=== PATIENT | male | born 1960 | race Caucasian/White ===

== ENCOUNTER 2018-07-26 16:22 | Observation (INO) | payer OTHER, SELFPAY ==
[2018-07-26] VITALS (9 sets, daily range): BP systolic 99–153; BP diastolic 57–86; PULSE 73–137; RESP 14–18; TEMP 36.7–36.9; O2SAT 95–98; BMI 49.4; BMI 49.7
--- NOTE | 2018-07-26 16:46 | EKG12_ITS ---
Test Reason : RHYTHM CHANGE Blood Pressure : / mmHG Vent. Rate : 070 BPM Atrial Rate : 070 BPM P-R Int : 152 ms QRS Dur : 088 ms QT Int : 404 ms P-R-T Axes : 040 001 021 degrees QTc Int : 436 ms Normal sinus rhythm Possible Inferior infarct , age undetermined Abnormal ECG Confirmed by ALANIS CABRERA, VIOLETTA ([id number]), newspaper or periodical editor ED BOND ([id number]) on 07/29/2018 10:50:35 AM Referred By: Sharad Ludwig Confirmed By:VIOLETTA THAPA MD
--- NOTE | 2018-07-26 16:46 | RAD_ITS ---
STUDY: X-RAY CHEST REASON FOR EXAM: Male, 58 years old. Chest pain TECHNIQUE: Single AP portable view of the chest. COMPARISON: None. FINDINGS: There are monitoring devices. The lungs are clear. There is elevation of the right hemidiaphragm. There is pleural fibrotic scarring of the left costophrenic angle. There is mild cardiac enlargement. Normal mediastinum and bonnie. Normal visualized pulmonary arteries. Normal visualized aortic arch and descending thoracic aorta. There are diffuse degenerative changes of the visualized thoracic spine. Normal visualized ribs, clavicles, and shoulders. There is no demonstrated abnormality of the visualized soft tissue structures of the upper abdomen. RAD/Chest 1 View (Portable) IMPRESSION: Degenerative changes, as described above. No demonstrated acute cardiopulmonary process. Electronically Signed: Mehdi Machuca MD at 17:45 EST , Service support ,
--- NOTE | 2018-07-26 17:09 | ED.VISSUMM ---
- ER Visit Summary Date of Service: 07/26/18 Chief Complaint: Heart racing History of Present Illness: The patient is a 58 M with history of paroxysmal atrial fibrillation presents for heart racing since last night. Patient states while he was asleep he noted his heart began racing. It has been continuous since then. He has had dry heaves today, but states he has been having them intermittently for the last 2 years. Otherwise no chest pain, shortness of breath, abdominal pain, back pain, vomiting, fever, lightheadedness or dizziness. Patient states he just feels very low energy today. He has history of diabetes and A. fib. He is on baby aspirin and metoprolol daily. He is not on anticoagulation and is not in A. fib at baseline. 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 Physical Examination: Vital signs: afebrile, hemodynamically stable, no hypoxia on room air General: well nourished, well developed, laying in bed, pale and diaphoretic, in mild distress Skin: warm, diaphoretic, pale HEENT: normocephalic and atraumatic; PERRL, EOMI, moist mucous membranes Cardiovascular: Irregularly irregular tachycardia without murmurs, no peripheral edema, 2+ pulses all distal extremities Respiratory: No increased work of breathing, lungs are clear to auscultation bilaterally, no rales, rhonchi or wheezing Abdominal: Abdomen is soft, nontender with normoactive bowel sounds, no guarding or rebound, no masses MSK: Moves all extremities, no deformities, normal strength Neuro: Awake and alert, oriented ?4. No facial droop, sensation and motor function intact and symmetric Test Results: Abnormal Lab Results 07/26/18 07/26/18 07/26/18 16:55 16:55 17:45 WBC 8.8 RBC 5.26 Hgb 15.1 Hct 46.2 MCV 87.8 MCH 28.7 MCHC 32.7 RDW 13.9 RDW Differential 44.7 H Plt Count 246 MPV 10.7 Immature Gran % (Auto) 0.300 Neut % (Auto) 66.5 Lymph % (Auto) 25.5 [place] % (Auto) 6.6 Eos % (Auto) 0.9 Baso % (Auto) 0.2 Absolute Neuts (auto) 5.8 Absolute Lymphs (auto) 2.24 Total Counted Not Reportable PT 13.9 INR 1.1 APTT 23.9 L Sodium 142 Potassium 3.8 Chloride 110 H Carbon Dioxide 24.0 Anion Gap 8 BUN 19 H Creatinine 1.22 Estim Creat Clear Calc 60.20 Est GFR (MDRD) Af Amer 78 Est GFR (MDRD) Non-Af 64 BUN/Creatinine Ratio 15.6 Glucose 164 H Calcium 9.0 Troponin I < 0.015 Clinical Impression(s) from Imaging Studies Chest X-Ray 07/26/18 16:46 IMPRESSION: Degenerative changes, as described above. No demonstrated acute cardiopulmonary process. Electronically Signed: Mehdi Machuca MD at 17:45 EST , Service support , Medications Given Discontinued Medications Aspirin (Aspirin, Baby) 324 mg PO X1 ONE Stop: 07/26/18 17:09 Last Admin: 07/26/18 17:19 Dose: 324 mg Diltiazem HCl (Cardizem) 20 mg IV BOLUS X1 ONE Stop: 07/26/18 17:09 Last Admin: 07/26/18 17:20 Dose: 20 mg Diltiazem HCl (Cardizem Cd) 120 mg PO X1 ONE Stop: 07/26/18 18:22 Emergency Department Course and Treatment: EKG shows atrial fibrillation with a rapid ventricular rate, no ischemic changes noted. Patient does appear pale and diaphoretic. Attempted vagal maneuver with patient blowing into a syringe for 30 seconds followed by laying him flat with legs elevated. Patient's heart rate slowed down briefly into the high 90s but then resumed A. fib with RVR. Patient was given Cardizem IV. Patient knows onset of his symptoms was during the night for the heart racing, however it is unclear if he could have been in normal rate atrial fibrillation prior to that. Patient is not anticoagulated. Patient had rate control after one IV bolus of Cardizem. Troponin negative. EKG showed A. fib with RVR with some nonspecific T wave inversions but no ST changes. After rate control, patient was feeling better and was no longer diaphoretic or is pale. Labs were otherwise unremarkable. Patient was discussed with Dr. Flood, who agreed that patient should be admitted for anticoagulation prior to rhythm conversion since it is unclear exactly how long he has been in atrial fibrillation. Patient was given a dose of 120 mg oral long-acting Cardizem as well as started on Eliquis. Dr. Flood will evaluate him in the morning. Patient will be discussed with the hospitalist for admission. Critical care time of 35 minutes independent of separately billable procedures for initial evaluation and stabilization, coordination of care, discussion with specialist and hospitalist, frequent re-evaluations, interpretation of EKG and lab work, and documentation. Treatment Plan: [] Disposition: [] Impression: A. fib with RVR This note was generated with [employer] dictation software. It may contain incorrect words, spelling, and punctuation that were not noted in review of the chart prior to signing ED Disposition - Plan for ED Patient: Disposition: Acute Care Hospital [facility] Chief Complaint: Palpitations
[2018-07-26 17:10] LABS: Absolute Lymphocyte Count 2.24 X10^3/ul (0.83-4.51); Absolute Neutrophil Count 5.8 X10^3/uL (2.0-7.7); Basophil# 0.02 X10^3/uL; Basophil% 0.2 % (0-1); Eosinophil# 0.08 X10^3/uL; Eosinophils% 0.9 % (0-5); Hematocrit 46.2 % (40-54); Hemoglobin 15.1 g/dl (13.0-16.5); Lymphocyte # 2.24 X10^3/ul (4.0); Lymphocyte % 25.5 % (19-41); Mean Corp Hgb Conc 32.7 g/gl (32-36); Mean Corpuscular Hgb 28.7 pg (27.0-32.0); Mean Corpuscular Volume 87.8 fL (80-94); Mean Platelet Vol. 10.7 fl (6.2-12.0); Monocyte# 0.58 X10^3/uL; Monocyte% 6.6 % (0-10); Neutrophil # 5.82 X10^3/uL (2.7-7.7); Neutrophil % 66.5 % (47-70); Platelet Count 246 K/mm3 (150-450); RBC Distribution Width CV 13.9 % (11.6-14.6); RBC Distribution Width SD 44.7 fl (35.1-43.9); Red Blood Count 5.26 M/mm3 (4.6-6.2); White Blood Count 8.8 K/mm3 (4.4-11.0)
--- NOTE | 2018-07-26 17:12 | ED.DCSUM_ITS ---
- ER Visit Summary Date of Service: 07/26/18 Chief Complaint: Heart racing History of Present Illness: The patient is a 58 M with history of paroxysmal atrial fibrillation presents for heart racing since last night. Patient states while he was asleep he noted his heart began racing. It has been continuous since then. He has had dry heaves today, but states he has been having them intermittently for the last 2 years. Otherwise no chest pain, shortness of breath, abdominal pain, back pain, vomiting, fever, lightheadedness or dizziness. Patient states he just feels very low energy today. He has history of diabetes and A. fib. He is on baby aspirin and metoprolol daily. He is not on anticoagulation and is not in A. fib at baseline. 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 Physical Examination: Vital signs: afebrile, hemodynamically stable, no hypoxia on room air General: well nourished, well developed, laying in bed, pale and diaphoretic, in mild distress Skin: warm, diaphoretic, pale HEENT: normocephalic and atraumatic; PERRL, EOMI, moist mucous membranes Cardiovascular: Irregularly irregular tachycardia without murmurs, no peripheral edema, 2+ pulses all distal extremities Respiratory: No increased work of breathing, lungs are clear to auscultation bilaterally, no rales, rhonchi or wheezing Abdominal: Abdomen is soft, nontender with normoactive bowel sounds, no guarding or rebound, no masses MSK: Moves all extremities, no deformities, normal strength Neuro: Awake and alert, oriented ?4. No facial droop, sensation and motor function intact and symmetric Test Results: Abnormal Lab Results 07/26/18 07/26/18 07/26/18 16:55 16:55 17:45 WBC 8.8 RBC 5.26 Hgb 15.1 Hct 46.2 MCV 87.8 MCH 28.7 MCHC 32.7 RDW 13.9 RDW Differential 44.7 H Plt Count 246 MPV 10.7 Immature Gran % (Auto) 0.300 Neut % (Auto) 66.5 Lymph % (Auto) 25.5 [place] % (Auto) 6.6 Eos % (Auto) 0.9 Baso % (Auto) 0.2 Absolute Neuts (auto) 5.8 Absolute Lymphs (auto) 2.24 Total Counted Not Reportable PT 13.9 INR 1.1 APTT 23.9 L Sodium 142 Potassium 3.8 Chloride 110 H Carbon Dioxide 24.0 Anion Gap 8 BUN 19 H Creatinine 1.22 Estim Creat Clear Calc 60.20 Est GFR (MDRD) Af Amer 78 Est GFR (MDRD) Non-Af 64 BUN/Creatinine Ratio 15.6 Glucose 164 H Calcium 9.0 Troponin I < 0.015 Clinical Impression(s) from Imaging Studies Chest X-Ray 07/26/18 16:46 IMPRESSION: Degenerative changes, as described above. No demonstrated acute cardiopulmonary process. Electronically Signed: Mehdi Machuca MD at 17:45 EST , Service support , Medications Given Discontinued Medications Aspirin (Aspirin, Baby) 324 mg PO X1 ONE Stop: 07/26/18 17:09 Last Admin: 07/26/18 17:19 Dose: 324 mg Diltiazem HCl (Cardizem) 20 mg IV BOLUS X1 ONE Stop: 07/26/18 17:09 Last Admin: 07/26/18 17:20 Dose: 20 mg Diltiazem HCl (Cardizem Cd) 120 mg PO X1 ONE Stop: 07/26/18 18:22 Emergency Department Course and Treatment: EKG shows atrial fibrillation with a rapid ventricular rate, no ischemic changes noted. Patient does appear pale and diaphoretic. Attempted vagal maneuver with patient blowing into a syringe for 30 seconds followed by laying him flat with legs elevated. Patient's heart rate slowed down briefly into the high 90s but then resumed A. fib with RVR. Patient was given Cardizem IV. Patient knows onset of his symptoms was during the night for the heart racing, however it is unclear if he could have been in normal rate atrial fibrillation prior to that. Patient is not anticoagulated. Patient had rate control after one IV bolus of Cardizem. Troponin negative. EKG showed A. fib with RVR with some nonspecific T wave inversions but no ST changes. After rate control, patient was feeling better and was no longer diaphoretic or is pale. Labs were otherwise unremarkable. Patient was discussed with Dr. Flood, who agreed that patient should be admitted for anticoagulation prior to rhythm conversion since it is unclear exactly how long he has been in atrial fibrillation. Patient was given a dose of 120 mg oral l raiza-acting Cardizem as well as started on Eliquis. Dr. Flood will evaluate him in the morning. Patient will be discussed with the hospitalist for admission. Critical care time of 35 minutes independent of separately billable procedures for initial evaluation and stabilization, coordination of care, discussion with specialist and hospitalist, frequent re-evaluations, interpretation of EKG and lab work, and documentation. Treatment Plan: [] Disposition: [] Impression: A. fib with RVR This note was generated with [employer] dictation software. It may contain incorrect words, spelling, and punctuation that were not noted in review of the chart prior to signing ED Disposition - Plan for ED Patient: Disposition: Acute Care Hospital [facility] Chief Complaint: Palpitations
[2018-07-26] MEDS: Aspirin 81 MG TAB.CHEW 324 MG PO (17:19)
[2018-07-26] MEDS: dilTIAZem 25 MG/5 ML Vial 20 MG IV BOLUS (17:20)
[2018-07-26 17:21] LABS: POSITIVE COUNT NO; POSITIVE DIFFERENTIAL NO; POSITIVE MORPHOLOGY NO
[2018-07-26 17:31] LABS: Anion Gap 8 (5-15); BUN 19 mg/dL (7-18); BUN/Creat Ratio 15.6 RATIO (10-20); Chloride 110 mmol/L (98-107); Creatinine, Serum 1.22 mg/dL (0.70-1.30); EST Glomerular Filtration Rate 64 mL/min (>60); Est Glom Filt Rate - Afr Amer 78 mL/min (>60); Glucose 164 mg/dL (74-106); Potassium 3.8 mmol/L (3.5-5.1); Sodium Level 142 mmol/L (136-145)
[2018-07-26 18:04] LABS: International Normalized Ratio 1.1; Prothrombin Time (Protime)PT. 13.9 SECONDS (11.7-14.9)
[2018-07-26 18:05] LABS: Partial Thromboplast Time 23.9 Seconds (24.1-36.2)
[2018-07-26] MEDS: APIXABAN 5 MG TABLET PO (18:36)
[2018-07-26] MEDS: dilTIAZem CD 120 MG Capsule PO (18:36)
--- NOTE | 2018-07-26 19:51 | HP.PCM_ITS ---
Problem List (1) Atrial fibrillation with RVR Status: Acute History of Present Illness Date of Admission: 07/26/18 Chief Complaint: fatigue The patient is a 58 year old M presents with 1 day history of fatigue. Patient awoke today just feeling very fatigued overall. Did not get better and so sought attention. Patient was noted to be in atrial fibrillation with RVR. Received 20 mg of IV diltiazem and then 120 mg of diltiazem and has been rate controlled since then. Patient additionally received 5 mg of Eliquis and turn 24 mg of aspirin. Patient states that he has had a chronic history of atrial fibrillation and was in and out of it. Patient states that he does not know when he goes into it because he just feels very fatigued but usually events are very short-lived. Patient was following up with Dr. Wasserman but since Dr. Wasserman left he has not reestablish cardiac care. Patient did state that he had a episode last day and a half but never sought attention for it. [] Past Medical History Medical History: Medical History (Last Updated 07/26/18 @ 19:48 by Sharad Ludwig DO) Afib I48.91 Allergies No Known Allergies Allergy (Verified 07/26/18 16:25) Home Medications: Ambulatory Orders Medication Instructions Recorded Aspirin E.C. [Ecotrin] 81 mg PO DAILY@0800 07/26/18 Esomeprazole Magnesium 40 mg PO QWEEK 07/26/18 Fenofibrate 160 mg PO DAILY 07/26/18 Fluticasone Propionate 2 spray NASAL DAILY 07/26/18 Metformin(XR) [Glucophage Xr] 500 mg PO DAILY 07/26/18 Metoprolol Succinate 50 mg PO DAILY 07/26/18 Multivit-Min/FA/Lycopen/Lutein 1 tab PO DAILY 07/26/18 [Centrum Silver Men Tablet] Smoking Status: Never smoker Tobacco Use: Non-smoker Alcohol: Rare Drugs: None - *Family History Maternal History Items: Heart Disease - CHF Review of Systems Constitutional: Reports: Malaise, Weakness, Fatigue. Denies: Anorexia, Chills, Fever Eyes: Denies: Blurred vision, Double vision HEENT: Denies: Head Aches, Sinus Congestion, Sinus Drainage Cardiovascular: Denies: Chest Pain, Palpitations Respiratory: Denies: Cough, Shortness of breath at rest, Sputum production Gastrointestinal: Denies: Abdominal Pain, Nausea, Vomiting Genitourinary: Denies: Dysuria Musculoskeletal: Denies: Joint Pain, Joint Tenderness Skin: Denies: Rash, Wounds Neurological: Denies: Balance problems, Change in Speech Psychiatric: Denies: Anxiety, Depression Endocrine: Denies: Change in Body Habitus, Heat/ Cold Intolerance Hematologic/ Lymphatic: Denies: Easy Bruising, Easy Bleeding, Hx of blood clot Comment: A 10 point review of systems were negative except as mentioned in the history of present illness and the other review of systems. VTE Information - Inpt Only VTE Present on Admission: No VTE Pharm Prophylaxis ordered?: Yes Patient Problems: Active and Suspected Problems Atrial fibrillation with RVR (Acute) - Physical Exam General: Alert, Cooperative, No apparent distress HEENT: Atraumatic, Normocephalic Oral: Moist Mucosa, No Gingival or Mucosal Lesions/ Ulcerations Neck: No Nodes, Thyroid Normal Size and Texture Lungs: Clear to auscultation, Normal air movement, No rhonchi, No wheeze Cardiovascular: Normal S1, Normal S2, Irregular Rate Abdomen: Bowel Sounds Present, Soft, Non Tender, Non-Distended, No Hepato- splenomegaly Extremities: No edema, No Calf Tenderness Skin: No rashes, No breakdown Musculoskeletal: No Tenderness to Palpation of Joints or Extremities, No Muscle Wasting Psych/Mental Status: Normal Affect, Appropriate Vital Signs Temp Pulse Resp BP Pulse Ox 36.9 C 91 16 99/81 H 98 07/26/18 19:04 07/26/18 19:04 07/26/18 19:04 07/26/18 19:04 07/26/18 19:04 Oxygen Delivery Method Room Air Weight: 144 kg Body Mass Index (BMI) 49.7 Laboratory Tests Past 24 Hrs 07/26/18 07/26/18 07/26/18 16:55 16:55 17:45 WBC 8.8 RBC 5.26 Hgb 15.1 Hct 46.2 MCV 87.8 MCH 28.7 MCHC 32.7 RDW 13.9 RDW Differential 44.7 H Plt Count 246 MPV 10.7 Immature Gran % (Auto) 0.300 Neut % (Auto) 66.5 Lymph % (Auto) 25.5 [place] % (Auto) 6.6 Eos % (Auto) 0.9 Baso % (Auto) 0.2 Absolute Neuts (auto) 5.8 Absolute Lymphs (auto) 2.24 Total Counted Not Reportable PT 13.9 INR 1.1 APTT 23.9 L Sodium 142 Potassium 3.8 Chloride 110 H Carbon Dioxide 24.0 Anion Gap 8 BUN 19 H Creatinine 1.22 Estim Creat Clear Calc 60.20 Est GFR (MDRD) Af Amer 78 Est GFR (MDRD) Non-Af 64 BUN/Creatinine Ratio 15.6 Glucose 164 H Calcium 9.0 Troponin I < 0.015 Assessment/Plan All Active Problems Atrial fibrillation with RVR (Acute) 1. Atrial fibrillation with RVR Currently rate controlled Continue with the patient's metoprolol succinate for now and await further cardiology recommendations on long-term management. Continue with Eliquis as his A. fib is paroxysmal Echocardiogram Cardiology consult Check records from Dr. Wasserman's office 2. DVT prophylaxis: Patient is anticoagulated Code Visit Inpatient E&M: 09067 Init Hosp L2
--- NOTE | 2018-07-26 19:58 | ECHOCS_ITS ---
Reason For Study: AFIB Procedure This was a 2D Doppler, Color Flow transthoracic echocardiogram. Contrast injection was performed. Technically difficult due to patient body habitus. Exam performed portable in patient room. Left Ventricle Normal LV size. Mild concentric left ventricular hypertrophy. Left ventricular systolic function is normal. The estimated ejection fraction is 65 %. No evidence for diastolic dysfunction. No regional wall motion abnormalities noted. Atria The left atrium is moderately enlarged. Normal right atrium. Mitral Valve Normal mitral valve. Tricuspid Valve Normal tricuspid valve. Unable to estimate RV systolic pressure due to inadequate jet, pulmonary artery pressure probably normal. Aortic Valve The aortic valve is not well visualized. Pulmonic Valve The pulmonic valve is not well visualized. Great Vessels Normal aortic root. Pericardium/Pleural No pericardial effusion. Medication Diluted definity 4ml given slow IV push to enhance endocardial definition. MMode/2D Measurements & Calculations LVIDd: 4.6 cm IVSd: 1.2 cm Ao root diam: 3.5 cm LVIDs: 2.3 cm LVPWd: 1.4 cm LA dimension: 4.1 cm RVDd: 4.6 cm FS: 50.5 % LAV(MOD-sp4): 81.3 ml LA A4 area: 25.6 cm2 RA A4 area: 17.9 cm2 Time Measurements MV dec time: 0.20 sec Doppler Measurements & Calculations MV E max gato: 82.0 cm/sec Lat Peak E' Gato: 13.0 cm/sec Med Peak E' Gato: 9.6 cm/sec MV A max gato: 53.6 cm/sec E/E' lat: 6.3 E/E' med: 8.6 MV E/A: 1.5 MV V2 max: 80.9 cm/sec MV P1/2t max gato: 81.5 cm/sec Ao V2 max: 133.5 cm/sec MV max P.6 mmHg MV P1/2t: 89.9 msec Ao max P.1 mmHg MV V2 mean: 45.8 cm/sec MV dec slope: 265.7 cm/sec2 MV mean P.96 mmHg MV V2 VTI: 22.7 cm MVA(P1/2t): 2.4 cm2 LV V1 max: 109.1 cm/sec PA V2 max: 86.7 cm/sec LV V1 max P.8 mmHg Interpretation Summary Normal LV size. Mild concentric left ventricular hypertrophy. Left ventricular systolic function is normal. The estimated ejection fraction is 65 %. No evidence for diastolic dysfunction. Contrast injection was performed. Ordering Physician: Sharad Ludwig Referring Physician: Carter Nicole Performed By: Nilson Springer RCS
--- NOTE | 2018-07-26 21:03 | EKG12_ITS ---
Test Reason : CP Blood Pressure : / mmHG Vent. Rate : 128 BPM Atrial Rate : 131 BPM P-R Int : 000 ms QRS Dur : 088 ms QT Int : 342 ms P-R-T Axes : 000 021 002 degrees QTc Int : 499 ms Atrial fibrillation with rapid ventricular response Nonspecific ST and T wave abnormality Abnormal ECG Confirmed by ALANIS CABRERA, VIOLETTA ([id number]), clinical editor ED BOND ([id number]) on 07/28/2018 3:26:10 PM Referred By: Sharad Ludwig Confirmed By:VIOLETTA THAPA MD
[2018-07-26] MEDS: 0.9% NaCl Peripheral Flush Adult/Peds IV (22:03)
[2018-07-26 22:11] LABS: Bedside Glucose 131 mg/dL (70-110)
[2018-07-27] VITALS (7 sets, daily range): BP systolic 112–125; BP diastolic 70–76; PULSE 60–76; RESP 16–18; TEMP 36.4–36.8; O2SAT 94–98
--- NOTE | 2018-07-27 06:29 | PCM.CONS.C ---
Reason for Consult Date of Consultation: 07/27/18 Reason for Consultation: Fast heartbeat. History of Present Illness: The patient is a 58 year old M presents with 1 day history of fatigue. He has a previous history of paroxysmal atrial fibrillation but was managed medically. He said that he had been started on a CPAP mask by his previous rn night to see whether it would help. On the day of presentation he woke up feeling very fatigued presented to the emergency room was noted to be in atrial fibrillation with rapid ventricular response rate. He received 20 mg of intravenous diltiazem in the ER physician called me for further assistance. It was decided to place the patient on Eliquis as well as give him a dose of oral diltiazem with hopes that he would convert in the night. He denies any chest pain or paroxysmal nocturnal dyspnea or pedal edema he has had no neck arm or jaw discomfort to suggest angina. Through the night the patient converted back to sinus rhythm. Past Medical History Allergies/Adverse Reactions: Allergies No Known Allergies Allergy (Verified 07/26/18 16:25) Home Medications: Ambulatory Orders Medication Instructions Recorded Aspirin E.C. [Ecotrin] 81 mg PO DAILY@0800 07/26/18 Esomeprazole Magnesium 40 mg PO QWEEK 07/26/18 Fenofibrate 160 mg PO DAILY 07/26/18 Fluticasone Propionate 2 spray NASAL DAILY 07/26/18 Metformin(XR) [Glucophage Xr] 500 mg PO DAILY 07/26/18 Metoprolol Succinate 50 mg PO DAILY 07/26/18 Multivit-Min/FA/Lycopen/Lutein 1 tab PO DAILY 07/26/18 [Centrum Silver Men Tablet] - *Family History Maternal History Items: Heart Disease - CHF Smoking Status: Never smoker Tobacco Use: Non-smoker Alcohol: Rare Drugs: None Review of Systems - Review of Systems General: Reports: Fatigue, Malaise. Denies: Fever, Night Sweats HEENT: Denies: Vision Change Cardiovascular: Denies: Chest Discomfort, Shortness of Breath, Orthopnea, PND, Peripheral Edema, Palpitations, Lightheadedness, Dizziness, Near Syncope, Syncope Respiratory: Denies: Cough, Sputum Production, Hemoptysis Gastrointestinal: Denies: Hematemesis, Hematochezia, Melena Genitourinary: Denies: Dysuria, Hematuria Muscoloskeletal: Denies: Myalgias Skin: Denies: Rash Neurological: Denies: Dizziness Psychiatric: Denies: Anxiety Endocrine: Denies: Unexplained Weight Loss Hematologic/ Lymphatic: Denies: Anemia Subjectve: Pleasant gentleman in no apparent distress Objective: Vital Signs Temp Pulse Resp BP Pulse Ox 97.6 F L 67 18 112/76 98 07/27/18 04:00 07/27/18 06:13 07/27/18 04:00 07/27/18 04:00 07/27/18 04:00 Oxygen Delivery Method CPAP Weight: 317 lb 7.45 oz Body Mass Index (BMI) 49.7 Intake and Output for Last 24 Hours 07/25/18 07/26/18 07/27/18 23:59 23:59 23:59 Intake Total 220 / 220 Balance 220 / 220 General: Awake, Alert, Oriented x 3 HEENT: PERRL, EOMI, Sclera Non Icteric Neck: Supple, Good ROM, No Lymph Node Enlargement Lungs: Clear to auscultation Cardiovascular: Regular Rhythm, Normal S1, Normal S2, No Murmurs, No Rubs, No Gallops Vascular: No Carotid Bruits, Normal Femoral Pulses, Normal Radial Pulses, Normal Dorsalis Pedal Pulse, Normal Posterior Tibial Pulses Abdomen: Bowel Sounds Present, Soft, Non Tender, No HSM, No Organomegaly Extremities: No Cyanosis, No Clubbing, No edema Musculoskeletal: No Erythema Skin: No Rashes Lymphatic: No Lymph Node Enlargement Neurological: No Focal Motor or Sensory Deficit Psych/Mental Status: Appropriate 07/26/18 16:55: WBC 8.8, RBC 5.26, Hgb 15.1, Hct 46.2, MCV 87.8, MCH 28.7, MCHC 32.7, RDW 13.9, RDW Differential 44.7 H, Plt Count 246, MPV 10.7, Immature Gran % (Auto) 0.300, Neut % (Auto) 66.5, Lymph % (Auto) 25.5, [place] % (Auto) 6.6, Eos % (Auto) 0.9, Baso % (Auto) 0.2, Absolute Neuts (auto) 5.8, Total Counted Not Reportable 07/26/18 16:55: Sodium 142, Potassium 3.8, Chloride 110 H, Carbon Dioxide 24.0, Anion Gap 8, BUN 19 H, Creatinine 1.22, Est GFR (MDRD) Af Amer 78, Est GFR (MDRD) Non-Af 64, BUN/Creatinine Ratio 15.6, Glucose 164 H, Calcium 9.0, Troponin I < 0.015 07/26/18 17:45: PT 13.9, INR 1.1, APTT 23.9 L Rhythm: EKG: Atrial fibrillation with a rapid ventricular response rate of 124 bpm. Subsequent EKG demonstrates normal sinus rhythm with a rate of 70 bpm. Assessment/Plan 1. Paroxysmal atrial fibrillation Patient appears to have paroxysmal atrial fibrillation. At this time with a history of hypertension as well as diabetes and his age my recommendation will be for us to continue him on Eliquis Obtain an echocardiogram to assess his left ventricular function Continue CPAP mask treatment Continue beta-rocco Can discharge later today for outpatient follow-up in my office. Thank you for allowing me to participate in the care of your patient. Please don't hesitate to call if any issues arise
--- NOTE | 2018-07-27 06:32 | CON.PCM_ITS ---
Reason for Consult Date of Consultation: 07/27/18 Reason for Consultation: Fast heartbeat. History of Present Illness: The patient is a 58 year old M presents with 1 day history of fatigue. He has a previous history of paroxysmal atrial fibrillation but was managed medically. 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 On the day of presentation he woke up feeling very fatigued presented to the emergency room was noted to be in atrial fibrillation with rapid ventricular response rate. He received 20 mg of intravenous diltiazem in the ER physician called me for further assistance. It was decided to place the patient on Eliquis as well as give him a dose of oral diltiazem with hopes that he would convert in the night. He denies any chest pain or paroxysmal nocturnal dyspnea or pedal edema he has had no neck arm or jaw discomfort to suggest angina. Through the night the patient converted back to sinus rhythm. Past Medical History Allergies/Adverse Reactions: Allergies No Known Allergies Allergy (Verified 07/26/18 16:25) Home Medications: Ambulatory Orders Medication Instructions Recorded Aspirin E.C. [Ecotrin] 81 mg PO DAILY@0800 07/26/18 Esomeprazole Magnesium 40 mg PO QWEEK 07/26/18 Fenofibrate 160 mg PO DAILY 07/26/18 Fluticasone Propionate 2 spray NASAL DAILY 07/26/18 Metformin(XR) [Glucophage Xr] 500 mg PO DAILY 07/26/18 Metoprolol Succinate 50 mg PO DAILY 07/26/18 Multivit-Min/FA/Lycopen/Lutein 1 tab PO DAILY 07/26/18 [Centrum Silver Men Tablet] - *Family History Maternal History Items: Heart Disease - CHF Smoking Status: Never smoker Tobacco Use: Non-smoker Alcohol: Rare Drugs: None Review of Systems - Review of Systems General: Reports: Fatigue, Malaise. Denies: Fever, Night Sweats HEENT: Denies: Vision Change Cardiovascular: Denies: Chest Discomfort, Shortness of Breath, Orthopnea, PND, Peripheral Edema, Palpitations, Lightheadedness, Dizziness, Near Syncope, Syncope Respiratory: Denies: Cough, Sputum Production, Hemoptysis Gastrointestinal: Denies: Hematemesis, Hematochezia, Melena Genitourinary: Denies: Dysuria, Hematuria Muscoloskeletal: Denies: Myalgias Skin: Denies: Rash Neurological: Denies: Dizziness Psychiatric: Denies: Anxiety Endocrine: Denies: Unexplained Weight Loss Hematologic/ Lymphatic: Denies: Anemia Subjectve: Pleasant gentleman in no apparent distress Objective: Vital Signs Temp Pulse Resp BP Pulse Ox 97.6 F L 67 18 112/76 98 07/27/18 04:00 07/27/18 06:13 07/27/18 04:00 07/27/18 04:00 07/27/18 04:00 Oxygen Delivery Method CPAP Weight: 317 lb 7.45 oz Body Mass Index (BMI) 49.7 Intake and Output for Last 24 Hours 07/25/18 07/26/18 07/27/18 23:59 23:59 23:59 Intake Total 220 / 220 Balance 220 / 220 General: Awake, Alert, Oriented x 3 HEENT: PERRL, EOMI, Sclera Non Icteric Neck: Supple, Good ROM, No Lymph Node Enlargement Lungs: Clear to auscultation Cardiovascular: Regular Rhythm, Normal S1, Normal S2, No Murmurs, No Rubs, No Gallops Vascular: No Carotid Bruits, Normal Femoral Pulses, Normal Radial Pulses, Normal Dorsalis Pedal Pulse, Normal Posterior Tibial Pulses Abdomen: Bowel Sounds Present, Soft, Non Tender, No HSM, No Organomegaly Extremities: No Cyanosis, No Clubbing, No edema Musculoskeletal: No Erythema Skin: No Rashes Lymphatic: No Lymph Node Enlargement Neurological: No Focal Motor or Sensory Deficit Psych/Mental Status: Appropriate 07/26/18 16:55: WBC 8.8, RBC 5.26, Hgb 15.1, Hct 46.2, MCV 87.8, MCH 28.7, MCHC 32.7, RDW 13.9, RDW Differential 44.7 H, Plt Count 246, MPV 10.7, Immature Gran % (Auto) 0.300, Neut % (Auto) 66.5, Lymph % (Auto) 25.5, [place] % (Auto) 6.6, Eos % (Auto) 0.9, Baso % (Auto) 0.2, Absolute Neuts (auto) 5.8, Total Counted Not Reportable 07/26/18 16:55: Sodium 142, Potassium 3.8, Chloride 110 H, Carbon Dioxide 24.0, Anion Gap 8, BUN 19 H, Creatinine 1.22, Est GFR (MDRD) Af Amer 78, Est GFR (MDRD) Non-Af 64, BUN/Creatinine Ratio 15.6, Glucose 164 H, Calcium 9.0, Troponin I < 0.015 07/26/18 17:45: PT 13.9, INR 1.1, APTT 23.9 L Rhythm: EKG: Atrial fibrillation with a rapid ventricular response rate of 124 bpm. Subsequent EKG demonstrates normal sinus rhythm with a rate of 70 bpm. Assessment/Plan 1. Paroxysmal atrial fibrillation * Patient appears to have paroxysmal atrial fibrillation. At this time with a history of hypertension as well as diabetes and his age my recommendation will be for us to continue him on Eliquis * Obtain an echocardiogram to assess his left ventricular function * Continue CPAP mask treatment * Continue beta-rocco * * Can discharge later today for outpatient follow-up in my office. * * Thank you for allowing me to participate in the care of your patient. Please don't hesitate to call if any issues arise
[2018-07-27 06:41] LABS: Bedside Glucose 123 mg/dL (70-110)
[2018-07-27 06:43] LABS: Thyroid Stim Hormone (TSH) 2.56 uIU/mL (0.358-3.74)
[2018-07-27] MEDS: Fluticasone 0.05% 1 SPRAY NASAL.SRY 2 SPRAY NASAL (09:22)
[2018-07-27] MEDS: APIXABAN 5 MG TABLET PO (09:23)
[2018-07-27] MEDS: Pantoprazole Sodium 40 MG Tablet PO (09:23)
[2018-07-27] MEDS: Multivitamins,Ther W-Minerals Tablet 1 TABLET PO (09:23)
[2018-07-27] MEDS: Metoprolol(XL)Succ 50 MG Tablet PO (09:23)
[2018-07-27] MEDS: Fenofibrate 145 MG Tablet PO (09:23)
--- NOTE | 2018-07-27 11:29 | DCINST_ITS ---
- Discharge Diagnoses Current Active Problems: Current Active and Chronic Problems (Last Updated 07/26/18 @ 19:48 by Sharad Ludwig DO) Atrial fibrillation with RVR (Acute) You will use the following diet at home:: Calorie/Carbohydrate Controlled (specify 1200, 1400, etc), Cardiac Discharge Activity: Return to Normal Activity Call your doctor if you observe: Shortness of breath, Dizziness, Fainting spells, Increased palpitations (irregular heartbeat) Allergies/Adverse Reactions: Allergies No Known Allergies Allergy (Verified 07/26/18 16:25) Medications to take at Discharge Esomeprazole Magnesium 40 mg PO QWEEK 07/26/18 Fenofibrate 160 mg PO DAILY 07/26/18 Fluticasone Propionate 2 spray NASAL DAILY 07/26/18 Metformin(XR) [Glucophage Xr] 500 mg PO DAILY 07/26/18 Metoprolol Succinate 50 mg PO DAILY 07/26/18 Multivit-Min/FA/Lycopen/Lutein [Centrum Silver Men Tablet] 1 tab PO DAILY 07/26/18 Apixaban [Eliquis] 5 mg PO BID@ #60 tablet 07/27/18 The following prescriptions were given: Apixaban [Eliquis] 5 mg PO BID@799,1999 #60 tablet Primary Care Physician: Emir Seals MD [STAFF PHYSICIAN] - Please follow up with your Primary Care Physician in: 1 Week Test Results: Test results from this visit will be discussed in further detail at your follow- up appointment, if applicable. Please Follow Up With: Guicho Flood MD When: 1-2 Weeks Proposed Discharge Date: 07/27/18
--- NOTE | 2018-07-27 11:44 | DS.PCM_ITS ---
<Kyung Hayes - Last Filed: 07/27/18 11:44> Discharge Date and Diagnosis Date of Admission: 07/26/18 Date of Discharge: 07/27/18 - Primary Discharge Diagnosis Active and Suspected Problems (Last Updated 07/26/18 @ 19:48 by Sharad Ludwig DO) 1. Paroxysmal atrial fibrillation with RVR 2. Hypertension 3. Hyperlipidemia 4. Type 2 diabetes mellitus 5. Morbid obesity 6. COLEMAN Hospital Course and Treatment Imaging Results: Diagnostic Data Chest X-Ray 07/26/18 16:46 IMPRESSION: Degenerative changes, as described above. No demonstrated acute cardiopulmonary process. Electronically Signed: Mehdi Machuca MD at 17:45 EST , Service support , Dr. Flood- Cardiology Operations: None Procedures: 2-D Echocardiogram Summary of Care Provided: The patient is a 58 year old M admitted 07/26/2017 due to fatigue. Noted to have atrial fibrillation with RVR on admission. Patient received IV Cardizem bolus with conversion to sinus rhythm. Patient has remained in sinus rhythm since last night. Cardiology consulted. Troponin negative. TSH within normal limits. Patient was recommended to start on Eliquis per cardiology. Discharged on Eliquis 5 mg p.o. twice daily. Continue home metoprolol regimen. Echocardiogram shows an EF of 65%, mild left ventricular hypertrophy, no evidence of diastolic dysfunction.. Patient followed prior with Dr. Wasserman who has since retired. Will follow with Dr. Flood going forward. Follow-up with primary care physician in 1 week. Follow-up with cardiology in 1-2 weeks. Patient's past medical history includes paroxysmal atrial fibrillation, hypertension, hyperlipidemia, type 2 diabetes mellitus, morbid obesity, COLEMAN. Recommend continued use of CPAP. Other chronic medical conditions stable at this time. General: Alert, Cooperative, No apparent distress HEENT: Atraumatic, Normocephalic Oral: Moist Mucosa Neck: No Nodes, Thyroid Normal Size and Texture Lungs: Clear to auscultation, Normal air movement Cardiovascular: Normal S1, Normal S2, Irregular Rate Abdomen: Bowel Sounds Present, Soft, Non Tender, Non-Distended, obese Extremities: No edema, No Calf Tenderness Skin: No rashes, No breakdown Musculoskeletal: No Tenderness to Palpation of Joints or Extremities, No Muscle Wasting Psych/Mental Status: Normal Affect, Appropriate Patient seen and examined prior to discharge. Physical assessment as noted jesus alberto lyle. Patient is stable for discharge with follow up recommendations as noted above. This patient was seen by JOSE Wynne under the supervision of Dr. Ochoa. - Physical Exam Vital Signs Temp Pulse Resp BP Pulse Ox 98.2 F 60 16 125/70 H 94 07/27/18 09:22 07/27/18 10:58 07/27/18 09:22 07/27/18 09:22 07/27/18 09:22 Oxygen Delivery Method Room Air Weight: 317 lb 7.45 oz Body Mass Index (BMI) 49.7 Intake and Output for Last 24 Hours 07/25/18 07/26/18 07/27/18 23:59 23:59 23:59 Intake Total 700 / 700 Balance 700 / 700 Laboratory Tests Past 24 Hrs 07/26/18 07/26/18 07/26/18 16:55 16:55 17:45 WBC 8.8 RBC 5.26 Hgb 15.1 Hct 46.2 MCV 87.8 MCH 28.7 MCHC 32.7 RDW 13.9 RDW Differential 44.7 H Plt Count 246 MPV 10.7 Immature Gran % (Auto) 0.300 Neut % (Auto) 66.5 Lymph % (Auto) 25.5 [place] % (Auto) 6.6 Eos % (Auto) 0.9 Baso % (Auto) 0.2 Absolute Neuts (auto) 5.8 Absolute Lymphs (auto) 2.24 Total Counted Not Reportable PT 13.9 INR 1.1 APTT 23.9 L Sodium 142 Potassium 3.8 Chloride 110 H Carbon Dioxide 24.0 Anion Gap 8 BUN 19 H Creatinine 1.22 Estim Creat Clear Calc 60.20 Est GFR (MDRD) Af Amer 78 Est GFR (MDRD) Non-Af 64 BUN/Creatinine Ratio 15.6 Glucose 164 H Calcium 9.0 Troponin I < 0.015 TSH 07/27/18 05:20 WBC RBC Hgb Hct MCV MCH MCHC RDW RDW Differential Plt Count MPV Immature Gran % (Auto) Neut % (Auto) Lymph % (Auto) [place] % (Auto) Eos % (Auto) Baso % (Auto) Absolute Neuts (auto) Absolute Lymphs (auto) Total Counted PT INR APTT Sodium Potassium Chloride Carbon Dioxide Anion Gap BUN Creatinine Estim Creat Clear Calc Est GFR (MDRD) Af Amer Est GFR (MDRD) Non-Af BUN/Creatinine Ratio Glucose Calcium Troponin I TSH 2.56 POC Glucose 07/27/18 07/26/18 06:28 22:00 POC Glucose 123 H 131 H Discharge Diet: Low fat/ Low Cholesterol, 1800 Calorie Control Diet, Carb Control Diet Discharge Activity: Return to Normal Activity Call your doctor if you observe: Shortness of breath, Dizziness, Fainting spells, Increased palpitations (irregular heartbeat) Home Medications: Medications to take at Discharge Esomeprazole Magnesium 40 mg PO QWEEK 07/26/18 Fenofibrate 160 mg PO DAILY 07/26/18 Fluticasone Propionate 2 spray NASAL DAILY 07/26/18 Metformin(XR) [Glucophage Xr] 500 mg PO DAILY 07/26/18 Metoprolol Succinate 50 mg PO DAILY 07/26/18 Multivit-Min/FA/Lycopen/Lutein [Centrum Silver Men Tablet] 1 tab PO DAILY 07/26/18 Apixaban [Eliquis] 5 mg PO BID@0800,1999 #60 tablet 07/27/18 Following Prescrptions Were Given to Patient: Apixaban [Eliquis] 5 mg PO BID@799,1999 #60 tablet Primary Care Physician: Emir Seals MD [STAFF PHYSICIAN] - Please follow up with your Primary Care Physician in: 1 Week Please Follow Up With: Guicho Flood MD When: 1-2 Weeks Disposition: Home Minutes spent on discharge:: 35 Patient Condition:: Stable Medical Necessity - Tobacco Use Smoking Status: Never smoker Tobacco Use: Non-smoker Meaningful Use Info Meaningful Use Diagnoses (Choose all that apply): None applicable <Huma Ochoa - Last Filed: 07/27/18 14:08> Hospital Course and Treatment Summary of Care Provided: Patient seen by Kyung GARCIA under my supervision. The patient is a 58 year old M was admitted with a complaint of fatigue and palpitations. On admission was noted to have A. fib with RVR and received IV Cardizem bolus. He subsequently converted back to sinus rhythm. He does have a history of paroxysmal A. fib. Troponins were negative and TSH was within normal limits. Cardiology was consulted and he was started on Eliquis. Patient remained stable and was discharged home on p.o. Eliquis as well as his home metoprolol dose. He had a 2D echo showed EF of 65% and mild left ventricular hypertrophy. He is to follow-up with cardiology and his primary care doctor. Patient seen and examined prior to discharge. He had no complaints and felt well. He denied any palpitations or chest pain dizziness, abdominal pain, diarrhea vomiting. 12 point review of systems otherwise negative. Labs and vitals reviewed. Home medications reviewed and reconciled. On examination: Vital Signs Height 5 ft 7 in Weight: 317 lb 7.45 oz Weight in Pounds 317.5 lbs Pulse Ox 94 Temperature 98.2 F Pulse Rate 60 Respiratory Rate 16 Blood Pressure 125/70 Blood Pressure Position Semi-Fowlers [] General: Alert, Cooperative, No apparent distress, morbidly obese HEENT: Atraumatic, Normocephalic Oral: Moist Mucosa Neck: No Nodes, Thyroid Normal Size and Texture Lungs: Clear to auscultation, Normal air movement Cardiovascular: Normal S1, Normal S2, Irregular Rate Abdomen: Bowel Sounds Present, Soft, Non Tender, Non-Distended, obese Extremities: No edema, No Calf Tenderness Skin: No rashes, No breakdown Musculoskeletal: No Tenderness to Palpation of Joints or Extremities, No Muscle Wasting Psych/Mental Status: Normal Affect, Appropriate Plan as described above. Also counseled to be compliant with his CPAP machine. Rest of management as per Kyung Hayes NP C's note which I have reviewed and agree with. - Physical Exam Vital Signs Temp Pulse Resp BP Pulse Ox 98.2 F 60 16 125/70 H 94 07/27/18 09:22 07/27/18 10:58 07/27/18 09:22 07/27/18 09:22 07/27/18 09:22 Oxygen Delivery Method Room Air Weight: 317 lb 7.45 oz Body Mass Index (BMI) 49.7 Intake and Output for Last 24 Hours 07/25/18 07/26/18 07/27/18 23:59 23:59 23:59 Intake Total 700 / 700 Balance 700 / 700 Laboratory Tests Past 24 Hrs 07/26/18 07/26/18 07/26/18 16:55 16:55 17:45 WBC 8.8 RBC 5.26 Hgb 15.1 Hct 46.2 MCV 87.8 MCH 28.7 MCHC 32.7 RDW 13.9 RDW Differential 44.7 H Plt Count 246 MPV 10.7 Immature Gran % (Auto) 0.300 Neut % (Auto) 66.5 Lymph % (Auto) 25.5 [place] % (Auto) 6.6 Eos % (Auto) 0.9 Baso % (Auto) 0.2 Absolute Neuts (auto) 5.8 Absolute Lymphs (auto) 2.24 Total Counted Not Reportable PT 13.9 INR 1.1 APTT 23.9 L Sodium 142 Potassium 3.8 Chloride 110 H Carbon Dioxide 24.0 Anion Gap 8 BUN 19 H Creatinine 1.22 Estim Creat Clear Calc 60.20 Est GFR (MDRD) Af Amer 78 Est GFR (MDRD) Non-Af 64 BUN/Creatinine Ratio 15.6 Glucose 164 H Calcium 9.0 Troponin I < 0.015 TSH 07/27/18 05:20 WBC RBC Hgb Hct MCV MCH MCHC RDW RDW Differential Plt Count MPV Immature Gran % (Auto) Neut % (Auto) Lymph % (Auto) [place] % (Auto) Eos % (Auto) Baso % (Auto) Absolute Neuts (auto) Absolute Lymphs (auto) Total Counted PT INR APTT Sodium Potassium Chloride Carbon Dioxide Anion Gap BUN Creatinine Estim Creat Clear Calc Est GFR (MDRD) Af Amer Est GFR (MDRD) Non-Af BUN/Creatinine Ratio Glucose Calcium Troponin I TSH 2.56 POC Glucose 07/27/18 07/26/18 06:28 22:00 POC Glucose 123 H 131 H Code Visit Inpatient E&M: 00668 Disch Hosp
--- NOTE | 2018-07-27 11:49 | CASEMGMT ---
Per David SENIOR IT AUDITOR, pt to be sent home on Eliquis at discharge and script [facility]. Call to [facility]ist and per pharmacist, pt's co-pay is $85.91. This RN CM to room to inform pt and pt/ voice understanding. Pt provided with Eliquis $10 co-pay card and instructions on use at this time. Pt and voice understanding and voice no further questions/concerns/needs at this time. Jerry RN CM
== END 2018-07-27 11:29 | disposition home or self-care (01) ==
LOC: ED 17:14 → PCU 18:47
PROVIDERS: Emergency Provider Emergency Medicine; Family Provider Family Medicine; PCP Family Medicine; Visit Provider Student in an Organized Health Care Education/Training Program
DX: I48.0 Paroxysmal atrial fibrillation (principal); I10 Essential (primary) hypertension; E78.5 Hyperlipidemia, unspecified; E11.9 Type 2 diabetes mellitus without complications; G47.33 Obstructive sleep apnea (adult) (pediatric); E66.01 Morbid (severe) obesity due to excess calories; Z68.42 Body mass index [BMI] 45.0-49.9, adult; Z71.3 Dietary counseling and surveillance; Z79.84 Long term (current) use of oral hypoglycemic drugs; Z79.899 Other long term (current) drug therapy; Z79.51 Long term (current) use of inhaled steroids; Z79.82 Long term (current) use of aspirin
CPT/HCPCS: 36415; 71045; 80048; 82962; 84443; 84484; 85025; 85610; 85730; 93005; 93306; 96374; 99218; 99283; Q9957; A4216; C8929; G0378

== ENCOUNTER 2018-08-08 13:41 | Observation (INO) | payer OTHER, SELFPAY ==
[2018-07-26 19:03] VITALS: BMI 49.7
[2018-08-08] VITALS (14 sets, daily range): BP systolic 92–135; BP diastolic 51–105; PULSE 63–125; RESP 14–17; TEMP 36.7–37.2; O2SAT 94–97; BMI 50.2; BMI 50.1
--- NOTE | 2018-08-08 13:56 | RAD_ITS ---
STUDY: X-RAY CHEST REASON FOR EXAM: Male, 58 years old. Chest pain with palpitations TECHNIQUE: AP COMPARISON: 07/26/2018 FINDINGS: EKG leads project over the chest. The lungs are clear and expanded. There is no demonstrated pleural abnormality. Normal size heart. Normal mediastinum and bonnie. Normal visualized pulmonary arteries. Normal visualized aortic arch and descending thoracic aorta. Normal visualized thoracic spine. Normal visualized ribs, clavicles, and shoulders. There is no demonstrated abnormality of the visualized soft tissue structures of the upper abdomen. RAD/Chest 1 View (Portable) IMPRESSION: Stable, nonacute portable x-ray examination of the chest. Electronically Signed: Jaylon Andre MD at 14:28 EST , Service support ,
--- NOTE | 2018-08-08 13:56 | EKG12_ITS ---
Test Reason : PALPATIONS Blood Pressure : / mmHG Vent. Rate : 123 BPM Atrial Rate : 131 BPM P-R Int : 000 ms QRS Dur : 086 ms QT Int : 338 ms P-R-T Axes : 000 010 019 degrees QTc Int : 483 ms Atrial fibrillation with rapid ventricular response with premature ventricular or aberrantly conducte d complexes Nonspecific T wave abnormality Abnormal ECG Confirmed by HEENA CABRERA, EFREN ([id number]), supervising editor news reel SHOAIB GALEANA ([id number]) on 08/10/2018 1:02:15 PM Referred By: MR Confirmed By:EFREN NAIK MD
[2018-08-08 14:06] LABS: Bedside Glucose 121 mg/dL (70-110)
[2018-08-08] MEDS: Metoprolol Tartrate 5 MG/5 ML Vial IV ×3 (14:09→14:23)
[2018-08-08 14:11] LABS: Absolute Lymphocyte Count 2.63 X10^3/ul (0.83-4.51); Absolute Neutrophil Count 4.8 X10^3/uL (2.0-7.7); Basophil# 0.03 X10^3/uL; Basophil% 0.4 % (0-1); Eosinophil# 0.17 X10^3/uL; Hematocrit 45.1 % (40-54); Hemoglobin 15.2 g/dl (13.0-16.5); Lymphocyte # 2.63 X10^3/ul (4.0); Lymphocyte % 31.3 % (19-41); Mean Corp Hgb Conc 33.7 g/gl (32-36); Mean Corpuscular Hgb 29.2 pg (27.0-32.0); Mean Corpuscular Volume 86.6 fL (80-94); Mean Platelet Vol. 10.5 fl (6.2-12.0); Monocyte# 0.72 X10^3/uL; Monocyte% 8.6 % (0-10); Neutrophil # 4.82 X10^3/uL (2.7-7.7); Neutrophil % 57.5 % (47-70); Platelet Count 289 K/mm3 (150-450); RBC Distribution Width CV 13.9 % (11.6-14.6); Red Blood Count 5.21 M/mm3 (4.6-6.2); White Blood Count 8.4 K/mm3 (4.4-11.0)
[2018-08-08 14:12] LABS: POSITIVE COUNT NO; POSITIVE DIFFERENTIAL NO; POSITIVE MORPHOLOGY NO
[2018-08-08 14:14] LABS: International Normalized Ratio 1.1; Prothrombin Time (Protime)PT. 14.1 SECONDS (11.7-14.9)
[2018-08-08 14:15] LABS: Partial Thromboplast Time 27.5 Seconds (24.1-36.2)
[2018-08-08 14:23] LABS: Anion Gap 8 (5-15); BUN 16 mg/dL (7-18); BUN/Creat Ratio 10.7 RATIO (10-20); Calcium,Total 8.8 mg/dL (8.5-10.1); Chloride 112 mmol/L (98-107); EST Glomerular Filtration Rate 51 mL/min (>60); Est Glom Filt Rate - Afr Amer 61 mL/min (>60); Estimated Creatinine Clearance 48.96 ml/min; Glucose 112 mg/dL (74-106); Potassium 4.3 mmol/L (3.5-5.1); Sodium Level 143 mmol/L (136-145)
[2018-08-08 14:36] LABS: BNP,B-Type NATRIURETIC PEPTIDE 138.4 pg/mL (0-100)
--- NOTE | 2018-08-08 14:59 | PCM.HP.STD ---
Problem List (1) Atrial fibrillation with RVR Status: Acute (2) Hypertension Status: Chronic Qualifiers: Hypertension type: essential hypertension Qualified Code(s): I10 - Essential (primary) hypertension (3) DM type 2 (diabetes mellitus, type 2) Status: Acute Qualifiers: Diabetes mellitus moth exterminator insulin use: without fpc use Diabetes mellitus complication status: with unspecified complications Qualified Code(s): E11.8 - Type 2 diabetes mellitus with unspecified complications (4) Hyperlipidemia Status: Acute Qualifiers: Hyperlipidemia type: unspecified Qualified Code(s): E78.5 - Hyperlipidemia, unspecified (5) COLEMAN on CPAP Status: Chronic (6) Morbid obesity Status: Chronic History of Present Illness Date of Admission: 08/08/18 Chief Complaint: Palpitations - 1 day The patient is a 58 year old M with past medical history of type II DM, hypertension, hyperlipidemia, morbid obesity, COLEMAN on CPAP who was recently admitted and discharged on 07/27/2018 with paroxysmal atrial fibrillation with RVR. Patient at that time improved with Cardizem drip. He was seen by printed circuit boards router. He has subsequently since discharge been in to see his primary care doctor. He is yet to make him to see cardiology in August 2018. This morning he woke up with complaints of palpitations. He always feels it when he goes into A. fib with RVR. He took an extra dose of metoprolol, palpitations still persisted. He complains also of some dizziness. Denies any chest pain or leg swelling no orthopnea or PND. In the emergency department, his temperature is 98.4 F, heart rate was 72 but rapidly improved to 125, blood pressure 119/72, SPO2 is 97% on room air. His admitting blood work showed normal CBC D, BMP was significant for creatinine of 1.50, previous creatinine was 1.22, BNP was 138. EKG shows A. fib with RVR Past Medical History Past Medical History (Chronic Problems): Chronic Problems (Last Updated 07/26/18 @ 19:48 by Sharad Ludwig DO) Hypertension (Chronic) COLEMAN on CPAP (Chronic) Morbid obesity (Chronic) Medical History: Medical History (Last Updated 07/26/18 @ 19:48 by Sharad Ludwig DO) Afib I48.91 Allergies No Known Allergies Allergy (Verified 08/08/18 13:42) Home Medications: Ambulatory Orders Medication Instructions Recorded Esomeprazole Magnesium 40 mg PO QWEEK 07/26/18 Fenofibrate 160 mg PO DAILY 07/26/18 Fluticasone Propionate 2 spray NASAL DAILY 07/26/18 Metformin(XR) [Glucophage Xr] 500 mg PO DAILY 07/26/18 Metoprolol Succinate 50 mg PO DAILY 07/26/18 Multivit-Min/FA/Lycopen/Lutein 1 tab PO DAILY 07/26/18 [Centrum Silver Men Tablet] Apixaban [Eliquis] 5 mg PO BID@0800,2000 #60 tablet 07/27/18 Surgical History: no surgical history Psychiatric History: No pertinent psych hx Lives: Spouse/ Significant Other, With Family Smoking Status: Never smoker Tobacco Use: Non-smoker Alcohol: Occasional Drugs: None - *Family History Maternal History Items: Heart Disease - CHF Paternal History Items: No pertinent history Review of Systems Constitutional: Reports: Fatigue. Denies: Anorexia, Chills, Fever, Weakness, Weight Change Eyes: Denies: Blurred vision, Cataracts, Conjunctivae Inflammation, Pain, Redness HEENT: Denies: Head Aches, Hearing Changes, Nasal bleeding, Sinus Congestion, Sinus Drainage Cardiovascular: Reports: Light Headedness, Palpitations. Denies: Chest Pain, Claudication, Orthopnea, Paroxysmal Noc. Dyspnea Respiratory: Denies: Cough, Shortness of Breath, Shortness of breath at rest, Shortness of breath upon exertion, Sputum production Gastrointestinal: Denies: Abdominal Pain, Constipation, Hematochezia, Nausea, Vomiting Genitourinary: Denies: Dysuria, Frequency, Incontinence Musculoskeletal: Denies: Joint Pain, Joint stiffness, Joint swelling, Joint Tenderness Skin: Denies: Rash, Wounds Neurological: Denies: Difficulty swallowing, Focal weakness, Numbness, Tingling Psychiatric: Denies: Anxiety, Depression, Homicidal Ideations, Suicidal Ideations Hematologic/ Lymphatic: Denies: Easy Bruising, Easy Bleeding VTE Information - Inpt Only VTE Present on Admission: No VTE Pharm Prophylaxis ordered?: Yes Patient Problems: Active and Suspected Problems (Last Updated 07/26/18 @ 19:48 by Sharad Ludwig DO) DM type 2 (diabetes mellitus, type 2) (Acute) Hyperlipidemia (Acute) - Physical Exam General: Alert, Oriented x3, Cooperative, No apparent distress, - - morbidly obese HEENT: Atraumatic, PERRLA, EOMI, Normocephalic Oral: Moist Mucosa Neck: Supple, No JVD, Negative Carotid Bruits Lungs: Clear to auscultation, Normal air movement Cardiovascular: Regular rate, Regular Rhythm, Normal S1, Normal S2, No murmurs Abdomen: Bowel Sounds Present, Soft, Non Tender, Non-Distended, No Hepato-splenomegaly, Obese Extremities: No edema Skin: No rashes, No breakdown Musculoskeletal: No Tenderness to Palpation of Joints or Extremities Lymphatic: No Cervical, Supraclavicular, or Inguinal Adenopathy Neurological: Cranial nerves II-XII grossly intact, Neuro grossly intact Psych/Mental Status: Normal Affect, Appropriate Vital Signs Temp Pulse Resp BP Pulse Ox 98.4 F 118 H 14 132/105 H 94 08/08/18 13:42 08/08/18 14:56 08/08/18 14:56 08/08/18 14:56 08/08/18 14:56 Oxygen Flow Rate (L/min) 2 Oxygen Delivery Method Nasal Cannula Weight: 145.5 kg Body Mass Index (BMI) 50.2 Laboratory Tests Past 24 Hrs 08/08/18 08/08/18 08/08/18 13:55 13:55 13:55 WBC 8.4 RBC 5.21 Hgb 15.2 Hct 45.1 MCV 86.6 MCH 29.2 MCHC 33.7 RDW 13.9 RDW Differential 44.0 H Plt Count 289 MPV 10.5 Immature Gran % (Auto) 0.200 Neut % (Auto) 57.5 Lymph % (Auto) 31.3 [place] % (Auto) 8.6 Eos % (Auto) 2.0 Baso % (Auto) 0.4 Absolute Neuts (auto) 4.8 Absolute Lymphs (auto) 2.63 Total Counted Not Reportable PT 14.1 INR 1.1 APTT 27.5 Sodium 143 Potassium 4.3 Chloride 112 H Carbon Dioxide 23.0 Anion Gap 8 BUN 16 Creatinine 1.50 H Estim Creat Clear Calc 48.96 Est GFR (MDRD) Af Amer 61 Est GFR (MDRD) Non-Af 51 L BUN/Creatinine Ratio 10.7 Glucose 112 H Calcium 8.8 Troponin I < 0.015 B-Natriuretic Peptide 08/08/18 13:55 WBC RBC Hgb Hct MCV MCH MCHC RDW RDW Differential Plt Count MPV Immature Gran % (Auto) Neut % (Auto) Lymph % (Auto) [place] % (Auto) Eos % (Auto) Baso % (Auto) Absolute Neuts (auto) Absolute Lymphs (auto) Total Counted PT INR APTT Sodium Potassium Chloride Carbon Dioxide Anion Gap BUN Creatinine Estim Creat Clear Calc Est GFR (MDRD) Af Amer Est GFR (MDRD) Non-Af BUN/Creatinine Ratio Glucose Calcium Troponin I B-Natriuretic Peptide 138.4 H POC Glucose 08/08/18 14:00 POC Glucose 121 H Assessment/Plan All Active Problems (Last Updated 07/26/18 @ 19:48 by Sharad Ludwig DO) DM type 2 (diabetes mellitus, type 2) (Acute) Hyperlipidemia (Acute) Atrial fibrillation with RVR (Acute) 58 year old M with past medical history of type II DM, hypertension, hyperlipidemia, morbid obesity, COLEMAN on CPAP who was recently admitted and discharged on 07/27/2018 with paroxysmal atrial fibrillation with RVR. 1. Atrial fibrillation with RVR, patient with paroxysmal atrial fibrillation, on metoprolol, Eliquis, currently on Cardizem drip in the ED, Plan: Admit to PCU, monitor on telemetry, continue Cardizem drip, metoprolol, Eliquis, monitor vitals closely, cardiology consult 2. Hypertension, controlled, continue metoprolol, Cardizem, monitor blood pressure closely for hypotension 3. Hyperlipidemia, on fenofibrate, will check lipid profile in a.m. 4. Type 2 diabetes mellitus, on metformin, will hold metformin in light of dehydration, will continue with Accu-Cheks with insulin sliding scale to cover 5. Morbid obesity, BMI 50.2, diet and exercise recommended 6. COLEMAN on Cpap 7. Dehydration, elevation in creatinine from 1.2 to 1.50, not MOHINDER, will gently hydrate, recheck blood work in a.m. 8. DVT PPx- on Eliquis Code Visit Inpatient E&M: 06188 Init Hosp L3
--- NOTE | 2018-08-08 15:15 | ED.VISSUMM ---
- ER Visit Summary Date of Service: 08/08/18 Chief Complaint: Palpitations History of Present Illness: The patient is a 58 M presenting for evaluation secondary to palpitations. Patient has an underlying history of paroxysmal A. fib. He actually was admitted on the eighth of this month for a episode of this that was severe. Patient currently is only on metoprolol 50 mg daily as a antiarrhythmic and is anticoagulated. Patient states that today he had a sudden onset of palpitations. It is associated with some chest pain. No exacerbating relieving factors. No recent illnesses. Review of systems otherwise negative. Physical Examination: Vital signs notable for a heart rate of 123. Obese male somewhat diaphoretic. Head normocephalic. Moist mucous membranes. No JVD. Heart irregular and tachycardic. Lung sounds clear abdomen soft nontender. Peripheral pulses 2+ and symmetric. Remainder physical otherwise unremarkable. Test Results: EKG demonstrates A. fib rate of 123 with nonspecific T wave changes unchanged from prior EKG. CBC chemistry and coagulation studies unremarkable, troponin negative BNP mildly elevated at 130. Chest x-ray shows no acute pathology. Emergency Department Course and Treatment: Patient presented with atrial fibrillation and rapid ventricular rate. He is already on a beta-rocco, so beta-rocco was continued and he was given Lopressor x3. This did not slow his rate initially. I contacted the patient's textile machine maintenance mechanic Dr. Flood who recommended starting the patient on a Cardizem drip and admitting the patient. Patient was started on a Cardizem drip. Prior to reaching the floor, the patient did enter normal sinus rhythm. Disposition: Admission Impression: 1. Atrial fibrillation with rapid ventricular rate 2. Chemical cardioversion Critical care time 35 minutes This note was generated with [employer] dictation software. It may contain incorrect words, spelling, and punctuation that were not noted in review of the chart prior to signing ED Disposition - Plan for ED Patient: Chief Complaint: Palpitations Referrals: Carter Nicole MD [Primary Care Provider] -
--- NOTE | 2018-08-08 15:19 | ED.DCSUM_ITS ---
- ER Visit Summary Date of Service: 08/08/18 Chief Complaint: Palpitations History of Present Illness: The patient is a 58 M presenting for evaluation secondary to palpitations. Patient has an underlying history of paroxysmal A. fib. He actually was admitted on the eighth of this month for a episode of this that was severe. Patient currently is only on metoprolol 50 mg daily as a antiarrhythmic and is anticoagulated. Patient states that today he had a sudden onset of palpitations. It is associated with some chest pain. No exacerbating relieving factors. No recent illnesses. Review of systems otherwise negative. Physical Examination: Vital signs notable for a heart rate of 123. Obese male somewhat diaphoretic. Head normocephalic. Moist mucous membranes. No JVD. Heart irregular and tachycardic. Lung sounds clear abdomen soft nontender. Peripheral pulses 2+ and symmetric. Remainder physical otherwise unremarkable. Test Results: EKG demonstrates A. fib rate of 123 with nonspecific T wave changes unchanged from prior EKG. CBC chemistry and coagulation studies unremarkable, troponin negative BNP mildly elevated at 130. Chest x-ray shows no acute pathology. Emergency Department Course and Treatment: Patient presented with atrial fibrillation and rapid ventricular rate. He is already on a beta-rocco, so beta-rocco was continued and he was given Lopressor x3. This did not slow his rate initially. I contacted the patient's stave inspector Dr. Flood who recommended starting the patient on a Cardizem drip and admitting the patient. Patient was started on a Cardizem drip. Prior to reaching the floor, the patient did enter normal sinus rhythm. Disposition: Admission Impression: 1. Atrial fibrillation with rapid ventricular rate 2. Chemical cardioversion Critical care time 35 minutes This note was generated with [employer] dictation software. It may contain incorrect words, spelling, and punctuation that were not noted in review of the chart prior to signing ED Disposition - Plan for ED Patient: Chief Complaint: Palpitations Referrals: Carter Nicole MD [Primary Care Provider] -
--- NOTE | 2018-08-08 15:22 | EKG12_ITS ---
Test Reason : REPEAT EKG Blood Pressure : / mmHG Vent. Rate : 066 BPM Atrial Rate : 066 BPM P-R Int : 144 ms QRS Dur : 086 ms QT Int : 412 ms P-R-T Axes : 033 011 036 degrees QTc Int : 431 ms Normal sinus rhythm Normal ECG Confirmed by ALANIS CABRERA, VIOLETTA ([id number]), editor managing newspaper ED BOND ([id number]) on 08/17/2018 3:07:10 PM Referred By: MR Confirmed By:VIOLETTA THAPA MD
[2018-08-08 16:12] LABS: Magnesium 2.1 mg/dL (1.6-2.6)
[2018-08-08 16:32] LABS: Hemoglobin A1c 6.5 % (4.2-6.3)
[2018-08-08] MEDS: 0.9% Normal Saline 1,000 ML 75 ML IV (16:50)
[2018-08-08 16:51] LABS: Bedside Glucose 116 mg/dL (70-110)
--- NOTE | 2018-08-08 17:55 | PCM.CONS.C ---
Reason for Consult Date of Consultation: 08/08/18 Reason for Consultation: Fast heart rate History of Present Illness: The patient is a 58 year old M with palpitations. He says that he has a previous history of paroxysmal atrial fibrillation. Indeed he was in the hospital approximately 12 days ago with a paroxysm of atrial fibrillation and spontaneously converted to sinus rhythm. He was scheduled to see us in the office in a few weeks. He had been compliant with all his medications. He is denied any neck arm or jaw discomfort suggest angina he has been compliant with his medications since he was discharged. He presented to the emergency room today he was noted to be in atrial fibrillation with rapid ventricular response rate he was given intravenous metoprolol and subsequently intravenous Cardizem and converted to sinus rhythm by the time he got to the telemetry floor. Past Medical History Allergies/Adverse Reactions: Allergies No Known Allergies Allergy (Verified 08/08/18 13:42) Home Medications: Ambulatory Orders Medication Instructions Recorded Esomeprazole Magnesium 40 mg PO QWEEK 07/26/18 Fenofibrate 160 mg PO DAILY 07/26/18 Fluticasone Propionate 2 spray NASAL DAILY 07/26/18 Metformin(XR) [Glucophage Xr] 500 mg PO DAILY 07/26/18 Metoprolol Succinate 50 mg PO DAILY 07/26/18 Multivit-Min/FA/Lycopen/Lutein 1 tab PO DAILY 07/26/18 [Centrum Silver Men Tablet] Apixaban [Eliquis] 5 mg PO BID@0800,2000 #60 tablet 07/27/18 Past Medical History (Chronic Problems): Chronic Problems (Last Updated 07/26/18 @ 19:48 by Sharad Ludwig DO) Hypertension (Chronic) COLEMAN on CPAP (Chronic) Morbid obesity (Chronic) Surgical History: no surgical history Psychiatric History: No pertinent psych hx - *Family History Maternal History Items: Heart Disease - CHF Paternal History Items: No pertinent history Lives: Spouse/ Significant Other, With Family Smoking Status: Never smoker Tobacco Use: Non-smoker Alcohol: Occasional Drugs: None Review of Systems - Review of Systems General: Denies: Fever, Night Sweats, Fatigue HEENT: Denies: Vision Change Cardiovascular: Reports: Palpitations. Denies: Chest Discomfort, Shortness of Breath, Orthopnea, PND, Peripheral Edema, Lightheadedness, Dizziness, Near Syncope, Syncope Respiratory: Denies: Cough, Sputum Production, Hemoptysis Gastrointestinal: Denies: Hematemesis, Hematochezia, Melena Genitourinary: Denies: Dysuria, Hematuria Muscoloskeletal: Denies: Myalgias Skin: Denies: Rash Neurological: Denies: Dizziness Psychiatric: Denies: Anxiety Endocrine: Denies: Unexplained Weight Loss Hematologic/ Lymphatic: Reports: Anemia Subjectve: Pleasant gentleman in no apparent distress Objective: Vital Signs Temp Pulse Resp BP Pulse Ox 98.9 F 65 16 92/64 96 08/08/18 16:30 08/08/18 16:30 08/08/18 16:30 08/08/18 16:30 08/08/18 16:30 Oxygen Flow Rate (L/min) 2 Oxygen Delivery Method Room Air Weight: 320 lb 1.779 oz Body Mass Index (BMI) 50.1 General: Awake, Alert, Oriented x 3 HEENT: PERRL, EOMI, Sclera Non Icteric Neck: Supple, Good ROM, No Lymph Node Enlargement Lungs: Clear to auscultation Cardiovascular: Regular Rhythm, Normal S1, Normal S2, No Murmurs, No Rubs, No Gallops Vascular: No Carotid Bruits, Normal Femoral Pulses, Normal Radial Pulses, Normal Dorsalis Pedal Pulse, Normal Posterior Tibial Pulses Abdomen: Bowel Sounds Present, Soft, Non Tender, No HSM, No Organomegaly Extremities: No Cyanosis, No Clubbing, No edema Neurological: No Focal Motor or Sensory Deficit Psych/Mental Status: Appropriate 08/08/18 13:55: WBC 8.4, RBC 5.21, Hgb 15.2, Hct 45.1, MCV 86.6, MCH 29.2, MCHC 33.7, RDW 13.9, RDW Differential 44.0 H, Plt Count 289, MPV 10.5, Immature Gran % (Auto) 0.200, Neut % (Auto) 57.5, Lymph % (Auto) 31.3, [place] % (Auto) 8.6, Eos % (Auto) 2.0, Baso % (Auto) 0.4, Absolute Neuts (auto) 4.8, Total Counted Not Reportable 08/08/18 13:55: Sodium 143, Potassium 4.3, Chloride 112 H, Carbon Dioxide 23.0, Anion Gap 8, BUN 16, Creatinine 1.50 H, Est GFR (MDRD) Af Amer 61, Est GFR (MDRD) Non-Af 51 L, BUN/Creatinine Ratio 10.7, Glucose 112 H, Calcium 8.8, Troponin I < 0.015 08/08/18 13:55: PT 14.1, INR 1.1, APTT 27.5 08/08/18 13:55: B-Natriuretic Peptide 138.4 H 08/08/18 14:06: Magnesium 2.1 08/08/18 14:06: Hemoglobin A1c 6.5 H Rhythm: EKG: Initial EKG demonstrated atrial fibrillation with a rate of 123 bpm. Subsequent EKG demonstrates normal sinus rhythm. ECHO: Recent echocardiogram demonstrates preserved ejection fraction of 65%. Assessment/Plan 1. Paroxysmal atrial fibrillation The patient presents with a second paroxysm of atrial fibrillation in a month. He has been on a beta-rocco and has been using his CPAP mask. His echocardiogram demonstrated preserved left ventricular ejection fraction. My recommendation at this time would be to start him on an anti-arrhythmic with flecainide 100 mg twice a day Consider anticoagulation for at least a month 2. Hypertension Continue beta-rocco at this time Continue to use CPAP mask and encourage weight loss Thank you for allowing me to participate in the care of your patient. Please don't hesitate to call if any issues arise
--- NOTE | 2018-08-08 18:00 | CON.PCM_ITS ---
Reason for Consult Date of Consultation: 08/08/18 Reason for Consultation: Fast heart rate History of Present Illness: The patient is a 58 year old M with palpitations. He says that he has a previous history of paroxysmal atrial fibrillation. Indeed he was in the hospital approximately 12 days ago with a paroxysm of atrial fibrillation and spontaneously converted to sinus rhythm. He was scheduled to see us in the office in a few weeks. He had been compliant with all his medications. He is denied any neck arm or jaw discomfort suggest angina he has been compliant with his medications since he was discharged. He presented to the emergency room today he was noted to be in atrial fibrillation with rapid ventricular response rate he was given intravenous metoprolol and subsequently intravenous Cardizem and converted to sinus rhythm by the time he got to the telemetry floor. Past Medical History Allergies/Adverse Reactions: Allergies No Known Allergies Allergy (Verified 08/08/18 13:42) Home Medications: Ambulatory Orders Medication Instructions Recorded Esomeprazole Magnesium 40 mg PO QWEEK 07/26/18 Fenofibrate 160 mg PO DAILY 07/26/18 Fluticasone Propionate 2 spray NASAL DAILY 07/26/18 Metformin(XR) [Glucophage Xr] 500 mg PO DAILY 07/26/18 Metoprolol Succinate 50 mg PO DAILY 07/26/18 Multivit-Min/FA/Lycopen/Lutein 1 tab PO DAILY 07/26/18 [Centrum Silver Men Tablet] Apixaban [Eliquis] 5 mg PO BID@0800,2000 #60 tablet 07/27/18 Past Medical History (Chronic Problems): Chronic Problems (Last Updated 07/26/18 @ 19:48 by Sharad Ludwig DO) Hypertension (Chronic) COLEMAN on CPAP (Chronic) Morbid obesity (Chronic) Surgical History: no surgical history Psychiatric History: No pertinent psych hx - *Family History Maternal History Items: Heart Disease - CHF Paternal History Items: No pertinent history Lives: Spouse/ Significant Other, With Family Smoking Status: Never smoker Tobacco Use: Non-smoker Alcohol: Occasional Drugs: None Review of Systems - Review of Systems General: Denies: Fever, Night Sweats, Fatigue HEENT: Denies: Vision Change Cardiovascular: Reports: Palpitations. Denies: Chest Discomfort, Shortness of Breath, Orthopnea, PND, Peripheral Edema, Lightheadedness, Dizziness, Near Syncope, Syncope Respiratory: Denies: Cough, Sputum Production, Hemoptysis Gastrointestinal: Denies: Hematemesis, Hematochezia, Melena Genitourinary: Denies: Dysuria, Hematuria Muscoloskeletal: Denies: Myalgias Skin: Denies: Rash Neurological: Denies: Dizziness Psychiatric: Denies: Anxiety Endocrine: Denies: Unexplained Weight Loss Hematologic/ Lymphatic: Reports: Anemia Subjectve: Pleasant gentleman in no apparent distress Objective: Vital Signs Temp Pulse Resp BP Pulse Ox 98.9 F 65 16 92/64 96 08/08/18 16:30 08/08/18 16:30 08/08/18 16:30 08/08/18 16:30 08/08/18 16:30 Oxygen Flow Rate (L/min) 2 Oxygen Delivery Method Room Air Weight: 320 lb 1.779 oz Body Mass Index (BMI) 50.1 General: Awake, Alert, Oriented x 3 HEENT: PERRL, EOMI, Sclera Non Icteric Neck: Supple, Good ROM, No Lymph Node Enlargement Lungs: Clear to auscultation Cardiovascular: Regular Rhythm, Normal S1, Normal S2, No Murmurs, No Rubs, No Gallops Vascular: No Carotid Bruits, Normal Femoral Pulses, Normal Radial Pulses, Normal Dorsalis Pedal Pulse, Normal Posterior Tibial Pulses Abdomen: Bowel Sounds Present, Soft, Non Tender, No HSM, No Organomegaly Extremities: No Cyanosis, No Clubbing, No edema Neurological: No Focal Motor or Sensory Deficit Psych/Mental Status: Appropriate 08/08/18 13:55: WBC 8.4, RBC 5.21, Hgb 15.2, Hct 45.1, MCV 86.6, MCH 29.2, MCHC 33.7, RDW 13.9, RDW Differential 44.0 H, Plt Count 289, MPV 10.5, Immature Gran % (Auto) 0.200, Neut % (Auto) 57.5, Lymph % (Auto) 31.3, [place] % (Auto) 8.6, Eos % (Auto) 2.0, Baso % (Auto) 0.4, Absolute Neuts (auto) 4.8, Total Counted Not Reportable 08/08/18 13:55: Sodium 143, Potassium 4.3, Chloride 112 H, Carbon Dioxide 23.0, Anion Gap 8, BUN 16, Creatinine 1.50 H, Est GFR (MDRD) Af Amer 61, Est GFR (MDRD) Non-Af 51 L, BUN/Creatinine Ratio 10.7, Glucose 112 H, Calcium 8.8, Tropo kiki I < 0.015 08/08/18 13:55: PT 14.1, INR 1.1, APTT 27.5 08/08/18 13:55: B-Natriuretic Peptide 138.4 H 08/08/18 14:06: Magnesium 2.1 08/08/18 14:06: Hemoglobin A1c 6.5 H Rhythm: EKG: Initial EKG demonstrated atrial fibrillation with a rate of 123 bpm. Subsequent EKG demonstrates normal sinus rhythm. ECHO: Recent echocardiogram demonstrates preserved ejection fraction of 65%. Assessment/Plan 1. Paroxysmal atrial fibrillation * The patient presents with a second paroxysm of atrial fibrillation in a month. He has been on a beta-rocco and has been using his CPAP mask. His echocardiogram demonstrated preserved left ventricular ejection fraction. * My recommendation at this time would be to start him on an anti-arrhythmic with flecainide 100 mg twice a day * Consider anticoagulation for at least a month * 2. Hypertension * Continue beta-rocco at this time * Continue to use CPAP mask and encourage weight loss * * Thank you for allowing me to participate in the care of your patient. Please don't hesitate to call if any issues arise
[2018-08-08] MEDS: APIXABAN 5 MG TABLET PO (19:56)
[2018-08-08] MEDS: Flecainide 100 MG Tablet PO (22:09)
[2018-08-08 22:16] LABS: Bedside Glucose 102 mg/dL (70-110)
[2018-08-09] VITALS (7 sets, daily range): BP systolic 104–114; BP diastolic 51–67; PULSE 58–65; RESP 16–17; TEMP 36.5–36.7; O2SAT 96–97
[2018-08-09 06:37] LABS: Anion Gap 8 (5-15); BUN 14 mg/dL (7-18); BUN/Creat Ratio 11.9 RATIO (10-20); Chloride 111 mmol/L (98-107); Cholesterol 140 mg/dL (200); Creatinine, Serum 1.18 mg/dL (0.70-1.30); EST Glomerular Filtration Rate 67 mL/min (>60); Est Glom Filt Rate - Afr Amer 81 mL/min (>60); Estimated Creatinine Clearance 62.24 ml/min; Glucose 132 mg/dL (74-106); High Density Lipoprotein 31 mg/dL; Potassium 4.1 mmol/L (3.5-5.1); Sodium Level 141 mmol/L (136-145); Triglycerides 287 mg/dL; Very Low Density Lipoprotein 57 mg/dL (5-40)
[2018-08-09 06:51] LABS: Bedside Glucose 143 mg/dL (70-110)
--- NOTE | 2018-08-09 07:28 | PN.CARD_ITS ---
Subjectve: Patient seen and evaluated. Appears to be doing quite well. No further atrial fibrillation episodes. Objective: Vital Signs Temp Pulse Resp BP Pulse Ox 98.1 F 62 16 104/51 L 96 08/09/18 04:05 08/09/18 04:05 08/09/18 04:05 08/09/18 04:05 08/09/18 04:05 Oxygen Flow Rate (L/min) 2 Oxygen Delivery Method CPAP Weight: 320 lb 1.779 oz Body Mass Index (BMI) 50.1 Intake and Output for Last 24 Hours 08/07/18 08/08/18 08/09/18 23:59 23:59 23:59 Intake Total 1258 / 1258 281 / 281 Output Total 0 / 0 Balance 1258 / 1258 281 / 281 General: Awake, Alert, Oriented x 3 HEENT: PERRL, EOMI, Sclera Non Icteric Neck: Supple, Good ROM, No Lymph Node Enlargement Lungs: Clear to auscultation Cardiovascular: Regular Rhythm, Normal S1, Normal S2, No Murmurs, No Rubs, No Gallops Vascular: No Carotid Bruits, Normal Femoral Pulses, Normal Radial Pulses, Normal Dorsalis Pedal Pulse, Normal Posterior Tibial Pulses Abdomen: Bowel Sounds Present, Soft, Non Tender, No HSM, No Organomegaly Extremities: No Cyanosis, No Clubbing, No edema Neurological: No Focal Motor or Sensory Deficit 08/08/18 13:55: WBC 8.4, RBC 5.21, Hgb 15.2, Hct 45.1, MCV 86.6, MCH 29.2, MCHC 33.7, RDW 13.9, RDW Differential 44.0 H, Plt Count 289, MPV 10.5, Immature Gran % (Auto) 0.200, Neut % (Auto) 57.5, Lymph % (Auto) 31.3, [place] % (Auto) 8.6, Eos % (Auto) 2.0, Baso % (Auto) 0.4, Absolute Neuts (auto) 4.8, Total Counted Not Reportable 08/08/18 13:55: Sodium 143, Potassium 4.3, Chloride 112 H, Carbon Dioxide 23.0, Anion Gap 8, BUN 16, Creatinine 1.50 H, Est GFR (MDRD) Af Amer 61, Est GFR (MDRD) Non-Af 51 L, BUN/Creatinine Ratio 10.7, Glucose 112 H, Calcium 8.8, Troponin I < 0.015 08/08/18 13:55: PT 14.1, INR 1.1, APTT 27.5 08/08/18 13:55: B-Natriuretic Peptide 138.4 H 08/08/18 14:06: Magnesium 2.1 08/08/18 14:06: Hemoglobin A1c 6.5 H 08/08/18 17:20: Troponin I < 0.015 08/08/18 19:24: Troponin I < 0.015 08/09/18 06:06: Sodium 141, Potassium 4.1, Chloride 111 H, Carbon Dioxide 22.0, Anion Gap 8, BUN 14, Creatinine 1.18, Est GFR (MDRD) Af Amer 81, Est GFR (MDRD) Non-Af 67, BUN/Creatinine Ratio 11.9, Glucose 132 H, Calcium 8.0 L, Triglycerides 287 H, Cholesterol 140, LDL Cholesterol 52, VLDL Cholesterol 57 H, HDL Cholesterol 31 L Rhythm: EKG: ECHO: Stress Test: Cardiac Cath: PCI: CT Surgery: Holter monitor: EPS: PPM: CXR: Chest CT Scan: Medical Necessity - Tobacco Use Smoking Status: Never smoker Tobacco Use: Non-smoker Assessment/Plan 1. Paroxysmal atrial fibrillation * The patient presents with a second paroxysm of atrial fibrillation in a month. He has been on a beta-rocco and has been using his CPAP mask. His echocardiogram demonstrated preserved left ventricular ejection fraction. * My recommendation at this time would be to start him on an anti-arrhythmic with flecainide 100 mg twice a day * Consider anticoagulation for at least a month * If still maintaining sinus rhythm by noon can be discharged for outpatient follow-up 2. Hypertension * Continue beta-rocco at this time * Continue to use CPAP mask and encourage weight loss * * Thank you for allowing me to participate in the care of your patient. Please don't hesitate to call if any issues arise
[2018-08-09] MEDS: Multivitamins,Ther W-Minerals Tablet 1 TABLET PO (08:58)
[2018-08-09] MEDS: APIXABAN 5 MG TABLET PO (08:58)
[2018-08-09] MEDS: Fluticasone 0.05% 1 SPRAY NASAL.SRY 2 SPRAY NASAL (09:53)
[2018-08-09] MEDS: Metoprolol(XL)Succ 50 MG Tablet PO (09:54)
[2018-08-09] MEDS: Flecainide 100 MG Tablet PO (09:54)
[2018-08-09] MEDS: Fenofibrate 145 MG Tablet PO (09:54)
--- NOTE | 2018-08-09 11:11 | PCM.DC ---
- Discharge Diagnoses Current Active Problems: Current Active and Chronic Problems (Last Updated 07/26/18 @ 19:48 by Sharad Ludwig DO) Hypertension (Chronic) DM type 2 (diabetes mellitus, type 2) (Acute) Hyperlipidemia (Acute) COLEMAN on CPAP (Chronic) Morbid obesity (Chronic) Reason(s) for Visit for Discharge Instructions: Fuad coy with RVR You will use the following diet at home:: Calorie/Carbohydrate Controlled (specify 1200, 1400, etc), Cardiac Your food should be the consistency of: Regular Your liquids should be the consistency of: Regular/Thin Discharge Activity: Return to Normal Activity Additional Instructions: Continue on all your medications. Cobtinue to follow a low salt, low fat diet, daibetic diet. Follow-up with the scout leaser as planned Allergies/Adverse Reactions: Allergies No Known Allergies Allergy (Verified 08/08/18 13:42) Medications to take at Discharge Esomeprazole Magnesium 40 mg PO QWEEK 07/26/18 Fenofibrate 160 mg PO DAILY 07/26/18 Fluticasone Propionate 2 spray NASAL DAILY 07/26/18 Metformin(XR) [Glucophage Xr] 500 mg PO DAILY 07/26/18 Metoprolol Succinate 50 mg PO DAILY 07/26/18 Multivit-Min/FA/Lycopen/Lutein [Centrum Silver Men Tablet] 1 tab PO DAILY 07/26/18 Apixaban [Eliquis] 5 mg PO BID@0800,2000 #60 tablet 07/27/18 Acetaminophen [Tylenol Tablet] 650 mg PO Q6H PRN PRN tablet 08/09/18 Flecainide [Tambocor] 100 mg PO BID #60 tablet 08/09/18 The following prescriptions were given: Flecainide [Tambocor] 100 mg PO BID #60 tablet Primary Care Physician: Carter Nicole MD [Primary Care Provider] - Please follow up with your Primary Care Physician in: within 1-2 weeks Test Results: Test results from this visit will be discussed in further detail at your follow-up appointment, if applicable. Please Follow Up With: Guicho Flood MD When: as scheduled Proposed Discharge Date: 08/09/18
--- NOTE | 2018-08-09 11:14 | DCINST_ITS ---
- Discharge Diagnoses Current Active Problems: Current Active and Chronic Problems (Last Updated 07/26/18 @ 19:48 by Sharad Ludwig DO) Hypertension (Chronic) DM type 2 (diabetes mellitus, type 2) (Acute) Hyperlipidemia (Acute) COLEMAN on CPAP (Chronic) Morbid obesity (Chronic) Reason(s) for Visit for Discharge Instructions: Fuad coy with RVR You will use the following diet at home:: Calorie/Carbohydrate Controlled (specify 1200, 1400, etc), Cardiac Your food should be the consistency of: Regular Your liquids should be the consistency of: Regular/Thin Discharge Activity: Return to Normal Activity Additional Instructions: Continue on all your medications. Cobtinue to follow a low salt, low fat diet, daibetic diet. Follow-up with the channeling machine operator as planned Allergies/Adverse Reactions: Allergies No Known Allergies Allergy (Verified 08/08/18 13:42) Medications to take at Discharge Esomeprazole Magnesium 40 mg PO QWEEK 07/26/18 Fenofibrate 160 mg PO DAILY 07/26/18 Fluticasone Propionate 2 spray NASAL DAILY 07/26/18 Metformin(XR) [Glucophage Xr] 500 mg PO DAILY 07/26/18 Metoprolol Succinate 50 mg PO DAILY 07/26/18 Multivit-Min/FA/Lycopen/Lutein [Centrum Silver Men Tablet] 1 tab PO DAILY 07/26/18 Apixaban [Eliquis] 5 mg PO BID@0800,2000 #60 tablet 07/27/18 Acetaminophen [Tylenol Tablet] 650 mg PO Q6H PRN PRN tablet 08/09/18 Flecainide [Tambocor] 100 mg PO BID #60 tablet 08/09/18 The following prescriptions were given: Flecainide [Tambocor] 100 mg PO BID #60 tablet Primary Care Physician: Carter Nicole MD [Primary Care Provider] - Please follow up with your Primary Care Physician in: within 1-2 weeks Test Results: Test results from this visit will be discussed in further detail at your follow- up appointment, if applicable. Please Follow Up With: Guicho Flood MD When: as scheduled Proposed Discharge Date: 08/09/18
--- NOTE | 2018-08-09 11:14 | DS.PCM_ITS ---
Discharge Date and Diagnosis Date of Admission: 08/08/18 Date of Discharge: 08/09/18 - Primary Discharge Diagnosis Active and Suspected Problems (Last Updated 07/26/18 @ 19:48 by Sharad Ludwig DO) A. fib with RVR Dehydration - Secondary Discharge Diagnosis Chronic Problems (Last Updated 07/26/18 @ 19:48 by Sharad Ludwig DO) Hypertension (Chronic) COLEMAN on CPAP (Chronic) Morbid obesity (Chronic) Type 2 DM Hospital Course and Treatment Imaging Results: Clinical Impression(s) from Imaging Studies Chest X-Ray 08/08/18 13:56 IMPRESSION: Stable, nonacute portable x-ray examination of the chest. Electronically Signed: Jaylon Andre MD at 14:28 EST , Service support , Cardiology Operations: None Procedures: None Summary of Care Provided: 58 year old M with past medical history of type II DM, hypertension, hyperlipidemia, morbid obesity, COLEMAN on CPAP who was recently admitted and discharged on 07/27/2018 with paroxysmal atrial fibrillation with RVR. Patient had followed up with his primary care doctor since discharge. He was yet to follow-up with cardiology. Patient had come in with a 1 day history of palpitations. He had taken an extra dose of his metoprolol with no relief. He was seen in the emergency department. EKG shows A. fib with RVR. Patient received Cardizem bolus, was continued on Cardizem drip. Patient converted into normal sinus rhythm in the ED. He was continued on his metoprolol, Eliquis, cardiology was consulted. Flecainide was added to his home medication. Patient will follow up with a dust collector operator in the outpatient. Subjective: The day of discharge, patient was seen and examined, no new complaints except for slight dizziness. Denies any chest pain or palpitations. Telemetry shows normal sinus rhythm. Objective: Physical Exam General: Alert, Oriented x3, Cooperative, No apparent distress, - - morbidly obese HEENT: Atraumatic, PERRLA, EOMI, Normocephalic Oral: Moist Mucosa Neck: Supple, No JVD, Negative Carotid Bruits Lungs: Clear to auscultation, Normal air movement Cardiovascular: Regular rate, Regular Rhythm, Normal S1, Normal S2, No murmurs Abdomen: Bowel Sounds Present, Soft, Non Tender, Non-Distended, No Hepato- splenomegaly, Obese Extremities: No edema Skin: No rashes, No breakdown Musculoskeletal: No Tenderness to Palpation of Joints or Extremities Lymphatic: No Cervical, Supraclavicular, or Inguinal Adenopathy Neurological: Cranial nerves II-XII grossly intact, Neuro grossly intact Psych/Mental Status: Normal Affect, Appropriate - Physical Exam Vital Signs Temp Pulse Resp BP Pulse Ox 97.7 F L 65 17 114/67 97 08/09/18 08:48 08/09/18 09:54 08/09/18 08:48 08/09/18 08:48 08/09/18 08:48 Oxygen Flow Rate (L/min) 2 Oxygen Delivery Method Room Air Weight: 145.2 kg Body Mass Index (BMI) 50.1 Intake and Output for Last 24 Hours 08/07/18 08/08/18 08/09/18 23:59 23:59 23:59 Intake Total 1258 / 1258 281 / 281 Output Total 0 / 0 Balance 1258 / 1258 281 / 281 Laboratory Tests Past 24 Hrs 08/08/18 08/08/18 08/08/18 13:55 13:55 13:55 WBC 8.4 RBC 5.21 Hgb 15.2 Hct 45.1 MCV 86.6 MCH 29.2 MCHC 33.7 RDW 13.9 RDW Differential 44.0 H Plt Count 289 MPV 10.5 Immature Gran % (Auto) 0.200 Neut % (Auto) 57.5 Lymph % (Auto) 31.3 [place] % (Auto) 8.6 Eos % (Auto) 2.0 Baso % (Auto) 0.4 Absolute Neuts (auto) 4.8 Absolute Lymphs (auto) 2.63 Total Counted Not Reportable PT 14.1 INR 1.1 APTT 27.5 Sodium 143 Potassium 4.3 Chloride 112 H Carbon Dioxide 23.0 Anion Gap 8 BUN 16 Creatinine 1.50 H Estim Creat Clear Calc 48.96 Est GFR (MDRD) Af Amer 61 Est GFR (MDRD) Non-Af 51 L BUN/Creatinine Ratio 10.7 Glucose 112 H Hemoglobin A1c Calcium 8.8 Magnesium Troponin I < 0.015 B-Natriuretic Peptide Triglycerides Cholesterol LDL Cholesterol VLDL Cholesterol HDL Cholesterol 08/08/18 08/08/1819 13:55 14:06 14:06 WBC RBC Hgb Hct MCV MCH MCHC RDW RDW Differential Plt Count MPV Immature Gran % (Auto) Neut % (Auto) Lymph % (Auto) [place] % (Auto) Eos % (Auto) Baso % (Auto) Absolute Neuts (auto) Absolute Lymphs (auto) Total Counted PT INR APTT Sodium Potassium Chloride Carbon Dioxide Anion Gap BUN Creatinine Estim Creat Clear Calc Est GFR (MDRD) Af Amer Est GFR (MDRD) Non-Af BUN/Creatinine Ratio Glucose Hemoglobin A1c 6.5 H Calcium Magnesium 2.1 Troponin I B-Natriuretic Peptide 138.4 H Triglycerides Cholesterol LDL Cholesterol VLDL Cholesterol HDL Cholesterol 08/08/18 08/08/18 08/09/18 17:20 19:24 06:06 WBC RBC Hgb Hct MCV MCH MCHC RDW RDW Differential Plt Count MPV Immature Gran % (Auto) Neut % (Auto) Lymph % (Auto) [place] % (Auto) Eos % (Auto) Baso % (Auto) Absolute Neuts (auto) Absolute Lymphs (auto) Total Counted PT INR APTT Sodium 141 Potassium 4.1 Chloride 111 H Carbon Dioxide 22.0 Anion Gap 8 BUN 14 Creatinine 1.18 Estim Creat Clear Calc 62.24 Est GFR (MDRD) Af Amer 81 Est GFR (MDRD) Non-Af 67 BUN/Creatinine Ratio 11.9 Glucose 132 H Hemoglobin A1c Calcium 8.0 L Magnesium Troponin I < 0.015 < 0.015 B-Natriuretic Peptide Triglycerides 287 H Cholesterol 140 LDL Cholesterol 52 VLDL Cholesterol 57 H HDL Cholesterol 31 L POC Glucose 08/09/18 08/08/18 08/08/18 06:40 22:05 16:45 POC Glucose 143 H 102 116 H 08/08/18 14:00 POC Glucose 121 H Discharge Diet: Low fat/ Low Cholesterol, 2000 mg Sodium Diet, Carb Control Diet Discharge Activity: Return to Normal Activity Home Medications: Medications to take at Discharge Esomeprazole Magnesium 40 mg PO QWEEK 07/26/18 Fenofibrate 160 mg PO DAILY 07/26/18 Fluticasone Propionate 2 spray NASAL DAILY 07/26/18 Metformin(XR) [Glucophage Xr] 500 mg PO DAILY 07/26/18 Metoprolol Succinate 50 mg PO DAILY 07/26/18 Multivit-Min/FA/Lycopen/Lutein [Centrum Silver Men Tablet] 1 tab PO DAILY 07/26/18 Apixaban [Eliquis] 5 mg PO BID@0800,2000 #60 tablet 07/27/18 Acetaminophen [Tylenol Tablet] 650 mg PO Q6H PRN PRN tablet 08/09/18 Flecainide [Tambocor] 100 mg PO BID #60 tablet 08/09/18 Following Prescrptions Were Given to Patient: Flecainide [Tambocor] 100 mg PO BID #60 tablet Primary Care Physician: Carter Nicole MD [Primary Care Provider] - Please follow up with your Primary Care Physician in: within 1-2 weeks Please Follow Up With: Guicho lFood MD When: as scheduled Disposition: Home Minutes spent on discharge:: 40 Patient Condition:: Stable Medical Necessity - Tobacco Use Smoking Status: Never smoker Tobacco Use: Non-smoker Meaningful Use Info Meaningful Use Diagnoses (Choose all that apply): None applicable Code Visit OBSV E&M: 61774 Observation care discharge
--- NOTE | 2018-08-09 11:26 | CASEMGMT ---
[facility] [place] assessment: Face to Face with patient for initial transition planning/care coordination assessment. RN LITA introduced self and role at [facility], pt voices understanding and consents to assessment at this time. Pt is sitting up in chair in no distress at this time. Pt is A/Ox4 at this time and answers all questions appropriately at this time. Pt's at bedside during assessment. Care providers, pharmacy, and demographics verified, at this time. PCP: Corey Specialists: Aleena, cardio Preferred [facility]: [facility] Insurance: MMO Prescription Benefit: MMO Living Will/HPOA: Pt states does not currently have LW/HPOA but is interested in info at this time. Pt was discharged before this RN CM could provide info. LNOK: Kassandra Mccormick, Living Arrangements: Pt lives with in 1 story home and states no concerns at home at this time. Transportation: Pt states drives self and states no transportation concerns at this time. DME/HHC: Pt states the only DME he has is a cpap thru [employer]. Pt states no need for any further DME at this time. Pt states no hx of HHC or SNF in the past. Pt states no concerns with going home at time of discharge. 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 Pt states does not smoke and drinks ETOH occasionally. Pt states no further questions/concerns/needs at this time. CM to follow for any further discharge planning/needs. Advised pt to ask for CM if any further questions/concerns/needs arise, voices understanding. Plan: [place] [facility] [place]
[2018-08-09 11:41] LABS: Bedside Glucose 131 mg/dL (70-110)
--- OUTSIDE RECORDS SUMMARY | 2018-10-11 11:49 | XMS RPT_ITS ---
:1960 Author Organization OHIP Support Name Relationship Address Phone MERRICK CASTELLON Unavailable [address] + [place] [address] [facility] Unavailable [address] + [place] [address] MERRICK CASTELLON Unavailable [address] + [place] [address] [facility] Unavailable [address] + [place] [address] MERRICK CASTELLON Unavailable [address] + [place] [address] [facility] Unavailable [address] + [place] [address] MERRICK CASTELLON Unavailable [address] + [place] [address] [facility] Unavailable [address] + [place] [address] MERRICK CASTELLON Unavailable [address] + [place] [address] [facility] Unavailable [address] + [place] [address] MERRICK CASTELLON Unavailable [address] + [place] [address] [facility] Unavailable [address] + [place] [address] MERRICK CASTELLON Unavailable [address] + [place] [address] [facility] Unavailable [address] + [place] [address] MERRICK CASTELLON Unavailable [address] + [place] [address] [facility] Unavailable [address] + [place] [address] MERRICK CASTELLON Unavailable [address] + [place] [address] [facility] Unavailable [address] [facility] + [place] [address] Care Team Providers Name Role Phone ANDREA FUENTES (OD) Attending Unavailable FAVIANCARTER DENNIS A Attending Unavailable FAVIAN, CARTER A Referring Unavailable FAVIAN, CARTER A Referring Unavailable SAUNDRA DOMÍNGUEZ (PA) Attending Unavailable FAVIAN, CARTER A Referring Unavailable THORPE, ELLIOTT (FOUNDRY PATTERNMAKER) Attending Unavailable SAUNDRA DOMÍNGUEZ (PA) Referring Unavailable SANG SAUNDRA (PA) Referring Unavailable THORPE, ELLIOTT (FOUNDRY PATTERNMAKER) Referring Unavailable THORPE, ELLIOTT (FOUNDRY PATTERNMAKER) Attending Unavailable THORPE, ELLIOTT (FOUNDRY PATTERNMAKER) Referring Unavailable SATNAM SALINAS Admitting Unavailable SATNAM SALINAS Attending Unavailable THORPE, ELLIOTT (FOUNDRY PATTERNMAKER) Attending Unavailable THORPE, ELLIOTT (FOUNDRY PATTERNMAKER) Referring Unavailable THORPE, ELLIOTT (FOUNDRY PATTERNMAKER) Referring Unavailable THORPE, ELLIOTT (FOUNDRY PATTERNMAKER) Referring Unavailable THORPE, ELLIOTT (FOUNDRY PATTERNMAKER) Referring Unavailable MELY RODRIGUEZ Attending Unavailable THORPE, ELLIOTT (FOUNDRY PATTERNMAKER) Referring Unavailable FAVIAN, CARTER A Referring Unavailable FAVIAN, CARTER A Attending Unavailable FAVIAN, CARTER A Referring Unavailable FAVIAN, CARTER A Attending Unavailable FRENCH, SAMER Attending Unavailable THORPE, ELLIOTT (FOUNDRY PATTERNMAKER) Referring Unavailable FRENCH, SAMER Referring Unavailable FRENCH, SAMER Referring Unavailable FAVIAN, CARTER A Attending Unavailable FAVIAN, CARTER A Referring Unavailable FAVIAN, CARTER A Referring Unavailable Favian, Carter Primary Care Unavailable Jopperi, Sharad Admitting Unavailable Jopperi, Sharad Referring Unavailable Aleena, Guicho Consulting Unavailable Koram, Huma Angely Attending Unavailable Jopperi, Sharad Admitting Unavailable Jopperi, Sharad Attending Unavailable Jopperi, Sharad Referring Unavailable Favian, Carter Primary Care Unavailable Jopperi, Sharad Consulting Unavailable Jopperi, Sharad Admitting Unavailable [place], [place] Attending Unavailable Jopperi, Sharad Referring Unavailable Favian, Carter Primary Care Unavailable [place], Guicho Consulting Unavailable Jopperi, Sharad Consulting Unavailable Koram, Huma Angely Attending Unavailable Jopperi, Sharad Admitting Unavailable Jopperi, Sharad Referring Unavailable Favian, Carter Primary Care Unavailable [place], [place] Consulting Unavailable Koram, Huma Angely Consulting Unavailable [facility] Primary Care Unavailable [place], [place] Admitting Unavailable [place], [place] Attending Unavailable [place], Guicho Consulting Unavailable [place], [place] Admitting Unavailable [place], [place] Attending Unavailable Favian, Carter Primary Care Unavailable [place], [place] Consulting Unavailable [place], [place] Admitting Unavailable [place], Guicho Attending Unavailable Favian, Carter Primary Care Unavailable [place], Guicho Consulting Unavailable [place], [place] Consulting Unavailable [place], [place] Admitting Unavailable [place], [place] Attending Unavailable [facility], [place] Primary Care Unavailable [place], Guicho Consulting Unavailable [place], [place] Consulting Unavailable MoodispaAlphonso bhatti Attending Unavailable Sharad Ludwig Referring Unavailable PROBLEMS PROBLEMS DATE TYPE CONDITION / CODE ATTENDING STATUS SOURCE 08/13/2018 Unknown I48.0 - Paroxysmal [place], Guicho Active [place] atrial fibrillation / [facility] I48.0(ICD-10) Hospital Repository 08/10/2018 Unknown R94.31 - Abnormal [place], Active [place] electrocardiogram [facility] [ECG] [EKG] / Hospital R94.31(ICD-10) Repository 06/30/2018 Active Torticollis / NA Active [facility] M43.6(ICD-10) Clinic Main [place] Repository 07/15/2018 Active Encounter for NA Active [place] screening, unspecified Clinic Main / Z13.9(ICD-10) [place] Repository 07/01/2018 Active Unknown / UNK(Unknown) NA Active [facility] Clinic Other [place] Repository 12/19/2016 Active Encounter for NA Active [facility] screening for Clinic Main malignant neoplasm of [place] prostate / Repository Z12.5(ICD-10) 02/22/2018 Active 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 / Clinic Main Q28.3(ICD-10) [place] Repository 02/08/2018 Active Vertigo of central NA Active [place] origin, unspecified Clinic Main ear / H81.49(ICD-10) [place] Repository 12/29/2017 Active Vomiting, unspecified SALINAS, Active [place] / R11.10(ICD-10) [facility] Main [place] Repository 12/23/2017 Active Vomiting without NA Active [place] nausea / Clinic Main R11.11(ICD-10) [place] Repository 12/23/2017 Active Gastro-esophageal NA Active [facility] reflux disease without Clinic Main esophagitis / [place] K21.9(ICD-10) Repository 12/17/2016 Active Type 2 diabetes NA Active [facility] mellitus without Clinic Main complications / [place] E11.9(ICD-10) Repository 12/17/2016 Active Mixed hyperlipidemia / NA Active [facility] E78.2(ICD-10) Clinic Main [place] Repository 12/17/2016 Active Essential (primary) NA Active [place] hypertension / Clinic Main I10(ICD-10) [place] Repository 10/20/2017 Active 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 Active [facility] (current) drug therapy Clinic Main / Z79.899(ICD-10) [place] Repository PROCEDURES PROCEDURES No Procedure Records FoundRESULTS RESULTS 12 LEAD ELECTROCARDIOGRAM Observed: 08/10/2018 Status: F Source: [place] 1:02 PM [facility] HOSPITAL REPOSITORY [facility] Cardiovascular Services [address] [place] [address] [place] [address] 12 Lead EKG 08/08/18 1405 MR#: [id number] Acct: [id number] Name: FLAKITA CASTELLON Rep #: [id number] : 1960 58 From: Guicho Flood MD Attending Dr: Suzy Drake MD Status: DIS ABBIE Ordering Dr: Flakita Caro MD Date: 08/08/18 Location: [facility] Sex: M C Admitted: 08/08/18 Test Reason : PALPATIONS Blood Pressure : / mmHG Vent. Rate : 123 BPM Atrial Rate : 131 BPM P-R Int : 000 ms QRS Dur : 086 ms QT Int : 338 ms P-R-T Axes : 000 010 019 degrees QTc Int : 483 ms Atrial fibrillation with rapid ventricular response with premature ventricular or aberrantly conducted complexes Nonspecific T wave abnormality Abnormal ECG Confirmed by GUICHO FLOOD MD ([id number]), subeditor SHOAIB GALEANA ([id number]) on 08/10/2018 1:02:15 PM Referred By: MR Confirmed By:GUICHO FLOOD MD 08/10/18 1302 Date Guicho Flood MD CC: Suzy Drake MD; Carter Ballesteros MD; Flakita Caro Signed CONSULTATION Observed: 08/09/2018 Status: F Source: [place] 4:27 PM [facility] REPOSITORY [facility] Medical Records Department [address] [place] [address] Consultation 08/08/18 1755 MR#: [id number] Acct: [id number] Name: FLAKITA CASTELLON Rep #: [id number] : 1960 58 From: Guicho Flood MD PCP: Carter Ballesteros MD Status: DIS ABBIE Y Location: [place] [address] Reason for Consult Date of Consultation: 08/08/18 Reason for Consultation: Fast heart rate History of Present Illness: The patient is a 58 year old M with palpitations. He says that he has a previous history of paroxysmal atrial fibrillation. Indeed he was in the hospital approximately 12 days ago with a paroxysm of atrial fibrillation and spontaneously converted to sinus rhythm. He was scheduled to see us in the office in a few weeks. He had been compliant with all his medications. He is denied any neck arm or jaw discomfort suggest angina he has been compliant with his medications since he was discharged. He presented to the emergency room today he was noted to be in atrial fibrillation with rapid ventricular response rate he was given intravenous metoprolol and subsequently intravenous Cardizem and converted to sinus rhythm by the time he got to the telemetry floor. Past Medical History Allergies/Adverse Reactions: Allergies No Known Allergies Allergy (Verified 08/08/18 13:42) Home Medications: Ambulatory Orders Medication Instructions Recorded Past Medical History (Chronic Problems): Chronic Problems (Last Updated 07/26/18 @ 19:48 by Sharad Ludwig DO) Hypertension (Chronic) COLEMAN on CPAP (Chronic) Morbid obesity (Chronic) Surgical History: no surgical history Psychiatric History: No pertinent psych hx - *Family History Maternal History Items: Heart Disease - CHF Paternal History Items: No pertinent history Lives: Spouse/ Significant Other, With Family Smoking Status: Never smoker Tobacco Use: Non-smoker Alcohol: Occasional Drugs: None Review of Systems - Review of Systems General: Denies: Fever, Night Sweats, Fatigue HEENT: Denies: Vision Change Cardiovascular: Reports: Palpitations. Denies: Chest Discomfort, Shortness of Breath, Orthopnea, PND, Peripheral Edema, Lightheadedness, Dizziness, Near Syncope, Syncope Respiratory: Denies: Cough, Sputum Production, Hemoptysis Gastrointestinal: Denies: Hematemesis, Hematochezia, Melena Genitourinary: Denies: Dysuria, Hematuria Muscoloskeletal: Denies: Myalgias Skin: Denies: Rash Neurological: Denies: Dizziness Psychiatric: Denies: Anxiety Endocrine: Denies: Unexplained Weight Loss Hematologic/ Lymphatic: Reports: Anemia Subjectve: Pleasant gentleman in no apparent distress Objective: Vital Signs Temp Pulse Resp BP Pulse Ox 98.9 F 65 16 92/64 96 08/08/18 16:30 08/08/18 16:30 08/08/18 16:30 08/08/18 16:30 08/08/18 16:30 Oxygen Flow Rate (L/min) 2 Oxygen Delivery Method Room Air Weight: 320 lb 1.779 oz Body Mass Index (BMI) 50.1 General: Awake, Alert, Oriented x 3 HEENT: PERRL, EOMI, Sclera Non Icteric Neck: Supple, Good ROM, No Lymph Node Enlargement Lungs: Clear to auscultation Cardiovascular: Regular Rhythm, Normal S1, Normal S2, No Murmurs, No Rubs, No Gallops Vascular: No Carotid Bruits, Normal Femoral Pulses, Normal Radial Pulses, Normal Dorsalis Pedal Pulse, Normal Posterior Tibial Pulses Abdomen: Bowel Sounds Present, Soft, Non Tender, No HSM, No Organomegaly Extremities: No Cyanosis, No Clubbing, No edema Neurological: No Focal Motor or Sensory Deficit Psych/Mental Status: Appropriate 08/08/18 13:55: WBC 8.4, RBC 5.21, Hgb 15.2, Hct 45.1, MCV 86.6, MCH 29.2, MCHC 33.7, RDW 13.9, RDW Differential 44.0 H, Plt Count 289, MPV 10.5, Immature Gran % (Auto) 0.200, Neut % (Auto) 57.5, Lymph % (Auto) 31.3, [place] % (Auto) 8.6, Eos % (Auto) 2.0, Baso % (Auto) 0.4, Absolute Neuts (auto) 4.8, Total Counted Not Reportable 08/08/18 13:55: Sodium 143, Potassium 4.3, Chloride 112 H, Carbon Dioxide 23.0, Anion Gap 8, BUN 16, Creatinine 1.50 H, Est GFR (MDRD) Af Amer 61, Est GFR (MDRD) Non-Af 51 L, BUN/Creatinine Ratio 10.7, Glucose 112 H, Calcium 8.8, Troponin I < 0.015 08/08/18 13:55: PT 14.1, INR 1.1, APTT 27.5 08/08/18 13:55: B-Natriuretic Peptide 138.4 H 08/08/18 14:06: Magnesium 2.1 08/08/18 14:06: Hemoglobin A1c 6.5 H Rhythm: EKG: Initial EKG demonstrated atrial fibrillation with a rate of 123 bpm. Subsequent EKG demonstrates normal sinus rhythm. ECHO: Recent echocardiogram demonstrates preserved ejection fraction of 65%. Assessment/Plan 1. Paroxysmal atrial fibrillation * The patient presents with a second paroxysm of atrial fibrillation in a month. He has been on a beta-rocco and has been using his CPAP mask. His echocardiogram demonstrated preserved left ventricular ejection fraction. * My recommendation at this time would be to start him on an anti-arrhythmic with flecainide 100 mg twice a day * Consider anticoagulation for at least a month * 2. Hypertension * Continue beta-rocco at this time * Continue to use CPAP mask and encourage weight loss * * Thank you for allowing me to participate in the care of your patient. Please don't hesitate to call if any issues arise 08/09/18 1627 <Electronically signed by Guicho Flood MD> Date Guicho Flood MD Cosigner Signature (if applicable): Date CC: Guicho Flood MD; Carter Ballesteros MD Signed DISCHARGE SUMMARY Observed: 08/09/2018 Status: F Source: [place] 1:38 PM [facility] REPOSITORY [facility] Medical Records Department [address] [place] [address] Discharge Summary 08/09/18 1114 MR#: [id number] Acct: [id number] Name: FLAKITA CASTELLON Rep #: [id number] : 1960 58 From: Suzy Drake MD PCP: Carter Ballesteros MD Status: DIS IN Y Location: [place] [address] Discharge Date and Diagnosis Date of Admission: 08/08/18 Date of Discharge: 08/09/18 - Primary Discharge Diagnosis Active and Suspected Problems (Last Updated 07/26/18 @ 19:48 by Sharad Ludwig DO) A. fib with RVR Dehydration - Secondary Discharge Diagnosis Chronic Problems (Last Updated 07/26/18 @ 19:48 by Sharad Ludwig DO) Hypertension (Chronic) COLEMAN on CPAP (Chronic) Morbid obesity (Chronic) Type 2 DM Hospital Course and Treatment Imaging Results: Clinical Impression(s) from Imaging Studies Chest X-Ray 08/08/18 13:56 IMPRESSION: Stable, nonacute portable x-ray examination of the chest. Electronically Signed: Jaylon Andre MD at 14:28 EST , Service support , Cardiology Operations: None Procedures: None Summary of Care Provided: 58 year old M with past medical history of type II DM, hypertension, hyperlipidemia, morbid obesity, COLEMAN on CPAP who was recently admitted and discharged on 07/27/2018 with paroxysmal atrial fibrillation with RVR. Patient had followed up with his primary care doctor since discharge. He was yet to follow-up with cardiology. Patient had come in with a 1 day history of palpitations. He had taken an extra dose of his metoprolol with no relief. He was seen in the emergency department. EKG shows A. fib with RVR. Patient received Cardizem bolus, was continued on Cardizem drip. Patient converted into normal sinus rhythm in the ED. He was continued on his metoprolol, Eliquis, cardiology was consulted. Flecainide was added to his home medication. Patient will follow up with a wind turbine engineer in the outpatient. Subjective: The day of discharge, patient was seen and examined, no new complaints except for slight dizziness. Denies any chest pain or palpitations. Telemetry shows normal sinus rhythm. Objective: Physical Exam General: Alert, Oriented x3, Cooperative, No apparent distress, - - morbidly obese HEENT: Atraumatic, PERRLA, EOMI, Normocephalic Oral: Moist Mucosa Neck: Supple, No JVD, Negative Carotid Bruits Lungs: Clear to auscultation, Normal air movement Cardiovascular: Regular rate, Regular Rhythm, Normal S1, Normal S2, No murmurs Abdomen: Bowel Sounds Present, Soft, Non Tender, Non-Distended, No Hepato-splenomegaly, Obese Extremities: No edema Skin: No rashes, No breakdown Musculoskeletal: No Tenderness to Palpation of Joints or Extremities Lymphatic: No Cervical, Supraclavicular, or Inguinal Adenopathy Neurological: Cranial nerves II-XII grossly intact, Neuro grossly intact Psych/Mental Status: Normal Affect, Appropriate - Physical Exam Vital Signs Temp Pulse Resp BP Pulse Ox 97.7 F L 65 17 114/67 97 08/09/18 08:48 08/09/18 09:54 08/09/18 08:48 08/09/18 08:48 08/09/18 08:48 Oxygen Flow Rate (L/min) 2 Oxygen Delivery Method Room Air Weight: 145.2 kg Body Mass Index (BMI) 50.1 Intake and Output for Last 24 Hours Intake Total 1258 / 1258 281 / 281 Output Total 0 / 0 Balance 1258 / 1258 281 / 281 Laboratory Tests Past 24 Hrs WBC 8.4 RBC 5.21 Hgb 15.2 Hct 45.1 MCV 86.6 MCH 29.2 MCHC 33.7 RDW 13.9 RDW Differential 44.0 H Plt Count 289 WBC RBC Hgb Hct MCV MCH POC Glucose POC Glucose 143 H 102 116 H POC Glucose 121 H Discharge Diet: Low fat/ Low Cholesterol, 2000 mg Sodium Diet, Carb Control Diet Discharge Activity: Return to Normal Activity Home Medications: Medications to take at Discharge Esomeprazole Magnesium 40 mg PO QWEEK 07/26/18 Fenofibrate 160 mg PO DAILY 07/26/18 Fluticasone Propionate 2 spray NASAL DAILY 07/26/18 Metformin(XR) [Glucophage Xr] 500 mg PO DAILY 07/26/18 Metoprolol Succinate 50 mg PO DAILY 07/26/18 Multivit-Min/FA/Lycopen/Lutein [Centrum Silver Men Tablet] 1 tab PO DAILY 07/26/18 Apixaban [Eliquis] 5 mg PO BID@0800,1999 #60 tablet 07/27/18 Acetaminophen [Tylenol Tablet] 650 mg PO Q6H PRN PRN tablet 08/09/18 Flecainide [Tambocor] 100 mg PO BID #60 tablet 08/09/18 Following Prescrptions Were Given to Patient: Flecainide [Tambocor] 100 mg PO BID #60 tablet Primary Care Physician: Carter Ballesteros MD [Primary Care Provider] - Please follow up with your Primary Care Physician in: within 1-2 weeks Please Follow Up With: Guicho Flood MD When: as scheduled Disposition: Home Minutes spent on discharge:: 40 Patient Condition:: Stable Medical Necessity - Tobacco Use Smoking Status: Never smoker Tobacco Use: Non-smoker Meaningful Use Info Meaningful Use Diagnoses (Choose all that apply): None applicable Code Visit OBSV E AND M: 47444 Observation care discharge 08/09/18 1338 <Electronically signed by Suzy Drake MD> Date Suzy Drake MD Cosigner Signature (if applicable): Date CC: Suzy Drake MD; Carter Ballesteros MD Signed BEDSIDE GLUCOSE Collected: 08/09/2018 Status: F Source: [place] 11:33 AM [facility] REPOSITORY TYPE CODE TESTS RESULT OUT OF REFERENCE UNITS RANGE LAB L501.080 70-110 mg/dL High BEDSIDE GLU 131 Result Comment: MANAGEMENT OF PATIENT CARE PER NURSING PROTOCOL Performed By: #### L501.080 #### [facility] Laboratory Point of Care [address] [place] [address] DISCHARGE INSTRUCTION Observed: 08/09/2018 Status: F Source: [place] 11:14 [facility] REPOSITORY [facility] Medical Records Department [address] [place] [address] Instructions for Home/Discharge Instructions 08/09/18 1111 MR#: [id number] Acct: [id number] Name: FLAKITA CASTELLON Rep #: [id number] : 1960 58 From: Suzy Drake MD PCP: Carter Ballesteros MD Status: ADM IN - Discharge Diagnoses Current Active Problems: Current Active and Chronic Problems (Last Updated 07/26/18 @ 19:48 by Sharad Ludwig DO) Hypertension (Chronic) DM type 2 (diabetes mellitus, type 2) (Acute) Hyperlipidemia (Acute) COLEMAN on CPAP (Chronic) Morbid obesity (Chronic) Reason(s) for Visit for Discharge Instructions: A. fib with RVR You will use the following diet at home:: Calorie/Carbohydrate Controlled (specify 1200, 1400, etc), Cardiac Your food should be the consistency of: Regular Your liquids should be the consistency of: Regular/Thin Discharge Activity: Return to Normal Activity Additional Instructions: Continue on all your medications. Cobtinue to follow a low salt, low fat diet, daibetic diet. Follow-up with the wind turbine engineer as planned Allergies/Adverse Reactions: Allergies No Known Allergies Allergy (Verified 08/08/18 13:42) Medications to take at Discharge Esomeprazole Magnesium 40 mg PO QWEEK 07/26/18 Fenofibrate 160 mg PO DAILY 07/26/18 Fluticasone Propionate 2 spray NASAL DAILY 07/26/18 Metformin(XR) [Glucophage Xr] 500 mg PO DAILY 07/26/18 Metoprolol Succinate 50 mg PO DAILY 07/26/18 Multivit-Min/FA/Lycopen/Lutein [Centrum Silver Men Tablet] 1 tab PO DAILY 07/26/18 Apixaban [Eliquis] 5 mg PO BID@0800,2000 #60 tablet 07/27/18 Acetaminophen [Tylenol Tablet] 650 mg PO Q6H PRN PRN tablet 08/09/18 Flecainide [Tambocor] 100 mg PO BID #60 tablet 08/09/18 The following prescriptions were given: Flecainide [Tambocor] 100 mg PO BID #60 tablet Primary Care Physician: Carter Ballesteros MD [Primary Care Provider] - Please follow up with your Primary Care Physician in: within 1-2 weeks Test Results: Test results from this visit will be discussed in further detail at your follow-up appointment, if applicable. Please Follow Up With: Guicho Flood MD When: as scheduled Proposed Discharge Date: 08/09/18 08/09/18 1114 <Electronically signed by Suzy Drake MD> Date Suzy Drake MD CC: Guicho Flood MD; Carter Ballesteros MD Signed BEDSIDE GLUCOSE Collected: 08/09/2018 Status: F Source: [place] 6:40 AM [facility] REPOSITORY TYPE CODE TESTS RESULT OUT OF REFERENCE UNITS RANGE LAB L501.080 70-110 mg/dL High BEDSIDE GLU 143 Result Comment: MANAGEMENT OF PATIENT CARE PER NURSING PROTOCOL Performed By: #### L501.080 #### [facility] Laboratory Point of Care [address] [place] [address] BASIC METABOLIC Collected: 08/09/2018 Status: F Source: [place] PROFILE (BMP) 6:06 AM [facility] REPOSITORY TYPE CODE TESTS RESULT OUT OF RANGE REFERENCE UNITS LAB L501.0100 74-106 mg/dL High GLU 132 Result Comment: Fasting Glucose result greater than or equal to 126 mg/dL suggests DIABETES MELLITUS per A.D.A. criteria. Please note revised GLUCOSE reference range effective 2017. LAB L501.1000 7-18 mg/dL Normal BUN 14 LAB L501.1100 0.70-1.30 mg/dL Normal CREAT,SERUM 1.18 Result Comment: The validity of the calculated GFR AND GFRAA in patients over 70 years has not been determined. Clinical correlation is essential. LAB L501.1110 >60 mL/min Normal EST GFR 67 Result Comment: Non- GFR Calc LAB L501.1115 >60 mL/min Normal EST GFR - AA 81 Result Comment: GFR Calc LAB L501.1255 ml/min Normal Estimated CRCL 62.24 LAB L501.1300 10-20 RATIO Normal BUN/CRE 11.9 LAB L501.2200 8.5-10 mg/dL Low .1 CA 8.0 LAB L501.5300 136-14 mmol/L Normal 5 NA 141 LAB L501.5600 3.5-5. mmol/L Normal 1 K 4.1 LAB L501.5900 98-107 mmol/L High CL 111 LAB L501.6100 21.0-3 mmol/L Normal 2.0 CO2 22.0 LAB L501.6200 5-15 Normal GAP 8 Performed By: #### L500.2500, L500.4100 #### [facility] Laboratory [address] [place], [address] LIPID PROFILE Collected: 08/09/2018 Status: F Source: [place] 6:06 AM [facility] REPOSITORY TYPE CODE TESTS RESULT OUT OF RANGE REFERENCE UNITS LAB L501.4900 200 mg/dL Normal CHOL 140 Result Comment: <200 mg/dL Desirable 200-240 mg/dL Borderline >240 mg/dL High Risk LAB L501.5000 mg/dL High TRIG 287 Result Comment: The drugs N-Acetylcysteine and Metamizole may falsely depress this assay. Serum Triglycerides Reference Interval Normal <150 mg/dL Borderline high 150 - 199 mg/dL High 200 - 499 mg/dL Very High > or = 500 mg/dL LAB L501.6400 mg/dL Low HDL 31 Result Comment: The drugs N-Acetylcysteine and Metamizole may falsely depress this assay. Reference Range HDL <40 mg/dL Low HDL Cholesterol HDL >or= 60 mg/dL High HDL Cholesterol LAB L501.6500 0-130 mg/dL Normal LDL 52 LAB L501.6600 5-40 mg/dL High VLDL 57 Performed By: #### L500.2500, L500.4100 #### [facility] Laboratory [address] [place], [address] BEDSIDE GLUCOSE Collected: 08/08/2018 Status: F Source: [place] 10:05 PM [facility] REPOSITORY TYPE CODE TESTS RESULT OUT OF RANGE REFERENCE UNITS LAB L501.080 70-110 mg/dL Normal BEDSIDE GLU 102 Result Comment: MANAGEMENT OF PATIENT CARE PER NURSING PROTOCOL Performed By: #### L501.080 #### [facility] Laboratory Point of Care [address] [place] [address] TROPONIN-I Collected: 08/08/2018 Status: F Source: [place] 7:24 PM [facility] REPOSITORY Order Comment: 'TROP' Serial specimen #1, #2 or #3: 3 TYPE CODE TESTS RESULT OUT OF RANGE REFERENCE UNITS LAB L501.4010 <0.045 ng/mL Normal < 0.015 TROPONIN-I Result Comment: TROPONIN-I EXPECTED VALUES <0.045 Negative 0.045 - 0.590 Consistent with Cardiac Damage > OR = 0.600 Critical Value Not every elevated troponin is indicative of MS. These values should be used with clinical judgement in examining the patient's clinical picture for diagnosis. To establish a diagnosis of MS versus myocardial injury, there must be a demonstrated rise and/or fall in the troponin values, in addition to ischemic symptoms, EKG changes, new regional wall motion abnormality, and/or angiographical evidence. PLEASE NOTE: REFERENCE RANGES EDITED 17 Performed By: #### L501.4010 #### [facility] [address] [place], [place], [id number] TROPONIN-I Collected: 08/08/2018 Status: F Source: [place] 5:20 PM [facility] REPOSITORY Order Comment: 'TROP' Serial specimen #1, #2 or #3: 2 TYPE CODE TESTS RESULT OUT OF RANGE REFERENCE UNITS LAB L501.4010 <0.045 ng/mL Normal < 0.015 TROPONIN-I Result Comment: TROPONIN-I EXPECTED VALUES <0.045 Negative 0.045 - 0.590 Consistent with Cardiac Damage > OR = 0.600 Critical Value Not every elevated troponin is indicative of MS. These values should be used with clinical judgement in examining the patient's clinical picture for diagnosis. To establish a diagnosis of MS versus myocardial injury, there must be a demonstrated rise and/or fall in the troponin values, in addition to ischemic symptoms, EKG changes, new regional wall motion abnormality, and/or angiographical evidence. PLEASE NOTE: REFERENCE RANGES EDITED 17 Performed By: #### L501.4010 #### [facility] [address] [place], [place], [id number] BEDSIDE GLUCOSE Collected: 08/08/2018 Status: F Source: [place] 4:45 PM [facility] REPOSITORY TYPE CODE TESTS RESULT OUT OF REFERENCE UNITS RANGE LAB L501.080 70-110 mg/dL High BEDSIDE GLU 116 Result Comment: MANAGEMENT OF PATIENT CARE PER NURSING PROTOCOL Performed By: #### L501.080 #### [facility] Laboratory Point of Care [address] [place] [address] EMERGENCY DEPARTMENT Observed: 08/08/2018 Status: F Source: [place] SUMMARY 4:15 PM [facility] REPOSITORY [facility] Medical Records Department [address] [place] [address] Emergency Department Summary 08/08/18 1515 MR#: [id number] Acct: [id number] Name: FLAKITA CASTELLON Rep #: [id number] : 1960 58 From: Flakita Caro MD PCP: Carter Ballesteros MD Status: ADM IN - ER Visit Summary Date of Service: 08/08/18 Chief Complaint: Palpitations History of Present Illness: The patient is a 58 M presenting for evaluation secondary to palpitations. Patient has an underlying history of paroxysmal A. fib. He actually was admitted on the eighth of this month for a episode of this that was severe. Patient currently is only on metoprolol 50 mg daily as a antiarrhythmic and is anticoagulated. Patient states that today he had a sudden onset of palpitations. It is associated with some chest pain. No exacerbating relieving factors. No recent illnesses. Review of systems otherwise negative. Physical Examination: Vital signs notable for a heart rate of 123. Obese male somewhat diaphoretic. Head normocephalic. Moist mucous membranes. No JVD. Heart irregular and tachycardic. Lung sounds clear abdomen soft nontender. Peripheral pulses 2+ and symmetric. Remainder physical otherwise unremarkable. Test Results: EKG demonstrates A. fib rate of 123 with nonspecific T wave changes unchanged from prior EKG. CBC chemistry and coagulation studies unremarkable, troponin negative BNP mildly elevated at 130. Chest x-ray shows no acute pathology. Emergency Department Course and Treatment: Patient presented with atrial fibrillation and rapid ventricular rate. He is already on a beta-rocco, so beta- rocco was continued and he was given Lopressor x3. This did not slow his rate initially. I contacted the patient's wind turbine engineer Dr. Flood who recommended starting the patient on a Cardizem drip and admitting the patient. Patient was started on a Cardizem drip. Prior to reaching the floor, the patient did enter normal sinus rhythm. Disposition: Admission Impression: 1. Atrial fibrillation with rapid ventricular rate 2. Chemical cardioversion Critical care time 35 minutes This note was generated with Smart Eye dictation software. It may contain incorrect words, spelling, and punctuation that were not noted in review of the chart prior to signing ED Disposition - Plan for ED Patient: Chief Complaint: Palpitations Referrals: Carter Ballesteros MD [Primary Care Provider] - What to do if you have Problems For any increased pain, shortness of breath, bleeding, nausea or vomiting, chest pain, or any unexpected problems, contact your Primary Care Provider. Call [facility] ([phone]) or report to the closest Emergency Room. Call 911 if necessary. 08/08/18 1615 <Electronically signed by Flakita Caro MD> Date Flakita Caro MD Cosigner Signature (If Indicated): Date CC: Carter Ballesteros MD HISTORY AND PHYSICAL Observed: 08/08/2018 Status: F Source: [place] EXAM 3:44 PM [facility] REPOSITORY [facility] Medical Records Department [address] [place] [address] History and Physical 08/08/18 1459 MR#: [id number] Acct: [id number] Name: FLAKITA CASTELLON Rep #: [id number] : 1960 58 From: Suzy Drake MD PCP: Carter Ballesteros MD Status: ADM IN Y Location: [place] [address] Problem List (1) Atrial fibrillation with RVR Status: Acute (2) Hypertension Status: Chronic Qualifiers: Hypertension type: essential hypertension Qualified Code(s): I10 - Essential (primary) hypertension (3) DM type 2 (diabetes mellitus, type 2) Status: Acute Qualifiers: Diabetes mellitus termination clerk insulin use: without retirement use Diabetes mellitus complication status: with unspecified complications Qualified Code(s): E11.8 - Type 2 diabetes mellitus with unspecified complications (4) Hyperlipidemia Status: Acute Qualifiers: Hyperlipidemia type: unspecified Qualified Code(s): E78.5 - Hyperlipidemia, unspecified (5) COLEMAN on CPAP Status: Chronic (6) Morbid obesity Status: Chronic History of Present Illness Date of Admission: 08/08/18 Chief Complaint: Palpitations - 1 day The patient is a 58 year old M with past medical history of type II DM, hypertension, hyperlipidemia, morbid obesity, COLEMAN on CPAP who was recently admitted and discharged on 07/27/2018 with paroxysmal atrial fibrillation with RVR. Patient at that time improved with Cardizem drip. He was seen by wind turbine engineer. He has subsequently since discharge been in to see his primary care doctor. He is yet to make him to see cardiology in August 2018. This morning he woke up with complaints of palpitations. He always feels it when he goes into A. fib with RVR. He took an extra dose of metoprolol, palpitations still persisted. He complains also of some dizziness. Denies any chest pain or leg swelling no orthopnea or PND. In the emergency department, his temperature is 98.4 F, heart rate was 72 but rapidly improved to 125, blood pressure 119/72, SPO2 is 97% on room air. His admitting blood work showed normal CBC D, BMP was significant for creatinine of 1.50, previous creatinine was 1.22, BNP was 138. EKG shows A. fib with RVR Past Medical History Past Medical History (Chronic Problems): Chronic Problems (Last Updated 07/26/18 @ 19:48 by Sharad Ludwig DO) Hypertension (Chronic) COLEMAN on CPAP (Chronic) Morbid obesity (Chronic) Medical History: Medical History (Last Updated 07/26/18 @ 19:48 by Sharad Ludwig DO) Afib I48.91 Allergies No Known Allergies Allergy (Verified 08/08/18 13:42) Home Medications: Ambulatory Orders Medication Instructions Recorded Surgical History: no surgical history Psychiatric History: No pertinent psych hx Lives: Spouse/ Significant Other, With Family Smoking Status: Never smoker Tobacco Use: Non-smoker Alcohol: Occasional Drugs: None - *Family History Maternal History Items: Heart Disease - CHF Paternal History Items: No pertinent history Review of Systems Constitutional: Reports: Fatigue. Denies: Anorexia, Chills, Fever, Weakness, Weight Change Eyes: Denies: Blurred vision, Cataracts, Conjunctivae Inflammation, Pain, Redness HEENT: Denies: Head Aches, Hearing Changes, Nasal bleeding, Sinus Congestion, Sinus Drainage Cardiovascular: Reports: Light Headedness, Palpitations. Denies: Chest Pain, Claudication, Orthopnea, Paroxysmal Noc. Dyspnea Respiratory: Denies: Cough, Shortness of Breath, Shortness of breath at rest, Shortness of breath upon exertion, Sputum production Gastrointestinal: Denies: Abdominal Pain, Constipation, Hematochezia, Nausea, Vomiting Genitourinary: Denies: Dysuria, Frequency, Incontinence Musculoskeletal: Denies: Joint Pain, Joint stiffness, Joint swelling, Joint Tenderness Skin: Denies: Rash, Wounds Neurological: Denies: Difficulty swallowing, Focal weakness, Numbness, Tingling Psychiatric: Denies: Anxiety, Depression, Homicidal Ideations, Suicidal Ideations Hematologic/ Lymphatic: Denies: Easy Bruising, Easy Bleeding VTE Information - Inpt Only VTE Present on Admission: No VTE Pharm Prophylaxis ordered?: Yes Patient Problems: Active and Suspected Problems (Last Updated 07/26/18 @ 19:48 by Sharad Ludwig DO) DM type 2 (diabetes mellitus, type 2) (Acute) Hyperlipidemia (Acute) - Physical Exam General: Alert, Oriented x3, Cooperative, No apparent distress, - - morbidly obese HEENT: Atraumatic, PERRLA, EOMI, Normocephalic Oral: Moist Mucosa Neck: Supple, No JVD, Negative Carotid Bruits Lungs: Clear to auscultation, Normal air movement Cardiovascular: Regular rate, Regular Rhythm, Normal S1, Normal S2, No murmurs Abdomen: Bowel Sounds Present, Soft, Non Tender, Non-Distended, No Hepato-splenomegaly, Obese Extremities: No edema Skin: No rashes, No breakdown Musculoskeletal: No Tenderness to Palpation of Joints or Extremities Lymphatic: No Cervical, Supraclavicular, or Inguinal Adenopathy Neurological: Cranial nerves II-XII grossly intact, Neuro grossly intact Psych/Mental Status: Normal Affect, Appropriate Vital Signs Temp Pulse Resp BP Pulse Ox 98.4 F 118 H 14 132/105 H 94 08/08/18 13:42 08/08/18 14:56 08/08/18 14:56 08/08/18 14:56 08/08/18 14:56 Oxygen Flow Rate (L/min) 2 Oxygen Delivery Method Nasal Cannula Weight: 145.5 kg Body Mass Index (BMI) 50.2 Laboratory Tests Past 24 Hrs WBC 8.4 WBC RBC Hgb Hct MCV MCH MCHC RDW RDW Differential Plt Count MPV Immature Gran % (Auto) Neut % (Auto) Lymph % (Auto) POC Glucose POC Glucose 121 H Assessment/Plan All Active Problems (Last Updated 07/26/18 @ 19:48 by Sharad Ludwig DO) DM type 2 (diabetes mellitus, type 2) (Acute) Hyperlipidemia (Acute) Atrial fibrillation with RVR (Acute) 58 year old M with past medical history of type II DM, hypertension, hyperlipidemia, morbid obesity, COLEMAN on CPAP who was recently admitted and discharged on 07/27/2018 with paroxysmal atrial fibrillation with RVR. 1. Atrial fibrillation with RVR, patient with paroxysmal atrial fibrillation, on metoprolol, Eliquis, currently on Cardizem drip in the ED, Plan: Admit to PCU, monitor on telemetry, continue Cardizem drip, metoprolol, Eliquis, monitor vitals closely, cardiology consult 2. Hypertension, controlled, continue metoprolol, Cardizem, monitor blood pressure closely for hypotension 3. Hyperlipidemia, on fenofibrate, will check lipid profile in a.m. 4. Type 2 diabetes mellitus, on metformin, will hold metformin in light of dehydration, will continue with Accu-Cheks with insulin sliding scale to cover 5. Morbid obesity, BMI 50.2, diet and exercise recommended 6. COLEMAN on Cpap 7. Dehydration, elevation in creatinine from 1.2 to 1.50, not MOHINDER, will gently hydrate, recheck blood work in a.m. 8. DVT PPx- on Eliquis Code Visit Inpatient E AND M: [id number] Init Hosp L3 08/08/18 1544 <Electronically signed by Suzy Drake MD> Date Suzy Drake MD Cosigner Signature: Date (if applicable) CC: Suzy Drake MD; Carter Ballesteros MD Signed MAGNESIUM Collected: 08/08/2018 Status: F Source: [place] 2:06 PM [facility] REPOSITORY Order Comment: Comments: as add on test TYPE CODE TESTS RESULT OUT OF RANGE REFERENCE UNITS LAB L501.5200 1.6-2.6 mg/dL Normal MG 2.1 Performed By: #### L501.5200 #### [facility] [address] [place], [address] HEMOGLOBIN A1C Collected: 08/08/2018 Status: F Source: [place] 2:06 PM [facility] REPOSITORY Order Comment: Comments: as add on test TYPE CODE TESTS RESULT OUT OF RANGE REFERENCE UNITS LAB L501.9985 4.2-6.3 % High HGB A1C 6.5 Performed By: #### L501.9985 #### [facility] [address] [place], [address] BEDSIDE GLUCOSE Collected: 08/08/2018 Status: F Source: [place] 2:00 PM [facility] REPOSITORY TYPE CODE TESTS RESULT OUT OF REFERENCE UNITS RANGE LAB L501.080 70-110 mg/dL High BEDSIDE GLU 121 Result Comment: MANAGEMENT OF PATIENT CARE PER NURSING PROTOCOL Performed By: #### L501.080 #### [facility] Laboratory Point of Care [address] [place] [address] CHEST 1 VIEW Observed: 08/08/2018 Status: F Source: [place] (PORTABLE) 1:58 PM [facility] REPOSITORY [facility] Imaging Services [address] [place] [address] Chest 1 View (Portable) MR#: [id number] Acct: [id number] Name: FLAKITA CASTELLON Rep #: [id number] : 1960 M 58 From: Jaylon Andre MD PCP: Carter Ballesteros MD Status: REG ER Study: Chest 1 View (Portable) Date of Exam: 08/08/18 Exam# [id number] Ordering Dr: Flakita Caro MD STUDY: X-RAY CHEST REASON FOR EXAM: Male, 58 years old. Chest pain with palpitations TECHNIQUE: AP COMPARISON: 07/26/2018 FINDINGS: EKG leads project over the chest. The lungs are clear and expanded. There is no demonstrated pleural abnormality. Normal size heart. Normal mediastinum and bonnie. Normal visualized pulmonary arteries. Normal visualized aortic arch and descending thoracic aorta. Normal visualized thoracic spine. Normal visualized ribs, clavicles, and shoulders. There is no demonstrated abnormality of the visualized soft tissue structures of the upper abdomen. RAD/Chest 1 View (Portable) IMPRESSION: Stable, nonacute portable x-ray examination of the chest. Electronically Signed: Jaylon Andre MD at 14:28 EST , Service support , CC: Carter Ballesteros MD; Flakita Caro Medical Billing Coder: Signed CBC W/DIFF, AUTOMATED Collected: 08/08/2018 Status: F Source: [place] 1:55 PM [facility] REPOSITORY TYPE CODE TESTS RESULT OUT OF RANGE REFERENCE UNITS LAB L100.1000 4.4-11.0 K/mm3 Normal WBC 8.4 LAB L100.1200 4.6-6.2 M/mm3 Normal RBC 5.21 LAB L100.1300 13.0-16.5 g/dl Normal HGB 15.2 LAB L100.1400 40-54 % Normal HCT 45.1 LAB L100.1500 80-94 fL Normal MCV 86.6 LAB L100.1600 27.0-32.0 pg Normal MCH 29.2 LAB L100.1700 32-36 g/gl Normal MCHC 33.7 LAB L100.1810 11.6-14.6 % Normal RDW CV 13.9 LAB L100.1820 35.1-43.9 fl High RDW SD 44.0 LAB L100.1900 150-450 K/mm3 Normal PLT 289 LAB L100.2000 6.2-12.0 fl Normal MPV 10.5 LAB L100.2100 47-70 % Normal NEUT% 57.5 LAB L100.2200 19-41 % Normal LY% 31.3 LAB L100.2300 0-10 % Normal MONO% 8.6 LAB L100.2400 0-5 % Normal EO% 2.0 LAB L100.2500 0-1 % Normal BASO% 0.4 LAB L100.2550 0.0-0.9 % Normal IM GRAN % 0.200 Result Comment: IG% - Immature Granulocytes (promyelocytes, myelocytes and metamyelocytes) > 1% indicates that a LEFT SHIFT is Present. LAB L100.2620 2.0-7.7 X10 3/uL Normal Absolute Neut 4.8 LAB L100.2720 0.83-4.51 X10 3/ul Normal Absolute Lymph 2.63 Performed By: #### L100.0100 #### [facility] [address] [place], [place], [id number] PROTHROMBIN TIME W/INR Collected: 08/08/2018 Status: F Source: [place] 1:55 PM [facility] REPOSITORY TYPE CODE TESTS RESULT OUT OF RANGE REFERENCE UNITS LAB L300.4150 11.7-14.9 SECONDS Normal PROTIME 14.1 LAB L300.4200 Normal INR 1.1 Performed By: #### L300.3900, L300.4310 #### [facility] [address] [place], [place], [address] PARTIAL THROMBOPLAST Collected: 08/08/2018 Status: F Source: [place] TIME 1:55 PM [facility] REPOSITORY TYPE CODE TESTS RESULT OUT OF RANGE REFERENCE UNITS LAB L300.4310 24.1-36.2 Seconds Normal PTT 27.5 Performed By: #### L300.3900, L300.4310 #### [facility] [address] [place], [address] BASIC METABOLIC Collected: 08/08/2018 Status: F Source: [place] PROFILE (BMP) 1:55 PM [facility] REPOSITORY TYPE CODE TESTS RESULT OUT OF RANGE REFERENCE UNITS LAB L501.0100 74-106 mg/dL High GLU 112 Result Comment: Fasting Glucose result from 100 to 125 mg/dL suggests IMPAIRED HOMEOSTASIS per A.D.A. criteria. Please note revised GLUCOSE reference range effective 2017. LAB L501.1000 7-18 mg/dL Normal BUN 16 LAB L501.1100 0.70-1.30 mg/dL High CREAT,SERUM 1.50 Result Comment: The validity of the calculated GFR AND GFRAA in patients over 70 years has not been determined. Clinical correlation is essential. LAB L501.1110 >60 mL/min Low EST GFR 51 Result Comment: Non- GFR Calc LAB L501.1115 >60 mL/min Normal EST GFR - AA 61 Result Comment: GFR Calc LAB L501.1255 ml/min Normal Estimated CRCL 48.96 LAB L501.1300 10-20 RATIO Normal BUN/CRE 10.7 LAB L501.2200 8.5-10 mg/dL Normal .1 CA 8.8 LAB L501.5300 136-14 mmol/L Normal 5 NA 143 LAB L501.5600 3.5-5. mmol/L Normal 1 K 4.3 LAB L501.5900 98-107 mmol/L High CL 112 LAB L501.6100 21.0-3 mmol/L Normal 2.0 CO2 23.0 LAB L501.6200 5-15 Normal GAP 8 Performed By: #### L500.2500, L501.4010 #### [facility] [address] [place], [address] TROPONIN-I Collected: 08/08/2018 Status: F Source: [place] 1:55 PM [facility] REPOSITORY TYPE CODE TESTS RESULT OUT OF RANGE REFERENCE UNITS LAB L501.4010 <0.045 ng/mL Normal < 0.015 TROPONIN-I Result Comment: TROPONIN-I EXPECTED VALUES <0.045 Negative 0.045 - 0.590 Consistent with Cardiac Damage > OR = 0.600 Critical Value Not every elevated troponin is indicative of MS. These values should be used with clinical judgement in examining the patient's clinical picture for diagnosis. To establish a diagnosis of MS versus myocardial injury, there must be a demonstrated rise and/or fall in the troponin values, in addition to ischemic symptoms, EKG changes, new regional wall motion abnormality, and/or angiographical evidence. PLEASE NOTE: REFERENCE RANGES EDITED 17 Performed By: #### L500.2500, L501.4010 #### [facility] [address] [place], [address] BNP,B-TYPE NATRIURETIC Collected: 08/08/2018 Status: F Source: [place] PEPTIDE 1:55 PM [facility] REPOSITORY TYPE CODE TESTS RESULT OUT OF RANGE REFERENCE UNITS LAB L503.6620 0-100 pg/mL High B-TYPE 138.4 DAWNA PEP Performed By: #### L503.6620 #### [facility] [address] [place], [address] CNOV Observed: 08/05/2018 Status: COMPLETED Source: [place] 11:40 AM [facility] REPOSITORY Office Visit (FAMPWS) FLAKITA CASTELLON ([id number]) 1960 M Date Time Provider Department 08/05/18 11:40 AM CARTER BALLESTEROS FAMPWS During your visit today, we recorded the following information about you: Pulse Respiration Blood pressure Weight 78/minute 16/minute 124/90 144.7 kg Carter Ballesteros MD 08/05/2018 7:03 PM Signed Transitional Care Management Progress Note The patients TCM visit was performed within the 14 days of discharge. TCM Eligibility Documentation The following information was gathered during the initial Patient Outreach Encounter. Date of Outreach: 07/28/2018 07/28/2018 Outreach Attempt 1: Contact Made - Date of Discharge 07/27/2018 07/27/2018 Some recent data might be hidden If no data exists please enter it manually. If data exists please delete date of discharge and date of initial contact seen below. Patient's Date of discharge: 07/27/2018 Date of initial coordinator contact after discharge: 07/28/2018 Discharge diagnosis: paroxysmal a fib with RVR Medication review completed Yes Discharge Date and Diagnosis Date of Admission: 07/26/18 Date of Discharge: 07/27/18 ? - Primary Discharge Diagnosis Active and Suspected Problems ? 1. Paroxysmal atrial fibrillation with RVR ? 2. Hypertension ? 3. Hyperlipidemia ? 4. Type 2 diabetes mellitus ? 5. Morbid obesity ? 6. COLEMAN ? ? Chest X-Ray IMPRESSION: Degenerative changes, as described above. No demonstrated acute cardiopulmonary process. ? ? Dr. Flood- Cardiology Operations: None Procedures: 2-D Echocardiogram Summary of Care Provided: ? The patient is a 58 year old M admitted 07/26/2017 due to fatigue. Noted to have atrial fibrillation with RVR on admission. Patient received IV Cardizem bolus with conversion to sinus rhythm. Patient has remained in sinus rhythm since last night. Cardiology consulted. Troponin negative. TSH within normal limits. Patient was recommended to start on Eliquis per cardiology. Discharged on Eliquis 5 mg p.o. twice daily. Continue home metoprolol regimen. Echocardiogram shows an EF of 65%, mild left ventricular hypertrophy, no evidence of diastolic dysfunction.. Patient followed prior with Dr. Wasserman who has since retired. Will follow with Dr. Flood going forward. Follow-up with primary care physician in 1 week. Follow-up with cardiology in 1-2 weeks. Patient's past medical history includes paroxysmal atrial fibrillation, hypertension, hyperlipidemia, type 2 diabetes mellitus, morbid obesity, COLEMAN. Recommend continued use of CPAP. Other chronic medical conditions stable at this time. ? Maia Ham Ma Provider Documentation: In follow-up of hospitalization, Flakita Castellon is a 58 year old male with the chief complaint of paroxysmal A. Fib Patient has a been doing well since home. Has not noticed racing HR since being home and the HR on his watch has been ok. No shortness of breath, Chest pain or swelling in his legs. Has not had any nausea. Will be following up with Dr. Flood in a few weeks. With starting the Eliquis he was taken off the ASA. After a few days being home was not as exhausted. I have reviewed the patient?s last hospital course including diagnostic testing performed during this hospitalization, their discharge medications, and my assessment and plan with the patient and any family members present at today?s visit. PHYSICAL EXAMINATION: BP 124/90 Pulse 78 Resp 16 Wt (!) 144.7 kg (319 lb) BMI 49.96 kg/m? General appearance: Well appearing, alert, in no acute distress, well-hydrated, well nourished. Eyes: Anicteric sclera. Pupils are equally round. Extraocular movements are intact. Neck no masses or bruits Lungs: lungs clear to auscultation. No wheezing, rhonchi, rales Heart: RRR without murmur, gallop, or rubs. No ectopy Abdomen: Normal abdominal exam, Abdomen soft, non-tender. Bowel sounds normal. No masses, organomegaly Extremities: No deformities, edema Peripheral pulses: Normal Neuro: Gait normal. No gross motor or sensory deficits. A/P ASSESSMENT/PLAN: 1. Paroxysmal atrial fibrillation (HCC) - ICD9: 427.31, ICD10: I48.0 - Cont current Tx and f/u with cardio. 2. Type 2 diabetes mellitus without complication, without long-term current use of insulin (HCC) - ICD9: 250.00, ICD10: E11.9 - Continue current medications - BP goal of <130/80 - LDL goal of <100 - METFORMIN ER 500 MG TABLET,EXTENDED RELEASE 24 HR Signed Prescriptions Disp Refills metFORMIN ER (GLUCOPHAGE XR) 500 mg 24 hr tablet 90 tablet 1 Sig: Take 1 tablet by mouth daily with breakfast. VILMA: No apixaban (ELIQUIS) 5 mg tab(s) Sig: Take 1 tablet by mouth twice daily. Keep f/u in October Carter Ballesteros MD Referring Provider: CARTER BALLESTEROS [[id number]] Allergies As of Date: 08/05/2018 Noted Allergy Reaction IBUPROFEN 03/08/2018 8 - GI Upset LIPITOR (ATORVASTATIN CALCIUM) 06/03/2017 14 - Other: See Comments Comments: Elevated CK Date Reviewed: 08/05/2018 Reviewed by: Carter Ballesteros - Fully Assessed Reason for Visit: Transition Of Care [0246] Visit Diagnoses:Paroxysmal atrial fibrillation (HCC) [I48.0] Type 2 diabetes mellitus without complication, without long-term current use of insulin (HCC) [E11.9] Order(s):metFORMIN ER (GLUCOPHAGE XR) 500 mg 24 hr tabletTake 1 tablet by mouth daily with breakfast.Disp: 90 tabletRfl: 1 apixaban (ELIQUIS) 5 mg tab(s)Take 1 tablet by mouth twice daily.Disp: Rfl: Prescriptions as of 08/05/2018 Sig: METFORMIN ER 500 MG TABLET,EX* Take 1 tablet by mouth daily * FENOFIBRATE 160 MG TABLET Take 1 tablet by mouth once d* METOPROLOL SUCCINATE ER 50 MG* TAKE 1 TABLET ONCE DAILY FLUTICASONE 50 MCG/ACTUATION * Use 2 Sprays in each nostril * CPAP Initiate CPAP @ CPAP 8cm H2O * [id number] * Take 1 tablet by mouth once d* APIXABAN 5 MG TABLET Take 1 tablet by mouth twice * METOCLOPRAMIDE 10 MG TABLET Take 1 tablet by mouth before* ESOMEPRAZOLE MAGNESIUM 40 MG * Take 1 capsule by mouth daily* Problem List As Of Date 08/05/2018 Noted Resolved Symptomatic PVCs [I49.3] INVALID FOR* More... GERD without esophagitis [K21.9] INVALID FOR* Family history of arthritis [Z82.61] INVALID FOR* More... More... 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 RLS (restless legs syndrome) [G25.81] INVALID FOR* Essential hypertension [I10] INVALID FOR* Type 2 diabetes mellitus without complication, * Type 2 diabetes mellitus without retinopathy (H*INVALID FOR* Vitreous floaters of both eyes [H43.393] INVALID FOR* Morbid obesity due to excess calories (HCC) [E6*INVALID FOR* Elevated CK [R74.8] INVALID FOR* Diabetic eye exam (HCC) [Z01.00, E11.9] INVALID FOR* More... Well adult exam [Z00.00] INVALID FOR* More... Prostate cancer screening [Z12.5] INVALID FOR* Colon cancer screening [Z12.11] INVALID FOR* Elevated LFTs [R94.5] INVALID FOR* Nausea [R11.0] INVALID FOR* More... Dry heaves [R11.10] INVALID FOR* More... Current use of proton pump inhibitor [Z79.899] INVALID FOR* Trigger finger, right middle finger [M65.331] INVALID FOR* Torticollis [M43.6] INVALID FOR* Paroxysmal atrial fibrillation (HCC) [I48.0] INVALID FOR* More... Prescriptions ordered this encounter Disp Refills Start End METFORMIN ER 500 MG TABLET,EXTENDED * 90 t* 1 08/05/2018 Route: ORAL Sig: Take 1 tablet by mouth daily with breakfast. APIXABAN 5 MG TABLET 08/05/2018 Class: Med Update Route: ORAL Sig: Take 1 tablet by mouth twice daily. Medications Discontinued During This Encounter aspirin, enteric coated 81 mg EC tab* 0 12/06/2013 08/05/2018 Class: Med Update Route: ORAL Sig: Take 1 tablet by mouth once daily. Disc: Discontinued by another Health Care Provider metFORMIN ER (GLUCOPHAGE XR) 500 mg * 90 t* 1 03/03/2018 08/05/2018 Route: ORAL Sig: Take 1 tablet by mouth daily with breakfast. Disc: Reason for discontinue is not on file. Follow-up and Disposition History Recorded Encounter Status:Closed by CARTER BALLESTEROS on 08/05/18 PROGRESS Observed: 08/05/2018 Status: COMPLETED Source: [place] 11:10 AM [facility] [place] REPOSITORY O ID: [id number] Author: Carter Ballesteros Service: (none) Author Type: Physician Type: Progress Notes Filed: 08/05/2018 7:03 PM Note Text: Transitional Care Management Progress Note The patients TCM visit was performed within the 14 days of discharge. TCM Eligibility Documentation The following information was gathered during the initial Patient Outreach Encounter. Date of Outreach: 07/28/2018 07/28/2018 Outreach Attempt 1: Contact Made - Date of Discharge 07/27/2018 07/27/2018 Some recent data might be hidden If no data exists please enter it manually. If data exists please delete date of discharge and date of initial contact seen below. Patient's Date of discharge: 07/27/2018 Date of initial coordinator contact after discharge: 07/28/2018 Discharge diagnosis: paroxysmal a fib with RVR Medication review completed Yes Discharge Date and Diagnosis Date of Admission: 07/26/18 Date of Discharge: 07/27/18 ? - Primary Discharge Diagnosis Active and Suspected Problems ? 1. Paroxysmal atrial fibrillation with RVR ? 2. Hypertension ? 3. Hyperlipidemia ? 4. Type 2 diabetes mellitus ? 5. Morbid obesity ? 6. COLEMAN ? ? Chest X-Ray IMPRESSION: Degenerative changes, as described above. No demonstrated acute cardiopulmonary process. ? ? Dr. Flood- Cardiology Operations: None Procedures: 2-D Echocardiogram Summary of Care Provided: ? The patient is a 58 year old M admitted 07/26/2017 due to fatigue. Noted to have atrial fibrillation with RVR on admission. Patient received IV Cardizem bolus with conversion to sinus rhythm. Patient has remained in sinus rhythm since last night. Cardiology consulted. Troponin negative. TSH within normal limits. Patient was recommended to start on Eliquis per cardiology. Discharged on Eliquis 5 mg p.o. twice daily. Continue home metoprolol regimen. Echocardiogram shows an EF of 65%, mild left ventricular hypertrophy, no evidence of diastolic dysfunction.. Patient followed prior with Dr. Wasserman who has since retired. Will follow with Dr. Flood going forward. Follow-up with primary care physician in 1 week. Follow-up with cardiology in 1-2 weeks. Patient's past medical history includes paroxysmal atrial fibrillation, hypertension, hyperlipidemia, type 2 diabetes mellitus, morbid obesity, COLEMAN. Recommend continued use of CPAP. Other chronic medical conditions stable at this time. ? Maia Ham Ma Provider Documentation: In follow-up of hospitalization, Flakita Castellon is a 58 year old male with the chief complaint of paroxysmal A. Fib Patient has a been doing well since home. Has not noticed racing HR since being home and the HR on his watch has been ok. No shortness of breath, Chest pain or swelling in his legs. Has not had any nausea. Will be following up with Dr. Flood in a few weeks. With starting the Eliquis he was taken off the ASA. After a few days being home was not as exhausted. I have reviewed the patient?s last hospital course including diagnostic testing performed during this hospitalization, their discharge medications, and my assessment and plan with the patient and any family members present at today?s visit. PHYSICAL EXAMINATION: BP 124/90 Pulse 78 Resp 16 Wt (!) 144.7 kg (319 lb) BMI 49.96 kg/m? General appearance: Well appearing, alert, in no acute distress, well-hydrated, well nourished. Eyes: Anicteric sclera. Pupils are equally round. Extraocular movements are intact. Neck no masses or bruits Lungs: lungs clear to auscultation. No wheezing, rhonchi, rales Heart: RRR without murmur, gallop, or rubs. No ectopy Abdomen: Normal abdominal exam, Abdomen soft, non-tender. Bowel sounds normal. No masses, organomegaly Extremities: No deformities, edema Peripheral pulses: Normal Neuro: Gait normal. No gross motor or sensory deficits. A/P ASSESSMENT/PLAN: 1. Paroxysmal atrial fibrillation (HCC) - ICD9: 427.31, ICD10: I48.0 - Cont current Tx and f/u with cardio. 2. Type 2 diabetes mellitus without complication, without long-term current use of insulin (HCC) - ICD9: 250.00, ICD10: E11.9 - Continue current medications - BP goal of <130/80 - LDL goal of <100 - METFORMIN ER 500 MG TABLET,EXTENDED RELEASE 24 HR Signed Prescriptions Disp Refills metFORMIN ER (GLUCOPHAGE XR) 500 mg 24 hr tablet 90 tablet 1 Sig: Take 1 tablet by mouth daily with breakfast. VILMA: No apixaban (ELIQUIS) 5 mg tab(s) Sig: Take 1 tablet by mouth twice daily. Keep f/u in October Carter Ballesteros MD 12 LEAD ELECTROCARDIOGRAM Observed: 07/29/2018 Status: F Source: [place] 10:50 AM [facility] [place] REPOSITORY [facility] Cardiovascular Services [address] [place] [address] 12 Lead EKG 07/26/182236 MR#: [id number] Acct: [id number] Name: FLAKITA CASTELLON Rep #: [id number] : 1960 58 From: Alphonso Keys MD Attending Dr: Huma Ochoa MD Status: DIS ABBIE Ordering Dr: Marina Dillon MD Date: 07/26/18 Location: [facility] Sex: M C Admitted: 07/26/18 Test Reason : RHYTHM CHANGE Blood Pressure : / mmHG Vent. Rate : 070 BPM Atrial Rate : 070 BPM P-R Int : 152 ms QRS Dur : 088 ms QT Int : 404 ms P-R-T Axes : 040 001 021 degrees QTc Int : 436 ms Normal sinus rhythm Possible Inferior infarct , age undetermined Abnormal ECG Confirmed by ALANIS CABRERA, ALPHONSO ([id number]), subeditor ED BOND ([id number]) on 07/29/2018 10:50:35 AM Referred By: Sharad Ludwig Confirmed By:ALPHONSO KEYS MD 07/29/18 1050 Date Alphonso Keys MD CC: Sharad Ludwig DO; Carter Ballesteros MD; Marina Dillon MD; Huma Ochoa MD Signed PROGRESS Observed: 07/28/2018 Status: COMPLETED Source: [facility] 5:32 PM [facility] REPOSITORY [facility] ID: [id number] Author: Maia Ham Ma Service: (none) Author Type: (none) Type: Progress Notes Filed: 07/28/2018 5:34 PM Note Text: TRANSITION CARE MANAGEMENT (TCM) INITIAL CONTACT Director [facility] Provider Action/FYI: Initial contact with patient post discharge, spoke to patient. Patient identified by name and . TRANSITION CARE MANAGEMENT INITIAL OUTREACH DOCUMENTATION: Date of Outreach: 07/28/2018 07/28/2018 Outreach Attempt 1: Contact Made - Date of Discharge 07/27/2018 07/27/2018 Some recent data might be hidden SUMMARY: Discharge Date and Diagnosis Date of Admission: 07/26/18 Date of Discharge: 07/27/18 - Primary Discharge Diagnosis Active and Suspected Problems 1. Paroxysmal atrial fibrillation with RVR 2. Hypertension 3. Hyperlipidemia 4. Type 2 diabetes mellitus 5. Morbid obesity 6. COLEMAN Chest X-Ray IMPRESSION: Degenerative changes, as described above. No demonstrated acute cardiopulmonary process. Dr. Flood- Cardiology Operations: None Procedures: 2-D Echocardiogram Summary of Care Provided: The patient is a 58 year old M admitted 07/26/2017 due to fatigue. Noted to have atrial fibrillation with RVR on admission. Patient received IV Cardizem bolus with conversion to sinus rhythm. Patient has remained in sinus rhythm since last night. Cardiology consulted. Troponin negative. TSH within normal limits. Patient was recommended to start on Eliquis per cardiology. Discharged on Eliquis 5 mg p.o. twice daily. Continue home metoprolol regimen. Echocardiogram shows an EF of 65%, mild left ventricular hypertrophy, no evidence of diastolic dysfunction.. Patient followed prior with Dr. Wasserman who has since retired. Will follow with Dr. Flood going forward. Follow-up with primary care physician in 1 week. Follow-up with cardiology in 1-2 weeks. Patient's past medical history includes paroxysmal atrial fibrillation, hypertension, hyperlipidemia, type 2 diabetes mellitus, morbid obesity, COLEMAN. Recommend continued use of CPAP. Other chronic medical conditions stable at this time. Do you have a hospital follow up appointment with your PCP? Appointment on 08/05/[address] Ballesteros. Yes. Remind patient of appointment date, time, and location. If not within 14 calendar days of discharge - please reschedule accordingly. MEDICATIONS: Many patients have questions or concerns about their medications once they are home. Were you prescribed any new medications? Yes- Eliquis Were you told to hold any medications? No Were any of your medications discontinued? No Do you have any questions about getting or taking your medications? No Your discharge instructions/After visit Summary (AVS) are important in guiding you through the recovery process. Is there anything I might help you understand? No Do you have all the necessary equipment and supplies at home? Yes Medical records from recent hospitalization: Requested from outside hospital 12 LEAD ELECTROCARDIOGRAM Observed: 07/28/2018 Status: F Source: [place] 3:26 PM [facility] [place] REPOSITORY [facility] Cardiovascular Services [address] [place] [id number] 12 Lead EKG 07/26/18 1631 MR#: [id number] Acct: [id number] Name: FLAKITA CASTELLON Rep #: [id number] : 1960 58 From: Alphonso Keys MD Attending Dr: Huma Ochoa MD Status: DIS ABBIE Ordering Dr: Sharad Ludwig DO Date: 07/26/18 Location: [facility] Sex: M C Admitted: 07/26/18 Test Reason : CP Blood Pressure : / mmHG Vent. Rate : 128 BPM Atrial Rate : 131 BPM P-R Int : 000 ms QRS Dur : 088 ms QT Int : 342 ms P-R-T Axes : 000 021 002 degrees QTc Int : 499 ms Atrial fibrillation with rapid ventricular response Nonspecific ST and T wave abnormality Abnormal ECG Confirmed by ALANIS CABRERA, ALPHONSO ([id number]), subeditor ED BOND ([id number]) on 07/28/2018 3:26:10 PM Referred By: Sharad Ludwig Confirmed By:ALPHONSO KEYS MD 07/28/18 1526 Date Alphonso Keys MD CC: Sharad Ludwig DO; Carter Ballesteros MD; Huma Ochoa MD Signed CNPTOUTREACH Observed: 07/28/2018 Status: COMPLETED Source: [facility] 12:00 AM [facility] Patient Outreach ([facility]) FLAKITA CASTELLON ([id number]) 1960 M Date Time Provider Department 07/28/18 [facility] During your visit today, we recorded the following information about you: Maia Lady Zelaya 07/28/2018 5:34 PM Signed TRANSITION CARE MANAGEMENT (TCM) INITIAL CONTACT Director [facility] Provider Action/FYI: Initial contact with patient post discharge, spoke to patient. Patient identified by name and . TRANSITION CARE MANAGEMENT INITIAL OUTREACH DOCUMENTATION: Date of Outreach: 07/28/2018 07/28/2018 Outreach Attempt 1: Contact Made - Date of Discharge 07/27/2018 07/27/2018 Some recent data might be hidden SUMMARY: Discharge Date and Diagnosis Date of Admission: 07/26/18 Date of Discharge: 07/27/18 - Primary Discharge Diagnosis Active and Suspected Problems 1. Paroxysmal atrial fibrillation with RVR 2. Hypertension 3. Hyperlipidemia 4. Type 2 diabetes mellitus 5. Morbid obesity 6. COLEMAN Chest X-Ray IMPRESSION: Degenerative changes, as described above. No demonstrated acute cardiopulmonary process. Dr. Flood- Cardiology Operations: None Procedures: 2-D Echocardiogram Summary of Care Provided: The patient is a 58 year old M admitted 07/26/2017 due to fatigue. Noted to have atrial fibrillation with RVR on admission. Patient received IV Cardizem bolus with conversion to sinus rhythm. Patient has remained in sinus rhythm since last night. Cardiology consulted. Troponin negative. TSH within normal limits. Patient was recommended to start on Eliquis per cardiology. Discharged on Eliquis 5 mg p.o. twice daily. Continue home metoprolol regimen. Echocardiogram shows an EF of 65%, mild left ventricular hypertrophy, no evidence of diastolic dysfunction.. Patient followed prior with Dr. Wasserman who has since retired. Will follow with Dr. Flood going forward. Follow-up with primary care physician in 1 week. Follow-up with cardiology in 1-2 weeks. Patient's past medical history includes paroxysmal atrial fibrillation, hypertension, hyperlipidemia, type 2 diabetes mellitus, morbid obesity, COLEMAN. Recommend continued use of CPAP. Other chronic medical conditions stable at this time. Do you have a hospital follow up appointment with your PCP? Appointment on 08/05/[address] Ballesteros. Yes. Remind patient of appointment date, time, and location. If not within 14 calendar days of discharge - please reschedule accordingly. MEDICATIONS: Many patients have questions or concerns about their medications once they are home. Were you prescribed any new medications? Yes- Eliquis Were you told to hold any medications? No Were any of your medications discontinued? No Do you have any questions about getting or taking your medications? No Your discharge instructions/After visit Summary (AVS) are important in guiding you through the recovery process. Is there anything I might help you understand? No Do you have all the necessary equipment and supplies at home? Yes Medical records from recent hospitalization: Requested from outside hospital Allergies As of Date: 07/28/2018 Noted Allergy Reaction IBUPROFEN 03/08/2018 8 - GI Upset LIPITOR (ATORVASTATIN CALCIUM) 06/03/2017 14 - Other: See Comments Comments: Elevated CK Date Reviewed: 06/30/2018 Reviewed by: Corinne Thomas Ma - Fully Assessed Reason for Visit: Transition Of Care [4074] Prescriptions as of 07/28/2018 Sig: FENOFIBRATE 160 MG TABLET Take 1 tablet by mouth once d* METOCLOPRAMIDE 10 MG TABLET Take 1 tablet by mouth before* METFORMIN ER 500 MG TABLET,EX* Take 1 tablet by mouth daily * METOPROLOL SUCCINATE ER 50 MG* TAKE 1 TABLET ONCE DAILY ESOMEPRAZOLE MAGNESIUM 40 MG * Take 1 capsule by mouth daily* FLUTICASONE 50 MCG/ACTUATION * Use 2 Sprays in each nostril * CPAP Initiate CPAP @ CPAP 8cm H2O * ASPIRIN 81 MG TABLET,DELAYED * Take 1 tablet by mouth once d* [id number] * Take 1 tablet by mouth once d* Problem List As Of Date 07/28/2018 Noted Resolved Symptomatic PVCs [I49.3] INVALID FOR* More... GERD without esophagitis [K21.9] INVALID FOR* Family history of arthritis [Z82.61] INVALID FOR* More... More... 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 RLS (restless legs syndrome) [G25.81] INVALID FOR* Essential hypertension [I10] INVALID FOR* Type 2 diabetes mellitus without complication, * Type 2 diabetes mellitus without retinopathy (H*INVALID FOR* Vitreous floaters of both eyes [H43.393] INVALID FOR* Morbid obesity due to excess calories (HCC) [E6*INVALID FOR* Elevated CK [R74.8] INVALID FOR* Diabetic eye exam (HCC) [Z01.00, E11.9] INVALID FOR* More... Well adult exam [Z00.00] INVALID FOR* More... Prostate cancer screening [Z12.5] INVALID FOR* Colon cancer screening [Z12.11] INVALID FOR* Elevated LFTs [R94.5] INVALID FOR* Nausea [R11.0] INVALID FOR* More... Dry heaves [R11.10] INVALID FOR* More... Current use of proton pump inhibitor [Z79.899] INVALID FOR* Trigger finger, right middle finger [M65.331] INVALID FOR* Torticollis [M43.6] INVALID FOR* Encounter Status:Closed by MAIA HAM MA on 07/28/18 DISCHARGE SUMMARY Observed: 07/27/2018 Status: F Source: [place] 2:08 PM [facility] [place] [facility] Medical Records Department [address] [place] [address] Discharge Summary 07/27/18 1133 MR#: [id number] Acct: [id number] Name: FLAKITA CASTELLON Rep #: [id number] : 1960 58 From: Kyung GARCIA PCP: Carter Ballesteros MD Status: DIS ABBIE Y Location: [place] [address] <Kyung Hayes - Last Filed: 07/27/18 11:44> Discharge Date and Diagnosis Date of Admission: 07/26/18 Date of Discharge: 07/27/18 - Primary Discharge Diagnosis Active and Suspected Problems (Last Updated 07/26/18 @ 19:48 by Sharad Ludwig DO) 1. Paroxysmal atrial fibrillation with RVR 2. Hypertension 3. Hyperlipidemia 4. Type 2 diabetes mellitus 5. Morbid obesity 6. COLEMAN Hospital Course and Treatment Imaging Results: Diagnostic Data Chest X-Ray 07/26/18 16:46 IMPRESSION: Degenerative changes, as described above. No demonstrated acute cardiopulmonary process. Electronically Signed: Mehdi Machuca MD at 17:45 EST , Service support , Dr. Flood- Cardiology Operations: None Procedures: 2-D Echocardiogram Summary of Care Provided: The patient is a 58 year old M admitted 07/26/2017 due to fatigue. Noted to have atrial fibrillation with RVR on admission. Patient received IV Cardizem bolus with conversion to sinus rhythm. Patient has remained in sinus rhythm since last night. Cardiology consulted. Troponin negative. TSH within normal limits. Patient was recommended to start on Eliquis per cardiology. Discharged on Eliquis 5 mg p.o. twice daily. Continue home metoprolol regimen. Echocardiogram shows an EF of 65%, mild left ventricular hypertrophy, no evidence of diastolic dysfunction.. Patient followed prior with Dr. Wasserman who has since retired. Will follow with Dr. Flood going forward. Follow-up with primary care physician in 1 week. Follow-up with cardiology in 1-2 weeks. Patient's past medical history includes paroxysmal atrial fibrillation, hypertension, hyperlipidemia, type 2 diabetes mellitus, morbid obesity, COLEMAN. Recommend continued use of CPAP. Other chronic medical conditions stable at this time. General: Alert, Cooperative, No apparent distress HEENT: Atraumatic, Normocephalic Oral: Moist Mucosa Neck: No Nodes, Thyroid Normal Size and Texture Lungs: Clear to auscultation, Normal air movement Cardiovascular: Normal S1, Normal S2, Irregular Rate Abdomen: Bowel Sounds Present, Soft, Non Tender, Non-Distended, obese Extremities: No edema, No Calf Tenderness Skin: No rashes, No breakdown Musculoskeletal: No Tenderness to Palpation of Joints or Extremities, No Muscle Wasting Psych/Mental Status: Normal Affect, Appropriate Patient seen and examined prior to discharge. Physical assessment as noted above. Patient is stable for discharge with follow up recommendations as noted above. This patient was seen by JOSE Wynne under the supervision of Dr. Ochoa. - Physical Exam Vital Signs Temp Pulse Resp BP Pulse Ox 98.2 F 60 16 125/70 H 94 07/27/18 09:22 07/27/18 10:58 07/27/18 09:22 07/27/18 09:22 07/27/18 09:22 Oxygen Delivery Method Room Air Weight: 317 lb 7.45 oz Body Mass Index (BMI) 49.7 Intake and Output for Last 24 Hours Intake Total 700 / 700 Balance 700 / 700 Laboratory Tests Past 24 Hrs WBC RBC Hgb Hct MCV MCH MCHC RDW RDW Differential Plt Count MPV Immature Gran % (Auto) Neut % (Auto) POC Glucose POC Glucose 123 H 131 H Discharge Diet: Low fat/ Low Cholesterol, 1800 Calorie Control Diet, Carb Control Diet Discharge Activity: Return to Normal Activity Call your doctor if you observe: Shortness of breath, Dizziness, Fainting spells, Increased palpitations (irregular heartbeat) Home Medications: Medications to take at Discharge Esomeprazole Magnesium 40 mg PO QWEEK 07/26/18 Fenofibrate 160 mg PO DAILY 07/26/18 Fluticasone Propionate 2 spray NASAL DAILY 07/26/18 Metformin(XR) [Glucophage Xr] 500 mg PO DAILY 07/26/18 Metoprolol Succinate 50 mg PO DAILY 07/26/18 Multivit-Min/FA/Lycopen/Lutein [Centrum Silver Men Tablet] 1 tab PO DAILY 07/26/18 Apixaban [Eliquis] 5 mg PO BID@0800,2000 #60 tablet 07/27/18 Following Prescrptions Were Given to Patient: Apixaban [Eliquis] 5 mg PO BID@ #60 tablet Primary Care Physician: Emir Seals MD [STAFF PHYSICIAN] - Please follow up with your Primary Care Physician in: 1 Week Please Follow Up With: Guicho Flood MD When: 1-2 Weeks Disposition: Home Minutes spent on discharge:: 35 Patient Condition:: Stable Medical Necessity - Tobacco Use Smoking Status: Never smoker Tobacco Use: Non-smoker Meaningful Use Info Meaningful Use Diagnoses (Choose all that apply): None applicable <Huma Ochoa - Last Filed: 07/27/18 14:08> Hospital Course and Treatment Summary of Care Provided: Patient seen by Kyung GARCIA under my supervision. The patient is a 58 year old M was admitted with a complaint of fatigue and palpitations. On admission was noted to have A. fib with RVR and received IV Cardizem bolus. He subsequently converted back to sinus rhythm. He does have a history of paroxysmal A. fib. Troponins were negative and TSH was within normal limits. Cardiology was consulted and he was started on Eliquis. Patient remained stable and was discharged home on p.o. Eliquis as well as his home metoprolol dose. He had a 2D echo showed EF of 65% and mild left ventricular hypertrophy. He is to follow-up with cardiology and his primary care doctor. Patient seen and examined prior to discharge. He had no complaints and felt well. He denied any palpitations or chest pain dizziness, abdominal pain, diarrhea vomiting. 12 point review of systems otherwise negative. Labs and vitals reviewed. Home medications reviewed and reconciled. On examination: Vital Signs Height 5 ft 7 in Weight: 317 lb 7.45 oz Weight in Pounds 317.5 lbs Pulse Ox 94 [] General: Alert, Cooperative, No apparent distress, morbidly obese HEENT: Atraumatic, Normocephalic Oral: Moist Mucosa Neck: No Nodes, Thyroid Normal Size and Texture Lungs: Clear to auscultation, Normal air movement Cardiovascular: Normal S1, Normal S2, Irregular Rate Abdomen: Bowel Sounds Present, Soft, Non Tender, Non-Distended, obese Extremities: No edema, No Calf Tenderness Skin: No rashes, No breakdown Musculoskeletal: No Tenderness to Palpation of Joints or Extremities, No Muscle Wasting Psych/Mental Status: Normal Affect, Appropriate Plan as described above. Also counseled to be compliant with his CPAP machine. Rest of management as per Kyung Hayes NP C's note which I have reviewed and agree with. - Physical Exam Vital Signs Temp Pulse Resp BP Pulse Ox 98.2 F 60 16 125/70 H 94 07/27/18 09:22 07/27/18 10:58 07/27/18 09:22 07/27/18 09:22 07/27/18 09:22 Oxygen Delivery Method Room Air Weight: 317 lb 7.45 oz Body Mass Index (BMI) 49.7 Intake and Output for Last 24 Hours Intake Total 700 / 700 Balance 700 / 700 Laboratory Tests Past 24 Hrs WBC RBC Hgb Hct MCV MCH MCHC RDW RDW Differential Plt Count MPV Immature Gran % (Auto) Neut % (Auto) POC Glucose POC Glucose 123 H 131 H Code Visit Inpatient E AND M: 77506 Disch Hosp 07/27/18 1144 <Electronically signed by Kyung LALAC> Date Kyung LALAC 07/27/18 1408<Electronically signed by Huma Ochoa MD> Cosigner Signature (if applicable): Date Huma Ochoa MD CC: JOSE Hayes; Carter Ballesteros MD; Huma Ochoa MD; Emir Seals MD Signed DISCHARGE INSTRUCTION Observed: 07/27/2018 Status: F Source: [place] 11:33 AM [facility] REPOSITORY [facility] Medical Records Department [address] [place] [address] Instructions for Home/Discharge Instructions 07/27/18 1128 MR#: [id number] Acct: [id number] Name: FLAKITA CASTELLON Rep #: [id number] : 1960 58 From: Kyung LALAC PCP: Carter Ballesteros MD Status: ADM ABBIE - Discharge Diagnoses Current Active Problems: Current Active and Chronic Problems (Last Updated 07/26/18 @ 19:48 by Sharad Ludwig DO) Atrial fibrillation with RVR (Acute) You will use the following diet at home:: Calorie/Carbohydrate Controlled (specify 1200, 1400, etc), Cardiac Discharge Activity: Return to Normal Activity Call your doctor if you observe: Shortness of breath, Dizziness, Fainting spells, Increased palpitations (irregular heartbeat) Allergies/Adverse Reactions: Allergies No Known Allergies Allergy (Verified 07/26/18 16:25) Medications to take at Discharge Esomeprazole Magnesium 40 mg PO QWEEK 07/26/18 Fenofibrate 160 mg PO DAILY 07/26/18 Fluticasone Propionate 2 spray NASAL DAILY 07/26/18 Metformin(XR) [Glucophage Xr] 500 mg PO DAILY 07/26/18 Metoprolol Succinate 50 mg PO DAILY 07/26/18 Multivit-Min/FA/Lycopen/Lutein [Centrum Silver Men Tablet] 1 tab PO DAILY 07/26/18 Apixaban [Eliquis] 5 mg PO BID@0800,1999 #60 tablet 07/27/18 The following prescriptions were given: Apixaban [Eliquis] 5 mg PO BID@0800,1999 #60 tablet Primary Care Physician: Emir Seals MD [STAFF PHYSICIAN] - Please follow up with your Primary Care Physician in: 1 Week Test Results: Test results from this visit will be discussed in further detail at your follow-up appointment, if applicable. Please Follow Up With: Guicho Flood MD When: 1-2 Weeks Proposed Discharge Date: 07/27/18 07/27/18 1133 <Electronically signed by Kyung GARCIA> Date Kyung GARCIA CC: Guicho Flood MD; Caretr Ballesteros MD Signed ECHO, COMPLETE W/ Observed: 07/27/2018 Status: F Source: [place] CONTRAST 11:33 AM [facility] REPOSITORY [facility] Cardiovascular Services [address] [place] [address] Echo Complete W/ Contrast 07/27/18822 MR#: [id number] Acct: [id number] Name: FLAKITA CASTELLON Rep #: [id number] : 1960 58 From: Guicho Flood MD Attending Dr: Huma Ochoa MD Status: ADM ABBIE Ordering Dr: Sharad Ludwig DO Date: 07/26/18 Location: [facility] Sex: M C Admitted: 07/26/18 Reason For Study: AFIB Procedure This was a 2D Doppler, Color Flow transthoracic echocardiogram. Contrast injection was performed. Technically difficult due to patient body habitus. Exam performed portable in patient room. Left Ventricle Normal LV size. Mild concentric left ventricular hypertrophy. Left ventricular systolic function is normal. The estimated ejection fraction is 65 %. No evidence for diastolic dysfunction. No regional wall motion abnormalities noted. Atria The left atrium is moderately enlarged. Normal right atrium. Mitral Valve Normal mitral valve. Tricuspid Valve Normal tricuspid valve. Unable to estimate RV systolic pressure due to inadequate jet, pulmonary artery pressure probably normal. Aortic Valve The aortic valve is not well visualized. Pulmonic Valve The pulmonic valve is not well visualized. Great Vessels Normal aortic root. Pericardium/Pleural No pericardial effusion. Medication Diluted definity 4ml given slow IV push to enhance endocardial definition. MMode/2D Measurements AND Calculations LVIDd: 4.6 cm IVSd: 1.2 cm Ao root diam: 3.5 cm LVIDs: 2.3 cm LVPWd: 1.4 cm LA dimension: 4.1 cm RVDd: 4.6 cm FS: 50.5 % LAV(MOD-sp4): 81.3 ml LA A4 area: 25.6 cm2 RA A4 area: 17.9 cm2 Time Measurements MV dec time: 0.20 sec Doppler Measurements AND Calculations MV E max shanae: 82.0 cm/sec Lat Peak E' Shanae: 13.0 cm/sec Med Peak E' Shanae: 9.6 cm/sec MV A max shanae: 53.6 cm/sec E/E' lat: 6.3 E/E' med: 8.6 MV E/A: 1.5 MV V2 max: 80.9 cm/sec MV P1/2t max shanae: 81.5 cm/sec Ao V2 max: 133.5 cm/sec MV max P.6 mmHg MV P1/2t: 89.9 msec Ao max P.1 mmHg MV V2 mean: 45.8 cm/sec MV dec slope: 265.7 cm/sec2 MV mean P.96 mmHg MV V2 VTI: 22.7 cm MVA(P1/2t): 2.4 cm2 LV V1 max: 109.1 cm/sec PA V2 max: 86.7 cm/sec LV V1 max P.8 mmHg Interpretation Summary Normal LV size. Mild concentric left ventricular hypertrophy. Left ventricular systolic function is normal. The estimated ejection fraction is 65 %. No evidence for diastolic dysfunction. Contrast injection was performed. Ordering Physician: Sharad Ludwig Referring Physician: Carter Ballesteros Performed By: Nilson Springer RCS 07/27/18 1133 Date Guicho Flood MD CC: Sharad Ludwig DO; Carter Ballesteros MD; Huma Ochoa MD Date Dictated: 07/27/18822 Date Transcribed: 07/27/181132 Medical Billing Coder: Signed CONSULTATION Observed: 07/27/2018 Status: F Source: [place] 6:32 AM [facility] REPOSITORY [facility] Medical Records Department [address] [place] [address] Consultation 07/27/18628 MR#: [id number] Acct: [id number] Name: FLAKITA CASTELLON Rep #: [id number] : 1960 58 From: Guicho Flood MD PCP: Carter Ballesteros MD Status: ADM IN Location: [place] [address]-1 Reason for Consult Date of Consultation: 07/27/18 Reason for Consultation: Fast heartbeat. History of Present Illness: The patient is a 58 year old M presents with 1 day history of fatigue. He has a previous history of paroxysmal atrial fibrillation but was managed medically. 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 On the day of presentation he woke up feeling very fatigued presented to the emergency room was noted to be in atrial fibrillation with rapid ventricular response rate. He received 20 mg of intravenous diltiazem in the ER physician called me for further assistance. It was decided to place the patient on Eliquis as well as give him a dose of oral diltiazem with hopes that he would convert in the night. He denies any chest pain or paroxysmal nocturnal dyspnea or pedal edema he has had no neck arm or jaw discomfort to suggest angina. Through the night the patient converted back to sinus rhythm. Past Medical History Allergies/Adverse Reactions: Allergies No Known Allergies Allergy (Verified 07/26/18 16:25) Home Medications: Ambulatory Orders Medication Instructions Recorded - *Family History Maternal History Items: Heart Disease - CHF Smoking Status: Never smoker Tobacco Use: Non-smoker Alcohol: Rare Drugs: None Review of Systems - Review of Systems General: Reports: Fatigue, Malaise. Denies: Fever, Night Sweats HEENT: Denies: Vision Change Cardiovascular: Denies: Chest Discomfort, Shortness of Breath, Orthopnea, PND, Peripheral Edema, Palpitations, Lightheadedness, Dizziness, Near Syncope, Syncope Respiratory: Denies: Cough, Sputum Production, Hemoptysis Gastrointestinal: Denies: Hematemesis, Hematochezia, Melena Genitourinary: Denies: Dysuria, Hematuria Muscoloskeletal: Denies: Myalgias Skin: Denies: Rash Neurological: Denies: Dizziness Psychiatric: Denies: Anxiety Endocrine: Denies: Unexplained Weight Loss Hematologic/ Lymphatic: Denies: Anemia Subjectve: Pleasant gentleman in no apparent distress Objective: Vital Signs Temp Pulse Resp BP Pulse Ox 97.6 F L 67 18 112/76 98 07/27/18 04:00 07/27/18 06:13 07/27/18 04:00 07/27/18 04:00 07/27/18 04:00 Oxygen Delivery Method CPAP Weight: 317 lb 7.45 oz Body Mass Index (BMI) 49.7 Intake and Output for Last 24 Hours Intake Total 220 / 220 Balance 220 / 220 General: Awake, Alert, Oriented x 3 HEENT: PERRL, EOMI, Sclera Non Icteric Neck: Supple, Good ROM, No Lymph Node Enlargement Lungs: Clear to auscultation Cardiovascular: Regular Rhythm, Normal S1, Normal S2, No Murmurs, No Rubs, No Gallops Vascular: No Carotid Bruits, Normal Femoral Pulses, Normal Radial Pulses, Normal Dorsalis Pedal Pulse, Normal Posterior Tibial Pulses Abdomen: Bowel Sounds Present, Soft, Non Tender, No HSM, No Organomegaly Extremities: No Cyanosis, No Clubbing, No edema Musculoskeletal: No Erythema Skin: No Rashes Lymphatic: No Lymph Node Enlargement Neurological: No Focal Motor or Sensory Deficit Psych/Mental Status: Appropriate 07/26/18 16:55: WBC 8.8, RBC 5.26, Hgb 15.1, Hct 46.2, MCV 87.8, MCH 28.7, MCHC 32.7, RDW 13.9, RDW Differential 44.7 H, Plt Count 246, MPV 10.7, Immature Gran % (Auto) 0.300, Neut % (Auto) 66.5, Lymph % (Auto) 25.5, [place] % (Auto) 6.6, Eos % (Auto) 0.9, Baso % (Auto) 0.2, Absolute Neuts (auto) 5.8, Total Counted Not Reportable 07/26/18 16:55: Sodium 142, Potassium 3.8, Chloride 110 H, Carbon Dioxide 24.0, Anion Gap 8, BUN 19 H, Creatinine 1.22, Est GFR (MDRD) Af Amer 78, Est GFR (MDRD) Non-Af 64, BUN/Creatinine Ratio 15.6, Glucose 164 H, Calcium 9.0, Troponin I < 0.015 07/26/18 17:45: PT 13.9, INR 1.1, APTT 23.9 L Rhythm: EKG: Atrial fibrillation with a rapid ventricular response rate of 124 bpm. Subsequent EKG demonstrates normal sinus rhythm with a rate of 70 bpm. Assessment/Plan 1. Paroxysmal atrial fibrillation * Patient appears to have paroxysmal atrial fibrillation. At this time with a history of hypertension as well as diabetes and his age my recommendation will be for us to continue him on Eliquis * Obtain an echocardiogram to assess his left ventricular function * Continue CPAP mask treatment * Continue beta-rocco * * Can discharge later today for outpatient follow-up in my office. * * Thank you for allowing me to participate in the care of your patient. Please don't hesitate to call if any issues arise 07/27/18 0632 <Electronically signed by Guicho Flood MD> Date Guicho Flood MD Cosigner Signature (if applicable): Date CC: Guicho Flood MD; Sharad Ludwig DO; Carter Ballesteros MD Signed BEDSIDE GLUCOSE Collected: 07/27/2018 Status: F Source: [place] 6:28 AM [facility] REPOSITORY TYPE CODE TESTS RESULT OUT OF REFERENCE UNITS RANGE LAB L501.080 70-110 mg/dL High BEDSIDE GLU 123 Result Comment: MANAGEMENT OF PATIENT CARE PER NURSING PROTOCOL Performed By: #### L501.080 #### [facility] Laboratory Point of Care [address] [place] [address] THYROID STIM HORMONE Collected: 07/27/2018 Status: F Source: [place] (TSH) 5:20 AM [facility] REPOSITORY TYPE CODE TESTS RESULT OUT OF RANGE REFERENCE UNITS LAB L501.9520 0.358-3.74 uIU/mL Normal TSH 2.56 Performed By: #### L501.9520 #### [facility] Laboratory [address] [place], [address] EMERGENCY DEPARTMENT Observed: 07/27/2018 Status: F Source: [place] SUMMARY 12:59 AM [facility] REPOSITORY [facility] Medical Records Department [address] [place] [address] Emergency Department Summary 07/26/18 1709 MR#: [id number] Acct: [id number] Name: FLAKITA ACSTELLON Rep #: [id number] : 1960 58 From: Marina Dillon MD PCP: Carter Ballesteros MD Status: ADM IN - ER Visit Summary Date of Service: 07/26/18 Chief Complaint: Heart racing History of Present Illness: The patient is a 58 M with history of paroxysmal atrial fibrillation presents for heart racing since last night. Patient states while he was asleep he noted his heart began racing. It has been continuous since then. He has had dry heaves today, but states he has been having them intermittently for the last 2 years. Otherwise no chest pain, shortness of breath, abdominal pain, back pain, vomiting, fever, lightheadedness or dizziness. Patient states he just feels very low energy today. He has history of diabetes and A. fib. He is on baby aspirin and metoprolol daily. He is not on anticoagulation and is not in A. fib at baseline. Patient does not know who his wind turbine engineer is, and it is a [facility] physician. Physical Examination: Vital signs: afebrile, hemodynamically stable, no hypoxia on room air General: well nourished, well developed, laying in bed, pale and diaphoretic, in mild distress Skin: warm, diaphoretic, pale HEENT: normocephalic and atraumatic; PERRL, EOMI, moist mucous membranes Cardiovascular: Irregularly irregular tachycardia without murmurs, no peripheral edema, 2+ pulses all distal extremities Respiratory: No increased work of breathing, lungs are clear to auscultation bilaterally, no rales, rhonchi or wheezing Abdominal: Abdomen is soft, nontender with normoactive bowel sounds, no guarding or rebound, no masses MSK: Moves all extremities, no deformities, normal strength Neuro: Awake and alert, oriented 4. No facial droop, sensation and motor function intact and symmetric Test Results: Abnormal Lab Results Clinical Impression(s) from Imaging Studies Chest X-Ray 07/26/18 16:46 IMPRESSION: Degenerative changes, as described above. No demonstrated acute cardiopulmonary process. Electronically Signed: Mehdi Machuca MD at 17:45 EST , Service support , Medications Given Discontinued Medications Aspirin (Aspirin, Baby) 324 mg PO X1 ONE Stop: 07/26/18 17:09 Last Admin: 07/26/18 17:19 Dose: 324 mg Diltiazem HCl (Cardizem) 20 mg IV BOLUS X1 ONE Stop: 07/26/18 17:09 Last Admin: 07/26/18 17:20 Dose: 20 mg Diltiazem HCl (Cardizem Cd) 120 mg PO X1 ONE Stop: 07/26/18 18:22 Emergency Department Course and Treatment: EKG shows atrial fibrillation with a rapid ventricular rate, no ischemic changes noted. Patient does appear pale and diaphoretic. Attempted vagal maneuver with patient blowing into a syringe for 30 seconds followed by laying him flat with legs elevated. Patient's heart rate slowed down briefly into the high 90s but then resumed A. fib with RVR. Patient was given Cardizem IV. Patient knows onset of his symptoms was during the night for the heart racing, however it is unclear if he could have been in normal rate atrial fibrillation prior to that. Patient is not anticoagulated. Patient had rate control after one IV bolus of Cardizem. Troponin negative. EKG showed A. fib with RVR with some nonspecific T wave inversions but no ST changes. After rate control, patient was feeling better and was no longer diaphoretic or is pale. Labs were otherwise unremarkable. Patient was discussed with Dr. Flood, who agreed that patient should be admitted for anticoagulation prior to rhythm conversion since it is unclear exactly how long he has been in atrial fibrillation. Patient was given a dose of 120 mg oral long-acting Cardizem as well as started on Eliquis. Dr. Flood will evaluate him in the morning. Patient will be discussed with the hospitalist for admission. Critical care time of 35 minutes independent of separately billable procedures for initial evaluation and stabilization, coordination of care, discussion with specialist and hospitalist, frequent re-evaluations, interpretation of EKG and lab work, and documentation. Treatment Plan: [] Disposition: [] Impression: A. fib with RVR This note was generated with Smart Eye dictation software. It may contain incorrect words, spelling, and punctuation that were not noted in review of the chart prior to signing ED Disposition - Plan for ED Patient: Disposition: Acute Care Hospital [facility] Chief Complaint: Palpitations What to do if you have Problems For any increased pain, shortness of breath, bleeding, nausea or vomiting, chest pain, or any unexpected problems, contact your Primary Care Provider. Call [facility] ([phone]) or report to the closest Emergency Room. Call 911 if necessary. 07/27/18 0059 <Electronically signed by Marina Dillon MD> Date Marina Dillon MD Cosigner Signature (If Indicated): Date CC: Carter Ballesteros MD BEDSIDE GLUCOSE Collected: 07/26/2018 Status: F Source: [place] 10:00 PM [facility] REPOSITORY TYPE CODE TESTS RESULT OUT OF REFERENCE UNITS RANGE LAB L501.080 70-110 mg/dL High BEDSIDE GLU 131 Result Comment: MANAGEMENT OF PATIENT CARE PER NURSING PROTOCOL Performed By: #### L501.080 #### [facility] Laboratory Point of Care [address] [place] [address] HISTORY AND PHYSICAL Observed: 07/26/2018 Status: F Source: [place] EXAM 7:51 PM [facility] REPOSITORY [facility] Medical Records Department [address] [place] [address] History and Physical 07/26/181946 MR#: [id number] Acct: [id number] Name: FLAKITA CASTELLON Rep #: [id number] : 1960 58 From: Sharad Ludwig DO PCP: Carter Ballesteros MD Status: ADM IN Y Location: [place] [address] Problem List (1) Atrial fibrillation with RVR Status: Acute History of Present Illness Date of Admission: 07/26/18 Chief Complaint: fatigue The patient is a 58 year old M presents with 1 day history of fatigue. Patient awoke today just feeling very fatigued overall. Did not get better and so sought attention. Patient was noted to be in atrial fibrillation with RVR. Received 20 mg of IV diltiazem and then 120 mg of diltiazem and has been rate controlled since then. Patient additionally received 5 mg of Eliquis and turn 24 mg of aspirin. Patient states that he has had a chronic history of atrial fibrillation and was in and out of it. Patient states that he does not know when he goes into it because he just feels very fatigued but usually events are very short-lived. Patient was following up with Dr. Wasserman but since Dr. Wasserman left he has not reestablish cardiac care. Patient did state that he had a episode last day and a half but never sought attention for it. [] Past Medical History Medical History: Medical History (Last Updated 07/26/18 @ 19:48 by Sharad Ludwig DO) Afib I48.91 Allergies No Known Allergies Allergy (Verified 07/26/18 16:25) Home Medications: Ambulatory Orders Medication Instructions Recorded Smoking Status: Never smoker Tobacco Use: Non-smoker Alcohol: Rare Drugs: None - *Family History Maternal History Items: Heart Disease - CHF Review of Systems Constitutional: Reports: Malaise, Weakness, Fatigue. Denies: Anorexia, Chills, Fever Eyes: Denies: Blurred vision, Double vision HEENT: Denies: Head Aches, Sinus Congestion, Sinus Drainage Cardiovascular: Denies: Chest Pain, Palpitations Respiratory: Denies: Cough, Shortness of breath at rest, Sputum production Gastrointestinal: Denies: Abdominal Pain, Nausea, Vomiting Genitourinary: Denies: Dysuria Musculoskeletal: Denies: Joint Pain, Joint Tenderness Skin: Denies: Rash, Wounds Neurological: Denies: Balance problems, Change in Speech Psychiatric: Denies: Anxiety, Depression Endocrine: Denies: Change in Body Habitus, Heat/ Cold Intolerance Hematologic/ Lymphatic: Denies: Easy Bruising, Easy Bleeding, Hx of blood clot Comment: A 10 point review of systems were negative except as mentioned in the history of present illness and the other review of systems. VTE Information - Inpt Only VTE Present on Admission: No VTE Pharm Prophylaxis ordered?: Yes Patient Problems: Active and Suspected Problems Atrial fibrillation with RVR (Acute) - Physical Exam General: Alert, Cooperative, No apparent distress HEENT: Atraumatic, Normocephalic Oral: Moist Mucosa, No Gingival or Mucosal Lesions/ Ulcerations Neck: No Nodes, Thyroid Normal Size and Texture Lungs: Clear to auscultation, Normal air movement, No rhonchi, No wheeze Cardiovascular: Normal S1, Normal S2, Irregular Rate Abdomen: Bowel Sounds Present, Soft, Non Tender, Non-Distended, No Hepato-splenomegaly Extremities: No edema, No Calf Tenderness Skin: No rashes, No breakdown Musculoskeletal: No Tenderness to Palpation of Joints or Extremities, No Muscle Wasting Psych/Mental Status: Normal Affect, Appropriate Vital Signs Temp Pulse Resp BP Pulse Ox 36.9 C 91 16 99/81 H 98 07/26/18 19:04 07/26/18 19:04 07/26/18 19:04 07/26/18 19:04 07/26/18 19:04 Oxygen Delivery Method Room Air Weight: 144 kg Body Mass Index (BMI) 49.7 Laboratory Tests Past 24 Hrs Assessment/Plan All Active Problems Atrial fibrillation with RVR (Acute) 1. Atrial fibrillation with RVR Currently rate controlled Continue with the patient's metoprolol succinate for now and await further cardiology recommendations on long-term management. Continue with Eliquis as his A. fib is paroxysmal Echocardiogram Cardiology consult Check records from Dr. Wasserman's office 2. DVT prophylaxis: Patient is anticoagulated Code Visit Inpatient E AND M: 36399 Init Hosp L2 07/26/181950 <Electronically signed by Sharad Ludwig DO> Date Sharad Ludwig DO Cosigner Signature: Date (if applicable) CC: Sharad Ludwig DO; Carter Ballesteros MD Signed PROTHROMBIN TIME W/INR Collected: 07/26/2018 Status: F Source: [place] 5:45 PM [facility] REPOSITORY TYPE CODE TESTS RESULT OUT OF RANGE REFERENCE UNITS LAB L300.4150 11.7-14.9 SECONDS Normal PROTIME 13.9 LAB L300.4200 Normal INR 1.1 Performed By: #### L300.3900, L300.4310 #### [facility] Laboratory [address] [place], [address] PARTIAL THROMBOPLAST Collected: 07/26/2018 Status: F Source: [place] TIME 5:45 PM [facility] REPOSITORY TYPE CODE TESTS RESULT OUT OF REFERENCE UNITS RANGE LAB L300.4310 24.1-36.2 Seconds Low PTT 23.9 Performed By: #### L300.3900, L300.4310 #### [facility] Laboratory [address] [place], [address] CBC W/DIFF, AUTOMATED Collected: 07/26/2018 Status: F Source: [place] 4:55 PM [facility] REPOSITORY TYPE CODE TESTS RESULT OUT OF RANGE REFERENCE UNITS LAB L100.1000 4.4-11.0 K/mm3 Normal WBC 8.8 LAB L100.1200 4.6-6.2 M/mm3 Normal RBC 5.26 LAB L100.1300 13.0-16.5 g/dl Normal HGB 15.1 LAB L100.1400 40-54 % Normal HCT 46.2 LAB L100.1500 80-94 fL Normal MCV 87.8 LAB L100.1600 27.0-32.0 pg Normal MCH 28.7 LAB L100.1700 32-36 g/gl Normal MCHC 32.7 LAB L100.1810 11.6-14.6 % Normal RDW CV 13.9 LAB L100.1820 35.1-43.9 fl High RDW SD 44.7 LAB L100.1900 150-450 K/mm3 Normal PLT 246 LAB L100.2000 6.2-12.0 fl Normal MPV 10.7 LAB L100.2100 47-70 % Normal NEUT% 66.5 LAB L100.2200 19-41 % Normal LY% 25.5 LAB L100.2300 0-10 % Normal MONO% 6.6 LAB L100.2400 0-5 % Normal EO% 0.9 LAB L100.2500 0-1 % Normal BASO% 0.2 LAB L100.2550 0.0-0.9 % Normal IM GRAN % 0.300 Result Comment: IG% - Immature Granulocytes (promyelocytes, myelocytes and metamyelocytes) > 1% indicates that a LEFT SHIFT is Present. LAB L100.2620 2.0-7.7 X10 3/uL Normal Absolute Neut 5.8 LAB L100.2720 0.83-4.51 X10 3/ul Normal Absolute Lymph 2.24 Performed By: #### L100.0100 #### [facility] [address] [place], [address] BASIC METABOLIC Collected: 07/26/2018 Status: F Source: [place] PROFILE ([facility]) 4:55 PM [facility] REPOSITORY TYPE CODE TESTS RESULT OUT OF RANGE REFERENCE UNITS LAB L501.0100 74-106 mg/dL High GLU 164 Result Comment: Fasting Glucose result greater than or equal to 126 mg/dL suggests DIABETES MELLITUS per A.D.A. criteria. Please note revised GLUCOSE reference range effective 2017. LAB L501.1000 7-18 mg/dL High BUN 19 LAB L501.1100 0.70-1.30 mg/dL Normal CREAT,SERUM 1.22 Result Comment: The validity of the calculated GFR AND GFRAA in patients over 70 years has not been determined. Clinical correlation is essential. LAB L501.1110 >60 mL/min Normal EST GFR 64 Result Comment: Non- GFR Calc LAB L501.1115 >60 mL/min Normal EST GFR - AA 78 Result Comment: GFR Calc LAB L501.1255 ml/min Normal Estimated CRCL 60.20 LAB L501.1300 10-20 RATIO Normal BUN/CRE 15.6 LAB L501.2200 8.5-10 mg/dL Normal .1 CA 9.0 LAB L501.5300 136-14 mmol/L Normal 5 NA 142 LAB L501.5600 3.5-5. mmol/L Normal 1 K 3.8 LAB L501.5900 98-107 mmol/L High CL 110 LAB L501.6100 21.0-3 mmol/L Normal 2.0 CO2 24.0 LAB L501.6200 5-15 Normal GAP 8 Performed By: #### L500.2500, L501.4010 #### [facility] [address] [place], [place], [address] TROPONIN-I Collected: 07/26/2018 Status: F Source: [place] 4:55 PM [facility] REPOSITORY TYPE CODE TESTS RESULT OUT OF RANGE REFERENCE UNITS LAB L501.4010 <0.045 ng/mL Normal < 0.015 TROPONIN-I Result Comment: TROPONIN-I EXPECTED VALUES <0.045 Negative 0.045 - 0.590 Consistent with Cardiac Damage > OR = 0.600 Critical Value Not every elevated troponin is indicative of MS. These values should be used with clinical judgement in examining the patient's clinical picture for diagnosis. To establish a diagnosis of MS versus myocardial injury, there must be a demonstrated rise and/or fall in the troponin values, in addition to ischemic symptoms, EKG changes, new regional wall motion abnormality, and/or angiographical evidence. PLEASE NOTE: REFERENCE RANGES EDITED 17 Performed By: #### L500.2500, L501.4010 #### [facility] [address] [place], [place], [address] CHEST 1 VIEW Observed: 07/26/2018 Status: F Source: [place] (PORTABLE) 4:47 PM [facility] REPOSITORY [facility] Imaging Services [address] [place] [address] Chest 1 View (Portable) MR#: [id number] Acct: [id number] Name: FLAKITA CASTELLON Rep #: [id number] : 1960 M 58 From: Mehdi Machuca MD PCP: Carter Ballesteros MD Status: REG ER Study: Chest 1 View (Portable) Date of Exam: 07/26/18 Exam# [id number] Ordering Dr: Marina Dillon MD STUDY: X-RAY CHEST REASON FOR EXAM: Male, 58 years old. Chest pain TECHNIQUE: Single AP portable view of the chest. COMPARISON: None. FINDINGS: There are monitoring devices. The lungs are clear. There is elevation of the right hemidiaphragm. There is pleural fibrotic scarring of the left costophrenic angle. There is mild cardiac enlargement. Normal mediastinum and bonnie. Normal visualized pulmonary arteries. Normal visualized aortic arch and descending thoracic aorta. There are diffuse degenerative changes of the visualized thoracic spine. Normal visualized ribs, clavicles, and shoulders. There is no demonstrated abnormality of the visualized soft tissue structures of the upper abdomen. RAD/Chest 1 View (Portable) IMPRESSION: Degenerative changes, as described above. No demonstrated acute cardiopulmonary process. Electronically Signed: Mehdi Machuca MD at 17:45 EST , Service support , CC: Carter Ballesteros MD; Marina Dillon MD Medical Billing Coder: Signed MRI BRAIN WO/W Observed: 07/15/2018 Status: F Source: [facility] IVCON 4:07 PM [facility] REPOSITORY * * *Final Report* * * DATE OF EXAM: Jul 15 2018 4:07PM [id number] - MRI BRAIN WO/W IVCON / PROCEDURE REASON: Torticollis * * * * Physician Interpretation * * * * EXAMINATION: MRI BRAIN WO/W IVCON CLINICAL HISTORY: Torticollis, nausea TECHNIQUE: Routine brain MRI protocol without and with contrast including diffusion images. MQ: [id number] Contrast: 20ml mL Dotarem IV COMPARISON: CTA head 02/22/18, MR brain 03/21/2010 RESULT: Small amount susceptibility from right parietal scalp punctate metallic fragment. Acute Change: There is no evidence of restricted diffusion to suggest an acute infarct. Hemorrhage: No evidence of prior parenchymal hemorrhage on the gradient echo images. Mass Lesion/ Mass Effect: No evidence of an intracranial mass or extra-axial fluid collection. No abnormal parenchymal or leptomeningeal enhancement is noted following contrast administration. No significant mass effect. Chronic Change: Scattered punctate foci of increased T2 and FLAIR signal are noted in the supratentorial white matter which is a nonspecific finding, but likely represents minimal chronic microvascular ischemia. Parenchyma: There is mild to moderate generalized parenchymal volume loss. There is slight volume loss in the right medulla compared to the left as seen on image 28 of series 2. This is unchanged. Otherwise, brainstem and in particular the area postrema is unremarkable without lesion/mass identified. The brain parenchyma is otherwise within normal limits of signal intensity and morphology. Ventricles: Ventriculomegaly corresponds to the degree of parenchymal volume loss. Skull Base: Hypothalamic and pituitary region are grossly normal. Craniocervical junction is normal. No significant marrow replacement process. Vasculature: Major intracranial arterial structures, and dural venous sinuses show typical flow void, suggesting patency by spin echo criteria. Other: The visualized paranasal sinuses and mastoid air cells are clear. The orbits and extracranial soft tissues are unremarkable. IMPRESSION: No significant change in the punctate T2/FLAIR nonspecific focus of hyperintensity in the right parietal subcortical white matter and in the slight chronic volume loss in the right medulla. No acute intracranial process. No abnormal enhancement. Medical Billing Coder[facility] Transcribe Date/Time: Jul 15 2018 4:15P Dictated by : BRENDA CRUZ MD This examination was interpreted and the report reviewed and electronically signed by: BRENDA CRUZ MD on Jul 15 2018 4:25PM EST [id number] Observed: 07/15/2018 Status: COMPLETED Source: [place] 3:54 PM [facility] REPOSITORY HNO ID: [id number] Author: Marina (Rt) Cuate Calixto Service: (none) Author Type: Pattern Storage Clerk Type: Progress Notes Filed: 07/15/2018 3:54 PM Note Text: Radiology Service Progress Note PATIENT NAME: Flakita Castellon DATE OF SERVICE: July 15, 2018 TIME: 3:54 PM PATIENT IDENTITY VERIFICATION COMPLETED USING TWO (2) METHODS: Patient confirmed name verbally and Date of . PATIENT GENDER DATA: Male PATIENT RELEVANT IMPLANT DATA REVIEWED: Yes CONTRAST INDUCED NEPHROPATHY RISK FACTORS: Patient age > 60 years CREATININE: Creatinine Date Value Ref Range Status 07/15/2018 1.09 0.73 - 1.22 mg/dL Final 01/18/2018 1.17 0.73 - 1.22 mg/dL Final 10/20/2017 1.03 0.73 - 1.22 mg/dL Final eGFR-All Other Races Date Value Ref Range Status 07/15/2018 >60 . Final Comment: eGFR (Estimated GFR) Units of measure: mL/min/1.73 meters squared eGFR is derived from the reexpressed MDRD Study equation using the following parameters: serum creatinine, age, gender and race. The creatinine assay has been calibrated to be traceable to IDMS. An eGFR <60 mL/min/1.73m2 for >3 months is consistent with chronic kidney disease. Refer to KDOQI guidelines for clinical interpretation. In patients with unstable renal function, e.g. those with acute kidney injury, the eGFR may not accurately reflect actual GFR. eGFR- Date Value Ref Range Status 07/15/2018 >60 Final P.O.C.T. RESULTS: POC done: Yes, See Lab Tab July 15, 2018 RADIOLOGIST NOTIFIED?: No ALLERGIES: Reviewed and unchanged CONTRAST ALLERGY: NO. PERIPHERAL IV ACCESS: Ambulatory: IV type: A peripheral IV was started in the Right antecubital site with a Angio cath: 22 gauge., Site assessment: Clean,Dry and Intact, Site disposition Discontinued RADIOLOGY DEPARTMENT: MR; Exam(s) Completed: Head: Routine Brain SIGNED BY: RT Reza July 15, 2018 3:54 PM CREATININE Collected: 07/15/2018 Status: F Source: [facility] 2:34 PM [facility] REPOSITORY TYPE CODE TESTS RESULT OUT OF REFERENCE UNITS RANGE LAB CRET 0.73-1.22 mg/dL Creatinine 1.09 LAB GFRAA eGFR- >60 Amer. LAB GFRNAA . eGFR-All Other Races >60 Result Comment: eGFR (Estimated GFR) Units of measure: mL/min/1.73 meters squared eGFR is derived from the reexpressed MDRD Study equation using the following parameters: serum creatinine, age, gender and race. The creatinine assay has been calibrated to be traceable to IDNJ. An eGFR <60 mL/min/1.73m2 for >3 months is consistent with chronic kidney disease. Refer to KDOQI guidelines for clinical interpretation. In patients with unstable renal function, e.g. those with acute kidney injury, the eGFR may not accurately reflect actual GFR. HOSP Observed: 07/01/2018 Status: COMPLETED Source: [facility] 8:45 AM CLINIC OTHER CAMPUS REPOSITORY Billing Encounter (EEGMDR) FLAKITA CASTELLON ([id number]) 1960 M Date Time Provider Department 07/01/18 8:45 AM EEG NEUR [place] EEGMDR During your visit today, we recorded the following information about you: Referring Provider: CARTER BALLESTEROS [[id number]] Allergies As of Date: 07/01/2018 Noted Allergy Reaction IBUPROFEN 03/08/2018 8 - GI Upset LIPITOR (ATORVASTATIN CALCIUM) 06/03/2017 14 - Other: See Comments Comments: Elevated CK Date Reviewed: 06/30/2018 Reviewed by: Corinne Thomas Ma - Fully Assessed Reason for Visit: Seizures [97] Prescriptions as of 07/01/2018 Sig: ASPIRIN 81 MG TABLET,DELAYED * Take 1 tablet by mouth once d* CPAP Initiate CPAP @ CPAP 8cm H2O * ESOMEPRAZOLE MAGNESIUM 40 MG * Take 1 capsule by mouth daily* FLUTICASONE 50 MCG/ACTUATION * Use 2 Sprays in each nostril * IV CONTRAST (RADIOLOGY PROCED* MRI Brain Inject, intravenous* METFORMIN ER 500 MG TABLET,EX* Take 1 tablet by mouth daily * METOCLOPRAMIDE 10 MG TABLET Take 1 tablet by mouth before* METOPROLOL SUCCINATE ER 50 MG* TAKE 1 TABLET ONCE DAILY [id number] * Take 1 tablet by mouth once d* X FENOFIBRATE 160 MG TABLET Take 1 tablet by mouth once d* Problem List As Of Date 07/01/2018 Noted Resolved Symptomatic PVCs [I49.3] INVALID FOR* More... GERD without esophagitis [K21.9] INVALID FOR* Family history of arthritis [Z82.61] INVALID FOR* More... More... 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 RLS (restless legs syndrome) [G25.81] INVALID FOR* Essential hypertension [I10] INVALID FOR* Type 2 diabetes mellitus without complication, * Type 2 diabetes mellitus without retinopathy (H*INVALID FOR* Vitreous floaters of both eyes [H43.393] INVALID FOR* Morbid obesity due to excess calories (HCC) [E6*INVALID FOR* Elevated CK [R74.8] INVALID FOR* Diabetic eye exam (HCC) [Z01.00, E11.9] INVALID FOR* More... Well adult exam [Z00.00] INVALID FOR* More... Prostate cancer screening [Z12.5] INVALID FOR* Colon cancer screening [Z12.11] INVALID FOR* Elevated LFTs [R94.5] INVALID FOR* Nausea [R11.0] INVALID FOR* More... Dry heaves [R11.10] INVALID FOR* More... Current use of proton pump inhibitor [Z79.899] INVALID FOR* Trigger finger, right middle finger [M65.331] INVALID FOR* Torticollis [M43.6] INVALID FOR* Encounter Status:Closed by TARIQ ANGULO on 07/01/18 TANIKAOV Observed: 06/30/2018 Status: COMPLETED Source: [place] 8:40 AM [facility] REPOSITORY Office Visit (NEADFV) FLAKITA CASTELLON ([id number]) 1960 M Date Time Provider Department 06/30/18 8:40 AM GABRIEL FRENCH During your visit today, we recorded the following information about you: Temperature Pulse Blood pressure Weight 97.5 degrees 71/minute 148/89 149 kg Height 1.702 m Gabriel French MD 06/30/2018 9:35 AM Signed HISTORY AND PHYSICAL EXAMINATION - GENERAL NEUROLOGY SERVICE DATE: 06/30/2018 SERVICE TIME: PRIMARY CARE PHYSICIAN: Carter Ballesteros MD CURRENT ATTENDING PROVIDER: No att. providers found Subjective REASON FOR EVALUATION: dry heaves HPI/CHIEF COMPLAINT: This is Mr. Flakita Castellon a 58 year old right handed male who presents to the [facility] with a chief complaint of . 02/22/2018 CTA head IMPRESSION: Patent intracranial arterial vasculature without significant stenosis or findings of intracranial aneurysm. ?Previously noted outpouching along the posterior right M1 segment corresponds to an adjacent vessel. No evidence of an acute intracranial process. ?Stable CT of the brain compared to 02/08/2018.' Per report. 03/08/[address] Castellon is a 57 year old male with a PMH of GERD who presents with a 2 year history of nausea and dry heaving episodes likely neurologic in origin given triggers include smells and neck pressure. Nausea also did not resolve with Nexium and sucralfate making this less likely GI in nature. Recommend following with PCP who can refer patient to either Neurology or ENT. Can trial anti-emetics to help with episodes of nausea.. Per report. 06/30/2018 Patient is here for issues with continuous nausea and dry heaving. The patient reports more of morning symptoms, at times he would lay back and at times it passes away. It can happen at any time randomly without any trigger. He tells me that he would have intermittent nausea followed by the urge to vomit but he rarely vomits. Patient describes certain smells would set him off, some food smell, paint, etc.. He does not describe any headaches nor he describes any auras prior to his symptoms such as unformed images, flashing or steady white colored lights, or very complex visual hallucinations. FUNCTIONAL STATUS: Independent PAST MEDICAL HISTORY Diagnosis Date - Acute gastritis without mention of hemorrhage 07/24/2009 - Benign neoplasm of colon - Essential hypertension 05/01/2015 - GERD without esophagitis 11/15/2005 - Headache(784.0) 01/10/2008 Frontal SAAVEDRA, resolved when began Nasonex 2005 - Metabolic syndrome 12/05/2009 - Mixed hyperlipidemia 12/05/2009 - Morbid obesity due to excess calories ([facility]) 08/06/2016 - COLEMAN (obstructive sleep apnea) 08/18/2014 - RLS (restless legs syndrome) 08/18/2014 - Snoring - Supraventricular premature beats PAC's - SVT (supraventricular tachycardia) ([facility]) 06/29/2014 - Symptomatic PVCs 11/15/2005 symptomatic PVC's - 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 - Type 2 diabetes mellitus without complication, without long- term current use of insulin ([facility]) - Type 2 diabetes mellitus without retinopathy ([facility]) 10/03/2015 - 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 - Vitreous floaters of both eyes 10/03/2015 PAST SURGICAL HISTORY Procedure Laterality Date - COLONOSCOP W/ OR W/O [facility] SPEC 07/24/2009 Colonoscopy - COLONOSCOP W/ OR W/O [facility] SPEC 12/07/2014 Colonoscopy, repeat 5 yrs - EGD W/O OR W/BRUSH/WASH 07/24/2009 EGD - EGD W/O OR W/BRUSH/WASH 01/04/2018 EGD - FECAL OCCULT BLOOD TEST 02/06/2017 negative - PAST SURGICAL HISTORY OF 10/2008 heart cath done [facility] FAMILY HISTORY Problem Relation Age of Onset - Arthritis Mother RA - Diabetes Mother - Heart Mother valve disease - No Ocular Disease No Family History Social History Substance Use Topics - Smoking status: Never Smoker - Smokeless tobacco: Never Used - Alcohol use Yes Comment: RARELY (Not in a hospital admission) ALLERGIES Allergen Reactions - Ibuprofen GI Upset - Lipitor [Atorvastat* Other: See Comments Elevated CK COMPLETE REVIEW OF SYSTEMS: GENERAL: No fevers or irritability. HEENT: Negative for headaches NECK: Negative for stiffness, lumps or significant neck swelling RESPIRATORY: Negative for cough, wheezing or respiratory distress. CARDIOVASCULAR: Negative for chest pain, syncope, lightheadness or heart racing. GI: See HPI : No history of dysuria, frequency or incontinence MUSCULOSKELETAL: back pain SKIN: Negative for lesions, rash, and itching. NEURO: See HPI Objective PHYSICAL EXAM: Vital Signs: BP 148/89 Pulse 71 Temp 36.4 ?C (97.5 ?F) Ht 170.2 cm (5' 7) Wt (!) 149 kg (328 lb 6.4 oz) SpO2 96% BMI 51.43 kg/m? General appearance: Well appearing, alert, in no acute distress Skin: Not examined Head: Normocephalic Nose/Sinuses: Not examined Oropharynx: Negative findings: tongue midline and normal Neck: Supple. Lungs: lungs clear to auscultation Heart: Negative findings: S1 normal, S2 normal Carotid Auscultation: Without bruits Abdomen: Obese. Extremities: Negative findings: No cyanosis,or clubbing. Peripheral pulses: Normal Neurological Examination: ? Mental Status: Alert and Oriented to Place, Person, Time and Situation and Patient follows commands.. ? Language: Is intact to Comprehension, Fluency and Repetition Cranial Nerves: CNII: Visual acuity normal, Visual juarez full to confrontation CNIII, IV, : Pupils equal, round and reactive to light, full extraoccular movements, without nystagmus CN V: Facial sensation intact bilaterally to fine touch and pinprick, masseter 5/5 CN VII: Facial muscles symmetric and strong CN VIII: Hears finger rub well bilaterally CN IX: Gag Reflex Not examined CN X: Palate elevates symmetrically CN XI: Full strength shoulder shrug bilaterally CN XII: Tongue protrusion full and midline ? Non-Dilated Fundiscopic Examination: Deferred Examination ? Motor Exam: 1. Tone - Normal Tone noted in all extremities 2. Bulk - Normal bulk noted in all muscles tested. 3. Inspection - Normal, no fasciculations or tremors noted. 4. Power: MUSCLES Upper Extremity RIGHT LEFT Deltoid 5/5 5/5 Biceps 5/5 5/5 Triceps 5/5 5/5 Wrist Extension 5/5 5/5 Wrist Flexion 5/5 5/5 Finger Flexion 5/5 5/5 Finger Extension 5/5 5/5 Finger Abd 5/5 5/5 Finger Add 5/5 5/5 MUSCLES Lower Extremity RIGHT LEFT Hip Flexion 5/5 5/5 Hip Extension 5/5 5/5 BiFem (Knee Flex) 5/5 5/5 Quads (Knee Ext) 5/5 5/5 Gastroc (Plantflx) 11/21 11/21 TibAnt (Dorsiflx) 11/21 11/21 TibPost (Ank Add) 11/21 11/21 Ankle Eversion 11/21 11/21 Ankle Inversion 11/21 11/21 FlxHLong (Toe Flex) 11/21 11/21 ExtHLong (Toe Ext) 11/21 11/21 ? Sensory Examination Sensation is intact to proprioception, light touch and vibratory sense. ? Reflexes Right Left Bicep 08/23 08/23 Tricep 08/23 08/23 BrRad 08/23 08/23 Knee 08/23 08/23 Ankle 08/23 08/23 Plantar Response Downward response Downward response Conteh Response Negative Negative ? Coordination: Finger-to- nose-finger intact bilaterally. ? Gait: Patient's gait is normal. ? Romberg: Negative DATA: Diagnostic tests reviewed for today's visit: Most recent labs and imaging results. BLOODWORK: WBC (k/uL) Date Value 05/08/2014 8.03 03/08/2013 7.43 09/10/2012 7.96 RBC (m/uL) Date Value 05/08/2014 5.14 03/08/2013 5.01 09/10/2012 5.23 Platelet Count (k/uL) Date Value 05/08/2014 234 03/08/2013 237 09/10/2012 229 BUN (mg/dL) Date Value 10/20/2017 12 12/17/2016 11 08/16/2016 14 02/16/2016 17 08/15/2015 16 Creatinine (mg/dL) Date Value 01/18/2018 1.17 10/20/2017 1.03 12/17/2016 1.06 08/16/2016 1.14 02/16/2016 1.09 Lab Results Component Value Date NEUTP 52.8 03/08/2013 ABSNEUT 3.92 03/08/2013 LYMPHP 37.6 03/08/2013 ABSLYMPH 2.79 03/08/2013 ABSMONO 0.53 03/08/2013 EODINP 2.2 03/08/2013 ABSEOSIN 0.16 03/08/2013 BASOP 0.3 03/08/2013 ABSBASO 0.02 03/08/2013 Lab Results Component Value Date PLT 234 05/08/2014 HB 15.0 05/08/2014 HCT 45.4 05/08/2014 ALB 4.5 04/26/2018 CA 9.2 10/20/2017 TBILI 0.9 04/26/2018 ALKPHOS 53 04/26/2018 AST 28 04/26/2018 GLUC 131 10/20/2017 BUN 12 10/20/2017 NA 141 10/20/2017 K 4.4 10/20/2017 CHLOR 103 10/20/2017 CO2 26 10/20/2017 ANION 12 10/20/2017 ALT 39 04/26/2018 WSR (mm/hr) Date Value 09/10/2012 2 CRP (mg/dL) Date Value 09/10/2012 0.1 IMAGING: Mentioned in the HPI EEG DATA: None Formulation and Plan: June 30/2018 This is Flakita Castellon, a 58 year old male with a history of COLEMAN, RLS, and GERD who presents withochronic nausea and dry heaving for few years. According to the patient symptoms are more frequent after waking up, and it can be induced via smell such as food and paint for example. No headaches associated with his symptoms and he denies any auras prior to his symptoms such as unformed images, flashing or steady white colored lights, or very complex visual hallucinations. CTA head was done and it was reported as normal. Neurological examination is non-focal. Regarding etiology to be determined: I do not believe this is a form of focal epilepsy such as abdominal epilepsy but I will proceed with an MRI zina to rule out intracranial pathology and an EEG. If both negative then I would argue against neurological cause for his symptom and would recommend to go back to his PCP and GI specialist. Of the 60 minutes long appointment visit, I spent at least 50% of the [id number]-ve-yohr time in counseling, explanation of diagnosis and planning of further management. This note was partially created using voice recognition software and is inherently subject to errors including those of syntax and sound-alike substitutions which may escape proofreading. In such instances, original meaning may be extrapolated by contextual derivation. Gabriel French MD Adult Neurology and Neuroimmunology/Multiple Sclerosis Pager: [phone] June 30, 2018 Gabriel French MD 06/30/2018 9:15 AM Signed Regarding etiology to be determined: Will proceed with an MRI of the brain and EEG. Referring Provider: ELLIOTT DEMARCO (FOUNDRY PATTERNMAKER) [[id number]] Allergies As of Date: 06/30/2018 Noted Allergy Reaction IBUPROFEN 03/08/2018 8 - GI Upset LIPITOR (ATORVASTATIN CALCIUM) 06/03/2017 14 - Other: See Comments Comments: Elevated CK Date Reviewed: 06/30/2018 Reviewed by: Corinne Thomas Ma - Fully Assessed Reason for Visit: New Patient Evaluation [154] Primary Visit Diagnosis:Nausea [R11.0] Other Visit Diagnosis:Torticollis [M43.6] Order(s):MRI BRAIN WO/W IVCON [[id number]] Order #: [id number] FUTURE iv contrast (will be provided with radiology test)MRI Brain Inject, intravenously, once for 1 dose.No IV access, insert saline lock prior to beginning of sedation, infusion, injection of imaging exam.Discontinue saline lock post exam. If Pt. has a central line or IVAD, may access for administration according to line specific nursing protocol.Once exam is complete flush line and de- access according to line specific nursing protocol in the MR contrast administration guidelines linkDisp: 1 EachRfl: 0 EEG ROUTINE NEURO [[id number]] Order #: [id number] Prescriptions as of 06/30/2018 Sig: ASPIRIN 81 MG TABLET,DELAYED * Take 1 tablet by mouth once d* CPAP Initiate CPAP @ CPAP 8cm H2O * ESOMEPRAZOLE MAGNESIUM 40 MG * Take 1 capsule by mouth daily* FENOFIBRATE 160 MG TABLET Take 1 tablet by mouth once d* FLUTICASONE 50 MCG/ACTUATION * Use 2 Sprays in each nostril * METFORMIN ER 500 MG TABLET,EX* Take 1 tablet by mouth daily * METOPROLOL SUCCINATE ER 50 MG* TAKE 1 TABLET ONCE DAILY [id number] * Take 1 tablet by mouth once d* IV CONTRAST (RADIOLOGY PROCED* MRI Brain Inject, intravenous* METOCLOPRAMIDE 10 MG TABLET Take 1 tablet by mouth before* Problem List As Of Date 06/30/2018 Noted Resolved Symptomatic PVCs [I49.3] INVALID FOR* More... GERD without esophagitis [K21.9] INVALID FOR* Family history of arthritis [Z82.61] INVALID FOR* More... More... 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 RLS (restless legs syndrome) [G25.81] INVALID FOR* Essential hypertension [I10] INVALID FOR* Type 2 diabetes mellitus without complication, * Type 2 diabetes mellitus without retinopathy (H*INVALID FOR* Vitreous floaters of both eyes [H43.393] INVALID FOR* Morbid obesity due to excess calories (HCC) [E6*INVALID FOR* Elevated CK [R74.8] INVALID FOR* Diabetic eye exam (HCC) [Z01.00, E11.9] INVALID FOR* More... Well adult exam [Z00.00] INVALID FOR* More... Prostate cancer screening [Z12.5] INVALID FOR* Colon cancer screening [Z12.11] INVALID FOR* Elevated LFTs [R94.5] INVALID FOR* Nausea [R11.0] INVALID FOR* More... Dry heaves [R11.10] INVALID FOR* More... Current use of proton pump inhibitor [Z79.899] INVALID FOR* Trigger finger, right middle finger [M65.331] INVALID FOR* Torticollis [M43.6] INVALID FOR* Other instructions from your clinician: Regarding etiology to be determined: Will proceed with an MRI of the brain and EEG. Prescriptions ordered this encounter Disp Refills Start End IV CONTRAST (RADIOLOGY PROCEDURE) 1 Ea* 0 06/30/2018 07/01/2018 Class: In Office Sig: MRI Brain Inject, intravenously, once for 1 dose.No IV access, insert saline lock prior to beginning of sedation, infusion, injection of imaging exam.Discontinue saline lock post exam. If Pt. has a central line or IVAD, may access for administration according to line specific nursing protocol.Once exam is complete flush line and de-access according to line specific nursing protocol in the MR contrast administration guidelines link Encounter Status:Closed by GABRIEL FRENCH MD on 06/30/18 PROGRESS Observed: 06/30/2018 Status: COMPLETED Source: [facility] 8:32 AM [facility] REPOSITORY HNO ID: [id number] Author: Gabriel French Service: (none) Author Type: Physician Type: Progress Notes Filed: 06/30/2018 9:35 AM Note Text: HISTORY AND PHYSICAL EXAMINATION - GENERAL NEUROLOGY SERVICE DATE: 06/30/2018 SERVICE TIME: PRIMARY CARE PHYSICIAN: Carter Ballesteros MD CURRENT ATTENDING PROVIDER: No att. providers found Subjective REASON FOR EVALUATION: dry heaves HPI/CHIEF COMPLAINT: This is Mr. Flakita Castellon a 58 year old right handed male who presents to the [facility] with a chief complaint of . 02/22/2018 CTA head IMPRESSION: Patent intracranial arterial vasculature without significant stenosis or findings of intracranial aneurysm. ?Previously noted outpouching along the posterior right M1 segment corresponds to an adjacent vessel. No evidence of an acute intracranial process. ?Stable CT of the brain compared to 02/08/2018.' Per report. 03/08/[address] Mr[address] Castellon is a 57 year old male with a PMH of GERD who presents with a 2 year history of nausea and dry heaving episodes likely neurologic in origin given triggers include smells and neck pressure. Nausea also did not resolve with Nexium and sucralfate making this less likely GI in nature. Recommend following with PCP who can refer patient to either Neurology or ENT. Can trial anti-emetics to help with episodes of nausea.. Per report. 06/30/2018 Patient is here for issues with continuous nausea and dry heaving. The patient reports more of morning symptoms, at times he would lay back and at times it passes away. It can happen at any time randomly without any trigger. He tells me that he would have intermittent nausea followed by the urge to vomit but he rarely vomits. Patient describes certain smells would set him off, some food smell, paint, etc.. He does not describe any headaches nor he describes any auras prior to his symptoms such as unformed images, flashing or steady white colored lights, or very complex visual hallucinations. FUNCTIONAL STATUS: Independent PAST MEDICAL HISTORY Diagnosis Date - Acute gastritis without mention of hemorrhage 07/24/2009 - Benign neoplasm of colon - Essential hypertension 05/01/2015 - GERD without esophagitis 11/15/2005 - Headache(784.0) 01/10/2008 Frontal SAAVEDRA, resolved when began Nasonex 2005 - Metabolic syndrome 12/05/2009 - Mixed hyperlipidemia 12/05/2009 - Morbid obesity due to excess calories ([facility]) 08/06/2016 - COLEMAN (obstructive sleep apnea) 08/18/2014 - RLS (restless legs syndrome) 08/18/2014 - Snoring - Supraventricular premature beats PAC's - SVT (supraventricular tachycardia) ([facility]) 06/29/2014 - Symptomatic PVCs 11/15/2005 symptomatic PVC's - 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 - Type 2 diabetes mellitus without complication, without long- term current use of insulin ([facility]) - Type 2 diabetes mellitus without retinopathy ([facility]) 10/03/2015 - 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 - Vitreous floaters of both eyes 10/03/2015 PAST SURGICAL HISTORY Procedure Laterality Date - COLONOSCOP W/ OR W/O [facility] SPEC 07/24/2009 Colonoscopy - COLONOSCOP W/ OR W/O [facility] SPEC 12/07/2014 Colonoscopy, repeat 5 yrs - EGD W/O OR W/BRUSH/WASH 07/24/2009 EGD - EGD W/O OR W/BRUSH/WASH 01/04/2018 EGD - FECAL OCCULT BLOOD TEST 02/06/2017 negative - PAST SURGICAL HISTORY OF 10/2008 heart cath done [facility] FAMILY HISTORY Problem Relation Age of Onset - Arthritis Mother RA - Diabetes Mother - Heart Mother valve disease - No Ocular Disease No Family History Social History Substance Use Topics - Smoking status: Never Smoker - Smokeless tobacco: Never Used - Alcohol use Yes Comment: RARELY (Not in a hospital admission) ALLERGIES Allergen Reactions - Ibuprofen GI Upset - Lipitor [Atorvastat* Other: See Comments Elevated CK COMPLETE REVIEW OF SYSTEMS: GENERAL: No fevers or irritability. HEENT: Negative for headaches NECK: Negative for stiffness, lumps or significant neck swelling RESPIRATORY: Negative for cough, wheezing or respiratory distress. CARDIOVASCULAR: Negative for chest pain, syncope, lightheadness or heart racing. GI: See HPI : No history of dysuria, frequency or incontinence MUSCULOSKELETAL: back pain SKIN: Negative for lesions, rash, and itching. NEURO: See HPI Objective PHYSICAL EXAM: Vital Signs: BP 148/89 Pulse 71 Temp 36.4 ?C (97.5 ?F) Ht 170.2 cm (5' 7) Wt (!) 149 kg (328 lb 6.4 oz) SpO2 96% BMI 51.43 kg/m? General appearance: Well appearing, alert, in no acute distress Skin: Not examined Head: Normocephalic Nose/Sinuses: Not examined Oropharynx: Negative findings: tongue midline and normal Neck: Supple. Lungs: lungs clear to auscultation Heart: Negative findings: S1 normal, S2 normal Carotid Auscultation: Without bruits Abdomen: Obese. Extremities: Negative findings: No cyanosis,or clubbing. Peripheral pulses: Normal Neurological Examination: ? Mental Status: Alert and Oriented to Place, Person, Time and Situation and Patient follows commands.. ? Language: Is intact to Comprehension, Fluency and Repetition Cranial Nerves: CNII: Visual acuity normal, Visual juarez full to confrontation CNIII, IV, : Pupils equal, round and reactive to light, full extraoccular movements, without nystagmus CN V: Facial sensation intact bilaterally to fine touch and pinprick, masseter 5/5 CN VII: Facial muscles symmetric and strong CN VIII: Hears finger rub well bilaterally CN IX: Gag Reflex Not examined CN X: Palate elevates symmetrically CN XI: Full strength shoulder shrug bilaterally CN XII: Tongue protrusion full and midline ? Non-Dilated Fundiscopic Examination: Deferred Examination ? Motor Exam: 1. Tone - Normal Tone noted in all extremities 2. Bulk - Normal bulk noted in all muscles tested. 3. Inspection - Normal, no fasciculations or tremors noted. 4. Power: MUSCLES Upper Extremity RIGHT LEFT Deltoid 5/5 5/5 Biceps 5/5 5/5 Triceps 5/5 5/5 Wrist Extension 5/5 5/5 Wrist Flexion 5/5 5/5 Finger Flexion 5/5 5/5 Finger Extension 5/5 5/5 Finger Abd 5/5 5/5 Finger Add 5/5 5/5 MUSCLES Lower Extremity RIGHT LEFT Hip Flexion 5/5 5/5 Hip Extension 5/5 5/5 BiFem (Knee Flex) 5/5 5/5 Quads (Knee Ext) 5/5 5/5 Gastroc (Plantflx) 5/5 5/5 TibAnt (Dorsiflx) 5/5 5/5 TibPost (Ank Add) 11/21 11/21 Ankle Eversion 11/21 11/21 Ankle Inversion 11/21 11/21 FlxHLong (Toe Flex) 11/21 11/21 ExtHLong (Toe Ext) 11/21 11/21 ? Sensory Examination Sensation is intact to proprioception, light touch and vibratory sense. ? Reflexes Right Left Bicep 08/23 08/23 Tricep /08/23 BrRad /08/23 Knee /08/23 Ankle /08/23 Plantar Response Downward response Downward response Conteh Response Negative Negative ? Coordination: Finger-to- nose-finger intact bilaterally. ? Gait: Patient's gait is normal. ? Romberg: Negative DATA: Diagnostic tests reviewed for today's visit: Most recent labs and imaging results. BLOODWORK: WBC (k/uL) Date Value 05/08/2014 8.03 03/08/2013 7.43 09/10/2012 7.96 RBC (m/uL) Date Value 05/08/2014 5.14 03/08/2013 5.01 09/10/2012 5.23 Platelet Count (k/uL) Date Value 05/08/2014 234 03/08/2013 237 09/10/2012 229 BUN (mg/dL) Date Value 10/20/2017 12 12/17/2016 11 08/16/2016 14 02/16/2016 17 08/15/2015 16 Creatinine (mg/dL) Date Value 01/18/2018 1.17 10/20/2017 1.03 12/17/2016 1.06 08/16/2016 1.14 02/16/2016 1.09 Lab Results Component Value Date NEUTP 52.8 03/08/2013 ABSNEUT 3.92 03/08/2013 LYMPHP 37.6 03/08/2013 ABSLYMPH 2.79 03/08/2013 ABSMONO 0.53 03/08/2013 EODINP 2.2 03/08/2013 ABSEOSIN 0.16 03/08/2013 BASOP 0.3 03/08/2013 ABSBASO 0.02 03/08/2013 Lab Results Component Value Date PLT 234 05/08/2014 HB 15.0 05/08/2014 HCT 45.4 05/08/2014 ALB 4.5 04/26/2018 CA 9.2 10/20/2017 TBILI 0.9 04/26/2018 ALKPHOS 53 04/26/2018 AST 28 04/26/2018 GLUC 131 10/20/2017 BUN 12 10/20/2017 NA 141 10/20/2017 K 4.4 10/20/2017 CHLOR 103 10/20/2017 CO2 26 10/20/2017 ANION 12 10/20/2017 ALT 39 04/26/2018 WSR (mm/hr) Date Value 09/10/2012 2 CRP (mg/dL) Date Value 09/10/2012 0.1 IMAGING: Mentioned in the HPI EEG DATA: None Formulation and Plan: June 30/2018 This is Flakita Castellon, a 58 year old male with a history of COLEMAN, RLS, and GERD who presents withochronic nausea and dry heaving for few years. According to the patient symptoms are more frequent after waking up, and it can be induced via smell such as food and paint for example. No headaches associated with his symptoms and he denies any auras prior to his symptoms such as unformed images, flashing or steady white colored lights, or very complex visual hallucinations. CTA head was done and it was reported as normal. Neurological examination is non-focal. Regarding etiology to be determined: I do not believe this is a form of focal epilepsy such as abdominal epilepsy but I will proceed with an MRI zina to rule out intracranial pathology and an EEG. If both negative then I would argue against neurological cause for his symptom and would recommend to go back to his PCP and GI specialist. Of the 60 minutes long appointment visit, I spent at least 50% of the [id number] time in counseling, explanation of diagnosis and planning of further management. This note was partially created using voice recognition software and is inherently subject to errors including those of syntax and sound-alike substitutions which may escape proofreading. In such instances, original meaning may be extrapolated by contextual derivation. Gabriel French MD Adult Neurology and Neuroimmunology/Multiple Sclerosis Pager: [phone] June 30, 2018 PROCEDURE Observed: 05/05/2018 Status: COMPLETED Source: [facility] 11:49 AM [facility] REPOSITORY HNO ID: [id number] Author: Carter Ballesteros Service: (none) Author Type: Physician Type: Procedures Filed: 05/05/2018 1:14 PM Note Text: UNIVERSAL PROTOCOL / SAFETY CHECKLIST Procedure to be performed: trigger finger steroid injection. Sign in Communication: Completed Time Out: Team Confirms the Correct Patient, Correct Procedure, Correct Site and Site Marking, Correct Position (if applicable), Prep and Dry Time (if applicable). Time: 11:49 Affirmation of Time Out: YES Sign Out Discussion: Completed Carter Ballesteros MD Area was cleansed with betadine and alcohol. A 25 gauge 5/8 needle was inserted. Aspiration attempted with no blood return. Medication was then injected without any difficulty. Patient tolerated well Medication: 20 mg of kenalog with 1/2 a cc of 1% lido without epi. PROGRESS Observed: 05/05/2018 Status: COMPLETED Source: [facility] 11:47 AM [facility] REPOSITORY HNO ID: [id number] Author: Carter Ballesteros Service: (none) Author Type: Physician Type: Progress Notes Filed: 05/05/2018 1:14 PM Note Text: Patient here to have steroid injection to rightmiddle finger for trigger finger. ASSESSMENT/PLAN: 1. Trigger finger, right middle finger - ICD9: 727.03, ICD10: M65.331 Injection as per procedure note section. F/u if any issues otherwise routine. Carter Ballesteros MD CNOV Observed: 05/05/2018 Status: COMPLETED Source: [facility] 11:20 AM [facility] REPOSITORY Office Visit (FAMPWS) FLAKITA CASTELLON ([id number]) 1960 M Date Time Provider Department 05/05/18 11:20 AM CARTER BALLESTEROSPWS During your visit today, we recorded the following information about you: Pulse Respiration Blood pressure Weight 80/minute 16/minute 128/82 149.2 kg Carter Ballesteros MD 05/05/2018 1:14 PM Signed Patient here to have steroid injection to rightmiddle finger for trigger finger. ASSESSMENT/PLAN: 1. Trigger finger, right middle finger - ICD9: 727.03, ICD10: M65.331 Injection as per procedure note section. F/u if any issues otherwise routine. MD Carter Gale MD 05/05/2018 1:14 PM Signed UNIVERSAL PROTOCOL / SAFETY CHECKLIST Procedure to be performed: trigger finger steroid injection. Sign in Communication: Completed Time Out: Team Confirms the Correct Patient, Correct Procedure, Correct Site and Site Marking, Correct Position (if applicable), Prep and Dry Time (if applicable). Time: 11:49 Affirmation of Time Out: YES Sign Out Discussion: Completed Carter Ballesteros MD Area was cleansed with betadine and alcohol. A 25 gauge 5/8 needle was inserted. Aspiration attempted with no blood return. Medication was then injected without any difficulty. Patient tolerated well Medication: 20 mg of kenalog with 1/2 a cc of 1% lido without epi. Referring Provider: SELF [[id number]] Allergies As of Date: 05/05/2018 Noted Allergy Reaction IBUPROFEN 03/08/2018 8 - GI Upset LIPITOR (ATORVASTATIN CALCIUM) 06/03/2017 14 - Other: See Comments Comments: Elevated CK Date Reviewed: 05/05/2018 Reviewed by: Carter Ballesteros - Fully Assessed Reason for Visit: Imm/Inj [58] Cmt: Righ middle Finger- trigger finger Primary Visit Diagnosis:Trigger finger, right middle finger [M65.331] Order(s):[] lidocaine (PF) 10 mg/mL (1 %) 5 mg, triamcinolone acetonide 20 mgDisp: Rfl: Prescriptions as of 05/05/2018 Sig: METOCLOPRAMIDE 10 MG TABLET Take 1 tablet by mouth before* METFORMIN ER 500 MG TABLET,EX* Take 1 tablet by mouth daily * METOPROLOL SUCCINATE ER 50 MG* TAKE 1 TABLET ONCE DAILY ESOMEPRAZOLE MAGNESIUM 40 MG * Take 1 capsule by mouth daily* FENOFIBRATE 160 MG TABLET Take 1 tablet by mouth once d* FLUTICASONE 50 MCG/ACTUATION * Use 2 Sprays in each nostril * CPAP Initiate CPAP @ CPAP 8cm H2O * ASPIRIN 81 MG TABLET,DELAYED * Take 1 tablet by mouth once d* [id number] * Take 1 tablet by mouth once d* Problem List As Of Date 05/05/2018 Noted Resolved Symptomatic PVCs [I49.3] INVALID FOR* Priority: B More... GERD without esophagitis [K21.9] INVALID FOR* Priority: A Family history of arthritis [Z82.61] INVALID FOR* Priority: F More... More... 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 RLS (restless legs syndrome) [G25.81] INVALID FOR* Priority: B Essential hypertension [I10] INVALID FOR* Priority: A Type 2 diabetes mellitus without complication, * Priority: A Type 2 diabetes mellitus without retinopathy (H*INVALID FOR* Priority: A Vitreous floaters of both eyes [H43.393] INVALID FOR* Priority: G Morbid obesity due to excess calories (HCC) [E6*INVALID FOR* Priority: B Elevated CK [R74.8] INVALID FOR* Diabetic eye exam (HCC) [Z01.00, E11.9] INVALID FOR* Priority: A More... Well adult exam [Z00.00] INVALID FOR* Priority: E More... Prostate cancer screening [Z12.5] INVALID FOR* Colon cancer screening [Z12.11] INVALID FOR* Elevated LFTs [R94.5] INVALID FOR* Nausea [R11.0] INVALID FOR* More... Dry heaves [R11.10] INVALID FOR* More... Current use of proton pump inhibitor [Z79.899] INVALID FOR* Trigger finger, right middle finger [M65.331] INVALID FOR* Prescriptions ordered this encounter Disp Refills Start End [facility] [employer] [employer] 05/05/2018 05/05/2018 Class: Suppress Questions Route: OTHER Encounter Status:Closed by CARTER BALLESTEROS on 05/05/18 PROGRESS Observed: 04/28/2018 Status: COMPLETED Source: [facility] 11:09 AM [facility] RE[facility] HNO ID: [id number] Author: Carter Ballesteros Service: (none) Author Type: Physician Type: Progress Notes Filed: 04/28/2018 2:09 PM Note Text: Chief Complaint Patient presents with: Physical HPI Flakita Castellon is a 57 year old male who presents here today for WAE and routine. Patient with hx of HTN, GERD, DM type 2, Hyperlipidemia along with those reviewed and addressed below. Has been doing well. Planes to get his flu vaccine in the near future and will let me know when he does. doing well with CPAP with benefit. Still has the restless legs on occasion but not frequent enough to take a daily med. Past medical history, appointments, medications, allergies reviewed. Previous Medical History PAST MEDICAL HISTORY Diagnosis Date - Acute gastritis without mention of hemorrhage 07/24/2009 - Benign neoplasm of colon - Essential hypertension 05/01/2015 - GERD without esophagitis 11/15/2005 - Headache(784.0) 01/10/2008 Frontal SAAVEDRA, resolved when began Nasonex 2005 - Metabolic syndrome 12/05/2009 - Mixed hyperlipidemia 12/05/2009 - Morbid obesity due to excess calories ([facility]) 08/06/2016 - COLEMAN (obstructive sleep apnea) 08/18/2014 - RLS (restless legs syndrome) 08/18/2014 - Snoring - Supraventricular premature beats PAC's - SVT (supraventricular tachycardia) ([facility]) 06/29/2014 - Symptomatic PVCs 11/15/2005 symptomatic PVC's - 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 - Type 2 diabetes mellitus without complication, without long- term current use of insulin ([facility]) - Type 2 diabetes mellitus without retinopathy ([facility]) 10/03/2015 - 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 - Vitreous floaters of both eyes 10/03/2015 Previous Surgical History PAST SURGICAL HISTORY Procedure Laterality Date - COLONOSCOP W/ OR W/O [facility] SPEC 07/24/2009 Colonoscopy - COLONOSCOP W/ OR W/O [facility] SPEC 12/07/2014 Colonoscopy, repeat 5 yrs - EGD W/O OR W/BRUSH/WASH 07/24/2009 EGD - EGD W/O OR W/BRUSH/WASH 01/04/2018 EGD - FECAL OCCULT BLOOD TEST 02/06/2017 negative - PAST SURGICAL HISTORY OF 10/2008 heart cath done [facility] Family History FAMILY HISTORY Problem Relation Age of Onset - Arthritis Mother RA - Diabetes Mother - Heart Mother valve disease - No Ocular Disease No Family History Patient Allergies ALLERGIES Allergen Reactions - Ibuprofen GI Upset - Lipitor [Atorvastat* Other: See Comments Elevated CK Current Medications Current Outpatient Prescriptions on File Prior to Visit: metFORMIN ER (GLUCOPHAGE XR) 500 mg 24 hr tablet Take 1 tablet by mouth daily with breakfast. metoprolol succinate ER (TOPROL XL) 50 mg 24 hr tablet TAKE 1 TABLET ONCE DAILY esomeprazole (NEXIUM) 40 mg capsule Take 1 capsule by mouth daily before breakfast. 1/2 hr before meal. Fenofibrate (LOFIBRA) 160 mg tablet Take 1 tablet by mouth once daily. fluticasone (FLONASE) 50 mcg/actuation nasal spray Use 2 Sprays in each nostril twice daily. sucralfate (CARAFATE) 1 gram tablet Take 1 tablet by mouth twice daily. CPAP Initiate CPAP @ CPAP 8cm H2O pressure with humidification and possible positional therapy. Mask (per patient preference) optional chin strap (if indicated) , filters, tubing, humidifier and lifetime supplies.DX: COLEMAN G47.33 aspirin, enteric coated 81 mg EC tablet Take 1 tablet by mouth once daily. Dsebracomckzm-Hbayiyuq-Qszsrb (CENTRUM SILVER) Tab Take 1 tablet by mouth once daily. No current facility-administered medications on file prior to visit. 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 Just his typical allergy symptoms. NECK: Negative for lumps, goiter, pain and significant neck swelling RESPIRATORY: Negative for cough, hemoptysis, wheezing, COPD, dyspnea or shortness of breath CARDIOVASCULAR: Negative for chest pain, leg swelling, hypertension, CHF or changes in his typical palpitations. Wearing his compression socks. GI: No diarrhea on a frequent basis, No regular heartburn or reflux symptoms and no blood. Still getting the episode of nausea and dry heaving. Went and saw gastro at [facility] and had a CT that was ok and EGD that was ok. Was advised to see ENT for w/u : No history of dysuria, frequency or blood. MUSCULOSKELETAL: Negative for changes in typical joint pain, back pain or muscle pain. The right middle finger will get stuck at times. SKIN: Negative for lesions, rash, and itching PSYCH: Negative for sleep disturbance, mood disorder and recent psychosocial stressors HEMATOLOGY/LYMPHOLOGY: Negative for prolonged bleeding, bruising easily or swollen nodes ENDOCRINE: has an occasional low BS especially if forgets to eat. Not checking FBS's NEURO: No history of headaches, syncope, paralysis, seizures or tremors. No symptoms of neuropathy. EXAM: BP 138/88 Pulse 76 Temp 36.6 ?C (97.8 ?F) (Tympanic) Resp 16 Ht 172.7 cm (5' 8) Wt (!) 147.4 kg (325 lb) BMI 49.42 kg/m? General Appearance: Well appearing, alert, in no acute distress, well-hydrated, well nourished. and Morbidly obese. Skin: Skin color, texture, turgor normal, no suspicious rashes or lesions. Head: Normocephalic, no masses, lesions, tenderness or abnormalities. Eyes: Anicteric sclera. Pupils are equally round and reactive to light. Extraocular movements are intact. . Ears: External ears normal, canals clear. Nose/Sinuses: Nares normal, septum midline, mucosa normal, no drainage or sinus tenderness. Oropharynx: Lips, mucosa, and tongue normal, teeth and gums normal, oropharynx normal. Neck: Supple, no adenopathy; thyroid symmetric, normal size, no bruits. Lungs: Lungs clear to auscultation. No wheezing, rhonchi, rales. Heart: RRR without murmur, gallop, or rubs. No ectopy. Abdomen: Normal abdominal exam, Abdomen soft, non-tender. Bowel sounds normal. No masses, organomegaly. Extremities: No deformities, edema, skin discoloration . Musculoskeletal: Spine range of motion normal. Muscular strength intact, No joint swelling, deformity, or tenderness. Peripheral Pulses: Normal. Neurologic: Gait normal. Reflexes normal and symmetric. Sensation to light touch and crainal nerves 2-12 intact.. Genitalia: Normal, Penis normal. No urethral discharge. Scrotum normal to palpation. No hernia.. Rectal: Normal exam. Diabetic Foot Exam: Feet: Shoes and socks removed, no deformities, ulcers, calluses, normal distal pulses and vibratory exam within normal limits Skin: warm, dry and no callouses or ulcer Vascular Pulses: Normal [facility] Left Foot Right Foot Dorsal Surface Intact Dorsal Surface Intact Plantar Surface Intact Plantar Surface Intact Health Maintenance List BP CONTROLLED (<130/80) due on 1976 DTAP,TDAP,TD(2 - Td) due on 01/09/2018 INFLUENZA(1) due on 03/20/2018 DIABETES MED ADHERENCE due on 05/20/2018 DILATED RETINAL EXAM due on 10/07/2018 URINE ALBUMIN:CREATININE RATIO due on 10/20/2018 HBA1C due on 10/25/2018 ANNUAL PCP TEAM CHRONIC DISEASE VISIT due on 11/24/2018 LDL CHOLESTEROL due on 04/26/2019 DIABETIC FOOT EXAM due on 04/28/2019 COLORECTAL CANCER SCREENING,SEE MODIFIER due on 12/08/2019 PROSTATE CANCER SCREENING DISCUSSION Completed ONE PNEUMOVAX PRIOR TO AGE 65 Completed HEPATITIS C SCREENING Completed Data reviewed Component Latest Ref Rng AND Units 10/20/2017 10/20/2017 04/26/2018 10:02 AM 10:02 AM Cholesterol, Total <200 mg/dL 196 178 Triglyceride <150 mg/dL 463 (H) 350 (H) HDL Cholesterol >39 mg/dL 38 (L) 38 (L) LDL Cholesterol <100 mg/dL Unable to calculate due to increased Triglycerides. See LDL-Chol, Direct. 70 Non HDL Cholesterol <130 mg/dL 158 (H) 140 (H) Fasting Time hrs 13 12 VLDL Cholesterol <30 mg/dL Unable to calculate due to increased Triglycerides. See LDL-Chol, Direct. 59 (H) 70 (H) TC:HDL Ratio <5.10 5.16 (H) 4.68 LDL:HDL Ratio <2.54 Unable to calculate due to elevated Triglycerides. 1.84 Albumin 3.9 - 4.9 g/dL 4.5 Bilirubin, Total 0.2 - 1.3 mg/dL 0.9 Bilirubin, Conjug <0.2 mg/dL <0.2 Alkaline Phosphatase 38 - 113 U/L 53 AST 14 - 40 U/L 28 ALT 10 - 54 U/L 39 Protein, Total 6.3 - 8.0 g/dL 7.2 Hemoglobin A1C 4.3 - 5.6 % 6.2 (H) 6.3 (H) Estimated Average Glucose mg/dL 131 134 LDL Cholesterol, Direct <100 mg/dL 99 PSA 0.00 - 2.59 ng/mL 1.61 A/P ASSESSMENT/PLAN: 1. Well adult exam - ICD9: V70.0, ICD10: Z00.00 (primary diagnosis) - Completed Digital Rectal exam - Recommended regular aerobic exercise. - Follow up for annual exam in one year. 2. Type 2 diabetes mellitus without complication, without long-term current use of insulin (HCC) - ICD9: 250.00, ICD10: E11.9 Controlled. - Continue current medications - Daily Asprin therapy recommended - BP goal of <130/80 - LDL goal of <100 3. Type 2 diabetes mellitus without retinopathy (HCC) - ICD9: 250.00, ICD10: E11.9 - See #2 4. Diabetic eye exam ([facility]) - ICD9: V72.0, 250.00, ICD10: Z01.00, E11.9 - Up to date 5. Essential hypertension - ICD9: 401.9, ICD10: I10 - good control - Continue current medication(s) - Recommended regular aerobic exercise. - Recommend home blood pressure monitoring, to bring results in on next visit - Goal of BP <130/80 6. Mixed hyperlipidemia - ICD9: 272.2, ICD10: E78.2 - improved control - Encouraged following a low fat, low cholesterol diet. - Discussed the benefits of regular aerobic exercise and weight loss. - Encouraged following a low carbohydrate, healthy oil intake diet. - Continue current therapy. 7. GERD without esophagitis - ICD9: 530.81, ICD10: K21.9 - Continue treatment with Nexium 40 mg QD - Patient to stop carafate 8. Metabolic syndrome - ICD9: 277.7, ICD10: E88.81 - Patient to cont working on healthy life style changes. 9. SVT (supraventricular tachycardia) (HCC) - ICD9: 427.89, ICD10: I47.1 - Stable with Tx no changes 10. Symptomatic PVCs - ICD9: 427.69, ICD10: I49.3 - As per #9 11. COLEMAN (obstructive sleep apnea) - ICD9: 327.23, ICD10: G47.33 Benefiting from CPAP and to continue. 12. RLS (restless legs syndrome) - ICD9: 333.94, ICD10: G25.81 - Only an occasional issue will monitor. Med's not needed. 13. Morbid obesity due to excess calories (HCC) - ICD9: 278.01, ICD10: E66.01 - As per #8 14. Nausea - ICD9: 787.02, ICD10: R11.0 - Will try reglan and if no better refer onto ENT Dr. Daniel 15. Dry heaves - ICD9: 787.03, ICD10: R11.10 - See #14 16. Need for vaccination - ICD9: V05.9, ICD10: Z23 - TDAP VACCINE AGE 7+ IM given 18. Trigger finger, right middle finger - ICD9: 727.03, ICD10: M65.331 - Will have staff reach out to patient to see if wants to try a steroid injection to try and resolve this. Signed Prescriptions Disp Refills metoclopramide HCl (REGLAN) 10 mg tablet 120 tablet 5 Sig: Take 1 tablet by mouth before meals and at bedtime. 30min before meals. F/u 6 months routine check a1c, CMP, FLP, UA. Mg and urine micro albumin prior Carter Ballesteros MD CNOV Observed: 04/28/2018 Status: COMPLETED Source: [place] 10:00 AM [facility] REPOSITORY Office Visit (FAMPWS) FLAKITA CASTELLON ([id number]) 1960 M Date Time Provider Department 04/28/18 10:00 AM CARTER BALLESTEROS During your visit today, we recorded the following information about you: Temperature Pulse Respiration Blood pressure 97.8 degrees 76/minute 16/minute 138/88 Weight Height 147.4 kg 1.727 m Carter Ballesteros MD 04/28/2018 2:09 PM Signed Chief Complaint Patient presents with: Physical HPI Flakita Castellon is a 57 year old male who presents here today for WAE and routine. Patient with hx of HTN, GERD, DM type 2, Hyperlipidemia along with those reviewed and addressed below. Has been doing well. Planes to get his flu vaccine in the near future and will let me know when he does. doing well with CPAP with benefit. Still has the restless legs on occasion but not frequent enough to take a daily med. Past medical history, appointments, medications, allergies reviewed. Previous Medical History PAST MEDICAL HISTORY Diagnosis Date - Acute gastritis without mention of hemorrhage 07/24/2009 - Benign neoplasm of colon - Essential hypertension 05/01/2015 - GERD without esophagitis 11/15/2005 - Headache(784.0) 01/10/2008 Frontal SAAVEDRA, resolved when began Nasonex 2005 - Metabolic syndrome 12/05/2009 - Mixed hyperlipidemia 12/05/2009 - Morbid obesity due to excess calories ([facility]) 08/06/2016 - COLEMAN (obstructive sleep apnea) 08/18/2014 - RLS (restless legs syndrome) 08/18/2014 - Snoring - Supraventricular premature beats PAC's - SVT (supraventricular tachycardia) ([facility]) 06/29/2014 - Symptomatic PVCs 11/15/2005 symptomatic PVC's - 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 - Type 2 diabetes mellitus without complication, without long- term current use of insulin ([facility]) - Type 2 diabetes mellitus without retinopathy ([facility]) 10/03/2015 - 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 - Vitreous floaters of both eyes 10/03/2015 Previous Surgical History PAST SURGICAL HISTORY Procedure Laterality Date - COLONOSCOP W/ OR W/O BRSH SPEC 07/24/2009 Colonoscopy - COLONOSCOP W/ OR W/O BRS SPEC 12/07/2014 Colonoscopy, repeat 5 yrs - EGD W/O OR W/BRUSH/WASH 07/24/2009 EGD - EGD W/O OR W/BRUSH/WASH 01/04/2018 EGD - FECAL OCCULT BLOOD TEST 02/06/2017 negative - PAST SURGICAL HISTORY OF 10/2008 heart cath done [facility] Family History FAMILY HISTORY Problem Relation Age of Onset - Arthritis Mother RA - Diabetes Mother - Heart Mother valve disease - No Ocular Disease No Family History Patient Allergies ALLERGIES Allergen Reactions - Ibuprofen GI Upset - Lipitor [Atorvastat* Other: See Comments Elevated CK Current Medications Current Outpatient Prescriptions on File Prior to Visit: metFORMIN ER (GLUCOPHAGE XR) 500 mg 24 hr tablet Take 1 tablet by mouth daily with breakfast. metoprolol succinate ER (TOPROL XL) 50 mg 24 hr tablet TAKE 1 TABLET ONCE DAILY esomeprazole (NEXIUM) 40 mg capsule Take 1 capsule by mouth daily before breakfast. 1/2 hr before meal. Fenofibrate (LOFIBRA) 160 mg tablet Take 1 tablet by mouth once daily. fluticasone (FLONASE) 50 mcg/actuation nasal spray Use 2 Sprays in each nostril twice daily. sucralfate (CARAFATE) 1 gram tablet Take 1 tablet by mouth twice daily. CPAP Initiate CPAP @ CPAP 8cm H2O pressure with humidification and possible positional therapy. Mask (per patient preference) optional chin strap (if indicated) , filters, tubing, humidifier and lifetime supplies.DX: COLEMAN G47.33 aspirin, enteric coated 81 mg EC tablet Take 1 tablet by mouth once daily. Dfckcmpgqrgix-Qiaxxtzd-Arxbwt (CENTRUM SILVER) Tab Take 1 tablet by mouth once daily. No current facility-administered medications on file prior to visit. 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 Just his typical allergy symptoms. NECK: Negative for lumps, goiter, pain and significant neck swelling RESPIRATORY: Negative for cough, hemoptysis, wheezing, COPD, dyspnea or shortness of breath CARDIOVASCULAR: Negative for chest pain, leg swelling, hypertension, CHF or changes in his typical palpitations. Wearing his compression socks. GI: No diarrhea on a frequent basis, No regular heartburn or reflux symptoms and no blood. Still getting the episode of nausea and dry heaving. Went and saw gastro at [facility] and had a CT that was ok and EGD that was ok. Was advised to see ENT for w/u : No history of dysuria, frequency or blood. MUSCULOSKELETAL: Negative for changes in typical joint pain, back pain or muscle pain. The right middle finger will get stuck at times. SKIN: Negative for lesions, rash, and itching PSYCH: Negative for sleep disturbance, mood disorder and recent psychosocial stressors HEMATOLOGY/LYMPHOLOGY: Negative for prolonged bleeding, bruising easily or swollen nodes ENDOCRINE: has an occasional low BS especially if forgets to eat. Not checking FBS's NEURO: No history of headaches, syncope, paralysis, seizures or tremors. No symptoms of neuropathy. EXAM: BP 138/88 Pulse 76 Temp 36.6 ?C (97.8 ?F) (Tympanic) Resp 16 Ht 172.7 cm (5' 8) Wt (!) 147.4 kg (325 lb) BMI 49.42 kg/m? General Appearance: Well appearing, alert, in no acute distress, well-hydrated, well nourished. and Morbidly obese. Skin: Skin color, texture, turgor normal, no suspicious rashes or lesions. Head: Normocephalic, no masses, lesions, tenderness or abnormalities. Eyes: Anicteric sclera. Pupils are equally round and reactive to light. Extraocular movements are intact. . Ears: External ears normal, canals clear. Nose/Sinuses: Nares normal, septum midline, mucosa normal, no drainage or sinus tenderness. Oropharynx: Lips, mucosa, and tongue normal, teeth and gums normal, oropharynx normal. Neck: Supple, no adenopathy; thyroid symmetric, normal size, no bruits. Lungs: Lungs clear to auscultation. No wheezing, rhonchi, rales. Heart: RRR without murmur, gallop, or rubs. No ectopy. Abdomen: Normal abdominal exam, Abdomen soft, non-tender. Bowel sounds normal. No masses, organomegaly. Extremities: No deformities, edema, skin discoloration . Musculoskeletal: Spine range of motion normal. Muscular strength intact, No joint swelling, deformity, or tenderness. Peripheral Pulses: Normal. Neurologic: Gait normal. Reflexes normal and symmetric. Sensation to light touch and crainal nerves 2-12 intact.. Genitalia: Normal, Penis normal. No urethral discharge. Scrotum normal to palpation. No hernia.. Rectal: Normal exam. Diabetic Foot Exam: Feet: Shoes and socks removed, no deformities, ulcers, calluses, normal distal pulses and vibratory exam within normal limits Skin: warm, dry and no callouses or ulcer Vascular Pulses: Normal [facility] Left Foot Right Foot Dorsal Surface Intact Dorsal Surface Intact Plantar Surface Intact Plantar Surface Intact Health Maintenance List BP CONTROLLED (<130/80) due on 1976 DTAP,TDAP,TD(2 - Td) due on 01/09/2018 INFLUENZA(1) due on 03/20/2018 DIABETES MED ADHERENCE due on 05/20/2018 DILATED RETINAL EXAM due on 10/07/2018 URINE ALBUMIN:CREATININE RATIO due on 10/20/2018 HBA1C due on 10/25/2018 ANNUAL PCP TEAM CHRONIC DISEASE VISIT due on 11/24/2018 LDL CHOLESTEROL due on 04/26/2019 DIABETIC FOOT EXAM due on 04/28/2019 COLORECTAL CANCER SCREENING,SEE MODIFIER due on 12/08/2019 PROSTATE CANCER SCREENING DISCUSSION Completed ONE PNEUMOVAX PRIOR TO AGE 65 Completed HEPATITIS C SCREENING Completed Data reviewed Component Latest Ref Rng AND Units 10/20/2017 10/20/2017 04/26/2018 10:02 AM 10:02 AM Cholesterol, Total <200 mg/dL 196 178 Triglyceride <150 mg/dL 463 (H) 350 (H) HDL Cholesterol >39 mg/dL 38 (L) 38 (L) LDL Cholesterol <100 mg/dL Unable to calculate due to increased Triglycerides. See LDL-Chol, Direct. 70 Non HDL Cholesterol <130 mg/dL 158 (H) 140 (H) Fasting Time hrs 13 12 VLDL Cholesterol <30 mg/dL Unable to calculate due to increased Triglycerides. See LDL-Chol, Direct. 59 (H) 70 (H) TC:HDL Ratio <5.10 5.16 (H) 4.68 LDL:HDL Ratio <2.54 Unable to calculate due to elevated Triglycerides. 1.84 Albumin 3.9 - 4.9 g/dL 4.5 Bilirubin, Total 0.2 - 1.3 mg/dL 0.9 Bilirubin, Conjug <0.2 mg/dL <0.2 Alkaline Phosphatase 38 - 113 U/L 53 AST 14 - 40 U/L 28 ALT 10 - 54 U/L 39 Protein, Total 6.3 - 8.0 g/dL 7.2 Hemoglobin A1C 4.3 - 5.6 % 6.2 (H) 6.3 (H) Estimated Average Glucose mg/dL 131 134 LDL Cholesterol, Direct <100 mg/dL 99 PSA 0.00 - 2.59 ng/mL 1.61 A/P ASSESSMENT/PLAN: 1. Well adult exam - ICD9: V70.0, ICD10: Z00.00 (primary diagnosis) - Completed Digital Rectal exam - Recommended regular aerobic exercise. - Follow up for annual exam in one year. 2. Type 2 diabetes mellitus without complication, without long-term current use of insulin (HCC) - ICD9: 250.00, ICD10: E11.9 Controlled. - Continue current medications - Daily Asprin therapy recommended - BP goal of <130/80 - LDL goal of <100 3. Type 2 diabetes mellitus without retinopathy (HCC) - ICD9: 250.00, ICD10: E11.9 - See #2 4. Diabetic eye exam (HCC) - ICD9: V72.0, 250.00, ICD10: Z01.00, E11.9 - Up to date 5. Essential hypertension - ICD9: 401.9, ICD10: I10 - good control - Continue current medication(s) - Recommended regular aerobic exercise. - Recommend home blood pressure monitoring, to bring results in on next visit - Goal of BP <130/80 6. Mixed hyperlipidemia - ICD9: 272.2, ICD10: E78.2 - improved control - Encouraged following a low fat, low cholesterol diet. - Discussed the benefits of regular aerobic exercise and weight loss. - Encouraged following a low carbohydrate, healthy oil intake diet. - Continue current therapy. 7. GERD without esophagitis - ICD9: 530.81, ICD10: K21.9 - Continue treatment with Nexium 40 mg QD - Patient to stop carafate 8. Metabolic syndrome - ICD9: 277.7, ICD10: E88.81 - Patient to cont working on healthy life style changes. 9. SVT (supraventricular tachycardia) (HCC) - ICD9: 427.89, ICD10: I47.1 - Stable with Tx no changes 10. Symptomatic PVCs - ICD9: 427.69, ICD10: I49.3 - As per #9 11. COLEMAN (obstructive sleep apnea) - ICD9: 327.23, ICD10: G47.33 Benefiting from CPAP and to continue. 12. RLS (restless legs syndrome) - ICD9: 333.94, ICD10: G25.81 - Only an occasional issue will monitor. Med's not needed. 13. Morbid obesity due to excess calories (HCC) - ICD9: 278.01, ICD10: E66.01 - As per #8 14. Nausea - ICD9: 787.02, ICD10: R11.0 - Will try reglan and if no better refer onto ENT Dr. Daniel 15. Dry heaves - ICD9: 787.03, ICD10: R11.10 - See #14 16. Need for vaccination - ICD9: V05.9, ICD10: Z23 - TDAP VACCINE AGE 7+ IM given 18. Trigger finger, right middle finger - ICD9: 727.03, ICD10: M65.331 - Will have staff reach out to patient to see if wants to try a steroid injection to try and resolve this. Signed Prescriptions Disp Refills metoclopramide HCl (REGLAN) 10 mg tablet 120 tablet 5 Sig: Take 1 tablet by mouth before meals and at bedtime. 30min before meals. F/u 6 months routine check a1c, CMP, FLP, UA. Mg and urine micro albumin prior MD Carter Gale MD 04/28/2018 11:37 AM Signed Please get fasting labs and urine testing on or after 10/15/2018 prior to next visit. Referring Provider: CARTER BALLESTEROS [[id number]] Allergies As of Date: 04/28/2018 Noted Allergy Reaction IBUPROFEN 03/08/2018 8 - GI Upset LIPITOR (ATORVASTATIN CALCIUM) 06/03/2017 14 - Other: See Comments Comments: Elevated CK Date Reviewed: 04/28/2018 Reviewed by: Carter Ballesteros - Fully Assessed Reason for Visit: Physical [83] Primary Visit Diagnosis:Well adult exam [Z00.00] Other Visit Diagnoses:Type 2 diabetes mellitus without complication, without long-term current use of insulin (HCC) [E11.9] Type 2 diabetes mellitus without retinopathy (HCC) [E11.9] Diabetic eye exam (HCC) [Z01.00, E11.9] Essential hypertension [I10] Mixed hyperlipidemia [E78.2] GERD without esophagitis [K21.9] Metabolic syndrome [E88.81] SVT (supraventricular tachycardia) (HCC) [I47.1] Symptomatic PVCs [I49.3] COLEMAN (obstructive sleep apnea) [G47.33] RLS (restless legs syndrome) [G25.81] Morbid obesity due to excess calories (HCC) [E66.01] Nausea [R11.0] Dry heaves [R11.10] Need for vaccination [Z23] Current use of proton pump inhibitor [Z79.899] Trigger finger, right middle finger [M65.331] Order(s):TDAP VACCINE AGE 7+ IM [00051VXL] Order #: [id number] metoclopramide HCl (REGLAN) 10 mg tabletTake 1 tablet by mouth before meals and at bedtime. 30min before meals.Disp: 120 tabletRfl: 5 ALBUMIN/CREAT RATIO RND UR [SQUACR] Order #: [id number] FUTURE COMP METABOLIC PANEL [SQCMP] Order #: [id number] FUTURE HGB A1C [CEIXJ1O] Order #: [id number] FUTURE URINALYSIS WITH MICROSCOPIC [SQUAWMIC] Order #: [id number] FUTURE LIPID PANEL, NONFASTING [SQLIPNF] Order #: [id number] FUTURE MAGNESIUM BLD [SQMG1] Order #: [id number] FUTURE Prescriptions as of 04/28/2018 Sig: METFORMIN ER 500 MG TABLET,EX* Take 1 tablet by mouth daily * METOPROLOL SUCCINATE ER 50 MG* TAKE 1 TABLET ONCE DAILY ESOMEPRAZOLE MAGNESIUM 40 MG * Take 1 capsule by mouth daily* FENOFIBRATE 160 MG TABLET Take 1 tablet by mouth once d* FLUTICASONE 50 MCG/ACTUATION * Use 2 Sprays in each nostril * CPAP Initiate CPAP @ CPAP 8cm H2O * ASPIRIN 81 MG TABLET,DELAYED * Take 1 tablet by mouth once d* [id number] * Take 1 tablet by mouth once d* METOCLOPRAMIDE 10 MG TABLET Take 1 tablet by mouth before* Problem List As Of Date 04/28/2018 Noted Resolved Symptomatic PVCs [I49.3] INVALID FOR* Priority: B More... GERD without esophagitis [K21.9] INVALID FOR* Priority: A Family history of arthritis [Z82.61] INVALID FOR* Priority: F More... More... 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 RLS (restless legs syndrome) [G25.81] INVALID FOR* Priority: B Essential hypertension [I10] INVALID FOR* Priority: A Type 2 diabetes mellitus without complication, * Priority: A Type 2 diabetes mellitus without retinopathy (H*INVALID FOR* Priority: A Vitreous floaters of both eyes [H43.393] INVALID FOR* Priority: G Morbid obesity due to excess calories (HCC) [E6*INVALID FOR* Priority: B Elevated CK [R74.8] INVALID FOR* Diabetic eye exam (HCC) [Z01.00, E11.9] INVALID FOR* Priority: A More... Well adult exam [Z00.00] INVALID FOR* Priority: E More... Prostate cancer screening [Z12.5] INVALID FOR* Colon cancer screening [Z12.11] INVALID FOR* Elevated LFTs [R94.5] INVALID FOR* Nausea [R11.0] INVALID FOR* More... Dry heaves [R11.10] INVALID FOR* More... Current use of proton pump inhibitor [Z79.899] INVALID FOR* Trigger finger, right middle finger [M65.331] INVALID FOR* Other instructions from your clinician: Please get fasting labs and urine testing on or after 10/15/2018 prior to next visit. Prescriptions ordered this encounter Disp Refills Start End METOCLOPRAMIDE 10 MG TABLET 120 * 5 04/28/2018 Route: ORAL Sig: Take 1 tablet by mouth before meals and at bedtime. 30min before meals. Medications Discontinued During This Encounter sucralfate (CARAFATE) 1 gram tablet 180 * 1 10/20/2017 04/28/2018 Route: ORAL Sig: Take 1 tablet by mouth twice daily. Disc: Clinical Decision Disposition: Return in about 6 months (around 10/27/2018) for routine. Follow-up and Disposition History Recorded Encounter Status:Closed by CARTER BALLESTEROS on 04/28/18 HEPATIC FUNCTN PANEL Collected: 04/26/2018 Status: F Source: [place] 7:48 AM [facility] REPOSITORY TYPE CODE TESTS RESULT OUT OF REFERENCE UNITS RANGE LAB ALB 3.9-4.9 g/dL Albumin 4.5 LAB TBIL 0.2-1.3 mg/dL Bilirubin, Total 0.9 LAB CBIL <0.2 mg/dL Bilirubin,Conjuga <0.2 wendy LAB ALKP 38-113 U/L Alkaline Phosphatase 53 LAB AST 14-40 U/L AST 28 LAB ALT 10-54 U/L ALT 39 LAB TP 6.3-8.0 g/dL Protein, Total 7.2 Performed By: #### HFP, LIPB, PSA, HBA1C #### [facility] [address] [place] [id number] LIPID PANEL, BASIC Collected: 04/26/2018 Status: F Source: [place] 7:48 AM [facility] REPOSITORY TYPE CODE TESTS RESULT OUT OF REFERENCE UNITS RANGE LAB CHOL <200 mg/dL Cholesterol 178 Result Comment: <200 mg/dL, Desirable 200-239 mg/dL, Borderline high >239 mg/dL, High LAB TRIGLY <150 mg/dL Triglyceride High 350 Result Comment: <150 mg/dL, Normal 150-199 mg/dL, Borderline high 200-499 mg/dL, High >499 mg/dL, Very high LAB HDL >39 mg/dL HDL-Cholesterol Low 38 Result Comment: 40-59 mg/dL, Acceptable >59 mg/dL, High: Negative risk factor for coronary heart disease <40 mg/dL, Low: Positive risk factor for coronary heart disease LAB LDL <100 mg/dL LDL-Cholesterol 70 Result Comment: <100 mg/dL, Optimal 100-129 mg/dL, Near optimal/above optimal 130-159 mg/dL, Borderline high 160-189 mg/dL, High >189 mg/dL, Very high Secondary prevention optimal LDL Cholesterol levels are recommended to be < 70 mg/dL LAB NONHDL <130 mg/dL Non HDL High Cholesterol 140 Result Comment: <130 mg/dL, Optimal 130-159 mg/dL, Near optimal/above optimal 160-189 mg/dL, Borderline high 190-219 mg/dL, High >219 mg/dL, Very high Secondary prevention optimal non HDL Cholesterol levels are recommended to be < 100 mg/dL LAB FT hrs Fasting Time 12 LAB VLDL <30 mg/dL High VLDL Cholesterol 70 LAB TCHDL <5.10 TC:HDL Ratio 4.68 LAB LDLHDL <2.54 LDL:HDL Ratio 1.84 Result Comment: Reference: 1. National Cholesterol Education Program ATP III Guideline At-A-Glance Quick Desk Reference: National Heart, Lung, and Blood [place]. National Institutes of Health. 2001: NIH Publication No. 01-3305. 2. An International Atherosclerosis Society position paper: global recommendations for the management of dyslipidemia: executive summary, Atherosclerosis. 2014: 232(2):410-413. Performed By: #### HFP, LIPB, PSA, HBA1C #### [facility] [address] [place] [id number] PSA, DIAGNOSTIC Collected: 04/26/2018 Status: F Source: [place] 7:48 AM [facility] REPOSITORY TYPE CODE TESTS RESULT OUT OF REFERENCE UNITS RANGE LAB PSA 0.00-2.59 ng/mL PSA, Diagnostic 1.61 Result Comment: Total PSA test methodology used is the Electrochemiluminescence Immunoassay. Performed By: #### HFP, LIPB, PSA, HBA1C #### [facility] [address] [place], [place] [address] HEMOGLOBIN A1C Collected: 04/26/2018 Status: F Source: [facility] 7:48 AM [facility] REPOSITORY TYPE CODE TESTS RESULT OUT OF REFERENCE UNITS RANGE LAB HGBA1C 4.3-5.6 % High Hemoglobin A1c 6.3 LAB HBA0 mg/dL Est. Average Glucose 134 Result Comment: eAG: (Estimated average glucose) is a calculated value from HgbA1c and is vendor representatives of the average blood glucose level in the last 2-3 month period. Performed By: #### HFP, LIPB, PSA, HBA1C #### [facility] [address] [place], [place] [id number] CNOV Observed: 03/08/2018 Status: COMPLETED Source: [facility] 3:40 PM [facility] REPOSITORY Office Visit (GASTMN) FLAKITA CASTELLON ([id number]) 1960 M Date Time Provider Department 03/08/18 3:40 PM MELY RODRIGUEZ GASTMN During your visit today, we recorded the following information about you: Pulse Blood pressure Weight Height 95/minute 136/86 145.9 kg 1.702 m Mely Rodriguez MD 03/11/2018 3:43 PM Signed New Patient/Consult REASON FOR VISIT Flakita Castellon is a 57 year old male who is scheduled for Vomiting /Gastritis at the request of Elliott Demarco. My final recommendations will be communicated back to the requesting physician by the way of the shared medical record, fax, or via US Mail. PRESENTING COMPLAINT AND HISTORY 57 yo male with a PMH of GERD, pre-DM, HLD, and COLEMAN who presents with a 2 year history of nausea and dry heaving which is progressively worsening. The first episode he can recall was in [place] at [facility] where he developed nausea and dry heaving with a little emesis. At the time, he was not ill, no fever, abdominal pain, diarrhea. Currently, he can awake with nausea, dry heaving. Rarely vomits and when he does, it does not provide much relief with nausea. Can be taking a shower and suddenly start dry heaving. Symptoms are occurring on average daily or every other day. Most recent episode was last night. Over time, increased in frequency. Associated with feeling of fullness, lightheadedness, No abdominal pain until after episode due to muscle soreness. Triggers include strong smells (cream chicken, paint), talking (sensation while talking/vibrations), neck pressure, changes in temperature. It is not associated with meals. Bowel movements have been normal; has 2-3 times/daily. Denies diarrhea, constipation, melena, hematochezia, bloating, abdominal pain. Denies hematuria and dysuria. He also has episodes of dysphagia to solids that resolves with liquids. More trouble swallowing now, feels like throat more narrow. Has intermittent reflux symptoms and he is currently on Nexium 40mg daily before breakfast and sucralfate 1g BID. He has not tried anti-emetics for these episodes. Denies fevers, chills, night sweats, weight loss, cough. NSAIDs: Aleve intermittently if doing strenuous work. Does patient have achalasia? No GI EVALUATION EGD: -01/04/18- Medicines: ? ? ?Fentanyl 50 micrograms IV, Midazolam 5 mg IV Impression: ? - Normal esophagus. ? - Gastritis. Biopsied. ? - Normal examined duodenum. Surgical Pathology: -01/04/18- FINAL DIAGNOSIS : Stomach, antrum, biopsy - Gastric antral-type mucosa with mild reactive gastropathy. COMMENT No Helicobacter pylori organisms are identified. Gastric Emptying Study: -12/23/17- IMPRESSION: NORMAL RATE OF GASTRIC EMPTYING OF SOLID MEAL. Colonoscopy:-12/07/17- Medicines: ?Fentanyl 50 micrograms IV, Midazolam 5 mg IV, ? Diphenhydramine 50 mg IV Impression: ?? - The entire examined colon is normal. ? - No specimens collected. CT:CT ABDOMEN W/WO :-11/24/05- IMPRESSION: The cyst seen at the right kidney at ultrasound shows no abnormal enhancement. There are no focal solid renal masses. There is a tiny nonobstructing calculus of the mid right kidney. There is no significant adenopathy. Evidence of old granulomatous disease is noted. There is tiny nonspecific noncalcified nodule in the left lung lateral to left hilum, probably within the lingula, for which follow up study in six months is recommended to confirm stability. Fatty infiltration of liver. metFORMIN ER (GLUCOPHAGE XR) 500 mg 24 hr tablet Take 1 tablet by mouth daily with breakfast. metoprolol succinate ER (TOPROL XL) 50 mg 24 hr tablet TAKE 1 TABLET ONCE DAILY esomeprazole (NEXIUM) 40 mg capsule Take 1 capsule by mouth daily before breakfast. 1/2 hr before meal. Fenofibrate (LOFIBRA) 160 mg tablet Take 1 tablet by mouth once daily. fluticasone (FLONASE) 50 mcg/actuation nasal spray Use 2 Sprays in each nostril twice daily. sucralfate (CARAFATE) 1 gram tablet Take 1 tablet by mouth twice daily. CPAP Initiate CPAP @ CPAP 8cm H2O pressure with humidification and possible positional therapy. Mask (per patient preference) optional chin strap (if indicated) , filters, tubing, humidifier and lifetime supplies.DX: COLEMAN G47.33 aspirin, enteric coated 81 mg EC tablet Take 1 tablet by mouth once daily. Ntzbxhrxaneje-Rpgwscji-Acfvyv (CENTRUM SILVER) Tab Take 1 tablet by mouth once daily. Ibuprofen; Lipitor [Atorvastatin Calcium] FAMILY HISTORY Liver Problems: No Colitis: No Colon Cancer: No Other Cancers: No FAMILY HISTORY Problem Relation Age of Onset - Arthritis Mother RA - Diabetes Mother - Heart Mother valve disease - No Ocular Disease No Family History ADDITIONAL HISTORY Colon polyps: Yes Colon cancer: No Other cancer: No Radiation / Chemotherapy: No Crohn's disease / Ulcerative colitis: No High cholesterol or triglycerides: No Ulcers: No Gallstones: No Hepatitis / jaundice: No Heart Disease: No Lung Disease: No Liver problems: No Thyroid disease: No Kidney stones: No Pancreatitis: No Diabetes: No Arthritis: No Rheumatic fever: No Gastrointestinal bleeding: No Depression or other mental illness: No Other personal illness: No Weekly narcotic analgesic: No Organ transplant: No Other implanted devices: No Previous GI surgery: No PAST MEDICAL HISTORY Diagnosis Date - Acute gastritis without mention of hemorrhage 07/24/2009 - Benign neoplasm of colon - Essential hypertension 05/01/2015 - GERD without esophagitis 11/15/2005 - Headache(784.0) 01/10/2008 Frontal SAAVEDRA, resolved when began Nasonex 2005 - Metabolic syndrome 12/05/2009 - Mixed hyperlipidemia 12/05/2009 - Morbid obesity due to excess calories ([facility]) 08/06/2016 - COLEMAN (obstructive sleep apnea) 08/18/2014 - RLS (restless legs syndrome) 08/18/2014 - Snoring - Supraventricular premature beats PAC's - SVT (supraventricular tachycardia) ([facility]) 06/29/2014 - Symptomatic PVCs 11/15/2005 symptomatic PVC's - 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 - Type 2 diabetes mellitus without complication, without long- term current use of insulin ([facility]) - Type 2 diabetes mellitus without retinopathy ([facility]) 10/03/2015 - 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 - Vitreous floaters of both eyes 10/03/2015 PAST SURGICAL HISTORY Procedure Laterality Date - COLONOSCOP W/ OR W/O [facility] SPEC 07/24/2009 Colonoscopy - COLONOSCOP W/ OR W/O [facility] SPEC 12/07/2014 Colonoscopy, repeat 5 yrs - EGD W/O OR W/BRUSH/WASH 07/24/2009 EGD - EGD W/O OR W/BRUSH/WASH 01/04/2018 EGD - FECAL OCCULT BLOOD TEST 02/06/2017 negative - PAST SURGICAL HISTORY OF 10/2008 heart cath done [facility] Social History Marital status: Spouse name: Years of education: Number of children: Occupational History 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 Ears, Mouth, nose, throat: headaches Cardiovascular: PALPITATION and LIGHT HEADEDNESS Respiratory: Negative for cough, wheezing and shortness of breath Gastrointestinal : Dysphagia, Nausea and Vomiting Genitourinary: Negative Musuloskeletal: Denies significant problems Integumentary: no rashes, lesions, or jaundice Neurological: dizziness Endocrine: Negative for cold or heat intolerance Allergic/ Immunologic: Negative All others negative. GI SPECIFIC REVIEW OF SYSTEMS Difficulty swallowing / foods sticking in throat: Yes Heartburn: Yes Hoarseness: No Chronic cough: No Regurgitation: No Chest pain: No Filling up quickly at meals: No Loss of appetite: No Nausea: Yes Vomiting: Yes Abdominal pain: No Recent change in bowel movements: No Bloody or black, bowel movements: No Constipation: Yes Diarrhea: Yes Loss of control of bowel movements: No Night sweats, fever, chills: No Thought or memory problems: No Fluid in abdomen (ascites): No Prominent leg swelling: No Vomiting blood: No Recent change in weight: No Primary eating disorder: No Seizures: No PHYSICAL EXAMINATION BP 136/86 Pulse 95 Ht 5' 7 (1.70m) Wt 321 lb 9.6 oz (145.9kg) SpO2 94% BMI 50.36 kg/(m2). General appearance: well appearing, alert, in no acute distress and well-hydrated, well nourished Skin: Skin color, texture, turgor normal, no suspicious rashes or lesions Head: normal Lungs: lungs clear to auscultation, no wheezing or rhonchi Heart: RRR without murmur, gallop, or rubs. No ectopy Abdomen: Abdomen soft, mildly tender to palpation in epigastrium. Bowel sounds normal. No masses, organomegaly Assessment Impression and Plan Mr. Castellon is a 57 year old male with a PMH of GERD who presents with a 2 year history of nausea and dry heaving episodes likely neurologic in origin given triggers include smells and neck pressure. Nausea also did not resolve with Nexium and sucralfate making this less likely GI in nature. Recommend following with PCP who can refer patient to either Neurology or ENT. Can trial anti-emetics to help with episodes of nausea. GI ATTENDING I have reviewed the history and physical obtained and documented by the resident and I personally participated in the coe components. I have discussed the case and management of the patient's care with the resident. The following comments revise or confirm relevant coe components of the resident's note. Stongly doubt symptoms are from the GI tract. Mely Rodriguez MD Staff physician [facility] March 04, 2018 10:22 AM Referring Provider: ELLIOTT DEMARCO (FOUNDRY PATTERNMAKER) [[id number]] Allergies As of Date: 03/08/2018 Noted Allergy Reaction IBUPROFEN 03/08/2018 8 - GI Upset LIPITOR (ATORVASTATIN CALCIUM) 06/03/2017 14 - Other: See Comments Comments: Elevated CK Date Reviewed: 03/08/2018 Reviewed by: Tara Mathews Ma - Fully Assessed Reason for Visit: New Patient [[id number]] Cmt: Chronic Vomiting Primary Visit Diagnosis:Nausea [R11.0] Other Visit Diagnosis:Dry heaves [R11.10] Prescriptions as of 03/08/2018 Sig: METFORMIN ER 500 MG TABLET,EX* Take 1 tablet by mouth daily * METOPROLOL SUCCINATE ER 50 MG* TAKE 1 TABLET ONCE DAILY ESOMEPRAZOLE MAGNESIUM 40 MG * Take 1 capsule by mouth daily* FENOFIBRATE 160 MG TABLET Take 1 tablet by mouth once d* FLUTICASONE 50 MCG/ACTUATION * Use 2 Sprays in each nostril * SUCRALFATE 1 GRAM TABLET Take 1 tablet by mouth twice * CPAP Initiate CPAP @ CPAP 8cm H2O * ASPIRIN 81 MG TABLET,DELAYED * Take 1 tablet by mouth once d* [id number]-[id number] * Take 1 tablet by mouth once d* Problem List As Of Date 03/08/2018 Noted Resolved Symptomatic PVCs [I49.3] INVALID FOR* Priority: B More... GERD without esophagitis [K21.9] INVALID FOR* Priority: A Family history of arthritis [Z82.61] INVALID FOR* Priority: F More... More... 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 RLS (restless legs syndrome) [G25.81] INVALID FOR* Priority: B Essential hypertension [I10] INVALID FOR* Priority: A Type 2 diabetes mellitus without complication, * Priority: A Type 2 diabetes mellitus without retinopathy (H*INVALID FOR* Priority: A Vitreous floaters of both eyes [H43.393] INVALID FOR* Priority: G Morbid obesity due to excess calories (HCC) [E6*INVALID FOR* Priority: B Elevated CK [R74.8] INVALID FOR* Diabetic eye exam (HCC) [Z01.00, E11.9] INVALID FOR* Priority: A More... Well adult exam [Z00.00] INVALID FOR* Priority: E More... Prostate cancer screening [Z12.5] INVALID FOR* Colon cancer screening [Z12.11] INVALID FOR* Elevated LFTs [R94.5] INVALID FOR* Nausea [R11.0] INVALID FOR* More... Dry heaves [R11.10] INVALID FOR* More... Encounter Status:Closed by MELY RODRIGUEZ MD on 03/11/18 PROGRESS Observed: 03/04/2018 Status: COMPLETED Source: [facility] 10:22 AM [facility] REPOSITORY HNO ID: [id number] Author: Mely Rodriguez Service: (none) Author Type: Physician Type: Progress Notes Filed: 03/11/2018 3:43 PM Note Text: New Patient/Consult REASON FOR VISIT Flakita Castellon is a 57 year old male who is scheduled for Vomiting /Gastritis at the request of Elliott (Khadar) Dav. My final recommendations will be communicated back to the requesting physician by the way of the shared medical record, fax, or via US Mail. PRESENTING COMPLAINT AND HISTORY 57 yo male with a PMH of GERD, pre-DM, HLD, and COLEMAN who presents with a 2 year history of nausea and dry heaving which is progressively worsening. The first episode he can recall was in [place] at [facility] where he developed nausea and dry heaving with a little emesis. At the time, he was not ill, no fever, abdominal pain, diarrhea. Currently, he can awake with nausea, dry heaving. Rarely vomits and when he does, it does not provide much relief with nausea. Can be taking a shower and suddenly start dry heaving. Symptoms are occurring on average daily or every other day. Most recent episode was last night. Over time, increased in frequency. Associated with feeling of fullness, lightheadedness, No abdominal pain until after episode due to muscle soreness. Triggers include strong smells (cream chicken, paint), talking (sensation while talking/vibrations), neck pressure, changes in temperature. It is not associated with meals. Bowel movements have been normal; has 2-3 times/daily. Denies diarrhea, constipation, melena, hematochezia, bloating, abdominal pain. Denies hematuria and dysuria. He also has episodes of dysphagia to solids that resolves with liquids. More trouble swallowing now, feels like throat more narrow. Has intermittent reflux symptoms and he is currently on Nexium 40mg daily before breakfast and sucralfate 1g BID. He has not tried anti-emetics for these episodes. Denies fevers, chills, night sweats, weight loss, cough. NSAIDs: Aleve intermittently if doing strenuous work. Does patient have achalasia? No GI EVALUATION EGD: -01/04/18- Medicines: ? ? ?Fentanyl 50 micrograms IV, Midazolam 5 mg IV Impression: ? - Normal esophagus. ? - Gastritis. Biopsied. ? - Normal examined duodenum. Surgical Pathology: -01/04/18- FINAL DIAGNOSIS : Stomach, antrum, biopsy - Gastric antral-type mucosa with mild reactive gastropathy. COMMENT No Helicobacter pylori organisms are identified. Gastric Emptying Study: -12/23/17- IMPRESSION: NORMAL RATE OF GASTRIC EMPTYING OF SOLID MEAL. Colonoscopy:-12/07/17- Medicines: ?Fentanyl 50 micrograms IV, Midazolam 5 mg IV, ? Diphenhydramine 50 mg IV Impression: ?? - The entire examined colon is normal. ? - No specimens collected. CT:CT ABDOMEN W/WO :-11/24/05- IMPRESSION: The cyst seen at the right kidney at ultrasound shows no abnormal enhancement. There are no focal solid renal masses. There is a tiny nonobstructing calculus of the mid right kidney. There is no significant adenopathy. Evidence of old granulomatous disease is noted. There is tiny nonspecific noncalcified nodule in the left lung lateral to left hilum, probably within the lingula, for which follow up study in six months is recommended to confirm stability. Fatty infiltration of liver. metFORMIN ER (GLUCOPHAGE XR) 500 mg 24 hr tablet Take 1 tablet by mouth daily with breakfast. metoprolol succinate ER (TOPROL XL) 50 mg 24 hr tablet TAKE 1 TABLET ONCE DAILY esomeprazole (NEXIUM) 40 mg capsule Take 1 capsule by mouth daily before breakfast. 1/2 hr before meal. Fenofibrate (LOFIBRA) 160 mg tablet Take 1 tablet by mouth once daily. fluticasone (FLONASE) 50 mcg/actuation nasal spray Use 2 Sprays in each nostril twice daily. sucralfate (CARAFATE) 1 gram tablet Take 1 tablet by mouth twice daily. CPAP Initiate CPAP @ CPAP 8cm H2O pressure with humidification and possible positional therapy. Mask (per patient preference) optional chin strap (if indicated) , filters, tubing, humidifier and lifetime supplies.DX: COLEMAN G47.33 aspirin, enteric coated 81 mg EC tablet Take 1 tablet by mouth once daily. Xqauwsleznzys-Veurnvpb-Rcpwoq (CENTRUM SILVER) Tab Take 1 tablet by mouth once daily. Ibuprofen; Lipitor [Atorvastatin Calcium] FAMILY HISTORY Liver Problems: No Colitis: No Colon Cancer: No Other Cancers: No FAMILY HISTORY Problem Relation Age of Onset - Arthritis Mother RA - Diabetes Mother - Heart Mother valve disease - No Ocular Disease No Family History ADDITIONAL HISTORY Colon polyps: Yes Colon cancer: No Other cancer: No Radiation / Chemotherapy: No Crohn's disease / Ulcerative colitis: No High cholesterol or triglycerides: No Ulcers: No Gallstones: No Hepatitis / jaundice: No Heart Disease: No Lung Disease: No Liver problems: No Thyroid disease: No Kidney stones: No Pancreatitis: No Diabetes: No Arthritis: No Rheumatic fever: No Gastrointestinal bleeding: No Depression or other mental illness: No Other personal illness: No Weekly narcotic analgesic: No Organ transplant: No Other implanted devices: No Previous GI surgery: No PAST MEDICAL HISTORY Diagnosis Date - Acute gastritis without mention of hemorrhage 07/24/2009 - Benign neoplasm of colon - Essential hypertension 05/01/2015 - GERD without esophagitis 11/15/2005 - Headache(784.0) 01/10/2008 Frontal SAAVEDRA, resolved when began Nasonex 2005 - Metabolic syndrome 12/05/2009 - Mixed hyperlipidemia 12/05/2009 - Morbid obesity due to excess calories (HCC) 08/06/2016 - COLEMAN (obstructive sleep apnea) 08/18/2014 - RLS (restless legs syndrome) 08/18/2014 - Snoring - Supraventricular premature beats PAC's - SVT (supraventricular tachycardia) ([facility]) 06/29/2014 - Symptomatic PVCs 11/15/2005 symptomatic PVC's - 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 - Type 2 diabetes mellitus without complication, without long- term current use of insulin ([facility]) - Type 2 diabetes mellitus without retinopathy ([facility]) 10/03/2015 - 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 - Vitreous floaters of both eyes 10/03/2015 PAST SURGICAL HISTORY Procedure Laterality Date - COLONOSCOP W/ OR W/O [facility] SPEC 07/24/2009 Colonoscopy - COLONOSCOP W/ OR W/O [facility] SPEC 12/07/2014 Colonoscopy, repeat 5 yrs - EGD W/O OR W/BRUSH/WASH 07/24/2009 EGD - EGD W/O OR W/BRUSH/WASH 01/04/2018 EGD - FECAL OCCULT BLOOD TEST 02/06/2017 negative - PAST SURGICAL HISTORY OF 10/2008 heart cath done [facility] Social History Marital status: Spouse name: Years of education: Number of children: Occupational History 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 Ears, Mouth, nose, throat: headaches Cardiovascular: PALPITATION and LIGHT HEADEDNESS Respiratory: Negative for cough, wheezing and shortness of breath Gastrointestinal : Dysphagia, Nausea and Vomiting Genitourinary: Negative Musuloskeletal: Denies significant problems Integumentary: no rashes, lesions, or jaundice Neurological: dizziness Endocrine: Negative for cold or heat intolerance Allergic/ Immunologic: Negative All others negative. GI SPECIFIC REVIEW OF SYSTEMS Difficulty swallowing / foods sticking in throat: Yes Heartburn: Yes Hoarseness: No Chronic cough: No Regurgitation: No Chest pain: No Filling up quickly at meals: No Loss of appetite: No Nausea: Yes Vomiting: Yes Abdominal pain: No Recent change in bowel movements: No Bloody or black, bowel movements: No Constipation: Yes Diarrhea: Yes Loss of control of bowel movements: No Night sweats, fever, chills: No Thought or memory problems: No Fluid in abdomen (ascites): No Prominent leg swelling: No Vomiting blood: No Recent change in weight: No Primary eating disorder: No Seizures: No PHYSICAL EXAMINATION BP 136/86 Pulse 95 Ht 5' 7 (1.70m) Wt 321 lb 9.6 oz (145.9kg) SpO2 94% BMI 50.36 kg/(m2). General appearance: well appearing, alert, in no acute distress and well-hydrated, well nourished Skin: Skin color, texture, turgor normal, no suspicious rashes or lesions Head: normal Lungs: lungs clear to auscultation, no wheezing or rhonchi Heart: RRR without murmur, gallop, or rubs. No ectopy Abdomen: Abdomen soft, mildly tender to palpation in epigastrium. Bowel sounds normal. No masses, organomegaly Assessment Impression and Plan Mr. Castellon is a 57 year old male with a PMH of GERD who presents with a 2 year history of nausea and dry heaving episodes likely neurologic in origin given triggers include smells and neck pressure. Nausea also did not resolve with Nexium and sucralfate making this less likely GI in nature. Recommend following with PCP who can refer patient to either Neurology or ENT. Can trial anti-emetics to help with episodes of nausea. GI ATTENDING I have reviewed the history and physical obtained and documented by the resident and I personally participated in the coe components. I have discussed the case and management of the patient's care with the resident. The following comments revise or confirm relevant coe components of the resident's note. Stongly doubt symptoms are from the GI tract. Mely Rodriguez MD Staff physician [facility] March 04, 2018 10:22 AM CTA HEAD WO/W IVCON Observed: 02/22/2018 Status: F Source: [facility] 10:52 AM [facility] REPOSITORY * * *Final Report* * * DATE OF EXAM: Feb 22 2018 10:52AM [facility] 0023 - CTA HEAD WO/W IVCON / PROCEDURE REASON: Other malformations of cerebral vessels * * * * Physician Interpretation * * * * EXAMINATION: CTA HEAD WO/W IVCON CLINICAL HISTORY: Abnormal CT brain 02/08/2018 with question of right M1 aneurysm. TECHNIQUE: Routine CT of the brain without IV contrast. Next, spiral high resolution axial images were obtained through the head following bolus administration of intravenous contrast for CT angiography. The data was subsequently post-processed utilizing 3D multi-planar reconstructions, 3D maximum intensity projections, and a tissue segmentation algorithm at a separate workstation under physician supervision. MQ: [id number] Contrast: 100 mL Omnipaque 350 IV Dose-Length Product (DLP): 348 mGy*cm. CT Dose Reduction Employed: Automated exposure control (AEC) COMPARISON: CT brain 02/08/2018 RESULT: BRAIN: Acute change: No evidence of an acute intracranial process. ASPECT Score = 10 Hemorrhage: No evidence of acute intracranial hemorrhage. ECASS hemorrhagic transformation score = Not Applicable Mass Lesion / Mass Effect: There is no evidence of an intracranial mass or extraaxial fluid collection. No significant mass effect. Chronic change: None apparent. Parenchyma: There is no significant volume loss. The brain parenchyma is otherwise within normal limits for age. Ventricles: The ventricles are within normal limits of size and configuration for age. Other: The visualized paranasal sinuses are grossly clear. The skull and visualized extracranial soft tissues are grossly normal. CT ARTERIOGRAM: Intracranial Circulation: Spot Sign Presence: Not Applicable Spot Sign Number: Not Applicable Anterior Circulation: Bilateral intracranial ICAs are patent and normal in caliber. The A1 segments are codominant with a patent anterior communicating artery. The bilateral proximal ACAs and MCAs are patent and normal in caliber. Previously seen focal outpouching along the posterior aspect of the right M1 segment on CT 02/08/2018 represents a branching vessel which courses adjacent to the right M1 segment. There is no evidence of significant stenosis or aneurysm in the anterior circulation. Vertebrobasilar Circulation: Bilateral intradural vertebral arteries and basilar artery are patent and normal in caliber. Proximal bilateral PICA is, left AICA, and bilateral SCAs are patent. There is a origin of the right ALPINE PATROLLER with a hypoplastic right P1 segment. The bilateral camera person are patent and normal in caliber. No proximal large vessel occlusion, significant stenosis, or aneurysm. Dural venous sinuses, major deep and superficial draining veins are patent. No evidence of a vascular malformation. IMPRESSION: Patent intracranial arterial vasculature without significant stenosis or findings of intracranial aneurysm. Previously noted outpouching along the posterior right M1 segment corresponds to an adjacent vessel. No evidence of an acute intracranial process. Stable CT of the brain compared to 02/08/2018. Medical Billing Coder: ALINE Transcribe Date/Time: Feb 22 2018 10:57A Dictated by : CLARIBEL NIÑO MD This examination was interpreted and the report reviewed and electronically signed by: CLARIBEL NIÑO MD on Feb 22 2018 11:04AM EST [id number] CT BRAIN WO/W IVCON Observed: 02/08/2018 Status: F Source: [facility] 2:08 PM [facility] REPOSITORY * * *Final Report* * * DATE OF EXAM: Feb 08 2018 2:08PM [facility] 0007 - CT BRAIN WO/W IVCON / PROCEDURE REASON: multiple diagnoses * * * * Physician Interpretation * * * * EXAMINATION: CT BRAIN WO/W IVCON CLINICAL HISTORY: Vomiting without nausea Vertigo of central origin, unspecified ear TECHNIQUE: Serial axial images with IV contrast were obtained from the vertex to the foramen magnum. MQ: [id number]_1 Contrast: 100 mL Omnipaque [address] Dose-Length Product (DLP): 1634 mGy*cm CT Dose Reduction Employed: No dose reduction techniques were required COMPARISON: Correlation with MRI brain dated 03/21/2010 RESULT: Post-operative change: None. Acute change: No evidence of an acute intracranial process. Hemorrhage: There is no evidence of acute intracranial hemorrhage. Mass Lesion / Mass Effect: There is no evidence of an intracranial mass or extraaxial fluid collection. No abnormal parenchymal enhancement is appreciated. No significant mass effect. Chronic change: None apparent. Parenchyma: There is no significant volume loss. The brain parenchyma is otherwise within normal limits for age. Ventricles: The ventricles are within normal limits of size and configuration for age. Paranasal sinuses and skull base: A armando bullosa is noted on the right with nasal septal deviation to the left. A punctate hyperdensity is seen overlying the right posterior scalp with focal hyperostosis of the outer table of the adjacent calvarium. Other: There is a focal outpouching/enhancing structure along the posterior aspect of the right M1 segment which measures approximately 2 mm best seen on series 5, image 16. IMPRESSION: Indeterminate focal outpouching/enhancing structure along the posterior aspect of the right MCA M1 segment measuring 2 mm. This may represent an incompletely visualized branch vessel versus an underlying aneurysm. Correlation with CTA of the head can be obtained if clinically indicated. Medical Billing Coder: ALINE Transcribe Date/Time: Feb 08 2018 2:12P Dictated by : FLAKITA FLYNN DO This examination was interpreted and the report reviewed and electronically signed by: FLAKITA CHASE MD on Feb 08 2018 2:36PM EST [id number] Observed: 02/08/2018 Status: COMPLETED Source: [facility] 1:45 PM [facility] REPOSITORY O ID: [id number] Author: Shayy Sanchez Ct Service: (none) Author Type: (none) Type: Progress Notes Filed: 02/08/2018 1:46 PM Note Text: Radiology Service Progress Note PATIENT NAME: Flakita Castellon DATE OF SERVICE: February 08, 2018 TIME: 1:46 PM PATIENT IDENTITY VERIFICATION COMPLETED USING TWO (2) METHODS: Patient confirmed name verbally and Date of . PATIENT GENDER DATA: Male PATIENT RELEVANT IMPLANT DATA REVIEWED: Not Applicable CONTRAST INDUCED NEPHROPATHY RISK FACTORS: Not applicable CREATININE: Creatinine Date Value Ref Range Status 01/18/2018 1.17 0.73 - 1.22 mg/dL Final 10/20/2017 1.03 0.73 - 1.22 mg/dL Final 12/17/2016 1.06 0.73 - 1.22 mg/dL Final eGFR-All Other Races Date Value Ref Range Status 01/18/2018 >60 . Final Comment: eGFR (Estimated GFR) Units of measure: mL/min/1.73 meters squared eGFR is derived from the reexpressed MDRD Study equation using the following parameters: serum creatinine, age, gender and race. The creatinine assay has been calibrated to be traceable to IDMS. An eGFR <60 mL/min/1.73m2 for >3 months is consistent with chronic kidney disease. Refer to KDOQI guidelines for clinical interpretation. In patients with unstable renal function, e.g. those with acute kidney injury, the eGFR may not accurately reflect actual GFR. eGFR- Date Value Ref Range Status 01/18/2018 >60 Final P.O.C.T. RESULTS: POC done: Yes, See Lab Tab February 08, 2018 RADIOLOGIST NOTIFIED?: No ALLERGIES: Reviewed and unchanged CONTRAST ALLERGY: NO. PERIPHERAL IV ACCESS: Ambulatory: IV type: A peripheral IV was started in the Left antecubital site with a Angio cath: 22 gauge., Site assessment: Clean,Dry and Intact, Site disposition Discontinued RADIOLOGY DEPARTMENT: CT; Exam(s) Completed: Brain SIGNED BY: Shayy Sanchez Ct February 08, 2018 1:46 PM CREATININE Collected: 01/18/2018 Status: F Source: [facility] 9:08 AM [facility] [place] REPOSITORY TYPE CODE TESTS RESULT OUT OF REFERENCE UNITS RANGE LAB CRET 0.73-1.22 mg/dL Creatinine 1.17 LAB GFRAA eGFR- >60 Amer. LAB GFRNAA . eGFR-All Other Races >60 Result Comment: eGFR (Estimated GFR) Units of measure: mL/min/1.73 meters squared eGFR is derived from the reexpressed MDRD Study equation using the following parameters: serum creatinine, age, gender and race. The creatinine assay has been calibrated to be traceable to IDMS. An eGFR <60 mL/min/1.73m2 for >3 months is consistent with chronic kidney disease. Refer to KDOQI guidelines for clinical interpretation. In patients with unstable renal function, e.g. those with acute kidney injury, the eGFR may not accurately reflect actual GFR. Performed By: #### CRET1 #### [facility] [address] [place] [address] PROGRESS Observed: 01/18/2018 Status: COMPLETED Source: [facility] 8:30 AM [facility] REPOSITORY HNO ID: [id number] Author: Elliott Demarco Service: (none) Author Type: Nurse Practitioner Type: Progress Notes Filed: 01/18/2018 11:06 AM Note Text: Flakita Castellon a 57 year old male who is returning for follow up regarding GERD and vomiting. I saw the patient in consultation on 12/10/17 and again 12/28/17. Those notes have been reviewed. Gastric emptying - solid 12/23/17: IMPRESSION: NORMAL RATE OF GASTRIC EMPTYING OF SOLID MEAL. The patient was seen by Dr. Salinas for upper endoscopy 01/04/18. The procedure report has been reviewed and findings as follows: Impression: ? ? - Normal esophagus. ? - Gastritis. Biopsied. ? - Normal examined duodenum. FINAL DIAGNOSIS Stomach, antrum, biopsy - Gastric antral-type mucosa with mild reactive gastropathy. No Helicobacter pylori organisms are identified. I have reviewed the procedure and pathology reports, as well as the images, with the patient. Presenting complaint: The patient presents today reporting that he continues with dry heaves. Not able to pinpoint any trigger. The last episode was 01/16, while putting on his shoes. He might have multiple times a week. Other weeks, nothing. It can be on an empty stomach or full stomach. Taking Nexium daily. Also sucralfate twice a day. The patient also has a history of vertigo/dizziness. Had a negative MRI in 2009. I will order a CT of the brain. REVIEW OF SYSTEMS: GENERAL: No weight loss, malaise or fevers HEENT: positive for dizziness. Negative for frequent or significant headaches, No changes in hearing or vision, no nose bleeds or other nasal problems GI: The patient states that his appetite has been good. He does get hungry. There has been no nausea, some vomiting. He denies dysphagia and denies odynophagia. There has partially been indigestion without heartburn. There has not been regurgitation. Bowel habits have been regular. There has not been diarrhea. There has not been constipation. The patient denies rectal bleeding. There has not been melena. No abdominal pain. All other reviewed and negative other than HPI. PAST MEDICAL HISTORY Diagnosis Date - Acute gastritis without mention of hemorrhage 07/24/2009 - Benign neoplasm of colon - Essential hypertension 05/01/2015 - GERD without esophagitis 11/15/2005 - Headache(784.0) 01/10/2008 Frontal SAAVEDRA, resolved when began Nasonex 2005 - Metabolic syndrome 12/05/2009 - Mixed hyperlipidemia 12/05/2009 - Morbid obesity due to excess calories ([facility]) 08/06/2016 - COLEMAN (obstructive sleep apnea) 08/18/2014 - RLS (restless legs syndrome) 08/18/2014 - Snoring - Supraventricular premature beats PAC's - SVT (supraventricular tachycardia) ([facility]) 06/29/2014 - Symptomatic PVCs 11/15/2005 symptomatic PVC's - 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 - Type 2 diabetes mellitus without complication, without long- term current use of insulin ([facility]) - Type 2 diabetes mellitus without retinopathy ([facility]) 10/03/2015 - 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 - Vitreous floaters of both eyes 10/03/2015 PAST SURGICAL HISTORY Procedure Laterality Date - COLONOSCOP W/ OR W/O [facility] SPEC 07/24/2009 Colonoscopy - COLONOSCOP W/ OR W/O [facility] SPEC 12/07/2014 Colonoscopy, repeat 5 yrs - EGD W/O OR W/BRUSH/WASH 07/24/2009 EGD - EGD W/O OR W/BRUSH/WASH 01/04/2018 EGD - FECAL OCCULT BLOOD TEST 02/06/2017 negative - PAST SURGICAL HISTORY OF 10/2008 heart cath done [facility] FAMILY HISTORY Problem Relation Age of Onset - Arthritis Mother RA - Diabetes Mother - Heart Mother valve disease - No Ocular Disease No Family History Current Outpatient Prescriptions: metoprolol succinate ER (TOPROL XL) 50 mg 24 hr tablet TAKE 1 TABLET ONCE DAILY Disp: 90 tablet Rfl: 3 esomeprazole (NEXIUM) 40 mg capsule Take 1 capsule by mouth daily before breakfast. 1/2 hr before meal. Disp: 90 capsule Rfl: 1 Fenofibrate (LOFIBRA) 160 mg tablet Take 1 tablet by mouth once daily. Disp: 90 tablet Rfl: 1 fluticasone (FLONASE) 50 mcg/actuation nasal spray Use 2 Sprays in each nostril twice daily. Disp: 3 Bottle Rfl: 3 sucralfate (CARAFATE) 1 gram tablet Take 1 tablet by mouth twice daily. Disp: 180 tablet Rfl: 1 metFORMIN ER (GLUCOPHAGE XR) 500 mg 24 hr tablet Take 1 tablet by mouth daily with breakfast. Disp: 90 tablet Rfl: 3 CPAP Initiate CPAP @ CPAP 8cm H2O pressure with humidification and possible positional therapy. Mask (per patient preference) optional chin strap (if indicated) , filters, tubing, humidifier and lifetime supplies.DX: COLEMAN G47.33 Disp: 1 Device Rfl: 0 aspirin, enteric coated 81 mg EC tablet Take 1 tablet by mouth once daily. Disp: Rfl: 0 Qaddrjagmdgas-Simzsetz-Danqhv (CENTRUM SILVER) Tab Take 1 tablet by mouth once daily. Disp: Rfl: 0 No current facility-administered medications for this visit. SOCIAL HISTORY: Reviewed. PHYSICAL EXAMINATION: Blood pressure 126/88, pulse 102, height 170.2 cm (5' 7), weight (!) 148.8 kg (328 lb). General Appearance: Well appearing, alert, in no acute distress, well-hydrated, well nourished. Skin: Skin color, texture, turgor normal, no suspicious rashes or lesions. Eyes: Anicteric sclera. Lungs: Lungs clear to auscultation. Heart: RRR without murmur,. Abdomen: Abdomen soft, non-tender. Bowel sounds normal. Impression: vomiting 2)long standing dizziness. Plan: Continue Nexium. CT of the brain. Further plan based on the results. He agrees with this plan. I have personally interviewed and examined this patient. I have reviewed the information that the MA entered for this encounter. I spent 25 minutes in the visit, with greater than 50% of the total kxou-vv-gqoe time of the visit in counseling and coordination of care. Ellitot Demarco RN SENIOR RESEARCH SCIENTIST.SUPERVISOR [employer]OV Observed: 01/18/2018 Status: COMPLETED Source: [facility] 8:20 AM [facility] REPOSITORY Office Visit ([facility]) FLAKITA CASTELLON ([id number]) 1960 M Date Time Provider Department 01/18/18 8:20 AM ELLIOTT DEMARCO (KHADAR) [facility] During your visit today, we recorded the following information about you: Pulse Blood pressure Weight Height 102/minute 126/88 148.8 kg 1.702 m Elliott Demarco RN APRN.[facility] 01/18/2018 11:06 AM Signed Flakita Bhatti Ravinder a 57 year old male who is returning for follow up regarding GERD and vomiting. I saw the patient in consultation on 12/10/17 and again 12/28/17. Those notes have been reviewed. Gastric emptying - solid 12/23/17: IMPRESSION: NORMAL RATE OF GASTRIC EMPTYING OF SOLID MEAL. The patient was seen by Dr. Salinas for upper endoscopy 01/04/18. The procedure report has been reviewed and findings as follows: Impression: ? ? - Normal esophagus. ? - Gastritis. Biopsied. ? - Normal examined duodenum. FINAL DIAGNOSIS Stomach, antrum, biopsy - Gastric antral-type mucosa with mild reactive gastropathy. No Helicobacter pylori organisms are identified. I have reviewed the procedure and pathology reports, as well as the images, with the patient. Presenting complaint: The patient presents today reporting that he continues with dry heaves. Not able to pinpoint any trigger. The last episode was 01/16, while putting on his shoes. He might have multiple times a week. Other weeks, nothing. It can be on an empty stomach or full stomach. Taking Nexium daily. Also sucralfate twice a day. The patient also has a history of vertigo/dizziness. Had a negative MRI in 2009. I will order a CT of the brain. REVIEW OF SYSTEMS: GENERAL: No weight loss, malaise or fevers HEENT: positive for dizziness. Negative for frequent or significant headaches, No changes in hearing or vision, no nose bleeds or other nasal problems GI: The patient states that his appetite has been good. He does get hungry. There has been no nausea, some vomiting. He denies dysphagia and denies odynophagia. There has partially been indigestion without heartburn. There has not been regurgitation. Bowel habits have been regular. There has not been diarrhea. There has not been constipation. The patient denies rectal bleeding. There has not been melena. No abdominal pain. All other reviewed and negative other than HPI. PAST MEDICAL HISTORY Diagnosis Date - Acute gastritis without mention of hemorrhage 07/24/2009 - Benign neoplasm of colon - Essential hypertension 05/01/2015 - GERD without esophagitis 11/15/2005 - Headache(784.0) 01/10/2008 Frontal SAAVEDRA, resolved when began Nasonex 2005 - Metabolic syndrome 12/05/2009 - Mixed hyperlipidemia 12/05/2009 - Morbid obesity due to excess calories ([facility]) 08/06/2016 - COLEMAN (obstructive sleep apnea) 08/18/2014 - RLS (restless legs syndrome) 08/18/2014 - Snoring - Supraventricular premature beats PAC's - SVT (supraventricular tachycardia) ([facility]) 06/29/2014 - Symptomatic PVCs 11/15/2005 symptomatic PVC's - 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 - Type 2 diabetes mellitus without complication, without long- term current use of insulin ([facility]) - Type 2 diabetes mellitus without retinopathy ([facility]) 10/03/2015 - 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 - Vitreous floaters of both eyes 10/03/2015 PAST SURGICAL HISTORY Procedure Laterality Date - COLONOSCOP W/ OR W/O [facility] SPEC 07/24/2009 Colonoscopy - COLONOSCOP W/ OR W/O [facility] SPEC 12/07/2014 Colonoscopy, repeat 5 yrs - EGD W/O OR W/BRUSH/WASH 07/24/2009 EGD - EGD W/O OR W/BRUSH/WASH 01/04/2018 EGD - FECAL OCCULT BLOOD TEST 02/06/2017 negative - PAST SURGICAL HISTORY OF 10/2008 heart cath done [facility] FAMILY HISTORY Problem Relation Age of Onset - Arthritis Mother RA - Diabetes Mother - Heart Mother valve disease - No Ocular Disease No Family History Current Outpatient Prescriptions: metoprolol succinate ER (TOPROL XL) 50 mg 24 hr tablet TAKE 1 TABLET ONCE DAILY Disp: 90 tablet Rfl: 3 esomeprazole (NEXIUM) 40 mg capsule Take 1 capsule by mouth daily before breakfast. 1/2 hr before meal. Disp: 90 capsule Rfl: 1 Fenofibrate (LOFIBRA) 160 mg tablet Take 1 tablet by mouth once daily. Disp: 90 tablet Rfl: 1 fluticasone (FLONASE) 50 mcg/actuation nasal spray Use 2 Sprays in each nostril twice daily. Disp: 3 Bottle Rfl: 3 sucralfate (CARAFATE) 1 gram tablet Take 1 tablet by mouth twice daily. Disp: 180 tablet Rfl: 1 metFORMIN ER (GLUCOPHAGE XR) 500 mg 24 hr tablet Take 1 tablet by mouth daily with breakfast. Disp: 90 tablet Rfl: 3 CPAP Initiate CPAP @ CPAP 8cm H2O pressure with humidification and possible positional therapy. Mask (per patient preference) optional chin strap (if indicated) , filters, tubing, humidifier and lifetime supplies.DX: COLEMAN G47.33 Disp: 1 Device Rfl: 0 aspirin, enteric coated 81 mg EC tablet Take 1 tablet by mouth once daily. Disp: Rfl: 0 Ububnfukyrirx-Fhtkcqpm-Xfjtkr (CENTRUM SILVER) Tab Take 1 tablet by mouth once daily. Disp: Rfl: 0 No current facility-administered medications for this visit. SOCIAL HISTORY: Reviewed. PHYSICAL EXAMINATION: Blood pressure 126/88, pulse 102, height 170.2 cm (5' 7), weight (!) 148.8 kg (328 lb). General Appearance: Well appearing, alert, in no acute distress, well-hydrated, well nourished. Skin: Skin color, texture, turgor normal, no suspicious rashes or lesions. Eyes: Anicteric sclera. Lungs: Lungs clear to auscultation. Heart: RRR without murmur,. Abdomen: Abdomen soft, non-tender. Bowel sounds normal. Impression: vomiting 2)long standing dizziness. Plan: Continue Nexium. CT of the brain. Further plan based on the results. He agrees with this plan. I have personally interviewed and examined this patient. I have reviewed the information that the MA entered for this encounter. I spent 25 minutes in the visit, with greater than 50% of the total mqqd-xs-qyey time of the visit in counseling and coordination of care. Elliott Demarco RN SENIOR RESEARCH SCIENTIST.STEPHEN Demarco RN SENIOR RESEARCH SCIENTIST.STEPHEN 01/18/2018 8:51 AM Signed Continue Nexium and Carafate. Please follow the instructions for the CT scan that looks at your brain. Hold the metformin the morning of the test. It will take a day or two after the test for us to get the results. Call [phone], and ask to speak to a nurse in GI, if you have any questions or concerns in the mean time. Referring Provider: ELLIOTT DEMARCO (FOUNDRY PATTERNMAKER) [[id number]] Allergies As of Date: 01/18/2018 Noted Allergy Reaction LIPITOR (ATORVASTATIN CALCIUM) 06/03/2017 14 - Other: See Comments Comments: Elevated CK Date Reviewed: 01/18/2018 Reviewed by: Va Seals Ma - Fully Assessed Reason for Visit: Surgical Followup [104] Primary Visit Diagnosis:Non-intractable vomiting without nausea, unspecified vomiting type [R11.11] Other Visit Diagnosis:Vertigo of central origin, unspecified laterality [H81.49] Order(s):CT BRAIN WO/W IVCON [[id number]] Order #: [id number] FUTURE iv contrast (will be provided with radiology test)CT Brain WO/W - No IV access, insert saline lock prior to the sedation, infusion, injection for imaging exam. Discontinue saline lock post exam. If Pt. has a central line or IVAD, may access for administration according to line specific nursing protocol. Once exam is complete flush line and de-access according to line specific nursing protocol in the CT contrast administration guidelines link.Disp: 1 EachRfl: 0 CREATININE BLD [SQCRET] Order #: [id number] FUTURE Prescriptions as of 01/18/2018 Sig: IV CONTRAST (RADIOLOGY PROCED* CT Brain WO/W - No IV access,* METOPROLOL SUCCINATE ER 50 MG* TAKE 1 TABLET ONCE DAILY ESOMEPRAZOLE MAGNESIUM 40 MG * Take 1 capsule by mouth daily* FENOFIBRATE 160 MG TABLET Take 1 tablet by mouth once d* FLUTICASONE 50 MCG/ACTUATION * Use 2 Sprays in each nostril * SUCRALFATE 1 GRAM TABLET Take 1 tablet by mouth twice * METFORMIN ER 500 MG TABLET,EX* Take 1 tablet by mouth daily * CPAP Initiate CPAP @ CPAP 8cm H2O * ASPIRIN 81 MG TABLET,DELAYED * Take 1 tablet by mouth once d* WNFURKFHBXQF-DBGUJIZR-CRVGXE * Take 1 tablet by mouth once d* Problem List As Of Date 01/18/2018 Noted Resolved Symptomatic PVCs [I49.3] INVALID FOR* Priority: B More... GERD without esophagitis [K21.9] INVALID FOR* Priority: A Family history of arthritis [Z82.61] INVALID FOR* Priority: F More... More... 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 RLS (restless legs syndrome) [G25.81] INVALID FOR* Priority: B Essential hypertension [I10] INVALID FOR* Priority: A Type 2 diabetes mellitus without complication, * Priority: A Type 2 diabetes mellitus without retinopathy (H*INVALID FOR* Priority: A Vitreous floaters of both eyes [H43.393] INVALID FOR* Priority: G Morbid obesity due to excess calories (HCC) [E6*INVALID FOR* Priority: B Elevated CK [R74.8] INVALID FOR* Diabetic eye exam (HCC) [Z01.00, E11.9] INVALID FOR* Priority: A More... Well adult exam [Z00.00] INVALID FOR* Priority: E More... Prostate cancer screening [Z12.5] INVALID FOR* Colon cancer screening [Z12.11] INVALID FOR* Elevated LFTs [R94.5] INVALID FOR* Nausea [R11.0] INVALID FOR* More... Dry heaves [R11.10] INVALID FOR* More... Other instructions from your clinician: Continue Nexium and Carafate. Please follow the instructions for the CT scan that looks at your brain. Hold the metformin the morning of the test. It will take a day or two after the test for us to get the results. Call [phone], and ask to speak to a nurse in GI, if you have any questions or concerns in the mean time. Prescriptions ordered this encounter Disp Refills Start End IV CONTRAST (RADIOLOGY PROCEDURE) 1 Ea* 0 01/18/2018 01/19/2018 Class: In Office Sig: CT Brain WO/W - No IV access, insert saline lock prior to the sedation, infusion, injection for imaging exam. Discontinue saline lock post exam. If Pt. has a central line or IVAD, may access for administration according to line specific nursing protocol. Once exam is complete flush line and de-access according to line specific nursing protocol in the CT contrast administration guidelines link. Encounter Status:Closed by ELLIOTT DEMARCO CNP on 01/18/18 NURSING PROG Observed: 01/04/2018 Status: COMPLETED Source: [facility] 5:38 PM [facility] REPOSITORY HNO ID: [id number] Author: Sonal Burgess RN Service: (none) Author Type: Registered Nurse Type: Nursing Progress Note Filed: 01/04/2018 5:38 PM Note Text: Patient did not experience a fall prior to discharge. Patient did not experience a burn prior to discharge. Sonal Burgess RN PT ED Observed: 01/04/2018 Status: COMPLETED Source: [facility] 5:25 PM [facility] REPOSITORY HNO ID: [id number] Author: Sonal Burgess RN Service: (none) Author Type: Registered Nurse Type: Patient Education Filed: 01/04/2018 5:26 PM Note Text: POST OP LEARNING RESPONSE INSTRUCTION PROVIDED TO: Patient and family member METHOD OF INSTRUCTION: Individual instruction Written instruction - handouts Verbal instruction PATIENT / FAMILY RESPONSE: Information received as demonstrated by interest and questions FOLLOW-UP PLAN: Follow up phone call. Contact information given. followup with nurse practitioner SUPPLEMENTAL MATERIAL: procedure discharge instructions REFERRAL (RECOMMENDATION): None Electronically Signed By: Sonal Burgess RN In Department: AMBULATORY SURGERY NURSING PROG Observed: 01/04/2018 Status: COMPLETED Source: [facility] 4:45 PM [facility] REPOSITORY HNO ID: [id number] Author: Sonal Burgess RN Service: (none) Author Type: Registered Nurse Type: Nursing Progress Note Filed: 01/04/2018 5:18 PM Note Text: Arrived in phase II via cart. Left lateral position. Sedated, but responds to verbal stimuli. Color normal; skin warm and dry. Respirations wnl and unlabored. Abdomen soft and with + bowel sounds in quads X 4. Family at bedside. Patient resting comfortably. Dr. Salinas at bedside to review procedure and recommendations. Sonal Burgess RN NURSING PROG Observed: 01/04/2018 Status: COMPLETED Source: [facility] 4:44 PM [facility] REPOSITORY HNO ID: [id number] Author: Radha AllredRnGarett Clark RN Service: Nursing Author Type: Registered Nurse Type: Nursing Progress Note Filed: 01/04/2018 4:44 PM Note Text: Patient did not experience a fall within the Intraoperative area. Patient did not experience a burn within the Intraoperative area. Radha Clark RN BRIEF OP NOT Observed: 01/04/2018 Status: COMPLETED Source: [facility] 4:42 PM [facility] REPOSITORY HNO ID: [id number] Author: Satnam Salinas Service: Gastroenterology Author Type: Physician Type: Brief Op Note Filed: 01/04/2018 4:42 PM Note Text: Endoscopy completed. Procedure well tolerated. Patient leaving endoscopy room with entirely stable vital signs. Results will be carefully delineated in my final note which will follow shortly . Satnam Salinas M.D. NURSING PROG Observed: 01/04/2018 Status: COMPLETED Source: [facility] 4:32 PM [facility] REPOSITORY HNO ID: [id number] Author: Sonal Burgess RN Service: (none) Author Type: Registered Nurse Type: Nursing Progress Note Filed: 01/04/2018 4:32 PM Note Text: [facility] PRE-OP NURSING HAND OFF NOTE SBAR Hand off given to Leisa Wetzel RN. Hand off was communicated verbally and at the patient's bedside and all questions were answered. FALLS/SANCHEZ Patient did not experience a fall within the Preoperative area. Patient did not experience a burn within the Preoperative area. Sonal Burgess RN HISTORY PHYSICAL Observed: 01/04/2018 Status: COMPLETED Source: [facility] 3:53 PM [facility] REPOSITORY HNO ID: [id number] Author: Satnam Salinas Service: Gastroenterology Author Type: Physician Type: HANDP Filed: 01/04/2018 3:53 PM Note Text: UPDATED HISTORY AND PHYSICAL EXAMINATION SERVICE DATE: 01/04/2018 SERVICE TIME: 3:53 PM PHYSICAL EXAM MUST BE COMPLETED ON ADMISSION The History and Physical (completed in the past 30 days) has been reviewed and the patient has been examined. The contents accurately reflect the patient's condition with the following additions or revisions since the HANDP was completed. Examination indicates no changes. This HANDP can be found in the Electronic Medical Record dated . SIGNATURE: Satnam Salinas MD PATIENT NAME: Flakita Castellon DATE: January 04, 2018 TIME: 3:53 PM PAGER: NURSING PROG Observed: 01/04/2018 Status: COMPLETED Source: [facility] 3:53 PM [facility] REPOSITORY HNO ID: [id number] Author: Lydia Hickman (Rn) Darion, RN Service: Nursing Author Type: Registered Nurse Type: Nursing Progress Note Filed: 01/04/2018 3:53 PM Note Text: [facility] PRE-OP NURSING HAND OFF NOTE SBAR Hand off given to Charmaine Burgess RN. Hand off was communicated verbally and at the patient's bedside and all questions were answered. Lydia Orlando RN PT ED Observed: 01/04/2018 Status: COMPLETED Source: [facility] 3:21 PM [facility] REPOSITORY HNO ID: [id number] Author: Lydia Hickman (Rn) Darion, RN Service: Nursing Author Type: Registered Nurse Type: Patient Education Filed: 01/04/2018 3:21 PM Note Text: PRE OP LEARNING ASSESSMENT PROCEDURE/SURGERY: GI PROCEDURES: EGD READINESS TO LEARN COGNITIVE ABILITY: Alert and oriented MOTIVATION TO LEARN: Eager FAMILY SUPPORT: High - Very involved in pt care PATIENT LEARNS BEST BY: Verbal Instruction FACTORS AFFECTING LEARNING: None PHYSICAL LIMITATIONS AFFECTING LEARNING: None Electronically Signed By: Lydia Orlando RN In Department: AMBULATORY SURGERY SURGICAL PATHOLOGY Observed: 01/04/2018 Status: F Source: [facility] 12:00 AM [facility] REPOSITORY Specimen originated from [facility] Specimen #: [id number] Submitting Physician: SATNAM SALINAS MD FINAL DIAGNOSIS Stomach, antrum, biopsy - Gastric antral-type mucosa with mild reactive gastropathy. JC/suresh 01/07/2018 COMMENT No Helicobacter pylori organisms are identified. Ravinder Ellis M.D. (Electronic Signature) SPECIMEN SUBMITTED A: ANTRUM, BIOPSY CLINICAL DATA R11.0, R11.10 H/H GROSS DESCRIPTION A. Received in formalin is one piece of kilpatrick, soft tissue measuring 0.5 x 0.3 x 0.2 cm. Totally submitted in one cassette. Gross examination performed at [facility], [address] [place] [address] 01/06/2018 2:08:20 AM Date of Report: 01/07/2018 Date of Procedure: 01/04/2018 Date of Receipt: 01/05/2018 Submitted by: SATNAM SALINAS MD Location: [facility] Diagnostic [place] [address]. HOSP Observed: 12/29/2017 Status: COMPLETED Source: [facility] 12:00 AM [facility] REPOSITORY Patient:Flakita Castellon MRN: <[id number]> Height:5' 7(1.702 m) Weight:328 lb 12.8 oz (149.143 kg) Outpatient Medications as of 01/04/18: esomeprazole (NEXIUM) 40 mg capsule Fenofibrate (LOFIBRA) 160 mg tablet fluticasone (FLONASE) 50 mcg/actuation nasal spray sucralfate (CARAFATE) 1 gram tablet metFORMIN ER (GLUCOPHAGE XR) 500 mg 24 hr tablet metoprolol succinate ER (TOPROL XL) 50 mg 24 hr tablet CPAP aspirin, enteric coated 81 mg EC tablet Bhepntsbqhhbb-Irwdtrxx-Qcvbvj (CENTRUM SILVER) Tab Admission/Clinic Administered Medications as of 01/04/18: lactated ringers infusion Problem List: Symptomatic PVCs [I49.3] GERD without esophagitis [K21.9] Family history of arthritis [Z82.61] Benign neoplasm of colon [D12.6] Mixed hyperlipidemia [E78.2] 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] Metabolic syndrome [E88.81] SVT (supraventricular tachycardia) (HCC) [I47.1] COLEMAN (obstructive sleep apnea) [G47.33] RLS (restless legs syndrome) [G25.81] Essential hypertension [I10] Type 2 diabetes mellitus without complication, without long- term current use of insulin (HCC) [E11.9] Type 2 diabetes mellitus without retinopathy (HCC) [E11.9] Vitreous floaters of both eyes [H43.393] Morbid obesity due to excess calories (HCC) [E66.01] Elevated CK [R74.8] Diabetic eye exam (HCC) [Z01.00, E11.9] Well adult exam [Z00.00] Prostate cancer screening [Z12.5] Colon cancer screening [Z12.11] Elevated LFTs [R79.89] Nausea [R11.0] Dry heaves [R11.10] Allergies: Lipitor [Atorvastatin Calcium] Date Verified: 01/04/18 Lab Values No results within the last 30 days for the following basenames: K,HCT Progress Notes ([facility]): Va Seals Ma 12/29/2017 4:43 PM Signed AMBULATORY PATIENT EDUCATION NOTE READINESS TO LEARN Cogntitive ability: Alert and oriented Motivation to learn: Interested Family support: Unable to assess - family not present Instruction provided to: Patient Patient learns best by: Individual instruction, written instruction (hand-outs), and verbal instruction. Factors affecting learning: None Physical limitations affecting learning: None LEARNING RESPONSE Diagnosis: Nausea, Dry heaves Education topic/teaching points: Upper Endoscopy METHOD OF INSTRUCTION:Teachback:Individual instruction, written instruction (hand-outs), and verbal instruction. Patient/family response: Verbalizes understanding of pre-procedure instructions. Follow-up plan: Complete - No need for follow-up Supplemental material: None Patient instructed to check insurance benefits and precertification.Patient instructed to bring in advanced directives if applicable. Referral Entered: No Does patient have a Pacemaker or Defibrillator? No Electronically Signed By: Va Seals Ma In department: Gastroenterology Progress Notes ([facility]): Elliott Demarco RN SENIOR RESEARCH SCIENTIST.[employer] 12/28/2017 1:29 PM Signed Flakita Castellon a 57 year old male who is returning for follow up regarding vomiting and GERD. I saw him in consultation on 12/10/17. That note has been reviewed. Gastric emptying study: DATE OF EXAM: Dec 12:00PM ? WON ? 0017 ?- ?NM GASTRIC EMPTYING SOLID ?/ PROCEDURE REASON: multiple diagnoses SOLID MEAL GASTRIC EMPTYING STUDY: CLINICAL HISTORY: To assess for abnormal gastric emptying of a solid meal. TECHNIQUE: 1.1 mCi Tc-99m sulfur colloid was given orally in a meal consisting of 4 oz Egg Beaters, 2 pieces toast, 30g strawberry jam, and 8 oz water, consumed over 5 to 10 minutes. FINDINGS: Solid study demonstrates 71% retention at 1hr, 2% retention at 2hr, and 0% retention at 4hr (normal emptying is 37-90% retention at 1hr, 30-60% retention at 2hr, and 0-10% retention at 4hr). There is no accelerated emptying of gastric contents, with 71% retention at 1hr (rapid emptying is <30% retention at 1hr). IMPRESSION: NORMAL RATE OF GASTRIC EMPTYING OF SOLID MEAL. Presenting complaint: The patient presents today reporting that he has had a few mild episodes of dry heaves. It can be from a smell, or something too tight around his neck. It has occurred during a meal, but he associates it more with the smell, not the actual food. There are times where he can't find a trigger. The patient reports that the episodes have been occurring for the past couple years, maybe longer. He tells me at first I didn't realize that it was happening repeatedly. His stomach can be full - but he doesn't bring anything up - just dry heaves. Taking Nexium daily. It seems to help with any heartburn or indigestion. No correlation with BP or blood sugars. MRI of the brain in 2009: DATE OF EXAM: Mar 11:15AM ? WRM ? 0474 ?- ?MRI BRAIN WWO CONTRAST ?/ PROCEDURE REASON: DIZZY * * * * Physician Interpretation * * * * RESULT: Examination performed: MRI of the brain without and with contrast. MR Contrast: ?Magnevist Contrast Dose: ?20 cc Route of Administration: ?Intravenous Clinical indication: ?Dizziness. ?Headache. Comparison: There are no prior exams on the digital archive at this time for comparison. Findings: Susceptibility artifact in the overlying soft tissues right frontal region likely from punctate metallic foreign body. There is no acute intracranial hemorrhage or extra-axial fluid collection. There is no mass effect, midline shift, or hydrocephalus. Basal cisterns are patent. No extra-axial collection is present. Ventricles and cortical sulci are within normal limits for patient's age. ?Minimal nonspecific increased flair signal intensity within the matter of right frontal lobe, likely secondary to remote insult/injury. Cerebellar tonsils are normally positioned. There is no evidence of a marrow replacement process in the calvarium. No abnormal brain parenchymal or leptomeningeal enhancement. Flow voids of the major intracranial blood vessels are identified and are patent by spin echo criteria. IMPRESSION: No acute intracranial process. ?Single nonspecific focus of white matter change. ?No abnormal enhancement. REVIEW OF SYSTEMS: GENERAL: No weight loss, malaise or fevers RESPIRATORY: Negative for cough, hemoptysis, wheezing, COPD, dyspnea or shortness of breath CARDIOVASCULAR: Positive for hypertension and hypercholesterolemia. History of PVCs. GI: The patient states that his appetite has been good. He does get hungry. There has been some nausea, some vomiting. He denies dysphagia and denies odynophagia. There has partially been indigestion without heartburn. There has not been regurgitation. Bowel habits have been regular. There has not been diarrhea. There has not been constipation. The patient denies rectal bleeding. There has not been melena. No abdominal pain. PSYCH: Negative for sleep disturbance, mood disorder and recent psychosocial stressors. HEMATOLOGY/LYMPHOLOGY Negative for prolonged bleeding, bruising easily or swollen nodes ENDOCRINE: Positive for diabetes, or oral agent. NEURO: No history of headaches, syncope, paralysis, seizures or tremors All other reviewed and negative other than HPI. PAST MEDICAL HISTORY Diagnosis Date - Acute gastritis without mention of hemorrhage 07/24/2009 - Benign neoplasm of colon - Essential hypertension 05/01/2015 - GERD without esophagitis 11/15/2005 - Headache(784.0) 01/10/2008 Frontal SAAVEDRA, resolved when began Nasonex 2005 - Metabolic syndrome 12/05/2009 - Mixed hyperlipidemia 12/05/2009 - Morbid obesity due to excess calories (HCC) 08/06/2016 - COLEMAN (obstructive sleep apnea) 08/18/2014 - RLS (restless legs syndrome) 08/18/2014 - Snoring - Supraventricular premature beats PAC's - SVT (supraventricular tachycardia) ([facility]) 06/29/2014 - Symptomatic PVCs 11/15/2005 symptomatic PVC's - 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 - Type 2 diabetes mellitus without complication, without long- term current use of insulin (HCC) - Type 2 diabetes mellitus without retinopathy (HCC) 10/03/2015 - 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 - Vitreous floaters of both eyes 10/03/2015 PAST SURGICAL HISTORY Procedure Laterality Date - COLONOSCOP W/ OR W/O [facility] SPEC 07/24/2009 Colonoscopy - COLONOSCOP W/ OR W/O [facility] SPEC 12/07/2014 Colonoscopy, repeat 5 yrs - EGD W/O OR W/BRUSH/WASH 07/24/2009 EGD - FECAL OCCULT BLOOD TEST 02/06/2017 negative - PAST SURGICAL HISTORY OF 10/2008 heart cath done [facility] FAMILY HISTORY Problem Relation Age of Onset - Arthritis Mother RA - Diabetes Mother - Heart Mother valve disease - No Ocular Disease No Family History Current Outpatient Prescriptions: esomeprazole (NEXIUM) 40 mg capsule Take 1 capsule by mouth daily before breakfast. 1/2 hr before meal. Disp: 30 capsule Rfl: 0 Fenofibrate (LOFIBRA) 160 mg tablet Take 1 tablet by mouth once daily. Disp: 90 tablet Rfl: 1 fluticasone (FLONASE) 50 mcg/actuation nasal spray Use 2 Sprays in each nostril twice daily. Disp: 3 Bottle Rfl: 3 sucralfate (CARAFATE) 1 gram tablet Take 1 tablet by mouth twice daily. Disp: 180 tablet Rfl: 1 metFORMIN ER (GLUCOPHAGE XR) 500 mg 24 hr tablet Take 1 tablet by mouth daily with breakfast. Disp: 90 tablet Rfl: 3 metoprolol succinate ER (TOPROL XL) 50 mg 24 hr tablet Take 1 tablet by mouth once daily. Disp: 90 tablet Rfl: 3 CPAP Initiate CPAP @ CPAP 8cm H2O pressure with humidification and possible positional therapy. Mask (per patient preference) optional chin strap (if indicated) , filters, tubing, humidifier and lifetime supplies.DX: COLEMAN G47.33 Disp: 1 Device Rfl: 0 aspirin, enteric coated 81 mg EC tablet Take 1 tablet by mouth once daily. Disp: Rfl: 0 Angsibupjkvdk-Kzbhefup-Doavqx (CENTRUM SILVER) Tab Take 1 tablet by mouth once daily. Disp: Rfl: 0 No current facility-administered medications for this visit. SOCIAL HISTORY: Patient is . He has never smoked and reports his alcohol use as very rarely. PHYSICAL EXAMINATION: Blood pressure 133/85, pulse 77, height 170.2 cm (5' 7), weight (!) 149.1 kg (328 lb 12.8 oz). General Appearance: Well appearing, alert, in no acute distress, well-hydrated, well nourished.. Skin: Skin color, texture, turgor normal, no suspicious rashes or lesions. Head: Normocephalic, no masses, lesions, tenderness or abnormalities. Eyes: Anicteric sclera. Oropharynx: Lips, mucosa, and tongue normal, oropharynx normal. Neck: Supple, no adenopathy; thyroid symmetric, normal size,. Lungs: Lungs clear to auscultation. No wheezing, rhonchi, rales. Heart: RRR without murmur,. Abdomen: Abdomen rotund, non-tender. Bowel sounds normal. No masses, organomegaly. Extremities: No deformities, edema. Wearing compression hose. Neurologic: Gait normal. Sensation grossly intact. Impression: vomiting Plan: The patient is scheduled for upper endoscopy. Preparation for the procedure and the procedure itself have been explained in detail. The risks, benefits, anticipated outcomes and possible complications were mentioned. I also explained the procedure in understandable terms and the patient was given printed material concerning the planned procedure. The patient had the opportunity to ask questions concerning the planned procedure. The patient freely consents to the planned procedure. Consider CT or repeating the MRI of the brain. The patient is asked to call with any questions or concerns, or if there is a change in health status between now and the scheduled procedure. I have personally interviewed and examined this patient. I have read the information that the MA documented in this encounter. I spent 25 minutes in the visit, with more than 50% of the total tjnq-hi-vzer time of the visit in counseling / coordination of care. Elliott Demarco RN SENIOR RESEARCH SCIENTIST.STEPHEN Demarco RN APRN.STEPHEN 12/28/2017 1:13 PM Signed Please follow the instructions for upper endoscopy. Your procedure will be with Dr. Salinas, on January 04. PROGRESS Observed: 12/28/2017 Status: COMPLETED Source: [facility] 12:52 PM [facility] REPOSITORY HNO ID: [id number] Author: Elliott Demarco Service: (none) Author Type: Nurse Practitioner Type: Progress Notes Filed: 12/28/2017 1:29 PM Note Text: Flakita Castellon a 57 year old male who is returning for follow up regarding vomiting and GERD. I saw him in consultation on 12/10/17. That note has been reviewed. Gastric emptying study: DATE OF EXAM: Dec 12:00PM ? WON ? 0017 ?- ?NM GASTRIC EMPTYING SOLID ?/ PROCEDURE REASON: multiple diagnoses SOLID MEAL GASTRIC EMPTYING STUDY: CLINICAL HISTORY: To assess for abnormal gastric emptying of a solid meal. TECHNIQUE: 1.1 mCi Tc-99m sulfur colloid was given orally in a meal consisting of 4 oz Egg Beaters, 2 pieces toast, 30g strawberry jam, and 8 oz water, consumed over 5 to 10 minutes. FINDINGS: Solid study demonstrates 71% retention at 1hr, 2% retention at 2hr, and 0% retention at 4hr (normal emptying is 37-90% retention at 1hr, 30-60% retention at 2hr, and 0-10% retention at 4hr). There is no accelerated emptying of gastric contents, with 71% retention at 1hr (rapid emptying is <30% retention at 1hr). IMPRESSION: NORMAL RATE OF GASTRIC EMPTYING OF SOLID MEAL. Presenting complaint: The patient presents today reporting that he has had a few mild episodes of dry heaves. It can be from a smell, or something too tight around his neck. It has occurred during a meal, but he associates it more with the smell, not the actual food. There are times where he can't find a trigger. The patient reports that the episodes have been occurring for the past couple years, maybe longer. He tells me at first I didn't realize that it was happening repeatedly. His stomach can be full - but he doesn't bring anything up - just dry heaves. Taking Nexium daily. It seems to help with any heartburn or indigestion. No correlation with BP or blood sugars. MRI of the brain in 2009: DATE OF EXAM: Mar 11:15AM ? [facility] ? 0474 ?- ?MRI BRAIN WWO CONTRAST ?/ PROCEDURE REASON: DIZZY * * * * Physician Interpretation * * * * RESULT: Examination performed: MRI of the brain without and with contrast. MR Contrast: ?Magnevist Contrast Dose: ?20 cc Route of Administration: ?Intravenous Clinical indication: ?Dizziness. ?Headache. Comparison: There are no prior exams on the digital archive at this time for comparison. Findings: Susceptibility artifact in the overlying soft tissues right frontal region likely from punctate metallic foreign body. There is no acute intracranial hemorrhage or extra-axial fluid collection. There is no mass effect, midline shift, or hydrocephalus. Basal cisterns are patent. No extra-axial collection is present. Ventricles and cortical sulci are within normal limits for patient's age. ?Minimal nonspecific increased flair signal intensity within the matter of right frontal lobe, likely secondary to remote insult/injury. Cerebellar tonsils are normally positioned. There is no evidence of a marrow replacement process in the calvarium. No abnormal brain parenchymal or leptomeningeal enhancement. Flow voids of the major intracranial blood vessels are identified and are patent by spin echo criteria. IMPRESSION: No acute intracranial process. ?Single nonspecific focus of white matter change. ?No abnormal enhancement. REVIEW OF SYSTEMS: GENERAL: No weight loss, malaise or fevers RESPIRATORY: Negative for cough, hemoptysis, wheezing, COPD, dyspnea or shortness of breath CARDIOVASCULAR: Positive for hypertension and hypercholesterolemia. History of PVCs. GI: The patient states that his appetite has been good. He does get hungry. There has been some nausea, some vomiting. He denies dysphagia and denies odynophagia. There has partially been indigestion without heartburn. There has not been regurgitation. Bowel habits have been regular. There has not been diarrhea. There has not been constipation. The patient denies rectal bleeding. There has not been melena. No abdominal pain. PSYCH: Negative for sleep disturbance, mood disorder and recent psychosocial stressors. HEMATOLOGY/LYMPHOLOGY Negative for prolonged bleeding, bruising easily or swollen nodes ENDOCRINE: Positive for diabetes, or oral agent. NEURO: No history of headaches, syncope, paralysis, seizures or tremors All other reviewed and negative other than HPI. PAST MEDICAL HISTORY Diagnosis Date - Acute gastritis without mention of hemorrhage 07/24/2009 - Benign neoplasm of colon - Essential hypertension 05/01/2015 - GERD without esophagitis 11/15/2005 - Headache(784.0) 01/10/2008 Frontal SAAVEDRA, resolved when began Nasonex 2005 - Metabolic syndrome 12/05/2009 - Mixed hyperlipidemia 12/05/2009 - Morbid obesity due to excess calories (HCC) 08/06/2016 - COLEMAN (obstructive sleep apnea) 08/18/2014 - RLS (restless legs syndrome) 08/18/2014 - Snoring - Supraventricular premature beats PAC's - SVT (supraventricular tachycardia) ([facility]) 06/29/2014 - Symptomatic PVCs 11/15/2005 symptomatic PVC's - 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 - Type 2 diabetes mellitus without complication, without long- term current use of insulin (HCC) - Type 2 diabetes mellitus without retinopathy ([facility]) 10/03/2015 - 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 - Vitreous floaters of both eyes 10/03/2015 PAST SURGICAL HISTORY Procedure Laterality Date - COLONOSCOP W/ OR W/O [facility] SPEC 07/24/2009 Colonoscopy - COLONOSCOP W/ OR W/O [facility] SPEC 12/07/2014 Colonoscopy, repeat 5 yrs - EGD W/O OR W/BRUSH/WASH 07/24/2009 EGD - FECAL OCCULT BLOOD TEST 02/06/2017 negative - PAST SURGICAL HISTORY OF 10/2008 heart cath done [facility] FAMILY HISTORY Problem Relation Age of Onset - Arthritis Mother RA - Diabetes Mother - Heart Mother valve disease - No Ocular Disease No Family History Current Outpatient Prescriptions: esomeprazole (NEXIUM) 40 mg capsule Take 1 capsule by mouth daily before breakfast. 1/2 hr before meal. Disp: 30 capsule Rfl: 0 Fenofibrate (LOFIBRA) 160 mg tablet Take 1 tablet by mouth once daily. Disp: 90 tablet Rfl: 1 fluticasone (FLONASE) 50 mcg/actuation nasal spray Use 2 Sprays in each nostril twice daily. Disp: 3 Bottle Rfl: 3 sucralfate (CARAFATE) 1 gram tablet Take 1 tablet by mouth twice daily. Disp: 180 tablet Rfl: 1 metFORMIN ER (GLUCOPHAGE XR) 500 mg 24 hr tablet Take 1 tablet by mouth daily with breakfast. Disp: 90 tablet Rfl: 3 metoprolol succinate ER (TOPROL XL) 50 mg 24 hr tablet Take 1 tablet by mouth once daily. Disp: 90 tablet Rfl: 3 CPAP Initiate CPAP @ CPAP 8cm H2O pressure with humidification and possible positional therapy. Mask (per patient preference) optional chin strap (if indicated) , filters, tubing, humidifier and lifetime supplies.DX: COLEMAN G47.33 Disp: 1 Device Rfl: 0 aspirin, enteric coated 81 mg EC tablet Take 1 tablet by mouth once daily. Disp: Rfl: 0 Ihizjbkznclwa-Gvgdujkf-Egnsok (CENTRUM SILVER) Tab Take 1 tablet by mouth once daily. Disp: Rfl: 0 No current facility-administered medications for this visit. SOCIAL HISTORY: Patient is . He has never smoked and reports his alcohol use as very rarely. PHYSICAL EXAMINATION: Blood pressure 133/85, pulse 77, height 170.2 cm (5' 7), weight (!) 149.1 kg (328 lb 12.8 oz). General Appearance: Well appearing, alert, in no acute distress, well-hydrated, well nourished.. Skin: Skin color, texture, turgor normal, no suspicious rashes or lesions. Head: Normocephalic, no masses, lesions, tenderness or abnormalities. Eyes: Anicteric sclera. Oropharynx: Lips, mucosa, and tongue normal, oropharynx normal. Neck: Supple, no adenopathy; thyroid symmetric, normal size,. Lungs: Lungs clear to auscultation. No wheezing, rhonchi, rales. Heart: RRR without murmur,. Abdomen: Abdomen rotund, non-tender. Bowel sounds normal. No masses, organomegaly. Extremities: No deformities, edema. Wearing compression hose. Neurologic: Gait normal. Sensation grossly intact. Impression: vomiting Plan: The patient is scheduled for upper endoscopy. Preparation for the procedure and the procedure itself have been explained in detail. The risks, benefits, anticipated outcomes and possible complications were mentioned. I also explained the procedure in understandable terms and the patient was given printed material concerning the planned procedure. The patient had the opportunity to ask questions concerning the planned procedure. The patient freely consents to the planned procedure. Consider CT or repeating the MRI of the brain. The patient is asked to call with any questions or concerns, or if there is a change in health status between now and the scheduled procedure. I have personally interviewed and examined this patient. I have read the information that the MA documented in this encounter. I spent 25 minutes in the visit, with more than 50% of the total teqe-kh-ypcy time of the visit in counseling / coordination of care. Elliott Demarco RN APRN.STEPHEN CNOV Observed: 12/28/2017 Status: COMPLETED Source: [facility] 12:40 PM [facility] REPOSITORY Office Visit (GASTWC) FLAKITA CASTELLON ([id number]) 1960 M Date Time Provider Department 12/28/17 12:40 PM ELLIOTT DEMARCO (KHADAR) [facility] During your visit today, we recorded the following information about you: Pulse Blood pressure Weight Height 77/minute 133/85 149.1 kg 1.702 m Elliott Demarco RN SENIOR RESEARCH SCIENTIST.[facility] 12/28/2017 1:29 PM Signed Flakita Castellon a 57 year old male who is returning for follow up regarding vomiting and GERD. I saw him in consultation on 12/10/17. That note has been reviewed. Gastric emptying study: DATE OF EXAM: Dec 12:00PM ? WON ? 0017 ?- ?NM GASTRIC EMPTYING SOLID ?/ PROCEDURE REASON: multiple diagnoses SOLID MEAL GASTRIC EMPTYING STUDY: CLINICAL HISTORY: To assess for abnormal gastric emptying of a solid meal. TECHNIQUE: 1.1 mCi Tc-99m sulfur colloid was given orally in a meal consisting of 4 oz Egg Beaters, 2 pieces toast, 30g strawberry jam, and 8 oz water, consumed over 5 to 10 minutes. FINDINGS: Solid study demonstrates 71% retention at 1hr, 2% retention at 2hr, and 0% retention at 4hr (normal emptying is 37-90% retention at 1hr, 30-60% retention at 2hr, and 0-10% retention at 4hr). There is no accelerated emptying of gastric contents, with 71% retention at 1hr (rapid emptying is <30% retention at 1hr). IMPRESSION: NORMAL RATE OF GASTRIC EMPTYING OF SOLID MEAL. Presenting complaint: The patient presents today reporting that he has had a few mild episodes of dry heaves. It can be from a smell, or something too tight around his neck. It has occurred during a meal, but he associates it more with the smell, not the actual food. There are times where he can't find a trigger. The patient reports that the episodes have been occurring for the past couple years, maybe longer. He tells me at first I didn't realize that it was happening repeatedly. His stomach can be full - but he doesn't bring anything up - just dry heaves. Taking Nexium daily. It seems to help with any heartburn or indigestion. No correlation with BP or blood sugars. MRI of the brain in 2009: DATE OF EXAM: Mar 11:15AM ? WRM ? 0474 ?- ?MRI BRAIN WWO CONTRAST ?/ PROCEDURE REASON: DIZZY * * * * Physician Interpretation * * * * RESULT: Examination performed: MRI of the brain without and with contrast. MR Contrast: ?Magnevist Contrast Dose: ?20 cc Route of Administration: ?Intravenous Clinical indication: ?Dizziness. ?Headache. Comparison: There are no prior exams on the digital archive at this time for comparison. Findings: Susceptibility artifact in the overlying soft tissues right frontal region likely from punctate metallic foreign body. There is no acute intracranial hemorrhage or extra-axial fluid collection. There is no mass effect, midline shift, or hydrocephalus. Basal cisterns are patent. No extra-axial collection is present. Ventricles and cortical sulci are within normal limits for patient's age. ?Minimal nonspecific increased flair signal intensity within the matter of right frontal lobe, likely secondary to remote insult/injury. Cerebellar tonsils are normally positioned. There is no evidence of a marrow replacement process in the calvarium. No abnormal brain parenchymal or leptomeningeal enhancement. Flow voids of the major intracranial blood vessels are identified and are patent by spin echo criteria. IMPRESSION: No acute intracranial process. ?Single nonspecific focus of white matter change. ?No abnormal enhancement. REVIEW OF SYSTEMS: GENERAL: No weight loss, malaise or fevers RESPIRATORY: Negative for cough, hemoptysis, wheezing, COPD, dyspnea or shortness of breath CARDIOVASCULAR: Positive for hypertension and hypercholesterolemia. History of PVCs. GI: The patient states that his appetite has been good. He does get hungry. There has been some nausea, some vomiting. He denies dysphagia and denies odynophagia. There has partially been indigestion without heartburn. There has not been regurgitation. Bowel habits have been regular. There has not been diarrhea. There has not been constipation. The patient denies rectal bleeding. There has not been melena. No abdominal pain. PSYCH: Negative for sleep disturbance, mood disorder and recent psychosocial stressors. HEMATOLOGY/LYMPHOLOGY Negative for prolonged bleeding, bruising easily or swollen nodes ENDOCRINE: Positive for diabetes, or oral agent. NEURO: No history of headaches, syncope, paralysis, seizures or tremors All other reviewed and negative other than HPI. PAST MEDICAL HISTORY Diagnosis Date - Acute gastritis without mention of hemorrhage 07/24/2009 - Benign neoplasm of colon - Essential hypertension 05/01/2015 - GERD without esophagitis 11/15/2005 - Headache(784.0) 01/10/2008 Frontal SAAVEDRA, resolved when began Nasonex 2005 - Metabolic syndrome 12/05/2009 - Mixed hyperlipidemia 12/05/2009 - Morbid obesity due to excess calories ([facility]) 08/06/2016 - COLEMAN (obstructive sleep apnea) 08/18/2014 - RLS (restless legs syndrome) 08/18/2014 - Snoring - Supraventricular premature beats PAC's - SVT (supraventricular tachycardia) ([facility]) 06/29/2014 - Symptomatic PVCs 11/15/2005 symptomatic PVC's - 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 - Type 2 diabetes mellitus without complication, without long- term current use of insulin ([facility]) - Type 2 diabetes mellitus without retinopathy ([facility]) 10/03/2015 - 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 - Vitreous floaters of both eyes 10/03/2015 PAST SURGICAL HISTORY Procedure Laterality Date - COLONOSCOP W/ OR W/O [facility] SPEC 07/24/2009 Colonoscopy - COLONOSCOP W/ OR W/O [facility] SPEC 12/07/2014 Colonoscopy, repeat 5 yrs - EGD W/O OR W/BRUSH/WASH 07/24/2009 EGD - FECAL OCCULT BLOOD TEST 02/06/2017 negative - PAST SURGICAL HISTORY OF 10/2008 heart cath done [facility] FAMILY HISTORY Problem Relation Age of Onset - Arthritis Mother RA - Diabetes Mother - Heart Mother valve disease - No Ocular Disease No Family History Current Outpatient Prescriptions: esomeprazole (NEXIUM) 40 mg capsule Take 1 capsule by mouth daily before breakfast. 1/2 hr before meal. Disp: 30 capsule Rfl: 0 Fenofibrate (LOFIBRA) 160 mg tablet Take 1 tablet by mouth once daily. Disp: 90 tablet Rfl: 1 fluticasone (FLONASE) 50 mcg/actuation nasal spray Use 2 Sprays in each nostril twice daily. Disp: 3 Bottle Rfl: 3 sucralfate (CARAFATE) 1 gram tablet Take 1 tablet by mouth twice daily. Disp: 180 tablet Rfl: 1 metFORMIN ER (GLUCOPHAGE XR) 500 mg 24 hr tablet Take 1 tablet by mouth daily with breakfast. Disp: 90 tablet Rfl: 3 metoprolol succinate ER (TOPROL XL) 50 mg 24 hr tablet Take 1 tablet by mouth once daily. Disp: 90 tablet Rfl: 3 CPAP Initiate CPAP @ CPAP 8cm H2O pressure with humidification and possible positional therapy. Mask (per patient preference) optional chin strap (if indicated) , filters, tubing, humidifier and lifetime supplies.DX: COLEMAN G47.33 Disp: 1 Device Rfl: 0 aspirin, enteric coated 81 mg EC tablet Take 1 tablet by mouth once daily. Disp: Rfl: 0 Ulptoirailumk-Mhcjefkd-Fsorqp (CENTRUM SILVER) Tab Take 1 tablet by mouth once daily. Disp: Rfl: 0 No current facility-administered medications for this visit. SOCIAL HISTORY: Patient is . He has never smoked and reports his alcohol use as very rarely. PHYSICAL EXAMINATION: Blood pressure 133/85, pulse 77, height 170.2 cm (5' 7), weight (!) 149.1 kg (328 lb 12.8 oz). General Appearance: Well appearing, alert, in no acute distress, well-hydrated, well nourished.. Skin: Skin color, texture, turgor normal, no suspicious rashes or lesions. Head: Normocephalic, no masses, lesions, tenderness or abnormalities. Eyes: Anicteric sclera. Oropharynx: Lips, mucosa, and tongue normal, oropharynx normal. Neck: Supple, no adenopathy; thyroid symmetric, normal size,. Lungs: Lungs clear to auscultation. No wheezing, rhonchi, rales. Heart: RRR without murmur,. Abdomen: Abdomen rotund, non-tender. Bowel sounds normal. No masses, organomegaly. Extremities: No deformities, edema. Wearing compression hose. Neurologic: Gait normal. Sensation grossly intact. Impression: vomiting Plan: The patient is scheduled for upper endoscopy. Preparation for the procedure and the procedure itself have been explained in detail. The risks, benefits, anticipated outcomes and possible complications were mentioned. I also explained the procedure in understandable terms and the patient was given printed material concerning the planned procedure. The patient had the opportunity to ask questions concerning the planned procedure. The patient freely consents to the planned procedure. Consider CT or repeating the MRI of the brain. The patient is asked to call with any questions or concerns, or if there is a change in health status between now and the scheduled procedure. I have personally interviewed and examined this patient. I have read the information that the MA documented in this encounter. I spent 25 minutes in the visit, with more than 50% of the total getm-tw-dwxg time of the visit in counseling / coordination of care. Elliott Demarco RN SENIOR RESEARCH SCIENTIST.[employer] Elliott Demarco RN SENIOR RESEARCH SCIENTIST.[employer] 12/28/2017 1:13 PM Signed Please follow the instructions for upper endoscopy. Your procedure will be with Dr. Salinas, on Thursday, January 04. Referring Provider: ELLIOTT DEMARCO (FOUNDRY PATTERNMAKER) [[id number]] Allergies As of Date: 12/28/2017 Noted Allergy Reaction LIPITOR (ATORVASTATIN CALCIUM) 06/03/2017 14 - Other: See Comments Comments: Elevated CK Date Reviewed: 12/28/2017 Reviewed by: Va Seals Ma - Fully Assessed Reason for Visit: discuss EGD [Other] Primary Visit Diagnosis:GERD without esophagitis [K21.9] Other Visit Diagnosis:Controlled type 2 diabetes mellitus without complication, without long-term current use of insulin (HCC) [E11.9] Order(s):esomeprazole (NEXIUM) 40 mg capsuleTake 1 capsule by mouth daily before breakfast. 1/2 hr before meal.Disp: 90 capsuleRfl: 1 Prescriptions as of 12/28/2017 Sig: ESOMEPRAZOLE MAGNESIUM 40 MG * Take 1 capsule by mouth daily* FENOFIBRATE 160 MG TABLET Take 1 tablet by mouth once d* FLUTICASONE 50 MCG/ACTUATION * Use 2 Sprays in each nostril * SUCRALFATE 1 GRAM TABLET Take 1 tablet by mouth twice * METFORMIN ER 500 MG TABLET,EX* Take 1 tablet by mouth daily * METOPROLOL SUCCINATE ER 50 MG* Take 1 tablet by mouth once d* CPAP Initiate CPAP @ CPAP 8cm H2O * ASPIRIN 81 MG TABLET,DELAYED * Take 1 tablet by mouth once d* UHSIEJHSNZSH-FQOIOUOZ-EAKUBT * Take 1 tablet by mouth once d* Problem List As Of Date 12/28/2017 Noted Resolved Symptomatic PVCs [I49.3] INVALID FOR* Priority: B More... GERD without esophagitis [K21.9] INVALID FOR* Priority: A Family history of arthritis [Z82.61] INVALID FOR* Priority: F More... More... 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 RLS (restless legs syndrome) [G25.81] INVALID FOR* Priority: B Essential hypertension [I10] INVALID FOR* Priority: A Type 2 diabetes mellitus without complication, * Priority: A Type 2 diabetes mellitus without retinopathy (H*INVALID FOR* Priority: A Vitreous floaters of both eyes [H43.393] INVALID FOR* Priority: G Morbid obesity due to excess calories (HCC) [E6*INVALID FOR* Priority: B Elevated CK [R74.8] INVALID FOR* Diabetic eye exam (HCC) [Z01.00, E11.9] INVALID FOR* Priority: A More... Well adult exam [Z00.00] INVALID FOR* Priority: E More... Prostate cancer screening [Z12.5] INVALID FOR* Colon cancer screening [Z12.11] INVALID FOR* Elevated LFTs [R79.89] INVALID FOR* Nausea [R11.0] INVALID FOR* More... Other instructions from your clinician: Please follow the instructions for upper endoscopy. Your procedure will be with Dr. Salinas, on January 04. Prescriptions ordered this encounter Disp Refills Start End ESOMEPRAZOLE MAGNESIUM 40 MG CAPSULE* 90 c* 1 12/28/2017 Route: ORAL Sig: Take 1 capsule by mouth daily before breakfast. 1/2 hr before meal. Medications Discontinued During This Encounter esomeprazole (NEXIUM) 40 mg capsule 30 c* 0 11/24/2017 12/28/2017 Route: ORAL Sig: Take 1 capsule by mouth daily before breakfast. 1/2 hr before meal. Disc: Reason for discontinue is not on file. Encounter Status:Closed by ELLIOTT DEMARCO CNP on 12/28/17 PROGRESS Observed: 12/23/2017 Status: COMPLETED Source: [facility] 1:25 PM [facility] REPOSITORY O ID: [id number] Author: Vonda Cuello Service: (none) Author Type: (none) Type: Progress Notes Filed: 12/23/2017 1:27 PM Note Text: RADIOLOGY SERVICE PROGRESS NOTE SERVICE DATE: 12/23/2017 SERVICE TIME: 07:30 AM PATIENT IDENTITY VERIFICATION COMPLETED USING TWO (2) METHODS: Patient confirmed name and Date of verbally. PATIENT GENDER DATA: .male ALLERGIES: Reviewed and unchanged MEDICATIONS REVIEWED: Yes PATIENT RELEVANT IMPLANT DATA REVIEWED: Not Applicable CREATININE: Creatinine Date Value Ref Range Status 10/20/2017 1.03 0.73 - 1.22 mg/dL Final 12/17/2016 1.06 0.73 - 1.22 mg/dL Final 08/16/2016 1.14 0.73 - 1.22 mg/dL Final eGFR-All Other Races Date Value Ref Range Status 10/20/2017 >60 . Final Comment: eGFR (Estimated GFR) Units of measure: mL/min/1.73 meters squared eGFR is derived from the reexpressed MDRD Study equation using the following parameters: serum creatinine, age, gender and race. The creatinine assay has been calibrated to be traceable to IDMS. An eGFR <60 mL/min/1.73m2 for >3 months is consistent with chronic kidney disease. Refer to KDOQI guidelines for clinical interpretation. In patients with unstable renal function, e.g. those with acute kidney injury, the eGFR may not accurately reflect actual GFR. eGFR- Date Value Ref Range Status 10/20/2017 >60 Final P.O.C.T. RESULTS: N/A December 23, [address] PERFORMED: No IV SITE: NM only - not applicable, oral or physician administered agents given to patient POST EXAM PIV STATUS: Not applicable PROCEDURE TYPE: NM GET: 1.1 mCi Tc99m SULFUR COLLOID was administered orally via 4 ounces of Egg Beaters,2 pieces of toast, 1 ounce of jelly with 8 ounces of water orally ADMINISTRATION TIME: 07:40 PATIENT DISCHARGED TO: Ambulatory patient, left [place] department area. A Diagnostic radioactive procedure has taken place, with no further precautions necessary other than routine body substance precautions. More information regarding radiation safety can be found using this link: [email or web address] SIGNATURE: Vonda Cuello PATIENT NAME: Flakita Castellon DATE: December 23, 2017 TIME: 1:25 PM PAGER/CONTACT #: MARIA DOLORES GASTRIC EMPTYING Observed: 12/23/2017 Status: F Source: [facility] SOLID 12:00 PM [facility] REPOSITORY * * *Final Report* * * DATE OF EXAM: Dec 23 2017 12:00PM FELISA Stiles Saurabh WHITTEN GASTRIC EMPTYING SOLID / PROCEDURE REASON: multiple diagnoses * * * * Physician Interpretation * * * * SOLID MEAL GASTRIC EMPTYING STUDY: CLINICAL HISTORY: To assess for abnormal gastric emptying of a solid meal. TECHNIQUE: 1.1 mCi Tc-99m sulfur colloid was given orally in a meal consisting of 4 oz Egg Beaters, 2 pieces toast, 30g strawberry jam, and 8 oz water, consumed over 5 to 10 minutes. FINDINGS: Solid study demonstrates 71% retention at 1hr, 2% retention at 2hr, and 0% retention at 4hr (normal emptying is 37-90% retention at 1hr, 30-60% retention at 2hr, and 0-10% retention at 4hr). There is no accelerated emptying of gastric contents, with 71% retention at 1hr (rapid emptying is <30% retention at 1hr). IMPRESSION: NORMAL RATE OF GASTRIC EMPTYING OF SOLID MEAL. Medical Billing Coder: PSCB Transcribe Date/Time: Dec 23 2017 2:52P Dictated by : CHETAN NIÑO MD This examination was interpreted and the report reviewed and electronically signed by: CHETAN NIÑO MD on Dec 23 2017 2:53PM EST [id number] Observed: 12/15/2017 Status: F Source: [facility] HPYLORI AG EIA STOOL 7:05 AM [facility] REPOS[facility]ORY Test Result - Negative for Helicobacter pylori Antigen by EIA. Performed By: #### HPYLAG #### [facility] [address] [place] [address] PROGRESS Observed: 12/11/2017 Status: COMPLETED Source: [facility] 2:19 PM [facility] HNO ID: [id number] Author: Rhea See LPN Service: (none) Author Type: (none) Type: Progress Notes Filed: 12/11/2017 2:35 PM Note Text: Manual Readin/92 Pulse: 92 BP Jay average: 134/89 P: 95 Repeat BP Check: 150/97 P95 #1 147/94 P93 #2 138/89 P96 #3 121/88 P96 #4 134/87 P95 #5 132/87 P95 #6 Reason for blood pressure check - Last BP elevated Patient is: Taking medication as prescribed Yes Took medication today Yes If no, date medication last taken N/A Experiencing side effects No BP was elevated at last appt with Saundra Domínguez on 11/24/17. No BP medication changes were made at that time. Patient is unsure if he took his medications today, but usually does not miss medications. Denies any chest or shortness of breath. Does note some random dizziness. Also notes headaches approx 1/wk; will treat with Aleve. Daily caffeine use with tea. No personal history of tobacco use; no current exposure. Alert and oriented. Pt has been identified by name and birthdate: Yes Allergies reviewed: Yes Latex allergy: no. Medication - prescribed and OTC reviewed and updated: Yes Do you need any prescription refills prior to your next visit: No Health Maintenance: Reviewed and up to date Patient advised that he would be contacted after review by PCP. Rhea See LPN CNNURSE Observed: 12/11/2017 Status: COMPLETED Source: [facility] 2:15 PM [facility] Nurse Visit (FAMPWS) FLAKITA CASTELLON ([id number]) 1960 M Date Time Provider Department 12/11/17 2:15 PM [place] NURSE FAMPWS During your visit today, we recorded the following information about you: Pulse Blood pressure 95/minute 134/89 Rhea See LPN 12/11/2017 2:35 PM Signed Manual Readin/92 Pulse: 92 BP Jay average: 134/89 P: 95 Repeat BP Check: 150/97 P95 #1 147/94 P93 #2 138/89 P96 #3 121/88 P96 #4 134/87 P95 #5 132/87 P95 #6 Reason for blood pressure check - Last BP elevated Patient is: Taking medication as prescribed Yes Took medication today Yes If no, date medication last taken N/A Experiencing side effects No BP was elevated at last appt with Saundra Domínguez on 11/24/17. No BP medication changes were made at that time. Patient is unsure if he took his medications today, but usually does not miss medications. Denies any chest or shortness of breath. Does note some random dizziness. Also notes headaches approx 1/wk; will treat with Aleve. Daily caffeine use with tea. No personal history of tobacco use; no current exposure. Alert and oriented. Pt has been identified by name and birthdate: Yes Allergies reviewed: Yes Latex allergy: no. Medication - prescribed and OTC reviewed and updated: Yes Do you need any prescription refills prior to your next visit: No Health Maintenance: Reviewed and up to date Patient advised that he would be contacted after review by PCP. Rhea See LPN Referring Provider: SAUNDRA DOMÍNGUEZ(YANE) [[id number]] Allergies As of Date: 12/11/2017 Noted Allergy Reaction LIPITOR (ATORVASTATIN CALCIUM) 06/03/2017 14 - Other: See Comments Comments: Elevated CK Date Reviewed: 12/10/2017 Reviewed by: Va Seals MA - Fully Assessed Reason for Visit: Blood Pressure Check [195] Primary Visit Diagnosis:Essential hypertension [I10] Prescriptions as of 12/11/2017 Sig: ESOMEPRAZOLE MAGNESIUM 40 MG * Take 1 capsule by mouth daily* FENOFIBRATE 160 MG TABLET Take 1 tablet by mouth once d* FLUTICASONE 50 MCG/ACTUATION * Use 2 Sprays in each nostril * SUCRALFATE 1 GRAM TABLET Take 1 tablet by mouth twice * METFORMIN ER 500 MG TABLET,EX* Take 1 tablet by mouth daily * METOPROLOL SUCCINATE ER 50 MG* Take 1 tablet by mouth once d* CPAP Initiate CPAP @ CPAP 8cm H2O * ASPIRIN 81 MG TABLET,DELAYED * Take 1 tablet by mouth once d* YNUHVULLZCBA-FVTMFHTX-ELDKPA * Take 1 tablet by mouth once d* Problem List As Of Date 12/11/2017 Noted Resolved Symptomatic PVCs [I49.3] INVALID FOR* Priority: B More... GERD without esophagitis [K21.9] INVALID FOR* Priority: A Family history of arthritis [Z82.61] INVALID FOR* Priority: F More... More... 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 RLS (restless legs syndrome) [G25.81] INVALID FOR* Priority: B Essential hypertension [I10] INVALID FOR* Priority: A Type 2 diabetes mellitus without complication, * Priority: A Type 2 diabetes mellitus without retinopathy (H*INVALID FOR* Priority: A Vitreous floaters of both eyes [H43.393] INVALID FOR* Priority: G Morbid obesity due to excess calories (HCC) [E6*INVALID FOR* Priority: B Elevated CK [R74.8] INVALID FOR* Diabetic eye exam (HCC) [Z01.00, E11.9] INVALID FOR* Priority: A More... Well adult exam [Z00.00] INVALID FOR* Priority: E More... Prostate cancer screening [Z12.5] INVALID FOR* Colon cancer screening [Z12.11] INVALID FOR* Elevated LFTs [R79.89] INVALID FOR* Nausea [R11.0] INVALID FOR* More... Encounter Status:Closed by RHEA SEE LPN on 12/11/17 HISTORY PHYSICAL Observed: 12/10/2017 Status: COMPLETED Source: [facility] 3:44 PM [facility] [place] REPOSITORY HNO ID: [id number] Author: Elliott Demarco Service: (none) Author Type: Nurse Practitioner Type: HANDP Filed: 12/10/2017 5:40 PM Note Text: Flakita Bhatti Ravinder a 57 year old male who is a consultation requested by Sang Arguello PA,for an opinion regarding GERD. My final recommendations will be communicated back to the requesting provider by way of shared Medical record. The patient has been seen previously. The patient was seen by Dr. Lopez for upper endoscopy 07/24/09. The procedure report has been reviewed and findings as follows: Findings: ? Esophagus: The Z-line is intact, there is no evidence of esophagitis. There is no luminal narrowing noted. The esophagus appeared to be normal. ?Stomach: Erythematous mucosa was found in the antrum. These changes are diffuse but more prominent in the prepyloric antrum. Bxs for HP have been taken. There are no erosions or ulcerations. Otherwise, the stomach appeared to be normal. ?Duodenum: There are definite erythematous changes noted here but again no marta erosions or ulcerations. Presenting complaint: The patient presents today reporting intermittent episodes of nausea, followed by dry heaves. He might have problems several days in a row, but might go weeks without any problems. It might be set off by a smell. It might be with putting pressure on his carotids, out of the blue at his desk or in the car. Hasn't woke him from sleep. Always dry heaves. The patient has had an episode first thing in the morning, on a empty stomach. Also after having eaten. REVIEW OF SYSTEMS: GENERAL: No weight loss, malaise or fevers RESPIRATORY: Negative for cough, hemoptysis, wheezing, COPD, dyspnea or shortness of breath CARDIOVASCULAR: Positive for hypertension and hypercholesterolemia. History of PVCs. GI: The patient states that his appetite has been good. He does get hungry. There has been some nausea, some vomiting. He denies dysphagia and denies odynophagia. There has partially been indigestion without heartburn. There has not been regurgitation. Bowel habits have been regular. There has not been diarrhea. There has not been constipation. The patient denies rectal bleeding. There has not been melena. No abdominal pain. PSYCH: Negative for sleep disturbance, mood disorder and recent psychosocial stressors. HEMATOLOGY/LYMPHOLOGY Negative for prolonged bleeding, bruising easily or swollen nodes ENDOCRINE: Positive for diabetes, or oral agent. NEURO: No history of headaches, syncope, paralysis, seizures or tremors All other reviewed and negative other than HPI. PAST MEDICAL HISTORY Diagnosis Date - Acute gastritis without mention of hemorrhage 07/24/2009 - Benign neoplasm of colon - Essential hypertension 05/01/2015 - GERD without esophagitis 11/15/2005 - Headache(784.0) 01/10/2008 Frontal SAAVEDRA, resolved when began Nasonex 2005 - Metabolic syndrome 12/05/2009 - Mixed hyperlipidemia 12/05/2009 - Morbid obesity due to excess calories ([facility]) 08/06/2016 - COLEMAN (obstructive sleep apnea) 08/18/2014 - RLS (restless legs syndrome) 08/18/2014 - Snoring - Supraventricular premature beats PAC's - SVT (supraventricular tachycardia) ([facility]) 06/29/2014 - Symptomatic PVCs 11/15/2005 symptomatic PVC's - 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 - Type 2 diabetes mellitus without complication, without long- term current use of insulin ([facility]) - Type 2 diabetes mellitus without retinopathy ([facility]) 10/03/2015 - 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 - Vitreous floaters of both eyes 10/03/2015 PAST SURGICAL HISTORY Procedure Laterality Date - COLONOSCOP W/ OR W/O [facility] SPEC 07/24/2009 Colonoscopy - COLONOSCOP W/ OR W/O [facility] SPEC 12/07/2014 Colonoscopy, repeat 5 yrs - EGD W/O OR W/BRUSH/WASH 07/24/2009 EGD - FECAL OCCULT BLOOD TEST 02/06/2017 negative - PAST SURGICAL HISTORY OF 10/2008 heart cath done [facility] FAMILY HISTORY Problem Relation Age of Onset - Arthritis Mother RA - Diabetes Mother - Heart Mother valve disease - No Ocular Disease No Family History Current Outpatient Prescriptions: esomeprazole (NEXIUM) 40 mg capsule Take 1 capsule by mouth daily before breakfast. 1/2 hr before meal. Disp: 30 capsule Rfl: 0 Fenofibrate (LOFIBRA) 160 mg tablet Take 1 tablet by mouth once daily. Disp: 90 tablet Rfl: 1 fluticasone (FLONASE) 50 mcg/actuation nasal spray Use 2 Sprays in each nostril twice daily. Disp: 3 Bottle Rfl: 3 sucralfate (CARAFATE) 1 gram tablet Take 1 tablet by mouth twice daily. Disp: 180 tablet Rfl: 1 metFORMIN ER (GLUCOPHAGE XR) 500 mg 24 hr tablet Take 1 tablet by mouth daily with breakfast. Disp: 90 tablet Rfl: 3 metoprolol succinate ER (TOPROL XL) 50 mg 24 hr tablet Take 1 tablet by mouth once daily. Disp: 90 tablet Rfl: 3 CPAP Initiate CPAP @ CPAP 8cm H2O pressure with humidification and possible positional therapy. Mask (per patient preference) optional chin strap (if indicated) , filters, tubing, humidifier and lifetime supplies.DX: COLEMAN G47.33 Disp: 1 Device Rfl: 0 aspirin, enteric coated 81 mg EC tablet Take 1 tablet by mouth once daily. Disp: Rfl: 0 Xrixpgulgkuaa-Cuntlcuh-Gvfibb (CENTRUM SILVER) Tab Take 1 tablet by mouth once daily. Disp: Rfl: 0 No current facility-administered medications for this visit. SOCIAL HISTORY: Patient is . He has never smoked and reports his alcohol use as very rarely. PHYSICAL EXAMINATION: Blood pressure 139/88, pulse 78, height 170.2 cm (5' 7), weight (!) 148.3 kg (327 lb). General Appearance: Well appearing, alert, in no acute distress, well-hydrated, well nourished. Skin: Skin color, texture, turgor normal, no suspicious rashes or lesions. Head: Normocephalic, no masses, lesions or abnormalities. Eyes: Anicteric sclera. Oropharynx: Upper dentures. Lips, mucosa, and tongue normal, oropharynx normal. Neck: Supple, no adenopathy; thyroid symmetric, normal size, no bruits. Lungs: Lungs clear to auscultation. No wheezing, rhonchi, rales. Heart: RRR without murmur, gallop, or rubs. No ectopy. Abdomen: Abdomen rotund, non-tender. Bowel sounds normal. No masses, organomegaly. Extremities: No deformities, edema. Impression: Random vomiting Plan: Gastric emptying study. Stool for Hpylori. Continue current medications. EGD if tests are normal. He agrees with this plan. Will discuss risks, alternatives, benefits and personnel, if the procedure is needed. I have personally interviewed and examined this patient. I have reviewed the information that the MA entered for this encounter. Greater than 30 minutes total time used this visit to review old chart, review new information, update current history and evaluate patient. A majority of the time was spent in discussion and counseling to formulate the plan. Elliott Demarco RN APRN.SUPERVISOR MICROWAVE CNOV Observed: 12/10/2017 Status: COMPLETED Source: [facility] 3:20 PM [facility] REPOSITORY Office Visit ([facility]) RAVINDERFLAKITA ([id number]) 1960 M Date Time Provider Department 12/10/17 3:20 PM ELLIOTT DEMARCO (FOUNDRY PATTERNMAKER) [facility] During your visit today, we recorded the following information about you: Pulse Blood pressure Weight Height 78/minute 139/88 148.3 kg 1.702 m Elliott Demarco RN APRN.STEPHEN 12/10/2017 5:40 PM Signed Flakita Bhatti Ravinder a 57 year old male who is a consultation requested by Sang Arguello PA,for an opinion regarding GERD. My final recommendations will be communicated back to the requesting provider by way of shared Medical record. The patient has been seen previously. The patient was seen by Dr. Lopez for upper endoscopy 07/24/09. The procedure report has been reviewed and findings as follows: Findings: ? Esophagus: The Z-line is intact, there is no evidence of esophagitis. There is no luminal narrowing noted. The esophagus appeared to be normal. ?Stomach: Erythematous mucosa was found in the antrum. These changes are diffuse but more prominent in the prepyloric antrum. Bxs for HP have been taken. There are no erosions or ulcerations. Otherwise, the stomach appeared to be normal. ?Duodenum: There are definite erythematous changes noted here but again no marta erosions or ulcerations. Presenting complaint: The patient presents today reporting intermittent episodes of nausea, followed by dry heaves. He might have problems several days in a row, but might go weeks without any problems. It might be set off by a smell. It might be with putting pressure on his carotids, out of the blue at his desk or in the car. Hasn't woke him from sleep. Always dry heaves. The patient has had an episode first thing in the morning, on a empty stomach. Also after having eaten. REVIEW OF SYSTEMS: GENERAL: No weight loss, malaise or fevers RESPIRATORY: Negative for cough, hemoptysis, wheezing, COPD, dyspnea or shortness of breath CARDIOVASCULAR: Positive for hypertension and hypercholesterolemia. History of PVCs. GI: The patient states that his appetite has been good. He does get hungry. There has been some nausea, some vomiting. He denies dysphagia and denies odynophagia. There has partially been indigestion without heartburn. There has not been regurgitation. Bowel habits have been regular. There has not been diarrhea. There has not been constipation. The patient denies rectal bleeding. There has not been melena. No abdominal pain. PSYCH: Negative for sleep disturbance, mood disorder and recent psychosocial stressors. HEMATOLOGY/LYMPHOLOGY Negative for prolonged bleeding, bruising easily or swollen nodes ENDOCRINE: Positive for diabetes, or oral agent. NEURO: No history of headaches, syncope, paralysis, seizures or tremors All other reviewed and negative other than HPI. PAST MEDICAL HISTORY Diagnosis Date - Acute gastritis without mention of hemorrhage 07/24/2009 - Benign neoplasm of colon - Essential hypertension 05/01/2015 - GERD without esophagitis 11/15/2005 - Headache(784.0) 01/10/2008 Frontal SAAVEDRA, resolved when began Nasonex 2005 - Metabolic syndrome 12/05/2009 - Mixed hyperlipidemia 12/05/2009 - Morbid obesity due to excess calories ([facility]) 08/06/2016 - COLEMAN (obstructive sleep apnea) 08/18/2014 - RLS (restless legs syndrome) 08/18/2014 - Snoring - Supraventricular premature beats PAC's - SVT (supraventricular tachycardia) ([facility]) 06/29/2014 - Symptomatic PVCs 11/15/2005 symptomatic PVC's - 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 - Type 2 diabetes mellitus without complication, without long- term current use of insulin ([facility]) - Type 2 diabetes mellitus without retinopathy ([facility]) 10/03/2015 - 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 - Vitreous floaters of both eyes 10/03/2015 PAST SURGICAL HISTORY Procedure Laterality Date - COLONOSCOP W/ OR W/O [facility] SPEC 07/24/2009 Colonoscopy - COLONOSCOP W/ OR W/O [facility] SPEC 12/07/2014 Colonoscopy, repeat 5 yrs - EGD W/O OR W/BRUSH/WASH 07/24/2009 EGD - FECAL OCCULT BLOOD TEST 02/06/2017 negative - PAST SURGICAL HISTORY OF 10/2008 heart cath done [facility] FAMILY HISTORY Problem Relation Age of Onset - Arthritis Mother RA - Diabetes Mother - Heart Mother valve disease - No Ocular Disease No Family History Current Outpatient Prescriptions: esomeprazole (NEXIUM) 40 mg capsule Take 1 capsule by mouth daily before breakfast. 1/2 hr before meal. Disp: 30 capsule Rfl: 0 Fenofibrate (LOFIBRA) 160 mg tablet Take 1 tablet by mouth once daily. Disp: 90 tablet Rfl: 1 fluticasone (FLONASE) 50 mcg/actuation nasal spray Use 2 Sprays in each nostril twice daily. Disp: 3 Bottle Rfl: 3 sucralfate (CARAFATE) 1 gram tablet Take 1 tablet by mouth twice daily. Disp: 180 tablet Rfl: 1 metFORMIN ER (GLUCOPHAGE XR) 500 mg 24 hr tablet Take 1 tablet by mouth daily with breakfast. Disp: 90 tablet Rfl: 3 metoprolol succinate ER (TOPROL XL) 50 mg 24 hr tablet Take 1 tablet by mouth once daily. Disp: 90 tablet Rfl: 3 CPAP Initiate CPAP @ CPAP 8cm H2O pressure with humidification and possible positional therapy. Mask (per patient preference) optional chin strap (if indicated) , filters, tubing, humidifier and lifetime supplies.DX: COLEMAN G47.33 Disp: 1 Device Rfl: 0 aspirin, enteric coated 81 mg EC tablet Take 1 tablet by mouth once daily. Disp: Rfl: 0 Znhagewxqslpv-Wjiucldv-Lvywcl (CENTRUM SILVER) Tab Take 1 tablet by mouth once daily. Disp: Rfl: 0 No current facility-administered medications for this visit. SOCIAL HISTORY: Patient is . He has never smoked and reports his alcohol use as very rarely. PHYSICAL EXAMINATION: Blood pressure 139/88, pulse 78, height 170.2 cm (5' 7), weight (!) 148.3 kg (327 lb). General Appearance: Well appearing, alert, in no acute distress, well-hydrated, well nourished. Skin: Skin color, texture, turgor normal, no suspicious rashes or lesions. Head: Normocephalic, no masses, lesions or abnormalities. Eyes: Anicteric sclera. Oropharynx: Upper dentures. Lips, mucosa, and tongue normal, oropharynx normal. Neck: Supple, no adenopathy; thyroid symmetric, normal size, no bruits. Lungs: Lungs clear to auscultation. No wheezing, rhonchi, rales. Heart: RRR without murmur, gallop, or rubs. No ectopy. Abdomen: Abdomen rotund, non-tender. Bowel sounds normal. No masses, organomegaly. Extremities: No deformities, edema. Impression: Random vomiting Plan: Gastric emptying study. Stool for Hpylori. Continue current medications. EGD if tests are normal. He agrees with this plan. Will discuss risks, alternatives, benefits and personnel, if the procedure is needed. I have personally interviewed and examined this patient. I have reviewed the information that the MA entered for this encounter. Greater than 30 minutes total time used this visit to review old chart, review new information, update current history and evaluate patient. A majority of the time was spent in discussion and counseling to formulate the plan. Elliott Demarco RN SENIOR RESEARCH SCIENTIST.STEPHEN Demarco RN SENIOR RESEARCH SCIENTIST.STEPHEN 12/10/2017 4:03 PM Signed The stool test will check for bacteria in your stomach. Please follow the instructions for the test that looks at how your stomach empties. It will take a day or two after the test for us to get the results. Call [phone], and ask to speak to a nurse in GI, if you have any questions or concerns in the mean time. If these are both negative, we will set up an upper endoscopy. Referring Provider: SAUNDRA DOMÍNGUEZ(YANE) [[id number]] Allergies As of Date: 12/10/2017 Noted Allergy Reaction LIPITOR (ATORVASTATIN CALCIUM) 06/03/2017 14 - Other: See Comments Comments: Elevated CK Date Reviewed: 12/10/2017 Reviewed by: Va Seals MA - Fully Assessed Primary Visit Diagnosis:Vomiting without nausea, intractability of vomiting not specified, unspecified vomiting type [R11.11] Other Visit Diagnosis:Gastro-esophageal reflux disease without esophagitis [K21.9] Order(s):NM GASTRIC EMPTYING SOLID [[id number]] Order #: [id number] FUTURE H PYLORI AG BY EIA,STOOL [SQHPYLAG] Order #: [id number] FUTURE Prescriptions as of 12/10/2017 Sig: ESOMEPRAZOLE MAGNESIUM 40 MG * Take 1 capsule by mouth daily* FENOFIBRATE 160 MG TABLET Take 1 tablet by mouth once d* FLUTICASONE 50 MCG/ACTUATION * Use 2 Sprays in each nostril * SUCRALFATE 1 GRAM TABLET Take 1 tablet by mouth twice * METFORMIN ER 500 MG TABLET,EX* Take 1 tablet by mouth daily * METOPROLOL SUCCINATE ER 50 MG* Take 1 tablet by mouth once d* CPAP Initiate CPAP @ CPAP 8cm H2O * ASPIRIN 81 MG TABLET,DELAYED * Take 1 tablet by mouth once d* HMIUXERYNDIS-DBQUPDCI-ESYSCC * Take 1 tablet by mouth once d* Problem List As Of Date 12/10/2017 Noted Resolved Symptomatic PVCs [I49.3] INVALID FOR* Priority: B More... GERD without esophagitis [K21.9] INVALID FOR* Priority: A Family history of arthritis [Z82.61] INVALID FOR* Priority: F More... More... 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 RLS (restless legs syndrome) [G25.81] INVALID FOR* Priority: B Essential hypertension [I10] INVALID FOR* Priority: A Type 2 diabetes mellitus without complication, * Priority: A Type 2 diabetes mellitus without retinopathy (H*INVALID FOR* Priority: A Vitreous floaters of both eyes [H43.393] INVALID FOR* Priority: G Morbid obesity due to excess calories (HCC) [E6*INVALID FOR* Priority: B Elevated CK [R74.8] INVALID FOR* Diabetic eye exam (HCC) [Z01.00, E11.9] INVALID FOR* Priority: A More... Well adult exam [Z00.00] INVALID FOR* Priority: E More... Prostate cancer screening [Z12.5] INVALID FOR* Colon cancer screening [Z12.11] INVALID FOR* Elevated LFTs [R79.89] INVALID FOR* Nausea [R11.0] INVALID FOR* More... Other instructions from your clinician: The stool test will check for bacteria in your stomach. Please follow the instructions for the test that looks at how your stomach empties. It will take a day or two after the test for us to get the results. Call [phone], and ask to speak to a nurse in GI, if you have any questions or concerns in the mean time. If these are both negative, we will set up an upper endoscopy. Encounter Status:Closed by ELLIOTT DEMARCO CNP on 12/10/17 JANELLE Observed: 11/24/2017 Status: COMPLETED Source: [facility] 9:00 AM [facility]POS[facility] FLAKITA CASTELLON ([id number]) 1960 M Date Time Provider Department 11/24/17 9:00 AM HASMUKH DOMÍNGUEZ) [facility] During your visit today, we recorded the following information about you: Pulse Respiration Blood pressure Weight 80/minute 14/minute 148/88 148.8 kg Saundra Domínguez(Yane) 11/24/2017 9:49 AM Signed 11/24/2017 Patient presents with: GERD Nausea SUBJECTIVE: This is a 57 year old that is here today for Above Complaints.. Patient was seen in October by PCP who added carafate for patient's nausea, and gastritis like symptoms. Since then patient has been taking both the carafate and pepcid Patient reports no improvement and no changes. The nausea is still at random times and doesn't seem to be linked to eating or drinking. Can be triggered by smells. Will get dry heaving without significant emesis. No significant heartburn symptoms beyond the nausea. Symptoms have been going on for almost 3 years off and on. EGD in 2009 shows erythematous antrum. bx normal PAST MEDICAL HISTORY Diagnosis Date - Acute gastritis without mention of hemorrhage 07/24/2009 - Benign neoplasm of colon - Essential hypertension 05/01/2015 - GERD without esophagitis 11/15/2005 - Headache(784.0) 01/10/2008 Frontal SAAVEDRA, resolved when began Nasonex 2005 - Metabolic syndrome 12/05/2009 - Mixed hyperlipidemia 12/05/2009 - Morbid obesity due to excess calories ([facility]) 08/06/2016 - COLEMAN (obstructive sleep apnea) 08/18/2014 - RLS (restless legs syndrome) 08/18/2014 - Snoring - Supraventricular premature beats PAC's - SVT (supraventricular tachycardia) ([facility]) 06/29/2014 - Symptomatic PVCs 11/15/2005 symptomatic PVC's - 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 fluticasone (FLONASE) 50 mcg/actuation nasal spray Use 2 Sprays in each nostril twice daily. sucralfate (CARAFATE) 1 gram tablet Take 1 tablet by mouth twice daily. metFORMIN ER (GLUCOPHAGE XR) 500 mg 24 hr tablet Take 1 tablet by mouth daily with breakfast. metoprolol succinate ER (TOPROL XL) 50 mg 24 hr tablet Take 1 tablet by mouth once daily. CPAP Initiate CPAP @ CPAP 8cm H2O pressure with humidification and possible positional therapy. Mask (per patient preference) optional chin strap (if indicated) , filters, tubing, humidifier and lifetime supplies.DX: COLEMAN G47.33 aspirin, enteric coated 81 mg EC tablet Take 1 tablet by mouth once daily. Cjceodzxhpvxa-Agzlqgsf-Hkreng (CENTRUM SILVER) Tab Take 1 tablet by mouth once daily. esomeprazole (NEXIUM) 40 mg capsule Take 1 capsule by mouth daily before breakfast. 1/2 hr before meal. No current facility-administered medications for this visit. 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[employer]* Social History Main Topics Smoking status: Never Smoker Smokeless tobacco: Never Used Alcohol use: Yes Comment: RARELY Drug use: No REVIEW OF SYSTEMS GENERAL: No weight loss, malaise or fevers HEENT: Mouth AND Throat Positive for sore throat NECK: Negative for lumps, goiter, pain and significant neck swelling RESPIRATORY: Negative for cough, hemoptysis, wheezing, COPD, dyspnea or shortness of breath CARDIOVASCULAR: Negative for chest pain, leg swelling, CHF or palpitations GI: See HPI : No history of dysuria, frequency or incontinence, No difficulty urinating, nocturia > 1 time per night or hematuria All other reviewed and negative other than HPI. OBJECTIVE: BP 148/88 Pulse 80 Resp 14 Wt (!) 148.8 kg (328 lb) BMI 51.37 kg/m? APPEARANCE Well appearing, alert, in no acute distress, well- hydrated, well nourished. NECK Supple, no adenopathy; thyroid symmetric, normal size, no bruits HEART RRR with normal S1 and S2, no murmurs, no gallops LUNG clear to auscultation ABDOMEN Obese. BS +. Mild LUQ and epigastric tenderness to deep palp ASSESSMENT/PLAN: 1. GERD without esophagitis - ICD9: 530.81, ICD10: K21.9 (primary diagnosis) - Refer for GI consult- May need upper GI to further evaluate possible cause of his symptoms - Will try Nexium in the meantime. 2. Nausea - ICD9: 787.02, ICD10: R11.0 See above. 3. Essential hypertension - ICD9: 401.9, ICD10: I10 - suboptimal control - Repeat BP without improvement today. - Follow up in 2 weeks for recheck. - Discussed weight loss and following a low sodium diet - Recommended regular aerobic exercise. - Recommend home blood pressure monitoring, to bring results in on next visit - Goal of BP <130/80 Prescription instructions reviewed with patient as applicable. Patient advised if symptoms do not improve or if symptoms worsen sooner, to contact their primary care physician. Potential red flag symptoms discussed with the patient. Reviewed appropriate action plan to take if red flag symptoms occur. Patient agreeable to treatment plan. NV in 2 weeks for BP check Keep F/u scheduled in April for routine visits. YANE MONTGOMERY Rayanne(Yane) 11/24/2017 9:20 AM Signed Stop the pepcid and start Nexium Continue carafate Consult is being placed for Gastro for possible upper GI Scope. Follow up as scheduled or sooner as needed. Referring Provider: CARTER BALLESTEROS [[id number]] Allergies As of Date: 11/24/2017 Noted Allergy Reaction LIPITOR (ATORVASTATIN CALCIUM) 06/03/2017 14 - Other: See Comments Comments: Elevated CK Date Reviewed: 11/24/2017 Reviewed by: Saundra Domínguez(Yane) - Fully Assessed Reason for Visit: GERD [548] Nausea [70] Primary Visit Diagnosis:GERD without esophagitis [K21.9] Other Visit Diagnoses:Nausea [R11.0] Essential hypertension [I10] Order(s):CONSULT TO GASTROENTEROLOGY [9010] Order #: [id number]: 1 esomeprazole (NEXIUM) 40 mg capsuleTake 1 capsule by mouth daily before breakfast. 1/2 hr before meal.Disp: 30 capsuleRfl: 0 Prescriptions as of 11/24/2017 Sig: FENOFIBRATE 160 MG TABLET Take 1 tablet by mouth once d* FLUTICASONE 50 MCG/ACTUATION * Use 2 Sprays in each nostril * SUCRALFATE 1 GRAM TABLET Take 1 tablet by mouth twice * METFORMIN ER 500 MG TABLET,EX* Take 1 tablet by mouth daily * METOPROLOL SUCCINATE ER 50 MG* Take 1 tablet by mouth once d* CPAP Initiate CPAP @ CPAP 8cm H2O * ASPIRIN 81 MG TABLET,DELAYED * Take 1 tablet by mouth once d* WOTUVKLEUIYR-AFFMLWBL-CGOJIJ * Take 1 tablet by mouth once d* ESOMEPRAZOLE MAGNESIUM 40 MG * Take 1 capsule by mouth daily* Problem List As Of Date 11/24/2017 Noted Resolved Symptomatic PVCs [I49.3] INVALID FOR* Priority: B More... GERD without esophagitis [K21.9] INVALID FOR* Priority: A Family history of arthritis [Z82.61] INVALID FOR* Priority: F More... More... Benign neoplasm of colon [D12.6] INVALID FOR* Priority: B Mixed hyperlipidemia [E78.2] INVALID FOR* Priority: A 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] INVALID FOR* Priority: M Metabolic syndrome [E88.81] INVALID FOR* Priority: A Diabetes mellitus type II INVALID FOR*05/18/2014 SVT (supraventricular tachycardia) ([facility]) [I47.1]INVALID FOR* Priority: A COLEMAN (obstructive sleep apnea) [G47.33] INVALID FOR* Priority: B More... RLS (restless legs syndrome) [G25.81] INVALID FOR* Priority: B Essential hypertension [I10] INVALID FOR* Priority: A Type 2 diabetes mellitus without complication, * Priority: A Type 2 diabetes mellitus without retinopathy (H*INVALID FOR* Priority: A Vitreous floaters of both eyes [H43.393] INVALID FOR* Priority: G Morbid obesity due to excess calories ([facility]) [E6*INVALID FOR* Priority: B Elevated CK [R74.8] INVALID FOR* Diabetic eye exam ([facility]) [Z01.00, E11.9] INVALID FOR* Priority: A More... Well adult exam [Z00.00] INVALID FOR* Priority: E More... Prostate cancer screening [Z12.5] INVALID FOR* Colon cancer screening [Z12.11] INVALID FOR* Elevated LFTs [R79.89] INVALID FOR* Nausea [R11.0] INVALID FOR* More... Other instructions from your clinician: Stop the pepcid and start Nexium Continue carafate Consult is being placed for Gastro for possible upper GI Scope. Follow up as scheduled or sooner as needed. Prescriptions ordered this encounter Disp Refills Start End ESOMEPRAZOLE MAGNESIUM 40 MG CAPSULE* 30 c* 0 11/24/2017 Route: ORAL Sig: Take 1 capsule by mouth daily before breakfast. 1/2 hr before meal. Medications Discontinued During This Encounter famotidine (PEPCID) 40 mg tablet 90 t* 3 10/20/2017 11/24/2017 Class: Med Update Route: ORAL Sig: Take 1 tablet by mouth at bedtime as needed. Disc: Reason for discontinue is not on file. Encounter Status:Closed by SAUNDRA BROWNLEE on 11/24/17 PROGRESS Observed: 11/24/2017 Status: COMPLETED Source: [facility] 8:58 AM [facility] [place] REPOSITORY HNO ID: [id number] Author: Saundra Domínguez(Yane) Service: (none) Author Type: Physician Supervisor Print Line Type: Progress Notes Filed: 11/24/2017 9:49 AM Note Text: 11/24/2017 Patient presents with: GERD Nausea SUBJECTIVE: This is a 57 year old that is here today for Above Complaints.. Patient was seen in October by PCP who added carafate for patient's nausea, and gastritis like symptoms. Since then patient has been taking both the carafate and pepcid Patient reports no improvement and no changes. The nausea is still at random times and doesn't seem to be linked to eating or drinking. Can be triggered by smells. Will get dry heaving without significant emesis. No significant heartburn symptoms beyond the nausea. Symptoms have been going on for almost 3 years off and on. EGD in 2009 shows erythematous antrum. bx normal PAST MEDICAL HISTORY Diagnosis Date - Acute gastritis without mention of hemorrhage 07/24/2009 - Benign neoplasm of colon - Essential hypertension 05/01/2015 - GERD without esophagitis 11/15/2005 - Headache(784.0) 01/10/2008 Frontal SAAVEDRA, resolved when began Nasonex 2005 - Metabolic syndrome 12/05/2009 - Mixed hyperlipidemia 12/05/2009 - Morbid obesity due to excess calories ([facility]) 08/06/2016 - COLEMAN (obstructive sleep apnea) 08/18/2014 - RLS (restless legs syndrome) 08/18/2014 - Snoring - Supraventricular premature beats PAC's - SVT (supraventricular tachycardia) ([facility]) 06/29/2014 - Symptomatic PVCs 11/15/2005 symptomatic PVC's - 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 fluticasone (FLONASE) 50 mcg/actuation nasal spray Use 2 Sprays in each nostril twice daily. sucralfate (CARAFATE) 1 gram tablet Take 1 tablet by mouth twice daily. metFORMIN ER (GLUCOPHAGE XR) 500 mg 24 hr tablet Take 1 tablet by mouth daily with breakfast. metoprolol succinate ER (TOPROL XL) 50 mg 24 hr tablet Take 1 tablet by mouth once daily. CPAP Initiate CPAP @ CPAP 8cm H2O pressure with humidification and possible positional therapy. Mask (per patient preference) optional chin strap (if indicated) , filters, tubing, humidifier and lifetime supplies.DX: COLEMAN G47.33 aspirin, enteric coated 81 mg EC tablet Take 1 tablet by mouth once daily. Ajqfigeimhcfh-Wlxjsiio-Lrfeig (CENTRUM SILVER) Tab Take 1 tablet by mouth once daily. esomeprazole (NEXIUM) 40 mg capsule Take 1 capsule by mouth daily before breakfast. 1/2 hr before meal. No current facility-administered medications for this visit. 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[employer] Social History Main Topics Smoking status: Never Smoker Smokeless tobacco: Never Used Alcohol use: Yes Comment: RARELY Drug use: No REVIEW OF SYSTEMS GENERAL: No weight loss, malaise or fevers HEENT: Mouth AND Throat Positive for sore throat NECK: Negative for lumps, goiter, pain and significant neck swelling RESPIRATORY: Negative for cough, hemoptysis, wheezing, COPD, dyspnea or shortness of breath CARDIOVASCULAR: Negative for chest pain, leg swelling, CHF or palpitations GI: See HPI : No history of dysuria, frequency or incontinence, No difficulty urinating, nocturia > 1 time per night or hematuria All other reviewed and negative other than HPI. OBJECTIVE: BP 148/88 Pulse 80 Resp 14 Wt (!) 148.8 kg (328 lb) BMI 51.37 kg/m? APPEARANCE Well appearing, alert, in no acute distress, well-hydrated, well nourished. NECK Supple, no adenopathy; thyroid symmetric, normal size, no bruits HEART RRR with normal S1 and S2, no murmurs, no gallops LUNG clear to auscultation ABDOMEN Obese. BS +. Mild LUQ and epigastric tenderness to deep palp ASSESSMENT/PLAN: 1. GERD without esophagitis - ICD9: 530.81, ICD10: K21.9 (primary diagnosis) - Refer for GI consult- May need upper GI to further evaluate possible cause of his symptoms - Will try Nexium in the meantime. 2. Nausea - ICD9: 787.02, ICD10: R11.0 See above. 3. Essential hypertension - ICD9: 401.9, ICD10: I10 - suboptimal control - Repeat BP without improvement today. - Follow up in 2 weeks for recheck. - Discussed weight loss and following a low sodium diet - Recommended regular aerobic exercise. - Recommend home blood pressure monitoring, to bring results in on next visit - Goal of BP <130/80 Prescription instructions reviewed with patient as applicable. Patient advised if symptoms do not improve or if symptoms worsen sooner, to contact their primary care physician. Potential red flag symptoms discussed with the patient. Reviewed appropriate action plan to take if red flag symptoms occur. Patient agreeable to treatment plan. NV in 2 weeks for BP check Keep F/u scheduled in April for routine visits. SAUNDRA DOMÍNGUEZ PA-C URINALYSIS WITH Collected: 10/20/2017 Status: F Source: [facility] 10:05 AM [facility] REPOSITORY TYPE CODE TESTS RESULT OUT OF RANGE REFERENCE UNITS LAB UCOL Yellow Color Yellow LAB [facility] Clear Clarity Clear LAB UGLUC Negative mg/dL Glucose, Urine Negative LAB UBIL Negative Bilirubin, Urine Negative LAB UKET Negative Ketones, Urine Negative LAB USPG 1.005-1.030 Specific [place], Ur 1.018 LAB UHGB Negative Abnormal Hemoglobin/Blood, 1+ Alert Ur LAB UPH 4.5-8.0 pH 5.0 LAB UPROT Negative mg/dL Protein, Urine Negative LAB UUROB Normal Urobilinogen Normal LAB UNITR Negative Nitrites Negative LAB ULKEST Negative Leukest Negative LAB UCOM Comments SEE COMMENT Result Comment: N/A LAB UMCOM Urine SEE Shen Comment COMMENT Result Comment: N/A LAB UWBC 0-5 /HPF WBC 0-5 LAB URBC 0-3 /HPF RBC 0-3 LAB USPRM 0 /HPF Abnormal Alert Sperm Present Performed By: #### UAWMIC #### [facility] [address] [place], [place] [address] ALBUMIN/CREAT RATIO Collected: 10/20/2017 Status: F Source: [facility] 10:05 AM [facility] REPOSITORY TYPE CODE TESTS RESULT OUT OF REFERENCE UNITS RANGE LAB UCRR 20-300 mg/dL 146.1 Creatinine,Ur ine,Ran LAB UALBR 0.0-23.0 mg/L <12.0 Albumin Urine Random LAB UALBCR 0-30 mg/g Not Albumin/Creat calculated Ratio Performed By: #### UACR #### [facility] [address] [place], [place] [address] COMP METABOLIC PANEL Collected: 10/20/2017 Status: F Source: [facility] 10:02 AM [facility] REPOSITORY TYPE CODE TESTS RESULT OUT OF REFERENCE UNITS RANGE LAB TP 6.3-8.0 g/dL Protein, Total 7.1 LAB ALB 3.9-4.9 g/dL Albumin 4.4 LAB CA 8.5-10.2 mg/dL Calcium, Total 9.2 LAB TBIL 0.2-1.3 mg/dL Bilirubin, Total 1.0 LAB ALKP 36-108 U/L Alkaline Phosphatase 47 LAB AST 14-40 U/L AST 29 LAB GLU 74-99 mg/dL Glucose High 131 Result Comment: The [place] Diabetes Association (ADA) provides guidance for cutoff values for fasting glucose and random glucose. The ADA defines fasting as no caloric intake for at least 8 hours. Fas ting plasma glucose results between 100 to 125 mg/dL indicate increased risk for diabetes (prediabetes). Fasting plasma glucose results greater than or equal to 126 mg/dL meet the criteria for diagnosis of diabetes. In the absence of unequivocal hyperglycemia, results should be confirmed by repeat testing. In a patient with classic symptoms of hyperglycemia or hyperglycemic crisis, random plasma glucose results greater than or equal to 200 mg/dL meet the criteria for diagnosis of diabetes. Reference: Standards of Medical Care in Diabetes 2016, [place] Diabetes Association. Diabetes Care. 2016.39(Suppl 1). LAB BUN 9-24 mg/dL BUN 12 LAB CRET 0.73-1.22 mg/dL Creatinine 1.03 LAB NA 136-144 mmol/L Sodium 141 LAB K 3.7-5.1 mmol/L Potassium 4.4 LAB CL 97-105 mmol/L Chloride 103 LAB CO2 22-30 mmol/L CO2 26 LAB AGAP 9-18 mmol/L Anion Gap 12 LAB ALT 10-54 U/L ALT 45 LAB GFRAA eGFR- Amer. >60 LAB GFRNAA . eGFR-All Other Races >60 Result Comment: eGFR (Estimated GFR) Units of measure: mL/min/1.73 meters squared eGFR is derived from the reexpressed MDRD Study equation using the following parameters: serum creatinine, age, gender and race. The creatinine assay has been calibrated to be traceable to IDMS. An eGFR <60 mL/min/1.73m2 for >3 months is consistent with chronic kidney disease. Refer to KDOQI guidelines for clinical interpretation. In patients with unstable renal function, e.g. those with acute kidney injury, the eGFR may not accurately reflect actual GFR. Performed By: #### CMP, LIPB, LDLDCT, HBA1C #### [facility] [address] [place], [place] [address] LIPID PANEL, BASIC Collected: 10/20/2017 Status: F Source: [facility] 10:02 AM [facility] REPOSITORY TYPE CODE TESTS RESULT OUT OF REFERENCE UNITS RANGE LAB CHOL <200 mg/dL Cholesterol 196 Result Comment: <200 mg/dL, Desirable 200-239 mg/dL, Borderline high >239 mg/dL, High LAB TRIGLY <150 mg/dL Triglyceride High 463 Result Comment: <150 mg/dL, Normal 150-199 mg/dL, Borderline high 200-499 mg/dL, High >499 mg/dL, Very high LAB HDL >39 mg/dL HDL-Cholesterol Low 38 Result Comment: 40-59 mg/dL, Acceptable >59 mg/dL, High: Negative risk factor for coronary heart disease <40 mg/dL, Low: Positive risk factor for coronary heart disease LAB LDL <100 mg/dL LDL-Cholesterol Unable to calculate due to increased Triglycerides. See LDL-Chol, Direct. LAB NONHDL <130 mg/dL Non HDL Cholesterol 158 High Result Comment: <130 mg/dL, Optimal 130-159 mg/dL, Near optimal/above optimal 160-189 mg/dL, Borderline high 190-219 mg/dL, High >219 mg/dL, Very high Secondary prevention optimal non HDL Cholesterol levels are recommended to be < 100 mg/dL LAB FT hrs Fasting Time 13 LAB VLDL <30 mg/dL VLDL Unable Cholesterol to calculate due to increased Triglycerides. See LDL-Chol, Direct. LAB TCHDL <5.10 TC:HDL Ratio 5.16 High LAB LDLHDL <2.54 LDL:HDL Ratio Unable to calculate due to elevated Triglycerides. Result Comment: Reference: 1. National Cholesterol Education Program ATP III Guideline At-A-Glance Quick Desk Reference: National Heart, Lung, and Blood [place]. National Institutes of Health. 2001: NIH Publication No. 01-3305. 2. An International Atherosclerosis Society position paper: global recommendations for the management of dyslipidemia: executive summary, Atherosclerosis. 2014: 232(2):410-413. Performed By: #### CMP, LIPB, LDLDCT, HBA1C #### [facility] [address] [place] [id number] LDL-CHOL, DIRECT Collected: 10/20/2017 Status: F Source: [facility] 10:02 AM [facility] REPOSITORY TYPE CODE TESTS RESULT OUT OF REFERENCE UNITS RANGE LAB LDLDIR <100 mg/dL LDL-Chol, 99 Direct Result Comment: <100 mg/dL, Optimal 100-129 mg/dL, Near optimal/above optimal 130-159 mg/dL, Borderline high 160-189 mg/dL, High >189 mg/dL, Very high Secondary prevention optimal LDL Cholesterol levels are recommended to be < 70 mg/dL LAB VLDL1 <30 mg/dL VLDL Cholesterol High 59 Performed By: #### CMP, LIPB, LDLDCT, HBA1C #### [facility] [address] [place] [address] HEMOGLOBIN A1C Collected: 10/20/2017 Status: F Source: [facility] 10:02 [facility] REPOSITORY TYPE CODE TESTS RESULT OUT OF REFERENCE UNITS RANGE LAB HGBA1C 4.3-5.6 % High Hemoglobin A1c 6.2 LAB HBA0 mg/dL Est. Average Glucose 131 Result Comment: eAG: (Estimated average glucose) is a calculated value from HgbA1c and is vendor representatives of the average blood glucose level in the last 2-3 month period. Performed By: #### CMP, LIPB, LDLDCT, HBA1C #### [facility] [address] [place] [id number] PROGRESS Observed: 10/20/2017 Status: COMPLETED Source: [facility] 9:17 AM [facility] REPOSITORY HNO ID: [id number] Author: Carter Ballesteros Service: (none) Author Type: Physician Type: Progress Notes Filed: 10/20/2017 6:42 PM Note Text: Chief Complaint Patient presents with: Recheck: 6 months HPI Flakita Castellon is a 57 year old male who presents here today for Chronic Medical Conditions.. Patient with hx as reviewed and documented below. Patient doing ok but doses note on a fairly regular basis that with position changes he does get dizzy and sometimes has to sit back down till resolves. Not realy getting a lot of swelling in his legs. Has been noting fatigue. Has also been getting nausea and can be at any time during the day. Taking his pepcid 40 mg QHS and does not get any GERD like symptoms. The nausea can be made worse with certain smells. Sometimes will have dry heaves. Denies any RUQ pain or pain brought on with certain foods. Sometimes not hungry due to feeling bloated. Past medical history, appointments, medications, allergies reviewed. Previous Medical History PAST MEDICAL HISTORY Diagnosis Date - Acute gastritis without mention of hemorrhage 07/24/2009 - Benign neoplasm of colon - Essential hypertension 05/01/2015 - GERD without esophagitis 11/15/2005 - Headache(784.0) 01/10/2008 Frontal SAAVEDRA, resolved when began Nasonex 2005 - Metabolic syndrome 12/05/2009 - Mixed hyperlipidemia 12/05/2009 - Morbid obesity due to excess calories ([facility]) 08/06/2016 - COLEMAN (obstructive sleep apnea) 08/18/2014 - RLS (restless legs syndrome) 08/18/2014 - Snoring - Supraventricular premature beats PAC's - SVT (supraventricular tachycardia) ([facility]) 06/29/2014 - Symptomatic PVCs 11/15/2005 symptomatic PVC's - 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 - Type 2 diabetes mellitus without complication, without long- term current use of insulin ([facility]) - Type 2 diabetes mellitus without retinopathy ([facility]) 10/03/2015 - 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 - Vitreous floaters of both eyes 10/03/2015 Previous Surgical History PAST SURGICAL HISTORY Procedure Laterality Date - COLONOSCOP W/ OR W/O [facility] SPEC 07/24/2009 Colonoscopy - COLONOSCOP W/ OR W/O [facility] SPEC 12/07/2014 Colonoscopy, repeat 5 yrs - EGD W/O OR W/BRUSH/WASH 07/24/2009 EGD - FECAL OCCULT BLOOD TEST 02/06/2017 negative - PAST SURGICAL HISTORY OF 10/2008 heart cath done [facility] Family History FAMILY HISTORY Problem Relation Age of Onset - Arthritis Mother RA - Diabetes Mother - Heart Mother valve disease - No Ocular Disease No Family History Patient Allergies ALLERGIES Allergen Reactions - Lipitor [Atorvastat* Other: See Comments Elevated CK Current Medications Current Outpatient Prescriptions on File Prior to Visit: Fenofibrate (LOFIBRA) 54 mg tablet Take 1 tablet by mouth once daily. metFORMIN ER (GLUCOPHAGE XR) 500 mg 24 hr tablet Take 1 tablet by mouth daily with breakfast. metoprolol succinate ER (TOPROL XL) 50 mg 24 hr tablet Take 1 tablet by mouth once daily. fluticasone (FLONASE) 50 mcg/actuation nasal spray Use 2 Sprays in each nostril twice daily. CPAP Initiate CPAP @ CPAP 8cm H2O pressure with humidification and possible positional therapy. Mask (per patient preference) optional chin strap (if indicated) , filters, tubing, humidifier and lifetime supplies.DX: COLEMAN G47.33 aspirin, enteric coated 81 mg EC tablet Take 1 tablet by mouth once daily. Igxqnbdcfdnlm-Iurqtjiu-Htpgzh (CENTRUM SILVER) Tab Take 1 tablet by mouth once daily. No current facility-administered medications on file prior to visit. 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 Points to area of hyoid pain and says he feels lumps at this location RESPIRATORY: Negative for cough, hemoptysis, wheezing, COPD, dyspnea or shortness of breath CARDIOVASCULAR: Negative for chest pain.hypertension, CHF or increased palpitations. See HPI regarding leg swelling GI: No vomiting, or diarrhea and No heartburn or reflux symptoms. See HPI : No history of dysuria or blood ENDOCRINE: may have a low BS's at times but typically due to forgetting to eat when busy. NEURO: No history of headaches, syncope, paralysis, seizures or tremors. See HPI regarding the dizziness. EXAM: BP 136/92 (BP Site: Right Arm, BP Position: Sitting, BP Cuff Size: Large Adult) Pulse 88 Resp 24 Ht 170.2 cm (5' 7) Wt (!) 149.7 kg (330 lb) BMI 51.69 kg/m2 BP 126/88 Pulse 88 Resp 24 Ht 170.2 cm (5' 7) Wt (!) 149.7 kg (330 lb) BMI 51.69 kg/m2 In office orthostatics were negative. General Appearance: Well appearing, alert, in no acute distress, well-hydrated, well nourished., Morbidly obese. Eyes: Anicteric sclera. Pupils are equally round and reactive to light. Extraocular movements are intact. . Oropharynx: Lips, mucosa, and tongue normal, teeth and gums normal, oropharynx normal. Neck: Supple, no adenopathy; thyroid symmetric, normal size, no bruits. Lungs: Lungs clear to auscultation. No wheezing, rhonchi, rales. Heart: RRR without murmur, gallop, or rubs. No ectopy. Abdomen: Normal abdominal exam, Abdomen soft. Has some mild discomfort with deep palpation to the LUQ. No guarding or rebound tenderness.. Bowel sounds normal. No masses, organomegaly. Extremities: No deformities, edema, skin discoloration. Musculoskeletal: Muscular strength intact, No joint swelling, deformity, or tenderness. Peripheral Pulses: Normal. Neurologic: Gait normal. Reflexes normal and symmetric. Sensation to light touch and crainal nerves 2-12 intact.. Health Maintenance List URINE ALBUMIN CREATININE RATIO due on 08/16/2017 HBA1C due on 11/26/2017 DIABETIC FOOT EXAM due on 12/19/2017 TETANUS due on 01/09/2018 LDL due on 07/10/2018 DILATED RETINAL EXAM due on 10/07/2018 COLORECTAL CANCER SCREENING,SEE MODIFIER due on 12/08/2019 PROSTATE CANCER SCREENING DISCUSSION Completed ONE PNEUMOVAX PRIOR TO AGE 65 Completed INFLUENZA Completed HEPATITIS C SCREENING Completed Data reviewed A/P ASSESSMENT/PLAN: 1. Type 2 diabetes mellitus without complication, without long-term current use of insulin (HCC) - ICD9: 250.00, ICD10: E11.9 (primary diagnosis) Will await labs - Continue current medications - Daily Asprin therapy recommended - BP goal of <130/80 - LDL goal of <100 2. Type 2 diabetes mellitus without retinopathy (HCC) - ICD9: 250.00, ICD10: E11.9 - As above 3. Essential hypertension - ICD9: 401.9, ICD10: I10 - good control - Continue current medication(s) - Recommended regular aerobic exercise. - Recommend home blood pressure monitoring, to bring results in on next visit - Discussed need and benefit for weight loss. - Goal of BP <130/80 - Discussed did not want to decrease his metoprolol since his symptomatic palpitations may return. Discussed use of support socks to help mainntain good pressure with standing. 4. Mixed hyperlipidemia - ICD9: 272.2, ICD10: E78.2 - will await labs and make changes if needed. - Continue current medication. - Encouraged following a low fat, low cholesterol diet. - Discussed the benefits of regular aerobic exercise and weight loss. - Encouraged following a low carbohydrate, healthy oil intake diet. 5. GERD without esophagitis - ICD9: 530.81, ICD10: K21.9 - Continue treatment with pepcid 40 mg QHS - Will add Carafate twice ad ay and se if the nausea resolves. If not would proceed with GI consult for EGD. 6. Metabolic syndrome - ICD9: 277.7, ICD10: E88.81 - as above 7. SVT (supraventricular tachycardia) (HCC) - ICD9: 427.89, ICD10: I47.1 - Cont the metoprolol for this and BP control - In regards to the dizziness advised wearing some support socks at 10-20 mmHg to help reduce the dizziness with the position changes since the metoprolol is controlling the PVS' and symptoms he would get with it and his BP. 8. COLEMAN (obstructive sleep apnea) - ICD9: 327.23, ICD10: G47.33 - Patient wearing CPAP nightly and benefiting. 9. RLS (restless legs syndrome) - ICD9: 333.94, ICD10: G25.81 - Clinically stable. 10. Morbid obesity due to excess calories (HCC) - ICD9: 278.01, ICD10: E66.01 - Patient to work on weight loss. Signed Prescriptions Disp Refills fluticasone (FLONASE) 50 mcg/actuation nasal spray 3 Bottle 3 Sig: Use 2 Sprays in each nostril twice daily. VILMA: No famotidine (PEPCID) 40 mg tablet 90 tablet 3 Sig: Take 1 tablet by mouth at bedtime as needed. VILMA: No sucralfate (CARAFATE) 1 gram tablet 180 tablet 1 Sig: Take 1 tablet by mouth twice daily. F/u with Saundra in 5-6 weeks for nausea. If not improved with the addition of the Carafate would proceed with GI consult foe EGD. F/u 6 months WAE check A1c LFT's, PSA and FLP prior. Time with patient face to face was 25 min Carter Ballesteros MD CNOV Observed: 10/20/2017 Status: COMPLETED Source: [facility] 9:00 AM [facility] REPOSITORY [facility] FLAKITA CASTELLON ([id number]) 1960 M Date Time Provider Department 10/20/17 9:00 AM CARTER BALLESTEROS [facility] During your visit today, we recorded the following information about you: Pulse Respiration Blood pressure Weight 88/minute 24/minute 126/88 149.7 kg Height 1.702 m Carter Ballesteros MD 10/20/2017 6:42 PM Signed Chief Complaint Patient presents with: Recheck: 6 months HPI Flakita Castellon is a 57 year old male who presents here today for Chronic Medical Conditions.. Patient with hx as reviewed and documented below. Patient doing ok but doses note on a fairly regular basis that with position changes he does get dizzy and sometimes has to sit back down till resolves. Not realy getting a lot of swelling in his legs. Has been noting fatigue. Has also been getting nausea and can be at any time during the day. Taking his pepcid 40 mg QHS and does not get any GERD like symptoms. The nausea can be made worse with certain smells. Sometimes will have dry heaves. Denies any RUQ pain or pain brought on with certain foods. Sometimes not hungry due to feeling bloated. Past medical history, appointments, medications, allergies reviewed. Previous Medical History PAST MEDICAL HISTORY Diagnosis Date - Acute gastritis without mention of hemorrhage 07/24/2009 - Benign neoplasm of colon - Essential hypertension 05/01/2015 - GERD without esophagitis 11/15/2005 - Headache(784.0) 01/10/2008 Frontal SAAVEDRA, resolved when began Nasonex 2005 - Metabolic syndrome 12/05/2009 - Mixed hyperlipidemia 12/05/2009 - Morbid obesity due to excess calories (HCC) 08/06/2016 - COLEMAN (obstructive sleep apnea) 08/18/2014 - RLS (restless legs syndrome) 08/18/2014 - Snoring - Supraventricular premature beats PAC's - SVT (supraventricular tachycardia) ([facility]) 06/29/2014 - Symptomatic PVCs 11/15/2005 symptomatic PVC's - 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 - Type 2 diabetes mellitus without complication, without long- term current use of insulin ([facility]) - Type 2 diabetes mellitus without retinopathy ([facility]) 10/03/2015 - 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 - Vitreous floaters of both eyes 10/03/2015 Previous Surgical History PAST SURGICAL HISTORY Procedure Laterality Date - COLONOSCOP W/ OR W/O [facility] SPEC 07/24/2009 Colonoscopy - COLONOSCOP W/ OR W/O [facility] SPEC 12/07/2014 Colonoscopy, repeat 5 yrs - EGD W/O OR W/BRUSH/WASH 07/24/2009 EGD - FECAL OCCULT BLOOD TEST 02/06/2017 negative - PAST SURGICAL HISTORY OF 10/2008 heart cath done [facility] Family History FAMILY HISTORY Problem Relation Age of Onset - Arthritis Mother RA - Diabetes Mother - Heart Mother valve disease - No Ocular Disease No Family History Patient Allergies ALLERGIES Allergen Reactions - Lipitor [Atorvastat* Other: See Comments Elevated CK Current Medications Current Outpatient Prescriptions on File Prior to Visit: Fenofibrate (LOFIBRA) 54 mg tablet Take 1 tablet by mouth once daily. metFORMIN ER (GLUCOPHAGE XR) 500 mg 24 hr tablet Take 1 tablet by mouth daily with breakfast. metoprolol succinate ER (TOPROL XL) 50 mg 24 hr tablet Take 1 tablet by mouth once daily. fluticasone (FLONASE) 50 mcg/actuation nasal spray Use 2 Sprays in each nostril twice daily. CPAP Initiate CPAP @ CPAP 8cm H2O pressure with humidification and possible positional therapy. Mask (per patient preference) optional chin strap (if indicated) , filters, tubing, humidifier and lifetime supplies.DX: COLEMAN G47.33 aspirin, enteric coated 81 mg EC tablet Take 1 tablet by mouth once daily. Qfaniwtytqbtg-Clvtgamd-Wwrrgg (CENTRUM SILVER) Tab Take 1 tablet by mouth once daily. No current facility-administered medications on file prior to visit. 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 Points to area of hyoid pain and says he feels lumps at this location RESPIRATORY: Negative for cough, hemoptysis, wheezing, COPD, dyspnea or shortness of breath CARDIOVASCULAR: Negative for chest pain.hypertension, CHF or increased palpitations. See HPI regarding leg swelling GI: No vomiting, or diarrhea and No heartburn or reflux symptoms. See HPI : No history of dysuria or blood ENDOCRINE: may have a low BS's at times but typically due to forgetting to eat when busy. NEURO: No history of headaches, syncope, paralysis, seizures or tremors. See HPI regarding the dizziness. EXAM: BP 136/92 (BP Site: Right Arm, BP Position: Sitting, BP Cuff Size: Large Adult) Pulse 88 Resp 24 Ht 170.2 cm (5' 7ANDquot;) Wt (!) 149.7 kg (330 lb) BMI 51.69 kg/m2 BP 126/88 Pulse 88 Resp 24 Ht 170.2 cm (5' 7ANDquot;) Wt (!) 149.7 kg (330 lb) BMI 51.69 kg/m2 In office orthostatics were negative. General Appearance: Well appearing, alert, in no acute distress, well-hydrated, well nourished., Morbidly obese. Eyes: Anicteric sclera. Pupils are equally round and reactive to light. Extraocular movements are intact. . Oropharynx: Lips, mucosa, and tongue normal, teeth and gums normal, oropharynx normal. Neck: Supple, no adenopathy; thyroid symmetric, normal size, no bruits. Lungs: Lungs clear to auscultation. No wheezing, rhonchi, rales. Heart: RRR without murmur, gallop, or rubs. No ectopy. Abdomen: Normal abdominal exam, Abdomen soft. Has some mild discomfort with deep palpation to the LUQ. No guarding or rebound tenderness.. Bowel sounds normal. No masses, organomegaly. Extremities: No deformities, edema, skin discoloration. Musculoskeletal: Muscular strength intact, No joint swelling, deformity, or tenderness. Peripheral Pulses: Normal. Neurologic: Gait normal. Reflexes normal and symmetric. Sensation to light touch and crainal nerves 2-12 intact.. Health Maintenance List URINE ALBUMIN CREATININE RATIO due on 08/16/2017 HBA1C due on 11/26/2017 DIABETIC FOOT EXAM due on 12/19/2017 TETANUS due on 01/09/2018 LDL due on 07/10/2018 DILATED RETINAL EXAM due on 10/07/2018 COLORECTAL CANCER SCREENING,SEE MODIFIER due on 12/08/2019 PROSTATE CANCER SCREENING DISCUSSION Completed ONE PNEUMOVAX PRIOR TO AGE 63 Completed INFLUENZA Completed HEPATITIS C SCREENING Completed Data reviewed A/P ASSESSMENT/PLAN: 1. Type 2 diabetes mellitus without complication, without long-term current use of insulin (HCC) - ICD9: 250.00, ICD10: E11.9 (primary diagnosis) Will await labs - Continue current medications - Daily Asprin therapy recommended - BP goal of ANDlt;130/80 - LDL goal of ANDlt;100 2. Type 2 diabetes mellitus without retinopathy (HCC) - ICD9: 250.00, ICD10: E11.9 - As above 3. Essential hypertension - ICD9: 401.9, ICD10: I10 - good control - Continue current medication(s) - Recommended regular aerobic exercise. - Recommend home blood pressure monitoring, to bring results in on next visit - Discussed need and benefit for weight loss. - Goal of BP ANDlt;130/80 - Discussed did not want to decrease his metoprolol since his symptomatic palpitations may return. Discussed use of support socks to help mainntain good pressure with standing. 4. Mixed hyperlipidemia - ICD9: 272.2, ICD10: E78.2 - will await labs and make changes if needed. - Continue current medication. - Encouraged following a low fat, low cholesterol diet. - Discussed the benefits of regular aerobic exercise and weight loss. - Encouraged following a low carbohydrate, healthy oil intake diet. 5. GERD without esophagitis - ICD9: 530.81, ICD10: K21.9 - Continue treatment with pepcid 40 mg QHS - Will add Carafate twice ad ay and se if the nausea resolves. If not would proceed with GI consult for EGD. 6. Metabolic syndrome - ICD9: 277.7, ICD10: E88.81 - as above 7. SVT (supraventricular tachycardia) (HCC) - ICD9: 427.89, ICD10: I47.1 - Cont the metoprolol for this and BP control - In regards to the dizziness advised wearing some support socks at 10-20 mmHg to help reduce the dizziness with the position changes since the metoprolol is controlling the PVS' and symptoms he would get with it and his BP. 8. COLEMAN (obstructive sleep apnea) - ICD9: 327.23, ICD10: G47.33 - Patient wearing CPAP nightly and benefiting. 9. RLS (restless legs syndrome) - ICD9: 333.94, ICD10: G25.81 - Clinically stable. 10. Morbid obesity due to excess calories (HCC) - ICD9: 278.01, ICD10: E66.01 - Patient to work on weight loss. Signed Prescriptions Disp Refills fluticasone (FLONASE) 50 mcg/actuation nasal spray 3 Bottle 3 Sig: Use 2 Sprays in each nostril twice daily. VILMA: No famotidine (PEPCID) 40 mg tablet 90 tablet 3 Sig: Take 1 tablet by mouth at bedtime as needed. VILMA: No sucralfate (CARAFATE) 1 gram tablet 180 tablet 1 Sig: Take 1 tablet by mouth twice daily. F/u with Saundra in 5-6 weeks for nausea. If not improved with the addition of the Carafate would proceed with GI consult foe EGD. F/u 6 months WAE check A1c LFT's, PSA and FLP prior. Time with patient face to face was 25 min MD Carter Gale MD 10/20/2017 9:49 AM Signed Please get fasting labs on or after 04/09/2018 prior to next visit. [facility] getting Truform socks at 10 mm of mercury for support to wear to se if helps reduce the dizziness. Referring Provider: CARTER BALLESTEROS [[id number]] Allergies As of Date: 10/20/2017 Noted Allergy Reaction LIPITOR (ATORVASTATIN CALCIUM) 06/03/2017 14 - Other: See Comments Comments: Elevated CK Date Reviewed: 10/20/2017 Reviewed by: Carter Ballesteros - Fully Assessed Reason for Visit: Recheck [92] Cmt: 6 months Primary Visit Diagnosis:Type 2 diabetes mellitus without complication, without long-term current use of insulin (HCC) [E11.9] Other Visit Diagnoses:Type 2 diabetes mellitus without retinopathy (HCC) [E11.9] Essential hypertension [I10] Mixed hyperlipidemia [E78.2] GERD without esophagitis [K21.9] Metabolic syndrome [E88.81] SVT (supraventricular tachycardia) (HCC) [I47.1] COLEMAN (obstructive sleep apnea) [G47.33] RLS (restless legs syndrome) [G25.81] Morbid obesity due to excess calories ([facility]) [E66.01] Nausea [R11.0] Prostate cancer screening [Z12.5] Order(s):fluticasone (FLONASE) 50 mcg/actuation nasal sprayUse 2 Sprays in each nostril twice daily.Disp: 3 BottleRfl: 3 famotidine (PEPCID) 40 mg tabletTake 1 tablet by mouth at bedtime as needed.Disp: 90 tabletRfl: 3 sucralfate (CARAFATE) 1 gram tabletTake 1 tablet by mouth twice daily.Disp: 180 tabletRfl: 1 LIPID PANEL BASIC [SQLIPB] Order #: [id number] FUTURE HEPATIC FUNCTION PNL [SQHFP] Order #: [id number] FUTURE HGB A1C [ICZJI5A] Order #: [id number] FUTURE PSA/PROSTSPECAG DIAG [SQPSA] Order #: [id number] FUTURE Prescriptions as of 10/20/2017 Sig: FLUTICASONE 50 MCG/ACTUATION * Use 2 Sprays in each nostril * FENOFIBRATE 54 MG TABLET Take 1 tablet by mouth once d* METFORMIN ER 500 MG TABLET,EX* Take 1 tablet by mouth daily * METOPROLOL SUCCINATE ER 50 MG* Take 1 tablet by mouth once d* CPAP Initiate CPAP @ CPAP 8cm H2O * ASPIRIN 81 MG TABLET,DELAYED * Take 1 tablet by mouth once d* [id number]-[id number] * Take 1 tablet by mouth once d* FAMOTIDINE 40 MG TABLET Take 1 tablet by mouth at bed* SUCRALFATE 1 GRAM TABLET Take 1 tablet by mouth twice * Problem List As Of Date 10/20/2017 Noted Resolved Symptomatic PVCs [I49.3] INVALID FOR* Priority: B More... GERD without esophagitis [K21.9] INVALID FOR* Priority: A Family history of arthritis [Z82.61] INVALID FOR* Priority: F More... More... 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 RLS (restless legs syndrome) [G25.81] INVALID FOR* Priority: B Essential hypertension [I10] INVALID FOR* Priority: A Type 2 diabetes mellitus without complication, * Priority: A Type 2 diabetes mellitus without retinopathy (H*INVALID FOR* Priority: A Vitreous floaters of both eyes [H43.393] INVALID FOR* Priority: G Morbid obesity due to excess calories (HCC) [E6*INVALID FOR* Priority: B Elevated CK [R74.8] INVALID FOR* Diabetic eye exam (HCC) [Z01.00, E11.9] INVALID FOR* Priority: A More... Well adult exam [Z00.00] INVALID FOR* Priority: E More... Prostate cancer screening [Z12.5] INVALID FOR* Colon cancer screening [Z12.11] INVALID FOR* Elevated LFTs [R79.89] INVALID FOR* Nausea [R11.0] INVALID FOR* More... Other instructions from your clinician: Please get fasting labs on or after 04/09/2018 prior to next visit. [facility] Truform socks at 10 mm of mercury for support to wear to se if helps reduce the dizziness. Prescriptions ordered this encounter Disp Refills Start End FLUTICASONE 50 MCG/ACTUATION NASAL S* 3 Jalen* 3 10/20/2017 Route: EACH NOSTRIL Sig: Use 2 Sprays in each nostril twice daily. FAMOTIDINE 40 MG TABLET 90 t* 3 10/20/2017 Class: Med Update Route: ORAL Sig: Take 1 tablet by mouth at bedtime as needed. SUCRALFATE 1 GRAM TABLET 180 * 1 10/20/2017 Route: ORAL Sig: Take 1 tablet by mouth twice daily. Medications Discontinued During This Encounter famotidine (PEPCID) 40 mg tablet 90 t* 3 12/19/2016 10/20/2017 Route: ORAL Sig: Take 1 tablet by mouth at bedtime as needed. Disc: Discontinued by Patient fluticasone (FLONASE) 50 mcg/actuati* 3 Jalen* 3 10/01/2015 10/20/2017 Route: EACH NOSTRIL Sig: Use 2 Sprays in each nostril twice daily. Disc: Reason for discontinue is not on file. Disposition: Return in about 6 months (around 04/21/2018) for complete PE. Follow-up and Disposition History Recorded Classic SmartForms filed during this visit: Extended Vitals Encounter Status:Closed by CARTER BALLESTEROS on 10/20/17 PROGRESS Observed: 10/07/2017 Status: COMPLETED Source: [place] 8:55 AM [facility] [place] REPOSITORY HNO ID: [id number] Author: Eze Archibald Service: (none) Author Type: Physician Type: Progress Notes Filed: 10/07/2017 8:57 AM Note Text: ASSESSMENT/PLAN: 1. Type 2 diabetes mellitus without retinopathy (HCC) - ICD9: 250.00, ICD10: E11.9 (primary diagnosis) Please keep your blood sugar under good control to minimize risk of ocular complications from diabetes. 2. Vitreous floaters of both eyes - ICD9: 379.24, ICD10: H43.393 Stable / observe. Patient was instructed to call the office ([phone]) immediately upon noticing flashes of light, increase in floaters, or changes in vision. 3. Essential hypertension - ICD9: 401.9, ICD10: I10 Manage care with primary care physician. Return to office in 1 year for dilated fundus exam. Eze Archibald MD I have confirmed and edited as necessary the relevant ophthalmic history, review of systems, surgical history, and ophthalmological examination findings as obtained by the ophthalmic technical staff. I have seen and examined Flakita Bhatti Ravinder. I have discussed the examination findings, diagnosis, and treatment options with Flakita Bhatti Ravinder and/or his family. I have also reviewed and agree with the assessment and plan as stated above and agree with all its relevant components. I gave the patient the opportunity to ask questions about the findings, diagnosis, and treatment options. CNPTOUTREACH Observed: 10/06/2017 Status: COMPLETED Source: [place] 12:00 AM [facility] REPOSIT[facility] Patient Outreach (FAMPST) RAVINDERFLAKITA Bhatti ([id number]) 1960 M Date Time Provider Department 10/06/17 CARTER BALLESTEROSPST During your visit today, we recorded the following information about you: Allergies As of Date: 10/06/2017 Noted Allergy Reaction LIPITOR (ATORVASTATIN CALCIUM) 06/03/2017 14 - Other: See Comments Comments: Elevated CK Date Reviewed: 04/21/2017 Reviewed by: Carter Ballesteros - Fully Assessed Primary Visit Diagnosis:Mixed hyperlipidemia [E78.2] Other Visit Diagnoses:Medication management [Z79.899] Essential hypertension [I10] Type 2 diabetes mellitus without complication, without long-term current use of insulin (HCC) [E11.9] Type 2 diabetes mellitus without retinopathy (HCC) [E11.9] Order(s):ALBUMIN/CREAT RATIO RND UR [SQUACR] Order #: [id number] FUTURE COMP METABOLIC PANEL [SQCMP] Order #: [id number] FUTURE HGB A1C [CXEVL9U] Order #: [id number] FUTURE LIPID PANEL BASIC [SQLIPB] Order #: [id number] FUTURE URINALYSIS WITH MICROSCOPIC [SQUAWMIC] Order #: [id number] FUTURE Prescriptions as of 10/06/2017 Sig: X FENOFIBRATE 54 MG TABLET Take 1 tablet by mouth once d* X FAMOTIDINE 40 MG TABLET Take 1 tablet by mouth at bed* X METFORMIN ER 500 MG TABLET,EX* Take 1 tablet by mouth daily * X METOPROLOL SUCCINATE ER 50 MG* Take 1 tablet by mouth once d* X FLUTICASONE 50 MCG/ACTUATION * Use 2 Sprays in each nostril * CPAP Initiate CPAP @ CPAP 8cm H2O * ASPIRIN 81 MG TABLET,DELAYED * Take 1 tablet by mouth once d* [id number]-NFXSAC * Take 1 tablet by mouth once d* Problem List As Of Date 10/06/2017 Noted Resolved Symptomatic PVCs [I49.3] INVALID FOR* Priority: B More... GERD without esophagitis [K21.9] INVALID FOR* Priority: A Family history of arthritis [Z82.61] INVALID FOR* Priority: F More... More... 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 RLS (restless legs syndrome) [G25.81] INVALID FOR* Priority: B Essential hypertension [I10] INVALID FOR* Priority: A Type 2 diabetes mellitus without complication, * Priority: A Type 2 diabetes mellitus without retinopathy (H*INVALID FOR* Priority: A Vitreous floaters of both eyes [H43.393] INVALID FOR* Priority: G Morbid obesity due to excess calories (HCC) [E6*INVALID FOR* Priority: B Elevated CK [R74.8] INVALID FOR* Diabetic eye exam (HCC) [Z01.00, E11.9] INVALID FOR* Priority: A More... Well adult exam [Z00.00] INVALID FOR* Priority: E More... Prostate cancer screening [Z12.5] INVALID FOR* Colon cancer screening [Z12.11] INVALID FOR* Elevated LFTs [R94.5] INVALID FOR* Encounter Status:Closed by Booster, PRODUSER on 04/30/18 ALLERGIES ALLERGIES DATE TYPE / CODE NAME / CODE REACTION SEVERITY SOURCE 08/08/2018 Drug No Known Unknown Nela Allergy/416 Allergies/[id number] [facility] [id number]([facility](RXNORM) [facility] ED CT) Repository 03/08/2018 DRUG IBUPROFEN GI UPSET [facility] INGREDI/419 [facility] 925252(SN Repository ED CT) 03/08/2018 DRUG [facility]OFEN [facility] 705295(SNOM Repository ED CT) 06/03/2017 DRUG ATORVASTATIN OTHER: SEE C [facility] INGREDI/419 CALCIUM [facility] [place] 390066(SNOM Repository ED CT) 06/03/2017 DRUG ATORVASTATIN OTHER: SEE [facility] INGREDI/419 CALCIUM [facility] [place] 545868(SNOM Repository ED CT) ENCOUNTERS ENCOUNTERS ADMIT/DISCHARGE ACCOUNT ADMITTING ENCOUNTER LOCATION SOURCE NUMBER CLASS 08/08/2018/08/09/19 [id number] [place] [place] [facility] [address] ing:PCURoom: Repository [id number]: 1 08/08/2018 [id number] [place] [place] [facility] BMSBuilding:Marianne Rondon MS.[facility] Repository 08/08/2018 [id number] [place] [place] Amb[facility] BMSBuilding:Marianne Rondon MS.[facility] Repository 08/08/2018 [id number] [place] [place] Amb[facility] BMSBuilding:Marianne Rondon MS.[facility] Repository 08/05/2018/08/06/19 [id number] Ambulatory [address] Repository 07/26/2018/07/27/19 [id number] [facility] Amb[facility] [address] ing:PCURoom: Repository [id number]: 1 07/26/2018 [id number] [facility] Ambulatory BMSBuilding:Marianne Rondon MS.[facility] Repository 07/26/2018 [id number] [facility] Ambulatory BMSBuilding:Marianne Rondon MS.CF.[facility] Repository 07/26/2018 [id number] [facility] Ambulatory BMSBuilding:Marianne Rondon MS.[facility] Repository 07/26/2018 [id number] Ambulatory BMSBuilding:Freddy Rondon [facility] Repository 07/15/2018/07/22/19 [id number] Ambulatory [address] Repository 07/15/2018/07/16/20 [id number] Ambulatory [address] Repository 07/01/2018/07/01/20 [id number] Ambulatory [address] [place] Repository 06/30/2018/06/30/20 [id number] Ambulatory [address] Repository 05/05/2018/05/06/20 [id number] Ambulatory [facility] [place] Repository 04/28/2018/04/29/20 [id number] Ambulatory [facility] [place] Repository 04/26/2018/04/26/20 [id number] Ambulatory [facility] [place] Repository 03/08/2018/03/08/20 [id number] Ambulatory [facility] [place] Repository 02/22/2018/02/24/20 [id number] Ambulatory [facility] [place] Repository 02/08/2018/02/10/20 [id number] Ambulatory [facility] [place] Repository 01/18/2018/01/19/20 [id number] Ambulatory [facility] [place] Repository 01/18/2018/01/19/20 [id number] Ambulatory [facility] [place] Repository 01/04/2018/01/05/20 [id number] [facility] Main [place] Repository 12/28/2017/12/31/19 [id number] Ambulatory [facility] [place] Repository 12/23/2017/12/24/19 [id number] Ambulatory [facility] [place] Repository 12/11/2017/12/16/19 [id number] Ambulatory [facility] [place] Repository 12/10/2017/12/16/19 [id number] Ambulatory [facility] [place] Repository 11/24/2017/11/26/19 [id number] Ambulatory [facility] [place] Repository 10/20/2017/10/21/19 [id number] Ambulatory [facility] [place] Repository 10/20/2017/10/22/19 [id number] Ambulatory [facility] [place] Repository 10/07/2017/10/09/19 [id number] Ambulatory [facility] [address] [place] Repository PAYERS PAYERS ENCOUNTER GUARANTOR PAYER SUBSCRIBER SOURCE 08/08/2018 FLAKITA [id number] [place] [facility] [id number] [address]Iyv: (330) Number: Repository [phone] [id number] Date:[id number] [address] [place] [id number]: 08/08/2018 Secondary NOT GIVENUNK Nela Insurance:SELF PAY [facility] Number: Effective Repository Date:2018-08-08 08/08/2018 FLAKITA Bhatti Primary FLAKITA Rondon [id number] [place] Insurance:MEDICAL JAMESDOB: [facility] [id number] [address]Ktf: (330) Number: Repository [phone] () [id number] Date:3649-16-20FR [address] [address]VN: 08/08/2018 Secondary NOT GIVENUNK Nela Insurance:SELF PAY [facility] Number: Effective Repository Date:2018-08-08 08/08/2018 FLAKITA Bhatti Primary FLAKITA Rondon [id number] [place] Insurance:MEDICAL JAMESDOB: [facility] [id number] [id number]: [phone]) Number: Repository [phone] () [id number] Date:4216-18-89SA [address] [address]MF: 08/08/2018 Secondary NOT GIVENUNK [place] Insurance:SELF PAY [facility] Number: Effective Repository Date:2018-08-08 08/08/2018 FLAKITA Bhatti Primary FLAKITA Rondon [id number] [place] Insurance:MEDICAL JAMESDOB: [facility] [id number] [phone]: (330) Number: Repository [phone] () [id number] Date:[id number] [address] [address]JV: 08/08/2018 Secondary NOT GIVENUNK [place] Insurance:SELF PAY [facility] Number: Effective Repository Date:2018-08-08 07/26/2018 FLAKITA Bhatti Primary FLAKITA Rondon [id number] [place] Insurance:MEDICAL JAMESDOB: [facility] [id number] [phone]: (330) Number: Repository [phone] () [id number] Date:[id number] [address] [address]ZH: 07/26/2018 Secondary NOT GIVENUNK [place] Insurance:SELF PAY [facility] Number: Effective Repository Date:2018-07-26 07/26/2018 FLAKITA Bhatti Primary FLAKITA Rondon [id number] [place] Insurance:MEDICAL JAMESDOB: [facility] [id number] Hospital [address]Wmz: (330) Number: Repository [phone] () [id number] Date:[id number] [place] [id number]: 07/26/2018 Secondary NOT GIVENUNK Nela Insurance:SELF PAY [facility] Number: Effective Repository Date:2018-07-26 07/26/2018 FLAKITA W Primary FLAKITA [place] [id number] [place] Insurance:MEDICAL JAMESDOB: [facility] [id number] [address]Viy: [phone]) Number: Repository [phone] () [id number] Date:5646-26-69[place] [id number]: 07/26/2018 Secondary NOT GIVENUNK Nela Insurance:SELF PAY [facility] Number: Effective Repository Date:2018-07-26 07/26/2018 FLAKITA W Primary FLAKITA Rondon [id number] [place] Insurance:MEDICAL JAMESDOB: [facility] [id number] [address]Nzi: [phone]) Number: Repository [phone] () [id number] Date:5753-12-15WX [address] [phone]: 07/26/2018 Secondary NOT GIVENUNK Nela Insurance:SELF PAY [facility] Number: Effective Repository Date:2018-07-26 07/26/2018 FLAKITA W Primary FLAKITA Rondon [id number] [place] Insurance:MEDICAL JAMESDOB: [facility] [id number] [address]Czk: [phone]) Number: Repository [phone] () [id number] Date:0119-71-98KM [address] [place] [id number]: 07/26/2018 Secondary NOT GIVENUNK Nela Insurance:SELF PAY [facility] Number: Effective Repository Date:2018-07-26
== END 2018-08-09 12:26 | disposition home or self-care (01) ==
LOC: ED 14:01 → PCU 08-09 06:40
PROVIDERS: Admitting Provider Internal Medicine; Emergency Provider Emergency Medicine; Family Provider Family Medicine; PCP Family Medicine; Visit Provider Internal Medicine
DX: I48.0 Paroxysmal atrial fibrillation (principal); E86.0 Dehydration; I10 Essential (primary) hypertension; E11.9 Type 2 diabetes mellitus without complications; E78.5 Hyperlipidemia, unspecified; G47.33 Obstructive sleep apnea (adult) (pediatric); E66.01 Morbid (severe) obesity due to excess calories; Z68.43 Body mass index [BMI] 50.0-59.9, adult; Z79.84 Long term (current) use of oral hypoglycemic drugs; Z79.899 Other long term (current) drug therapy; Z79.51 Long term (current) use of inhaled steroids; Z71.3 Dietary counseling and surveillance
CPT/HCPCS: 36415; 71045; 80048; 80061; 82962; 83036; 83735; 83880; 84484; 85025; 85610; 85730; 93005; 96361; 96365; 96366; 96375; 99218; 99283; J7030; A4216; G0378

== ENCOUNTER → 2018-09-06 06:17 | Outpatient (CLI) | payer OTHER, SELFPAY ==
[2018-08-27 09:28] VITALS: BMI 49.9
--- NOTE | 2018-09-06 15:54 | STRESSREP ---
Stress Test Report Pharmacologic myocardial perfusion stress test. 58-year-old man with a history of paroxysmal atrial fibrillation. Medications: Tylenol flecainide metoprolol. Stress protocol: Resting EKG demonstrates normal sinus rhythm with a rate of 63 bpm and 50 over 90 mmHg. 0.4 mg of regadenoson was infused per usual protocol followed by rapid intravenous saline flush injection continuous EKG monitoring was performed. The patient maintained sinus rhythm throughout the recording. The maximum heart rate attained was 78 bpm which was 48% of maximum predicted heart rate the maximum workload was 1 metabolic equivalent. At rest there were no ST or T wave changes noted suggest abnormal flow reserve at peak infusion no ST or T wave changes were noted suggest abnormal flow reserve. The resting blood pressure 130/90 with a peak blood pressure 140/94 mmHg. Myocardial perfusion protocol. 15.0 mCi of technetium 99m sestamibi was injected at rest. 0.4 mg of regadenoson was infused per usual protocol. At peak infusion 45.0 mCi of technetium 99m sestamibi was injected stress images were obtained stress and rest images were reconstructed and compared in the short axis vertical and horizontal long axis. Gated images were also obtained next Perfusion SPECT analysis: Review of the stress images demonstrate normal uptake of tracer noted in all areas of the myocardium. The resting images similarly demonstrate normal uptake of tracer noted in all areas of the myocardium. No areas of reversibility are noted suggest ischemia no previous infarct is noted. Gated SPECT analysis: The gated ejection fraction is noted to be 60%. Conclusion: Normal pharmacologic myocardial perfusion stress test. Preserved ejection fraction. Sinus rhythm noted.
== END ==
PROVIDERS: Family Provider Family Medicine; PCP Family Medicine; Referring Provider Internal Medicine Cardiovascular Disease; Visit Provider Internal Medicine Cardiovascular Disease
DX: I48.0 Paroxysmal atrial fibrillation (principal)
CPT/HCPCS: 78452; 93017; A9500; A4216; J2785

== ENCOUNTER 2018-10-01 21:28 | Emergency (ER) | payer OTHER, SELFPAY ==
[2018-08-27 09:28] VITALS: BMI 49.9
[2018-10-01 21:29] VITALS: BP 149/82; PULSE 90; RESP 16; TEMP 36.8; O2SAT 96; BMI 50.7
--- NOTE | 2018-10-01 22:24 | EKG12_ITS ---
Test Reason : PALPITATIONS Blood Pressure : / mmHG Vent. Rate : 113 BPM Atrial Rate : 074 BPM P-R Int : 000 ms QRS Dur : 104 ms QT Int : 342 ms P-R-T Axes : 000 124 -23 degrees QTc Int : 469 ms Atrial fibrillation with rapid ventricular response Left posterior fascicular block Possible Inferior infarct , age undetermined Abnormal ECG Confirmed by KRISTAN RODRIGUEZ ([id number]), multimedia editor SHOAIB GALEANA ([id number]) on 10/04/2018 4:29:52 PM Referred By: CHRYSTAL/DANNY Confirmed By:KRISTAN RODRIGUEZ
[2018-10-01 22:29] VITALS: BP 115/70; PULSE 124; RESP 12; O2SAT 95
--- NOTE | 2018-10-01 22:29 | ED.DCSUM_ITS ---
- ER Visit Summary Date of Service: 10/01/18 Chief Complaint: Atrial fibrillation History of Present Illness: The patient is a 58 M who presents with atrial fibrillation that began approximately 3-1/2 hours prior to arrival. Patient states he was sitting down when he felt his heart start beating irregularly. Patient states he feels like it is racing. Patient states he feels that over the left parasternal area. Patient states nothing makes it better or worse. Patient denies any nausea or vomiting. Patient denies any shortness of breath. Patient admits to some diaphoresis. Patient denies any cough or fevers. Patient states she has a history of paroxysmal atrial fibrillation. Patient states she has been well controlled on flecainide. Patient also takes Eliquis. Physical Examination: Vital signs are stable. Patient is afebrile. Patient is in no acute distress. Oral mucosa is pink and moist. Neck is supple. Trachea is midline. There is no JVD noted. Heart was irregularly irregular. Lungs are clear and equal bilateral. Abdomen is soft. Bowel sounds are normal. There is no tenderness. There is no guarding noted. Cranial nerves II through XII are intact. There are no focal motor or sensory deficits noted. Test Results: EKG showed atrial fibrillation with a rate of 113. There are no acute ST or T wave changes. CBC, basic metabolic profile, troponin were obtained and were all normal. Emergency Department Course and Treatment: Patient was given a dose of Cardizem here. Patient remained in atrial fibrillation. Patient was agreeable to cardioversion. Cardioversion was attempted by Dr. Walton with 200 J of synchronized cardioversion. This was unsuccessful. Patient remained in atrial fibrillation. Case was discussed with Dr. Diez who is covering for Dr. Flood. He recommended doubling the metoprolol. He is agreeable with the patient going home and following up in the office. Patient understood and was agreeable with the plan. All questions were answered. Disposition: Discharge home Impression: Atrial fibrillation This note was generated with [email or web address] dictation software. It may contain incorrect words, spelling, and punctuation that were not noted in review of the chart prior to signing ED Disposition - Plan for ED Patient: Disposition: Home or Assisted Living Diagnosis: Atrial fibrillation with controlled ventricular rate Instructions: ED Afib Referrals: Carter Nicole MD [Primary Care Provider] - Guicho Flood MD [STAFF PHYSICIAN] - 3-5 Days Additional Instructions: Increase your metoprolol to 50 mg twice daily. Follow-up with Dr. Flood in the office next week. Return if any worsening symptoms.
[2018-10-01] MEDS: dilTIAZem 25 MG/5 ML Vial IV BOLUS (22:32)
[2018-10-01 22:46] LABS: Absolute Lymphocyte Count 3.16 X10^3/ul (0.83-4.51); Basophil# 0.02 X10^3/uL; Basophil% 0.2 % (0-1); Eosinophil# 0.16 X10^3/uL; Eosinophils% 1.6 % (0-5); Hematocrit 44.2 % (40-54); Hemoglobin 14.9 g/dl (13.0-16.5); Lymphocyte # 3.16 X10^3/ul (4.0); Lymphocyte % 31.8 % (19-41); Mean Corp Hgb Conc 33.7 g/gl (32-36); Mean Corpuscular Hgb 29.4 pg (27.0-32.0); Mean Corpuscular Volume 87.2 fL (80-94); Mean Platelet Vol. 10.8 fl (6.2-12.0); Monocyte# 0.62 X10^3/uL; Monocyte% 6.2 % (0-10); Neutrophil # 5.95 X10^3/uL (2.7-7.7); Neutrophil % 59.8 % (47-70); Platelet Count 261 K/mm3 (150-450); RBC Distribution Width SD 44.3 fl (35.1-43.9); Red Blood Count 5.07 M/mm3 (4.6-6.2)
[2018-10-01 22:47] LABS: POSITIVE COUNT NO; POSITIVE DIFFERENTIAL NO; POSITIVE MORPHOLOGY NO
[2018-10-01 23:00] VITALS: BP 117/77; PULSE 86; RESP 17; O2SAT 96
[2018-10-01 23:00] LABS: Anion Gap 5 (5-15); BUN 17 mg/dL (7-18); BUN/Creat Ratio 12.7 RATIO (10-20); Chloride 108 mmol/L (98-107); Creatinine, Serum 1.34 mg/dL (0.70-1.30); EST Glomerular Filtration Rate 58 mL/min (>60); Est Glom Filt Rate - Afr Amer 70 mL/min (>60); Estimated Creatinine Clearance 54.81 ml/min; Glucose 202 mg/dL (74-106); Potassium 4.1 mmol/L (3.5-5.1); Sodium Level 138 mmol/L (136-145)
[2018-10-02 00:03] VITALS: BP 119/89; PULSE 91; RESP 18; O2SAT 97
[2018-10-02 00:11] VITALS: BP 104/71; BP 105/72; BP 119/89; BP 126/74; PULSE 106; PULSE 91; PULSE 94; PULSE 99; RESP 16; RESP 18; RESP 30; O2SAT 93; O2SAT 95; O2SAT 97
[2018-10-02] MEDS: Propofol 200 MG/20 ML Vial IV BOLUS (00:11)
--- NOTE | 2018-10-02 00:14 | ED.VISSUMM ---
- ER Visit Summary Date of Service: 10/02/18 Chief Complaint: Palpitations that started at approximately 1800. History of Present Illness: The patient is a 58 M with history of H fibrillation, diabetes, hypertension hypercholesterolemia. He presents because of palpitations and concern he is in atrial fibrillation. He does have history of obstructive sleep apnea. States is compliant with his CPAP mask. He reports no complications with IV anesthetics in the past. He denies allergy to egg and soy products. He has not had anything to eat or drink since 0. Physical Examination: Vital signs noted. Alert and oriented x3. HEENT exam is unremarkable with a Mellin Kristina score of 2. Trach is midline. There is no stridor. Heart is irregularly regular. Lungs are clear to auscultation. Test Results: EKG reveals atrial fibrillation with a ventricular response of 113 and evidence of a left posterior fascicular block. Blood work was reviewed. Emergency Department Course and Treatment: Patient was consented for deep sedation using propofol and cardioversion. Patient was given opportunity ask questions. He was explained risk benefits. No questions were asked. Treatment Plan: Patient received a total of 100 mg of propofol IV push. Cardioversion was unsuccessful. Patient remains in atrial fibrillation. Disposition: Per Dr. Sharad Oviedo Impression: 1. Paroxysmal H fibrillation 2. Deep procedural sedation with propofol total time 4 minutes 3. Unsuccessful cardioversion This note was generated with [employer] dictation software. It may contain incorrect words, spelling, and punctuation that were not noted in review of the chart prior to signing ED Disposition - Plan for ED Patient: Referrals: Carter Nicole MD [Primary Care Provider] -
[2018-10-02 00:19] VITALS: BP 104/71; PULSE 99; RESP 16; O2SAT 97
[2018-10-02 00:24] VITALS: BP 105/72; PULSE 87; RESP 18; O2SAT 95
[2018-10-02 00:29] VITALS: BP 108/74; O2SAT 95
--- NOTE | 2018-10-02 01:06 | ED.VISSUMM ---
- ER Visit Summary Date of Service: 10/02/18 Chief Complaint: [] History of Present Illness: The patient is a 58 M [] Physical Examination: [] Test Results: [] Emergency Department Course and Treatment: [] Treatment Plan: [] Disposition: [] Impression: [] This note was generated with mPATHation software. It may contain incorrect words, spelling, and punctuation that were not noted in review of the chart prior to signing ED Disposition - Plan for ED Patient: Disposition: Home or Assisted Living Diagnosis: Atrial fibrillation with controlled ventricular rate Instructions: ED Afib Referrals: Guicho Flood MD [STAFF PHYSICIAN] - 3-5 Days Carter Nicole MD [Primary Care Provider] - Additional Instructions: Increase your metoprolol to 50 mg twice daily. Follow-up with Dr. Flood in the office next week. Return if any worsening symptoms.
[2018-10-02 01:09] VITALS: BP 112/69; PULSE 95; RESP 14; O2SAT 96
--- NOTE | 2018-10-02 01:09 | ED.DCSUM_ITS ---
- ER Visit Summary Date of Service: 10/02/18 Chief Complaint: [] History of Present Illness: The patient is a 58 M [] Physical Examination: [] Test Results: [] Emergency Department Course and Treatment: [] Treatment Plan: [] Disposition: [] Impression: [] This note was generated with Peaberry Softwareation software. It may contain incorrect words, spelling, and punctuation that were not noted in review of the chart prior to signing ED Disposition - Plan for ED Patient: Disposition: Home or Assisted Living Diagnosis: Atrial fibrillation with controlled ventricular rate Instructions: ED Afib Referrals: Guicho Flood MD [STAFF PHYSICIAN] - 3-5 Days Carter Nicole MD [Primary Care Provider] - Additional Instructions: Increase your metoprolol to 50 mg twice daily. Follow-up with Dr. Flood in the office next week. Return if any worsening symptoms.
== END 2018-10-02 01:15 | disposition home or self-care (01) ==
PROVIDERS: Emergency Provider Emergency Medicine; Family Provider Family Medicine; PCP Family Medicine
DX: I48.0 Paroxysmal atrial fibrillation (principal); I44.5 Left posterior fascicular block; I10 Essential (primary) hypertension; E78.00 Pure hypercholesterolemia, unspecified; E11.9 Type 2 diabetes mellitus without complications; E66.9 Obesity, unspecified; G47.33 Obstructive sleep apnea (adult) (pediatric); Z79.01 Long term (current) use of anticoagulants; Z79.84 Long term (current) use of oral hypoglycemic drugs; Z79.899 Other long term (current) drug therapy
CPT/HCPCS: 80048; 84484; 85025; 92960; 93005; 99284; J7030; A4216

== ENCOUNTER → 2019-01-19 08:40 | Outpatient (CLI) | payer OTHER, SELFPAY ==
[2019-01-07 15:23] VITALS: BMI 51.3
--- NOTE | 2019-01-19 08:41 | CDU_ITS ---
Reason For Study: vertigo Rt. Velocities/BP Lt. Velocities/BP Prox CCA 94.3/23.9 cm/sec. Prox CCA 124.4/24.9 cm/sec. Mid CCA 102.1/30.4 cm/sec. Mid CCA 115.8/22.5 cm/sec. Dist CCA 79.9/22.6 cm/sec. Dist CCA 88.8/24.9 cm/sec. Prox ICA 77.3/14.7 cm/sec. Prox ICA 95.5/24.3 cm/sec. Mid ICA 79.9/17.3 cm/sec. Mid ICA 75.4/24.3 cm/sec. Dist ICA 76.0/20.0 cm/sec. Dist ICA 70.0/29.8 cm/sec. Rt. ICA/CCA = .8. Lt. ICA/CCA = .8. Prox ECA 130.8/18.6 cm/sec. Prox ECA 183.2/18.8 cm/sec. Rt. Vert. 32.2/9.1 cm/sec. Lt. Vert. 48.7/13.5 cm/sec. Right Extracranial There is intimal thickening but no significant atherosclerotic plaque noted in the right common carotid artery. There is homogeneous, smooth atherosclerotic plaque noted in the right internal carotid artery. There is intimal thickening but no significant atherosclerotic plaque noted in the right external carotid artery. Antegrade flow is noted in the right vertebral artery. Left Extracranial There is intimal thickening but no significant atherosclerotic plaque noted in the left common carotid artery. There is heterogeneous, irregular atherosclerotic plaque noted in the left internal carotid artery. There is intimal thickening but no significant atherosclerotic plaque noted in the left external carotid artery. Antegrade flow is noted in the left vertebral artery. Procedure Carotid Duplex [id number]. The exam was diagnostic. Exam performed in department. Interpretation Summary No hemodynamically significant plague or stenosis bilateral extracranial internal carotids with <50% stenosis bilateral internal carotids <50% stenosis bilateral external carotids Patent and antegrade vertebrals bilaterally Ordering Physician: Jos Martinez Performed By: Julio Croft RVT
== END ==
PROVIDERS: Family Provider Family Medicine; PCP Family Medicine; Referring Provider Nurse Practitioner Family; Visit Provider Nurse Practitioner Family
DX: I65.22 Occlusion and stenosis of left carotid artery (principal); R42 Dizziness and giddiness
CPT/HCPCS: 93880

== ENCOUNTER 2019-03-23 06:49 | Emergency (ER) | payer OTHER, SELFPAY ==
[2019-01-07 15:23] VITALS: BMI 51.3
[2019-03-23 06:51] VITALS: BP 115/78; PULSE 74; RESP 13; TEMP 36.7; O2SAT 96; BMI 50.7
--- NOTE | 2019-03-23 07:10 | EKG12_ITS ---
Test Reason : CP Blood Pressure : / mmHG Vent. Rate : 069 BPM Atrial Rate : 069 BPM P-R Int : 170 ms QRS Dur : 098 ms QT Int : 436 ms P-R-T Axes : 063 012 037 degrees QTc Int : 467 ms Normal sinus rhythm Normal ECG Confirmed by KRISTAN RODRIGUEZ ([id number]), editorial writer ANIBAL SEXTON ([id number]) on 03/28/2019 2:50:42 PM Referred By: ANDI Confirmed By:KRISTAN RODRIGUEZ
--- NOTE | 2019-03-23 07:11 | RAD_ITS ---
STUDY: X-RAY CHEST REASON FOR EXAM: Male, 58 years old. Atrial fibrillation. TECHNIQUE: PA and lateral views of the chest. COMPARISON: Comparison is made with prior study dated August 08, 2018. FINDINGS: EKG electrodes are seen. There is elevation of the right hemidiaphragm. There is no demonstrated pleural abnormality. There is borderline cardiomegaly. Normal mediastinum and bonnie. Normal visualized pulmonary arteries. Normal visualized aortic arch and descending thoracic aorta. There are diffuse degenerative changes of the visualized thoracic spine. Normal visualized ribs, clavicles, and shoulders. There is no demonstrated abnormality of the visualized soft tissue structures of the upper abdomen. RAD/Chest PA and Lateral IMPRESSION: Borderline cardiomegaly. No acute abnormality is seen Electronically Signed: Luis A Romeo, at 8:24 EDT , Service support ,
--- NOTE | 2019-03-23 07:13 | ED.VIS.GEN ---
History of Present Illness Chief Complaint: Chest Pain Narrative: Patient presenting for evaluation due to an episode of atrial fibrillation. Patient has an underlying history of paroxysmal A. fib that is controlled with flecainide. Patient is anticoagulated with Eliquis. Patient states that over the course of the last 6 months he really has been well controlled, but at about midnight he flipped into A. fib with rapid ventricular rate. He reports that he took an extra dose of his flecainide last night, and then took his normal doses of his medications this morning, and just prior to arrival to the emergency department feels as if he converted. He denies recent illness such as fever cough nausea vomiting diarrhea. No changes in his medication dosages. No real chest pain associated with this. Review of systems otherwise negative. Past Medical History - Allergies and Home Meds Allergies/Adverse Reactions: Allergies ibuprofen Adverse Reaction (Verified 03/23/19 06:56) GI Upset Primary Care Physician: Carter Nicole MD [Primary Care Provider] - Past Medical History: - - A. fib Surgical History: no surgical history Smoking Status: Never smoker - Family History Maternal Family History: Family History (Last Reviewed 10/20/18 @ 13:41 by Guicho Flood MD) Mother Heart disease Family History: Reports: Heart Disease - CHF Paternal Family History: Family History (Last Reviewed 10/20/18 @ 13:41 by Guicho Flood MD) Mother Heart disease Family History: Reports: No pertinent history Review of Systems All systems negative except as indicated Cardiovascular: Reports: Palpitations Physical Exam Vital Signs/Narrative: Vital Signs Temp Pulse Resp BP Pulse Ox 03/23/19 06:51 98.0 F 74 13 115/78 96 Inital Vital Signs reviewed: Yes General: Well nourished, Well developed, No Acute Distress Head: Normocephalic, Atraumatic Eyes: Perrl, EOMI ENT: Moist mucous membranes, No rhinorrhea Neck: Supple, Nontender Cardiovascular: Regular rate, Regular rhythm, No murmurs Respiratory: No distress, CTA bilaterally, Chest nontender Abdomen: Soft, Nontender, Nondistended, Normal bowel sounds Back: Nontender, Normal Inspection Extremities: Nontender, No edema Skin: Normal color, No rash Neurological: Alert, Oriented x3, Cranial nerves II-XII grossly intact, Normal Strength, Normal Sensation Psychological: Normal affect, Normal Mood Diagnostic/Tx/Re-eval Chest X-Ray - ED: - - PA and lateral chest x-ray by my personal interpretation as well as radiology is found to be negative for acute process - EKG Initial EKG Interpretation: - - Normal sinus rhythm with rate of [address] segments normal T waves normal OR and QTc intervals no evidence of acute ischemia or arrhythmia - Medical Decision Making Patient presented for evaluation secondary to palpitations. Upon arrival the patient was noted to be in a normal sinus rhythm. Work-up for cardiac strain or other etiology was obtained. CBC chemistry troponin were found to be unremarkable. Chest x-ray unremarkable. EKG was normal. Patient did not have any episodes of A. fib on telemetry monitoring. 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 ED Disposition - Plan for ED Patient: Disposition: Home or Assisted Living Diagnosis: Paroxysmal atrial fibrillation Instructions: Atrial Fibrillation Referrals: Guicho Flood MD [STAFF PHYSICIAN] - (Call the office for followup)
[2019-03-23 07:22] VITALS: BP 109/66; PULSE 72; RESP 16; O2SAT 100
[2019-03-23 07:26] LABS: Absolute Lymphocyte Count 2.26 X10^3/uL (0.83-4.51); Absolute Neutrophil Count 4.2 X10^3/uL (2.0-7.7); Basophil# 0.05 X10^3/uL; Basophil% 0.7 % (0-1); Eosinophil# 0.17 X10^3/uL; Eosinophils% 2.3 % (0-5); Hematocrit 44.4 % (40-54); Hemoglobin 14.9 g/dL (13.0-16.5); Lymphocyte # 2.26 X10^3/ul (4.0); Lymphocyte % 30.8 % (19-41); Mean Corp Hgb Conc 33.6 g/dL (32-36); Mean Corpuscular Hgb 29.4 pg (27.0-32.0); Mean Corpuscular Volume 87.7 fL (80-94); Monocyte# 0.61 X10^3/uL; Monocyte% 8.3 % (0-10); NRBC Flagged by Analyzer 0 % (0-5); Neutrophil # 4.22 X10^3/uL (2.7-7.7); Neutrophil % 57.5 % (47-70); Platelet Count 240 K/mm3 (150-450); RBC Distribution Width CV 13.2 % (11.6-14.6); RBC Distribution Width SD 42.9 fl (35.1-43.9); Red Blood Count 5.06 M/mm3 (4.6-6.2); White Blood Count 7.3 K/mm3 (4.4-11.0)
[2019-03-23 07:49] LABS: Anion Gap 7 (5-15); BUN 14 mg/dL (7-18); BUN/Creat Ratio 12.1 RATIO (10-20); Calcium,Total 8.7 mg/dL (8.5-10.1); Chloride 109 mmol/L (98-107); Creatinine, Serum 1.16 mg/dL (0.70-1.30); EST Glomerular Filtration Rate 68 mL/min (>60); Est Glom Filt Rate - Afr Amer 82 mL/min (>60); Estimated Creatinine Clearance 63.31 ml/min; Glucose 174 mg/dL (74-106); Sodium Level 141 mmol/L (136-145)
[2019-03-23 07:57] LABS: International Normalized Ratio 1.3; Prothrombin Time (Protime)PT. 15.8 SECONDS (11.7-14.9)
[2019-03-23 08:11] LABS: Partial Thromboplast Time 27.7 Seconds (24.1-36.2)
[2019-03-23 09:20] VITALS: BP 121/81; PULSE 67; RESP 16; O2SAT 98
== END 2019-03-23 09:20 | disposition home or self-care (01) ==
PROVIDERS: Emergency Provider Emergency Medicine; Family Provider Family Medicine; PCP Family Medicine
DX: I48.0 Paroxysmal atrial fibrillation (principal); Z79.01 Long term (current) use of anticoagulants
CPT/HCPCS: 71046; 80048; 84484; 85025; 85610; 85730; 93005; 99284; A4216

== ENCOUNTER 2019-09-02 16:01 | Emergency (ER) | payer OTHER, SELFPAY ==
[2019-08-09 08:52] VITALS: BMI 52.0
[2019-09-02 16:02] VITALS: BP 150/108; PULSE 103; RESP 16; TEMP 36.6; O2SAT 97; BMI 51.9
[2019-09-02 16:35] VITALS: BP 140/90; PULSE 97; RESP 18; O2SAT 93
--- NOTE | 2019-09-02 16:48 | ED.DCSUM_ITS ---
History of Present Illness Chief Complaint: Laceration Detail of Chief Complaint: Right forehead laceration Informant: Patient Onset: Today Current Severity: Mild Maximum Severity: Mild Narrative: Patient presents for laceration to the right forehead after being struck on the head by a ladder at work. Patient states the ladders were leaning against the side a building and when he went to move them came back and struck him in the head. He did not get knocked to the ground. Patient is currently on Eliquis. He denies loss of consciousness, nausea, or vomiting. He is unsure of his last tetanus update. - Past Medical History (1) Essential (primary) hypertension Status: Chronic (2) Hyperlipidemia Status: Chronic (3) Paroxysmal atrial fibrillation Status: Chronic Past Medical History - Allergies and Home Meds Allergies/Adverse Reactions: Allergies ibuprofen Adverse Reaction (Verified 09/02/19 16:07) GI Upset Primary Care Physician: Carter Nicole MD [Primary Care Provider] - Prior records reviewed: Yes Surgical History: no surgical history Smoking Status: Never smoker - Family History Maternal Family History: Family History (Last Reviewed 08/09/19 @ 13:29 by Guicho Flood MD) Mother Heart disease Family History: Reports: Heart Disease - CHF Paternal Family History: Family History (Last Reviewed 08/09/19 @ 13:29 by Guicho Flood MD) Mother Heart disease Family History: Reports: No pertinent history Review of Systems General: Denies: Chills, Fever Eyes: Denies: Visual changes - bilaterally ENT: Denies: Bilateral ear pain Cardiovascular: Denies: Chest pain Respiratory: Denies: Dyspnea, Cough Gastrointestinal: Denies: Abdominal pain, Nausea, Vomiting, Diarrhea Musculoskeletal: Denies: Extremity Pain Skin: Reports: Wounds Neurological: Denies: Headache Allergy: Denies: Uticaria Physical Exam Vital Signs/Narrative: Vital Signs Temp Pulse Resp BP Pulse Ox 09/02/19 16:35 97 18 140/90 H 93 09/02/19 16:02 97.9 F 103 H 16 150/108 H 97 Inital Vital Signs reviewed: Yes General: Well nourished, Well developed Head: Normocephalic, Trauma - 3 cm linear laceration of the right upper forehead. Bleeding controlled. There is a smaller 1 cm linear superficial laceration just inferior and lateral to the larger laceration. No active bleeding from the site. ENT: Moist mucous membranes Neck: Supple, - - No C-spine tenderness. Cardiovascular: Regular rate, Regular rhythm Respiratory: No distress, CTA bilaterally Abdomen: Soft, Nontender Extremities: Nontender Skin: - - Laceration as above Neurological: Alert, Oriented x3, Normal Strength, Normal Sensation Psychological: Normal affect Diagnostic/Tx/Re-eval Impressions Brain CT 09/02/19 16:48 IMPRESSION: Normal unenhanced CT scan of the brain. Electronically Signed: Zora So MD at 17:10 EST , Service support , 09/02/19 16:48 CT Head [Brain/Head without Contrast] [CT] Stat - Medical Decision Making Tetanus update was provided. Please see procedure note for laceration repair. Patient continues to have a normal neuro exam. He will be discharged with family at this time. Procedures - Lacerations No standard instances Length: 1.18 in Depth: Sub Q Shape: Linear Prep: Cierra Laceration repair: Lidocaine, Local Number of Sutures/Decker: 6 Suture Information: Simple, 5-0 Comment: Wound was anesthetized with 1.5 cc of 1% lidocaine. Wound was cleansed. 6 simple interrupted sutures of 5-0 nylon were placed with good approximation. The smaller 1 cm laceration was sealed with Dermabond. Dressing is applied. ED Disposition - Plan for ED Patient: Disposition: Home or Assisted Living Diagnosis: Closed head injury, Forehead laceration Instructions: LACERATION, Face (Suture or Tape), HEAD INJURY, No Wake-Up (Adult) Referrals: Carter Nicole MD [Primary Care Provider] - [facility] [GROUP OF PHYSICIANS] - 5 Days for suture removal
--- NOTE | 2019-09-02 16:48 | CT_ITS ---
STUDY: CT BRAIN WITHOUT CONTRAST REASON FOR EXAM: Male, 59 years old. LADDER HIT PT IN HEAD, LAC TO FOREHEAD, ON ELIQUIS, NO LOC/acute injury RADIATION DOSAGE (If Supplied By Facility): CTDIvol = ( 44.99 ) mGy, DLP = ( 829.85 ) mGycm TECHNIQUE: Transaxial CT imaging of the brain was performed without administration of intravenous contrast material. Individualized dose optimization techniques were used for this CT. COMPARISON: No relevant priors. FINDINGS: Normal calvarium. Normal size ventricles and extra-axial spaces for the patient''s age. Normal white matter tracts of the cerebral hemispheres. Normal basal ganglia and thalami. Normal brainstem. Normal cerebellum. There is no intracranial hemorrhage. There are no findings of an acute ischemic infarction. Normal visualized paranasal sinuses. CT/Brain/Head without Contrast IMPRESSION: Normal unenhanced CT scan of the brain. Electronically Signed: Zora So MD at 17:10 EST , Service support ,
[2019-09-02] MEDS: Diphth,Pertuss(Acell),Tet Vac 0.5 ML Vial IM (17:12)
[2019-09-02 18:00] VITALS: BP 125/99; PULSE 96; RESP 18
== END 2019-09-02 18:02 | disposition home or self-care (01) ==
PROVIDERS: Emergency Provider Emergency Medicine; PCP Family Medicine
DX: S01.81XA Laceration without foreign body of other part of head, initial encounter (principal); W22.8XXA Striking against or struck by other objects, initial encounter
CPT/HCPCS: 12013; 70450; 90471; 90715; 99283

== ENCOUNTER 2020-03-22 11:16 | Emergency (ER) | payer OTHER, SELFPAY ==
[2020-02-07 12:59] VITALS: BMI 51.5
[2020-03-22] VITALS (8 sets, daily range): BP systolic 105–149; BP diastolic 69–88; PULSE 77–105; RESP 12–17; TEMP 36.1; O2SAT 94–100; BMI 50.8
--- NOTE | 2020-03-22 11:34 | EKG12_ITS ---
Test Reason : PALPS\SOB Blood Pressure : / mmHG Vent. Rate : 124 BPM Atrial Rate : 083 BPM P-R Int : 000 ms QRS Dur : 096 ms QT Int : 358 ms P-R-T Axes : 000 046 -03 degrees QTc Int : 514 ms Atrial fibrillation with rapid ventricular response with premature ventricular or aberrantly conducte d complexes Nonspecific T wave abnormality Abnormal ECG Confirmed by ALANIS CABRERA, VIOLETTA ([id number]), makeup editor ANIBAL SEXTON ([id number]) on 03/28/2020 10:25:58 AM Referred By: ANSHU Confirmed By:VIOLETTA THAPA MD
--- NOTE | 2020-03-22 11:37 | ED.VISSUMM ---
- ER Visit Summary Date of Service: 03/22/20 Chief Complaint: A. fib History of Present Illness: The patient is a 59 M who presents with palpitations that began this morning. Patient states he felt like he was back in A. fib again when he woke up today. Patient states he took an extra metoprolol at home and an extra half a tablet of flecainide this morning with no improvement. Patient states he feels uncomfortable in his chest. Patient states nothing makes it better or worse. Patient admits to some mild shortness of breath and diaphoresis with this. Patient also admits to a cough. Patient denies any nausea or vomiting. Patient also states that he took an extra half a pill of Eliquis this morning. Physical Examination: Vital signs are stable. Patient is afebrile. Patient is in no acute distress. Oral mucosa is pink and moist. Neck is supple. Trachea is midline. There is no JVD. Heart was irregularly irregular and tachycardic. Lungs are clear and equal bilaterally. Abdomen is soft. Bowel sounds are normal. There is no tenderness. Extremities are intact. There is no calf tenderness or edema. Cranial nerves II through XII are intact. There are no focal motor or sensory deficits noted. Test Results: EKG showed atrial fibrillation with a rate of 124. There are no acute ST or T wave changes. Portable chest x-ray was obtained. There is no acute cardiopulmonary process. This was interpreted by the radiologist and reviewed by myself. CBC was normal. Comprehensive metabolic profile showed an elevated creatinine of 1.31 and a glucose of 310. The remainder was within normal limits. Troponin was normal. Emergency Department Course and Treatment: Patient was given a dose of IV Cardizem here. Patient's heart rate improved but he remained in atrial fibrillation. Case was discussed with Dr. Flood. He agreed with cardioversion. Patient was advised of the risks and benefits. Patient states he has been cardioverted before and understands the risks and benefits. Patient agrees with cardioversion. Patient was sedated with a total of 80 mg of propofol. Patient had no hypoxic events during the sedation. Patient was cardioverted with 100 J of synchronized cardioversion without success. Patient was then cardioverted with 150 J of synchronized cardioversion and he converted to a normal sinus rhythm. Repeat EKG was obtained and showed a normal sinus rhythm with a rate of 77. Patient felt better on reevaluation. Patient was instructed to follow-up with Dr. Flood. Patient understood and was agreeable with the plan. All questions were answered. Disposition: Discharge home Impression: 1. Paroxysmal atrial fibrillation 2. Synchronized cardioversion This note was generated with [employer] software. It may contain incorrect words, spelling, and punctuation that were not noted in review of the chart prior to signing ED Disposition - Plan for ED Patient: Disposition: Home or Assisted Living Diagnosis: Paroxysmal atrial fibrillation Instructions: ED AFIB Referrals: Carter Nicole MD [Primary Care Provider] - 5-7 Days Guicho Flood MD [STAFF PHYSICIAN] - 3-5 Days
--- NOTE | 2020-03-22 11:43 | RAD_ITS ---
STUDY: X-RAY CHEST REASON FOR EXAM: Male, 59 years old palpitations, hypertension. TECHNIQUE: Single AP portable view of the chest. COMPARISON: 03/23/2019 FINDINGS: Stable elevation of the right hemidiaphragm. EKG leads overlie the chest The lungs are clear and expanded. There is no demonstrated pleural abnormality. Normal size heart. Normal mediastinum and bonnie. Normal visualized pulmonary arteries. Normal visualized aortic arch and descending thoracic aorta. There are diffuse degenerative changes of the visualized thoracic spine. Normal visualized ribs, clavicles, and shoulders. There is no demonstrated abnormality of the visualized soft tissue structures of the upper abdomen. RAD/Chest 1 View (Portable) IMPRESSION: No acute pulmonary process Electronically Signed: Sylvester Cavanaugh MD at 12:03 EDT , Service support ,
[2020-03-22] MEDS: dilTIAZem 25 MG/5 ML Vial IV BOLUS (11:53)
[2020-03-22 11:59] LABS: Absolute Lymphocyte Count 2.04 X10^3/uL (0.83-4.51); Absolute Neutrophil Count 4.7 X10^3/uL (2.0-7.7); Basophil# 0.03 X10^3/uL; Basophil% 0.4 % (0-1); Eosinophil# 0.09 X10^3/uL; Eosinophils% 1.2 % (0-5); Hematocrit 46.3 % (40-54); Hemoglobin 15.4 g/dL (13.0-16.5); Lymphocyte # 2.04 X10^3/ul (4.0); Lymphocyte % 27.8 % (19-41); Mean Corp Hgb Conc 33.3 g/dL (32-36); Mean Corpuscular Hgb 28.9 pg (27.0-32.0); Mean Platelet Vol. 10.5 fl (6.2-12.0); Monocyte# 0.48 X10^3/uL; Monocyte% 6.5 % (0-10); NRBC Flagged by Analyzer 0 % (0-5); Neutrophil # 4.66 X10^3/uL (2.7-7.7); Neutrophil % 63.7 % (47-70); Platelet Count 291 K/mm3 (150-450); RBC Distribution Width CV 13.2 % (11.6-14.6); RBC Distribution Width SD 41.9 fl (35.1-43.9); Red Blood Count 5.32 M/mm3 (4.6-6.2); White Blood Count 7.3 K/mm3 (4.4-11.0)
[2020-03-22 12:06] LABS: ALB/GLOB Ratio 1.1 RATIO (0.9-2.4); AST(SGOT) 49 U/L (15-37); Alanine Aminotransfer ALT/SGPT 80 U/L (16-61); Albumin, Serum 3.9 g/dL (3.2-5.0); Alkaline Phosphatase 60 U/L (45-117); Anion Gap 5 (5-15); BUN 13 mg/dL (7-18); BUN/Creat Ratio 9.9 RATIO (10-20); Calcium,Total 9.2 mg/dL (8.5-10.1); Chloride 108 mmol/L (98-107); Creatinine, Serum 1.31 mg/dL (0.70-1.30); EST Glomerular Filtration Rate 59 mL/min (>60); Est Glom Filt Rate - Afr Amer 71 mL/min (>60); Estimated Creatinine Clearance 55.36 ml/min; Globulin 3.5 g/dL (2.2-4.2); Glucose 310 mg/dL (74-106); Potassium 4.4 mmol/L (3.5-5.1); Protein, Total 7.4 g/dL (6.4-8.2); Sodium Level 138 mmol/L (136-145)
[2020-03-22] MEDS: Propofol 200 MG/20 ML Vial IV BOLUS (14:41)
--- NOTE | 2020-03-22 14:42 | EKG12_ITS ---
Test Reason : RYTHM CHANGE Blood Pressure : / mmHG Vent. Rate : 077 BPM Atrial Rate : 077 BPM P-R Int : 162 ms QRS Dur : 092 ms QT Int : 398 ms P-R-T Axes : 060 029 042 degrees QTc Int : 450 ms Normal sinus rhythm Normal ECG Confirmed by ALANIS CABRERA, VIOLETTA ([id number]), editorial intern ED BOND ([id number]) on 03/30/2020 9:19:56 AM Referred By: ANSHU Confirmed By:VIOLETTA THAPA MD
== END 2020-03-22 15:32 | disposition home or self-care (01) ==
PROVIDERS: Emergency Provider Emergency Medicine; PCP Family Medicine
DX: I48.0 Paroxysmal atrial fibrillation (principal); E11.9 Type 2 diabetes mellitus without complications; Z79.84 Long term (current) use of oral hypoglycemic drugs
CPT/HCPCS: 71045; 80053; 84484; 85025; 92960; 93005; 96374; 96375; 99152; 99284; A4216

== ENCOUNTER 2020-04-30 07:27 | Emergency (ER) | payer OTHER, SELFPAY ==
[2020-03-22 11:16] VITALS: BMI 50.8
[2020-04-30 07:27] VITALS: BP 145/89; PULSE 121; RESP 15; O2SAT 98
[2020-04-30 07:28] VITALS: BP 154/108; PULSE 108; RESP 20; TEMP 36.3; O2SAT 98; BMI 50.1
--- NOTE | 2020-04-30 07:36 | RAD_ITS ---
STUDY: X-RAY CHEST REASON FOR EXAM: Male, 59 years old. CHEST PAIN, PALPITATIONS TECHNIQUE: Single AP portable view of the chest. COMPARISON: Comparison is made with prior study dated 03/22/2020. FINDINGS: EKG electrodes are seen. The lungs are clear and expanded. There is no demonstrated pleural abnormality. There is borderline cardiomegaly. Normal mediastinum and bonnie. Normal visualized pulmonary arteries. Normal visualized aortic arch and descending thoracic aorta. Normal visualized thoracic spine. Normal visualized ribs, clavicles, and shoulders. There is no demonstrated abnormality of the visualized soft tissue structures of the upper abdomen. RAD/Chest 1 View (Portable) IMPRESSION: Borderline cardiomegaly. The lungs are clear. Electronically Signed: Luis A Romeo, at 8:25 EDT , Service support ,
--- NOTE | 2020-04-30 07:36 | EKG12_ITS ---
Test Reason : REPEAT Blood Pressure : / mmHG Vent. Rate : 081 BPM Atrial Rate : 081 BPM P-R Int : 158 ms QRS Dur : 094 ms QT Int : 396 ms P-R-T Axes : 076 025 037 degrees QTc Int : 460 ms Normal sinus rhythm Normal ECG Confirmed by CHAD CABRERA, LEO ([id number]), restaurant expeditor ROBER STEVENS ([id number]) on 05/07/2020 8:34:05 A M Referred By: CL Confirmed By:DICK BONILLA MD
--- NOTE | 2020-04-30 07:40 | EKG12_ITS ---
Test Reason : PALPITATIONS Blood Pressure : / mmHG Vent. Rate : 124 BPM Atrial Rate : 166 BPM P-R Int : 000 ms QRS Dur : 098 ms QT Int : 334 ms P-R-T Axes : 000 027 -04 degrees QTc Int : 479 ms Atrial fibrillation with rapid ventricular response Abnormal ECG Confirmed by CHAD CABRERA, LEO ([id number]), health editor ED BOND ([id number]) on 05/15/2020 8:48:41 AM Referred By: CL Confirmed By:DICK BONILLA MD
--- NOTE | 2020-04-30 07:49 | ED.DCSUM_ITS ---
History of Present Illness Chief Complaint: Palpitations Informant: Patient Narrative: 59-year-old male with past medical history of hypertension, diabetes, atrial fibrillation presents with concern for atrial fibrillation. Patient a history of paroxysmal A. fib. States that he felt himself going to atrial for above or night. States he is on flecainide. Took his metoprolol this morning hoping that it would resolve his atrial fib but it continues. He denies any chest pain, shortness of breath, nausea, vomiting, diaphoresis. States that last month he had a similar episode and required cardioversion. Denies any drugs or alcohol. Denies any smoking. Is currently anticoagulated. Past Medical History - Allergies and Home Meds Allergies/Adverse Reactions: Allergies ibuprofen Adverse Reaction (Verified 04/30/20 07:27) GI Upset Primary Care Physician: Carter Nicole MD [Primary Care Provider] - Prior records reviewed: Yes Past Medical History: - - HTN, DMII, PAF Surgical History: no surgical history Lives: Spouse/ Significant Other Smoking Status: Never smoker Alcohol: None Drugs: None - Family History Maternal Family History: Family History (Last Reviewed 08/09/19 @ 13:[address] Guicho Flood MD) Mother Heart disease Family History: Reports: Heart Disease - CHF Paternal Family History: Family History (Last Reviewed 08/09/19 @ 13:[address] Guicho Flood MD) Mother Heart disease Family History: Reports: No pertinent history Review of Systems General: Denies: Chills, Fever, Sweats Eyes: Denies: Visual changes - bilaterally, Diplopia ENT: Denies: Rhinorrhea, Sore throat Cardiovascular: Reports: Palpitations, Heart racing. Denies: Chest pain Respiratory: Denies: Dyspnea, Cough, Dyspnea on exertion Gastrointestinal: Denies: Abdominal pain, Nausea, Vomiting, Diarrhea, Melena, Hematochezia Genitourinary: Denies: Dysuria, Hematuria, Frequency Musculoskeletal: Denies: Back pain, Extremity Pain Skin: Denies: Rash, Wounds Neurological: Denies: Headache, Weakness, Numbness Physical Exam Vital Signs/Narrative: Vital Signs Temp Pulse Resp BP Pulse Ox 04/30/20 07:28 97.4 F L 108 H 20 H 154/108 H 98 04/30/20 07:27 121 H 15 145/89 H 98 General: Well nourished, Well developed, No Acute Distress Head: Normocephalic, Atraumatic Eyes: Perrl, EOMI ENT: Moist mucous membranes, No rhinorrhea Neck: Supple, Nontender Cardiovascular: No murmurs, Irregular, Tachycardia Respiratory: No distress, CTA bilaterally, Chest nontender Abdomen: Soft, Nontender, Nondistended, Normal bowel sounds Back: Nontender, Normal Inspection Extremities: Nontender, No edema Skin: Normal color, No rash Neurological: Alert, Oriented x3, Cranial nerves II-XII grossly intact, Normal Strength, Normal Sensation Psychological: Normal affect, Normal Mood Diagnostic/Tx/Re-eval Chest X-Ray - ED: 1 View, Normal - Rhythm Strip Rhythm Strip: A-fib Rate: 124 - EKG Initial EKG Interpretation: Atrial Fibrillation - Fibrillation with rapid ventricular response of 124 bpm. QTC of 479 ms. No evidence of ST elevation or depression at this time. Follow-up EKG Interpretation: Sinus Rhythm - Sinus rhythm at 81 bpm. [place] interval of 158 ms. QTC of 460 ms. No evidence of ST elevation or depression at this time. - Medical Decision Making Patient appears well and nontoxic. Atrial fibrillation with RVR. Lab work within normal limits other than chronic kidney disease. Patient was given 5 mg of Lopressor which did slightly decrease his heart rate. Spoke with Dr. Wynne furnace door tender on-call who recommended cardioversion. His preparations were being made for the cardioversion. Patient spontaneously converted into normal sinus rhythm. Normotensive. Patient will be advised to follow-up with his furnace door tender for discussion of ablation. Asked to return for chest pain or shortness of breath or palpitations. Patient agreeable and discharged home in stable condition. Impression: 1. Atrial fibrillation with rapid ventricular rate - resolved 2. History of hypertension ED Disposition - Plan for ED Patient: Disposition: Home or Assisted Living Instructions: ED AFIB Referrals: Carter Nicole MD [Primary Care Provider] - 2 Days Guicho Flood MD [STAFF PHYSICIAN] - 3-5 Days
[2020-04-30] MEDS: Metoprolol Tartrate 5 MG/5 ML Vial IV (07:55)
[2020-04-30 08:09] LABS: Absolute Lymphocyte Count 2.47 X10^3/uL (0.83-4.51); Absolute Neutrophil Count 4.7 X10^3/uL (2.0-7.7); Basophil# 0.04 X10^3/uL; Basophil% 0.5 % (0-1); Eosinophil# 0.26 X10^3/uL; Eosinophils% 3.2 % (0-5); Hematocrit 45.3 % (40-54); Hemoglobin 14.9 g/dL (13.0-16.5); Lymphocyte # 2.47 X10^3/ul (4.0); Lymphocyte % 30.3 % (19-41); Mean Corp Hgb Conc 32.9 g/dL (32-36); Mean Corpuscular Hgb 29.2 pg (27.0-32.0); Mean Corpuscular Volume 88.6 fL (80-94); Mean Platelet Vol. 10.2 fl (6.2-12.0); Monocyte# 0.62 X10^3/uL; Monocyte% 7.6 % (0-10); NRBC Flagged by Analyzer 0 % (0-5); Neutrophil # 4.72 X10^3/uL (2.7-7.7); Neutrophil % 57.9 % (47-70); Platelet Count 258 K/mm3 (150-450); RBC Distribution Width CV 13.5 % (11.6-14.6); RBC Distribution Width SD 43.8 fl (35.1-43.9); Red Blood Count 5.11 M/mm3 (4.6-6.2); White Blood Count 8.2 K/mm3 (4.4-11.0)
[2020-04-30 08:31] LABS: Anion Gap 8 (5-15); BUN 18 mg/dL (7-18); BUN/Creat Ratio 16.2 RATIO (10-20); Calcium,Total 9.1 mg/dL (8.5-10.1); Chloride 110 mmol/L (98-107); Creatinine, Serum 1.11 mg/dL (0.70-1.30); EST Glomerular Filtration Rate 71 mL/min (>60); Est Glom Filt Rate - Afr Amer 86 mL/min (>60); Estimated Creatinine Clearance 65.34 ml/min; Glucose 247 mg/dL (74-106); Magnesium 1.9 mg/dL (1.6-2.6); Potassium 4.1 mmol/L (3.5-5.1); Sodium Level 139 mmol/L (136-145)
--- NOTE | 2020-04-30 09:40 | ED.RN ---
0930-consent for cardioversion went over with pt and signed with no questions.
--- NOTE | 2020-04-30 09:41 | ED.RN ---
pt converted to sr now with hr 70's. dr. golden aware.
[2020-04-30 10:16] VITALS: BP 120/83; PULSE 81; RESP 12; O2SAT 96
== END 2020-04-30 10:20 | disposition home or self-care (01) ==
PROVIDERS: Emergency Provider Emergency Medicine; PCP Family Medicine
DX: I48.0 Paroxysmal atrial fibrillation (principal); E11.9 Type 2 diabetes mellitus without complications; I10 Essential (primary) hypertension; Z79.84 Long term (current) use of oral hypoglycemic drugs
CPT/HCPCS: 71045; 80048; 83735; 84484; 85025; 93005; 96374; 99285; J7030; A4216

== ENCOUNTER → 2021-04-08 06:14 | Outpatient (CLI) | payer OTHER, SELFPAY ==
--- NOTE | 2021-04-08 19:51 | STRESSREP_ITS ---
Stress Test Report Exercise myocardial perfusion stress test. 60-year-old man with a history of atrial fibrillation. Medications metoprolol, apixaban, lisinopril, pravastatin. Stress protocol: Resting EKG demonstrates normal sinus rhythm with a rate of 72 bpm normal intervals are noted resting blood pressure is 120/84 mmHg. The patient exercised according to regular Tim protocol for total duration of 5 minutes and 30 seconds. The maximum heart rate attained was 139 bpm which was 87% of maximum predicted heart rate the maximum workload was 7.2 metabolic equivalents. At rest there were no ST changes noted to suggest ischemia and at peak exercise T wave inversion was noted in lead III with did not meet the criteria for ischemia. No clinical angina was noted the test was terminated due to leg fatigue. The peak ejection fraction was 170/82 mmHg. The rate-pressure product was 23,290. Myocardial perfusion protocol. 14.6 mCi of technetium 99m sestamibi was injected at rest. The patient exercised according to regular Tim protocol for a total duration of 5 minutes and 30 seconds. At peak exercise 45.8 mCi of technetium 99m sestamibi was in jected stress images were obtained stress and rest images were reconstructed in comparing the short axis vertical long horizontal long axis. Gated images were also obtained per Perfusion SPECT analysis: Review of the stress images demonstrate normal uptake of tracer noted in all areas of the myocardium. There is a small portion of the apex with mildly reduced perfusion. The rest of the orantes appear to be normally perfused on the stress and resting images. The apex is also mildly reduced in perfusion on the resting images. The previous infarct cannot be completely excluded. No obvious ischemia is noted. Gated SPECT analysis: The gated ejection fraction is 70%. Conclusion: Normal exercise myocardial perfusion stress test at a moderate workload. Preserved ejection fraction.
== END ==
PROVIDERS: PCP Family Medicine; Referring Provider Physician Assistant Medical; Visit Provider Physician Assistant Medical
DX: I48.0 Paroxysmal atrial fibrillation (principal); I10 Essential (primary) hypertension; E11.9 Type 2 diabetes mellitus without complications
CPT/HCPCS: 78452; 93017; A9500; A4216

== ENCOUNTER 2023-03-16 19:04 | Emergency (ER) | payer OTHER, SELFPAY ==
[2023-03-16 19:05] VITALS: BP 158/99; PULSE 93; RESP 18; TEMP 36.7; O2SAT 99; BMI 48.4
--- NOTE | 2023-03-16 19:07 | EKG12_ITS ---
Test Reason : CP Blood Pressure : / mmHG Vent. Rate : 088 BPM Atrial Rate : 088 BPM P-R Int : 180 ms QRS Dur : 102 ms QT Int : 390 ms P-R-T Axes : 064 028 024 degrees QTc Int : 471 ms Normal sinus rhythm Normal ECG Confirmed by MIKE RODGERS ([id number]), web content editor LU CROOK ([id number]) on 03/27/2023 2:09:55 PM Referred By: Confirmed By:MIKE RODGERS
--- NOTE | 2023-03-16 19:15 | RAD_ITS ---
INDICATION: chest pain EXAMINATION/TECHNIQUE: X-RAY - XR Chest 1 View COMPARISON: April 30, 2020 FINDINGS: LINES/DEVICES: None. LUNGS: No consolidation, edema or effusion. No pneumothorax. MEDIASTINUM AND CARDIOVASCULAR STRUCTURES: Cardiac silhouette not enlarged. Central airways and mediastinal contour are unremarkable. BONES AND SOFT TISSUES: Degenerative vertebral changes. RAD/Chest 1 View (Portable) IMPRESSION: No radiographic evidence of acute cardiopulmonary disease. Electronically Signed: Xander Carcamo DO at 19:26 EDT ,
[2023-03-16 20:02] VITALS: O2SAT 94
[2023-03-16 20:05] LABS: Absolute Neutrophil Count 4.7 X10^3/uL (2.0-7.7); Basophil# 0.04 X10^3/uL; Basophil% 0.5 % (0-1); Eosinophil# 0.27 X10^3/uL; Eosinophils% 3.3 % (0-5); Hemoglobin 13.7 g/dL (13.0-16.5); Lymphocyte % 30.8 % (19-41); Mean Corp Hgb Conc 33.4 g/dL (32-36); Mean Corpuscular Hgb 29.2 pg (27.0-32.0); Mean Corpuscular Volume 87.4 fL (80-94); Mean Platelet Vol. 9.8 fl (6.2-12.0); Monocyte# 0.54 X10^3/uL; Monocyte% 6.7 % (0-10); NRBC Flagged by Analyzer 0 % (0-5); Neutrophil # 4.73 X10^3/uL (2.7-7.7); Neutrophil % 58.3 % (47-70); Platelet Count 237 K/mm3 (150-450); RBC Distribution Width CV 13.2 % (11.6-14.6); RBC Distribution Width SD 42.3 fl (35.1-43.9); Red Blood Count 4.69 M/mm3 (4.6-6.2); White Blood Count 8.1 K/mm3 (4.4-11.0)
--- NOTE | 2023-03-16 20:13 | ED.VIS.CHEST ---
HPI History of Present Illness Chief Complaint: Chest Pain Informant: patient Onset/Context/Timing Onset: Today (For the past 13 or so hours) Activity at onset: sudden, onset and activity on onset (Random) Timing: Intermittent and Lasts (20 seconds or so) Quality: Positive for - (Pinching) Location: Left Parasternal (Radiating straight through to left paraspinal back) Current Severity: Gone Maximum Severity: Mild Worsened By: Nothing Relieved By: Nothing Associated Symptoms: Positive for - (No associated symptoms) Narrative Narrative: Patient with intermittent episodes of left sided chest discomfort radiating into his back without any other associated symptoms such as palpitations, dyspnea, lightheadedness, sweating. He does not have a history of coronary disease that he knows of, but he is anticoagulated on apixaban because of a history of atrial fibrillation which he knows when he goes into, which has not occurred today. He has been cardioverted unsuccessfully and successfully in the past, and for the most part stays out of atrial fibrillation given his flecainide that he continues on. He follows with Dr. Flood. Has had stress testing that was negative in the past, the last one was several years ago he thinks. This has occurred randomly off-and-on all day today, may be 10 episodes or so. CVD Risk Factors: Positive for Hypertension, Diabetes, Hypercholesterolemia and Family History 1' </=55 (Brother around 55; father older in the 70s); Negative for Smoking [facility] Medical History Atrial fibrillation with RVR (10/02/18) Essential (primary) hypertension Hyperlipidemia Morbid obesity Obstructive sleep apnea Paroxysmal atrial fibrillation Type 2 diabetes mellitus Home Medications fenofibrate 160 mg tablet 160 mg PO DAILY triglycerides 07/26/18 [History Last Taken 07/26/18] fluticasone propionate 50 mcg/actuation nasal spray,suspension 2 spray NASAL DAILY allergies 07/26/18 [History Last Taken 07/26/18] [id number] 300 mcg-K 60 mcg-lycop 600 mcg-lutein 300 mcg tablet 1 tab PO DAILY supplement 07/26/18 [History Last Taken Unknown] metformin 500 mg tablet,extended release 24 hr 1,000 mg PO BID diabetes 09/20/20 [History Last Taken Unknown] apixaban 5 mg tablet 5 mg PO BID #180 tabs 03/25/22 [Rx Last Taken Unknown] metoprolol succinate 25 mg tablet,extended release 24 hr 25 mg PO BID #180 tabs 04/29/22 [Rx Last Taken Unknown] dulaglutide 4.5 mg/0.5 mL subcutaneous pen injector (Trulicity) 4.5 mg subcut QWEEK 06/30/22 [History Last Taken Unknown] lisinopril 10 mg tablet 10 mg PO DAILY #90 tabs 07/15/22 [Rx Last Taken Unknown] flecainide 150 mg tablet See Rx Instructions .Route .COMPLEX #180 tabs 01/06/23 [Rx Last Taken Unknown] dapagliflozin propanediol 5 mg tablet (Farxiga) 5 mg PO DAILY 01/14/23 [History Last Taken Unknown] pravastatin 10 mg tablet 40 mg PO DAILY 01/14/23 [History Last Taken Unknown] Allergy/AdvReac Type Severity Reaction Status Date / Time ibuprofen AdvReac GI Upset Verified 03/16/23 19:07 Family History Mother Heart disease chf Surgical History History of cardioversion (10/02/18) History of left heart catheterization (09/28/08) Social History Smoking Status: Never smoker alcohol intake: current alcohol intake frequency: holidays/special occasions only substance use type: does not use caffeine: Yes Type: tea Number of servings: 3 ROS ROS ED Constitutional Constitutional ED: Denies chills or fever(s) Eyes Eyes: Denies change in vision or diplopia ENT ENT ED: Denies rhinorrhea or sore throat Cardiovascular Cardiovascular: Reports chest pain; Denies palpitations or racing heartbeat Respiratory/Chest Respiratory/Chest: Denies cough or dyspnea Gastrointestinal Gastrointestinal: Denies abdominal pain, diarrhea, nausea or vomiting Genitourinary Genitourinary ED: Denies dysuria or hematuria Musculoskeletal Musculoskeletal: Reports back pain; Denies myalgias or neck pain Integumentary Denies abscess or rash Neurologic Neurologic: Denies headache(s), paresthesias or weakness Psychiatric Psychiatric: Denies anxiety or suicidal thoughts EXAM Physical Exam Const Vital Signs: 03/16/23 19:05 03/16/23 20:02 03/16/23 21:13 Temperature 98.0 F Temperature Source Temporal Pulse Rate 93 86 Respiratory Rate 18 15 Blood Pressure 158/99 H 142/90 H Blood Pressure Mean 118 107 Pulse Ox 99 94 94 Oxygen Delivery Method Room Air Room Air Room Air 03/16/23 22:35 Temperature Temperature Source Pulse Rate 82 Respiratory Rate 18 Blood Pressure 162/96 H Blood Pressure Mean 118 Pulse Ox 95 Oxygen Delivery Method Room Air Positive well nourished, well developed and obese Constitutional Narrative: Well-appearing in no distress General Appearance ED: well developed and NAD Nutritional Appearance: obese HEENT Reports moist mucous membranes normocephalic and atraumatic Eyes PERRL and EOMs intact bilaterally Neck full ROM and supple Resp normal respiratory effort and clear to auscultation bilaterally Cardio regular rate, regular rhythm and no murmurs GI non-tender and non-distended Auscultation: normoactive bowel sounds Palpation: soft Back/Spine no CVA tenderness General Back: other FROM Extremity normal to inspection General Extremety ED: Negative for edema, pulses abnormal or tenderness General Extremity: Negative for edema or pulses abnormal Neuro oriented x3, CN's II-XII intact bilaterally and no sensory deficits noted Sensorium / Orientation: awake and alert Motor Exam: strength 5/5 throughout Psych mental status grossly normal Skin no rashes or lesions noted and no wounds Heart Score History: Slightly/Non-Suspicious ECG: Normal Age: >45 - <65 years Risk Factors: >/= 3 Risk Factors or History of CAD Troponin: </= Normal Limit Score: 3 MDM MDM MDM Narrative Medical decision making narrative: Patient's heart score is relatively low given the risk factors that he has, he is anticoagulated so I held off on aspirin, and because his symptoms sound atypical and less likely to be cardiac in etiology. His EKG is normal, chest x-ray 1 view on my interpretation normal, and his initial troponin is 4. We did repeat 2 hours later it is 6. This is essentially a delta that is negative, and he is stable for discharge home close outpatient follow-up. He is comfortable with that plan. Lab Data Attestation: I reviewed the patient's lab results. Labs: Laboratory Results - last 24 hr 03/16/23 03/16/23 20:00 22:10 WBC 8.1 RBC 4.69 Hgb 13.7 Hct 41.0 MCV 87.4 MCH 29.2 MCHC 33.4 RDW Std Deviation 42.3 RDW Coeff of Michelle 13.2 Plt Count 237 MPV 9.8 Immature Gran % (Auto) 0.400 Neut % (Auto) 58.3 Lymph % (Auto) 30.8 [place] % (Auto) 6.7 Eos % (Auto) 3.3 Baso % (Auto) 0.5 Absolute Neuts (auto) 4.7 Absolute Lymphs (auto) 2.50 Nucleated RBC % 0 Sodium 139 Potassium 3.5 Chloride 107 Carbon Dioxide 24.0 Anion Gap 8 BUN 13 Creatinine 1.04 Estim Creat Clear Calc 67.09 Est GFR (MDRD) Af Amer 92 Est GFR (MDRD) Non-Af 76 BUN/Creatinine Ratio 12.5 Glucose 187 H Calcium 8.9 Troponin I High Sens 4 6 Radiography Diagnostic Testing: Clinical Impression(s) from Imaging Studies Chest X-Ray 03/16/23 19:15 IMPRESSION: No radiographic evidence of acute cardiopulmonary disease. Electronically Signed: Xander Carcamo DO at 19:26 EDT Reading Location ID and State: [facility] / [place] Tel [phone], Service support , Rhythm Strip Rhythm Strip: Sinus Rhythm Rate: 85 Ectopy: None EKG Initial EKG: Attestation: I personally reviewed and interpreted this EKG as follows: Interpretation: Sinus Rhythm and No Acute Injury Pattern Comments: nml EKG Discharge Plan Triage Chief Complaint: Chest Pain ED Provider: Mehdi Garcia Dx/Rx/DC Orders Clinical Impression: Atypical chest pain Instructions: ED Chest Pain, Uncertain Cause Prescriptions: No Action Trulicity 4.5 mg/0.5 mL pen injector 4.5 mg subcut QWEEK pravastatin 10 mg tablet 40 mg PO DAILY Farxiga 5 mg tablet 5 mg PO DAILY fenofibrate 160 tablet 160 mg PO DAILY fluticasone propionate 50 spray,suspension 2 spray NASAL DAILY [id number] 1 EACH tablet 1 tab PO DAILY metformin 500 mg tablet extended release 24 hr 1,000 mg PO BID apixaban 5 mg tablet 5 mg PO BID Qty: 180 3RF metoprolol succinate 25 mg tablet extended release 24 hr 25 mg PO BID Qty: 180 3RF lisinopril 10 mg tablet 10 mg PO DAILY Qty: 90 3RF flecainide 150 mg tablet See Rx Instructions .ROUTE .COMPLEX Qty: 180 3RF Dose Instruction: TAKE 1 TABLET EVERY 12 HOURS Rx Instructions: TAKE 1 TABLET EVERY 12 HOURS Primary Care Provider: Carter Nicole Referrals: Carter Nicole MD [Primary Care Provider] - (Call for follow-up appointment) Disposition Disposition: Home, Self Care
[2023-03-16 20:37] LABS: Anion Gap 8 (5-15); BUN 13 mg/dL (7-18); BUN/Creat Ratio 12.5 RATIO (10-20); Calcium,Total 8.9 mg/dL (8.5-10.1); Chloride 107 mmol/L (98-107); Creatinine, Serum 1.04 mg/dL (0.70-1.30); EST Glomerular Filtration Rate 76 mL/min (>60); Est Glom Filt Rate - Afr Amer 92 mL/min (>60); Estimated Creatinine Clearance 67.09 ml/min; Glucose 187 mg/dL (74-106); Potassium 3.5 mmol/L (3.5-5.1); Sodium Level 139 mmol/L (136-145); Troponin-I HS (w/2H Reflex) 4 pg/mL (3.0-78.0)
[2023-03-16 21:13] VITALS: BP 142/90; PULSE 86; RESP 15; O2SAT 94
[2023-03-16 22:02] LABS: Reflex Troponin-HS? (from REC) Y
[2023-03-16 22:35] VITALS: BP 162/96; PULSE 82; RESP 18; O2SAT 95
[2023-03-16 22:35] LABS: Troponin-I HS 6 pg/mL (3.0-78.0)
[2023-03-16 22:51] VITALS: BP 147/71; PULSE 74; RESP 16; O2SAT 96
== END 2023-03-16 22:52 | disposition home or self-care (01) ==
PROVIDERS: Emergency Provider Emergency Medicine; PCP Family Medicine; Visit Provider Emergency Medicine
DX: R07.89 Other chest pain (principal); I48.0 Paroxysmal atrial fibrillation; G47.33 Obstructive sleep apnea (adult) (pediatric); E66.9 Obesity, unspecified; Z79.01 Long term (current) use of anticoagulants
CPT/HCPCS: 71045; 80048; 84484; 85025; 93005; 99284; A4216

== ENCOUNTER → 2024-03-30 | Outpatient (CLI) | payer MEDICARE, SELFPAY ==
--- NOTE | 2024-03-30 10:54 | ECHOCS_ITS ---
Reason For Study: MURMUR/ AFIB Procedure This was a 2D Doppler, Color Flow transthoracic echocardiogram. The study was technically difficult. Contrast injection was performed. Exam performed in department. Left Ventricle Normal LV size. Left ventricular systolic function is normal. The left ventricular ejection fraction is 60 %. Stage 1 diastolic dysfunction. No regional wall motion abnormalities noted. Right Ventricle Normal RV size. Normal systolic function. Atria Normal left atrium. Normal right atrium. Mitral Valve Normal mitral valve. Tricuspid Valve Normal tricuspid valve. Aortic Valve Trisinus/trileaflet aortic valve. Pulmonic Valve Normal pulmonic valve. Great Vessels Normal aortic root. The pulmonary artery is normal size. Normal inferior vena cava. Pericardium/Pleural No pericardial effusion. Medication 22 gauge I.V. with prn adaptor inserted into left arm. Diluted definity 2ml given slow IV push to enhance endocardial definition. MMode/2D Measurements & Calculations LVIDd: 4.2 cm IVSd: 1.2 cm LVOT diam: 2.2 cm LVIDs: 2.3 cm LVPWd: 1.1 cm RVDd: 4.5 cm FS: 44.7 % LVOT area: 3.7 cm2 asc Aorta Diam: 3.6 cm LAV(MOD-bp): 49.7 ml LVAd ap4: 36.9 cm2 LAV(MOD-bp) Indexed: 20.9 ml/m2 LVLd ap4: 9.0 cm LAV(MOD-sp2): 49.0 ml EDV(MOD-sp4): 121.5 ml LAV(MOD-sp4): 50.0 ml EDV(sp4-el): 128.8 ml LVAs ap4: 19.5 cm2 LVLs ap4: 7.3 cm ESV(MOD-sp4): 42.3 ml ESV(sp4-el): 44.3 ml EF(MOD-sp4): 65.2 % EF(sp4-el): 65.6 % LVAd ap2: 35.7 cm2 SV(MOD-sp4): 79.2 ml SV(MOD-sp2): 67.0 ml LVLd ap2: 8.9 cm EDV(MOD-sp2): 116.0 ml EDV(sp2-el): 121.9 ml LVAs ap2: 21.0 cm2 LVLs ap2: 7.1 cm ESV(MOD-sp2): 49.1 ml ESV(sp2-el): 52.8 ml EF(MOD-sp2): 57.7 % SV(sp4-el): 84.5 ml Ao sinus diam: 3.[address] Junction: 3.2 cm LA dimension(2D): 4.2 cm LA A4 area: 18.3 cm2 RA A4 area: 9.8 cm2 TAPSE: 1.9 cm Time Measurements MV dec time: 0.18 sec Doppler Measurements & Calculations MV E max gato: 72.3 cm/sec Lat Peak E' Gato: 14.4 cm/sec Med Peak E' Gato: 9.6 cm/sec MV A max gato: 74.7 cm/sec E/E' lat: 5.0 E/E' med: 7.5 MV E/A: 0.97 MV dec slope: 401.6 cm/sec2 Ao V2 max: 179.1 cm/sec LV V1 max: 114.4 cm/sec Ao max P.8 mmHg LV V1 max P.2 mmHg Ao V2 mean: 129.3 cm/sec LV V1 mean P.5 mmHg Ao mean P.5 mmHg LV V1 mean: 90.4 cm/sec Ao V2 VTI: 32.1 cm LV V1 VTI: 20.9 cm AV (velocity ratio): 0.65 DEONTE(I,D): 2.4 cm2 DEONTE(V,D): 2.4 cm2 SV(LVOT): 78.4 ml PA V2 max: 100.5 cm/sec PA max PG (full): 1.0 mmHg ECHO/Echo Complete W/ Contrast Interpretation Summary Normal LV size. Left ventricular systolic function is normal. The left ventricular ejection fraction is 60 %. Stage 1 diastolic dysfunction. Contrast injection was performed. Ordering Physician: Lorena Meadows Referring Physician: Lorena Meadows Performed By: Crissy Viera RDCS
== END | disposition home or self-care (01) ==
LOC: CVS 10:53
PROVIDERS: PCP Family Medicine; Referring Provider Physician Assistant Medical; Visit Provider Physician Assistant Medical
DX: I48.0 Paroxysmal atrial fibrillation (principal)
CPT/HCPCS: 93306; Q9957; A4216; C8929